=== PATIENT | male | born 1950 | race Caucasian/White ===

== ENCOUNTER 2020-11-24 16:39 | Inpatient (IN) | payer BC, MEDICARE ==
[~2020-11-24] VITALS: Ht 177.8 cm; Wt 96.0 kg
[2020-11-24] VITALS (19 sets, daily range): BP systolic 170–259; BP diastolic 100–154
[2020-11-24 17:17] LABS: BASO # 0.1 10^3/uL (0.0-0.2); BASO % 0.7 % (0.0-1.0); EOS # 0.3 10^3/uL (0.0-0.5); EOS % 3.2 % (0.0-3.0); HEMATOCRIT 43.6 % (42.0-52.0); HEMOGLOBIN 14.6 g/dl (13.5-17.5); LYMPH # 2.4 10^3/uL (1.5-5.0); LYMPH % 29.5 % (24.0-44.0); MEAN CORPUSCULAR HGB CONC 33.5 g/dl (32.0-36.5); MEAN CORPUSCULAR VOLUME 89.5 fl (80.0-96.0); MONO # 0.9 10^3/uL (0.0-0.8); MONO % 11.3 % (2.0-8.0); NEUTROPHILS # 4.4 10^3/uL (1.5-8.5); NEUTROPHILS % 55.2 % (36.0-66.0); PLATELET COUNT, AUTOMATED 258 10^3/uL (150-450); RED BLOOD COUNT 4.87 10^6/uL (4.30-6.10)
[2020-11-24 17:54] LABS: ALBUMIN 4.2 GM/DL (3.2-5.2); ALT/SGPT 26 U/L (12-78); BILIRUBIN,DIRECT < 0.1 MG/DL (0.0-0.2); BILIRUBIN,TOTAL 0.3 MG/DL (0.2-1.0); BLOOD UREA NITROGEN 22 MG/DL (7-18); CALCIUM LEVEL 9.2 MG/DL (8.8-10.2); CARBON DIOXIDE LEVEL 32 MEQ/L (21-32); CHLORIDE LEVEL 103 MEQ/L (98-107); CREATININE FOR GFR 1.04 MG/DL (0.70-1.30); GLOMERULAR FILTRATION RATE > 60.0 (>42); GLUCOSE, FASTING 100 MG/DL (70-100); POTASSIUM SERUM 3.6 MEQ/L (3.5-5.1); SODIUM LEVEL 140 MEQ/L (136-145); TOTAL PROTEIN 7.3 GM/DL (6.4-8.2)
[2020-11-24] MEDS ORDERED: LABETALOL 100MG/20ML VIAL IV STA ×2 (17:59→18:29)
[2020-11-24 18:48] LABS: APPEARANCE, URINE CLEAR (CLEAR); BACTERIA, URINE AUTO NEGATIVE (NEGATIVE); BILIRUBIN, URINE AUTO NEGATIVE (NEGATIVE); BLOOD, URINE BLOOD NEGATIVE (NEGATIVE); COLOR, URINE YELLOW (YELLOW); GLUCOSE, URINE (UA) AUTO NEGATIVE (NEGATIVE); KETONE, URINE AUTO NEGATIVE (NEGATIVE); LEUKOCYTE ESTERASE, URINE AUTO NEGATIVE (NEGATIVE); MUCUS, URINE SMALL (NEGATIVE); NITRITE, URINE AUTO NEGATIVE (NEGATIVE); PROTEIN, URINE AUTO 1+ mg/dL (NEGATIVE); RBC, URINE AUTO 0 /HPF (0-3); SPECIFIC GRAVITY URINE AUTO 1.013 (1.002-1.035); SQUAMOUS EPITHELIAL CELL UR AU 0 /HPF (0-6); UROBILINOGEN, URINE AUTO 0.2 mg/dL (0.0-2.0); WBC, URINE AUTO 1 /HPF (0-3)
--- NOTE | 2020-11-24 18:54 | REPVR ---
PROCEDURE INFORMATION: Exam: CT Head Without Contrast Exam date and time: 11/24/2020 6:08 PM Age: 70 years old Clinical indication: Visual disturbance; Additional info: Diplopia high BP TECHNIQUE: Imaging protocol: Computed tomography of the head without contrast. Radiation optimization: All CT scans at this facility use at least one of these dose optimization techniques: automated exposure control; mA and/or kV adjustment per patient size (includes targeted exams where dose is matched to clinical indication); or iterative reconstruction. COMPARISON: No relevant prior studies available. FINDINGS: Brain: Global cerebral atrophy is consistent with patient's age. Decreased attenuation within the white matter tracts of both cerebral hemispheres is nonspecific but typically seen with small vessel disease/chronic white matter ischemic changes of aging. No intracranial hemorrhage or mass effect. No abnormal intra-axial or extra-axial fluid collections. Cerebral ventricles: No ventriculomegaly. Bones/joints: Unremarkable. No acute fracture. Paranasal sinuses: Visualized sinuses are unremarkable. No fluid levels. Mastoid air cells: Visualized mastoid air cells are well aerated. Soft tissues: Unremarkable. IMPRESSION: No acute abnormality. Electronically signed by: Kahlil Garnica On 11/24/2020 18:53:41 PM
--- NOTE | 2020-11-24 19:54 | HPEPDOC ---
[facility] Medical History & Physical Date of Admission November 24, 2020 Date of Service: November 24, 2020 Attending Physician: WANDA DAWKINS DO History and Physical PCP The patient does not have a primary care physician at this time, he will need to establish one upon discharge CHIEF COMPLAINT: Hypertensive emergency, diplopia HISTORY OF PRESENT ILLNESS: Patient is 70-year-old male who presents emergency department with a four-day history of diplopia. At first it only occurred intermittently, but now it seems to be more constant. It only affects objects that are greater than approximately 4 feet away. Also, today he began to develop some pain/pressure behind his right eye. Upon presentation to the emergency department he had a blood pressure of 240/145. He was given 2 doses of labetalol 20 mg IV in the emergency department; it went down to 225/138 after the first dose, and then down to 188/119 after the second dose. CT of the head was unremarkable, MRA is still pending. He does not have any focal neural deficit other than diplopia. CODE STATUS: Full code PAST MEDICAL HISTORY: Hypertension Obstructive sleep apnea --- he has not seen a physician in many years, and has not taken any medication in many years, and it has also been many years since he has been reevaluated regarding his obstructive sleep apnea. PAST SURGICAL HISTORY: Throat surgery to remove his uvula and attempt to assist with obstructive sleep apnea Hydrocele repair decades ago Tonsils removed as a child SOCIAL HISTORY: Denies tobacco, alcohol, or illicit drug use. FAMILY HISTORY: Father had hypertension and suffered a myocardial infarction at age 53, his father at age 59 in a car accident. No other significant past medical history REVIEW OF SYSTEMS: Constitutional: Patient denies fevers, chills, night sweats, recent weight gain/ loss. HEENT: Patient admits to double vision, but denies any other type of transient visual disturbances. Denies postnasal drip, epistaxis, sore throat, difficulty chewing or swallowing food. Denies headache. He does wear glasses. Cardiovascular: Patient denies chest discomfort/pain, palpitations, exertional dyspnea, orthopnea, edema of the extremities, claudication. Respiratory: Patient denies dyspnea, wheezing, cough, hemoptysis, sputum production. Gastrointestinal: Patient denies nausea, vomiting, diarrhea, constipation, abdominal pain, melena, hematochezia, hematemesis, jaundice. PHYSICAL EXAMINATION: General: Awake, alert, oriented 3. He is in no acute distress at this time. HEENT: Head normocephalic atraumatic, conjunctiva are pink, sclera are nonicteric, buccal mucosa is pink and moist with no lesions in the oropharynx. Hearing is grossly intact to conversation. Extraocular movements are completely intact, visual roche by confrontation are also intact bilaterally. He does not report any scotomata or other visual disturbance such as rainbow, aura, or stretched images. Examination with the ophthalmoscope is a little challenging given that the light on the instrument I had was very dim, however from what I could tell, I couldn't see any flame hemorrhages, papilledema honestly could not be assessed. Respiratory: Clear to auscultation bilaterally with no wheezes, rales, or rhonchi. Cardiovascular: Regular rate and rhythm, with no rubs, gallops, or murmur. Abdomen: Soft, nontender, nondistended, no hepatosplenomegaly appreciated. Bowel sounds present. Extremities: 2+ pulses in the radial and dorsalis pedis bilaterally. No evidence of clubbing or cyanosis. ELECTROCARDIOGRAM: Sinus rhythm with changes suggestive of LVH IMAGING: CT of the head is unremarkable MRA still pending ASSESSMENT: Hypertensive emergency PLAN: Admit to PCU. The ED provider has successfully lowered his blood pressure by 25% in the first hour from 250 systolic down to 188 systolic. Goal would be to get him to approximately 160/100 over the next 2-6 hours, and then down to a normal blood pressure over 1-2 days. Will begin oral antihypertensive was labetalol 400 mg every 8 hours, and we'll continue to monitor blood pressure every 2 hours. We will adjust this dose as needed. Due to risk of hemorrhagic stroke, DVT prophylaxis will be achieved with TEDs Vital Signs Vital Signs Date Time Temp Pulse Resp B/P (MAP) Pulse Ox O2 Delivery O2 Flow Rate FiO2 11/24/20 18:57 188/119 (142) Room Air 11/24/20 18:54 69 16 96 11/24/20 16:45 97.4 Laboratory Data Labs 24H Laboratory Tests 2 11/24/20 17:05: Immature Granulocyte % (Auto) 0.1, Neutrophils (%) (Auto) 55.2, Lymphocytes (%) (Auto) 29.5, Monocytes (%) (Auto) 11.3H, Eosinophils (%) (Auto) 3.2H, Basophils (%) (Auto) 0.7, Neutrophils # (Auto) 4.4, Lymphocytes # (Auto) 2.4, Monocytes # (Auto) 0.9H, Eosinophils # (Auto) 0.3, Basophils # (Auto) 0.1, Nucleated Red Blood Cells % (auto) 0.0, Anion Gap 5L, Glomerular Filtration Rate > 60.0, Calcium Level 9.2, Total Bilirubin 0.3, Direct Bilirubin < 0.1, Aspartate Amino Transf (AST/SGOT) 15, Alanine Aminotransferase (ALT/SGPT) 26, Alkaline Phosphatase 51, Total Protein 7.3, Albumin 4.2, Albumin/Globulin Ratio 1.4 11/24/20 18:36: Urine Color YELLOW, Urine Appearance CLEAR, Urine pH 7.0, Urine Specific [place] 1.013, Urine Protein 1+H, Urine Glucose (Auto)(UA) NEGATIVE, Urine Ketones (Auto) NEGATIVE, Urine Blood NEGATIVE, Urine Nitrite NEGATIVE, Urine Bilirubin NEGATIVE, Urine Urobilinogen 0.2, Urine Leukocyte Esterase (Auto) NEGATIVE, Urine WBC (Auto) 1, Urine RBC (Auto) 0, Urine Hyaline Casts (Auto) 0, Urine Bacteria (Auto) NEGATIVE, Urine Squamous Epithelial Cells 0, Urine Mucus (Auto) SMALL, Urine Sperm (Auto) CBC/BMP Laboratory Tests 11/24/20 17:05 Microbiology Microbiology 11/24/20 Respiratory Virus Panel (PCR) ([facility]), Received Pending Home Medications No Active Prescriptions or Reported Meds Allergies Coded Allergies: No Known Drug Allergies (Verified Allergy, Unknown, 11/24/20) A-FIB/CHADSVASC A-FIB History Current/History of A-Fib/PAF?: No WANDA DAWKINS DO November 24, 2020 19:36
[2020-11-24] MEDS: LABETALOL 200 MG TAB PO SCH (22:44)
[2020-11-24] MEDS ORDERED: **hydrALAZINE** 50 MG TAB PO ONE (22:50)
[2020-11-25] VITALS (8 sets, daily range): BP systolic 108–159; BP diastolic 60–85
[2020-11-25] MEDS ORDERED: ENALAPRILAT INJ 2.5MG/2ML VIAL IV ONE (00:30)
[2020-11-25] MEDS ORDERED: NS 500 ML IV ONE ×2 (00:50→02:15)
[2020-11-25 01:10] LABS: NT-PRO BNP 113 PG/ML (<125)
[2020-11-25] MEDS: LABETALOL 200 MG TAB PO SCH (06:00)
[2020-11-25 06:09] LABS: HEMATOCRIT 38.6 % (42.0-52.0); HEMOGLOBIN 13.1 g/dl (13.5-17.5); MEAN CORPUSCULAR HEMOGLOBIN 30.4 pg (27.0-33.0); MEAN CORPUSCULAR HGB CONC 33.9 g/dl (32.0-36.5); MEAN CORPUSCULAR VOLUME 89.6 fl (80.0-96.0); PLATELET COUNT, AUTOMATED 213 10^3/uL (150-450); RED BLOOD COUNT 4.31 10^6/uL (4.30-6.10); WHITE BLOOD COUNT 9.3 10^3/uL (4.0-10.0)
[2020-11-25 06:38] LABS: BLOOD UREA NITROGEN 21 MG/DL (7-18); CALCIUM LEVEL 8.6 MG/DL (8.8-10.2); CARBON DIOXIDE LEVEL 28 MEQ/L (21-32); CHLORIDE LEVEL 106 MEQ/L (98-107); CREATININE FOR GFR 1.05 MG/DL (0.70-1.30); GLOMERULAR FILTRATION RATE > 60.0 (>42); GLUCOSE, FASTING 112 MG/DL (70-100); POTASSIUM SERUM 3.5 MEQ/L (3.5-5.1); SODIUM LEVEL 142 MEQ/L (136-145)
[2020-11-25] MEDS: lisinopriL 40 MG TAB PO SCH (08:26)
--- NOTE | 2020-11-25 13:23 | ECGEPIP ---
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
--- NOTE | 2020-11-25 16:29 | REP ---
INDICATION: Hypertensive emergency, diploplia. COMPARISON: Comparison CT study of the brain is from November 24, 2020.. TECHNIQUE: Axial and sagittal imaging planes are utilized for T1 and T2-weighted scans. Sequences include spin-echo, fast spin echo, FLAIR, and diffusion weighted sequences. FINDINGS: There are mild mucosal changes in the ethmoids sinuses. No intraorbital abnormality is appreciated. No bony calvarial lesion is seen. The lateral, third, and fourth ventricles are normal in size and position. Patton-white differentiation pattern is intact above and below the tentorium. There is no evidence of intracranial hemorrhage. No mass, infarction, extra-axial fluid collection or midline shift is seen. No abnormal white matter lesion is seen. Diffusion-weighted scans show no evidence of restricted diffusion to suggest acute ischemia. There are minimal small vessel changes in the periventricular and subcortical white matter. IMPRESSION: Mild small vessel changes. No acute intracranial abnormality.. <Electronically signed by Tomasz Eng > 11/25/20 [id number]
--- NOTE | 2020-11-25 16:33 | REP ---
INDICATION: hypertensive emergency. COMPARISON: None. TECHNIQUE: 3-D [id number] MR angiography of the brain is acquired in the usual fashion and maximal intensity projection images were generated in rotational format about the vertical and horizontal axes. In addition, source axial T1-weighted images are viewed in cine mode. FINDINGS: The distal vertebral arteries are patent and co-dominant. Basilar artery is a little tortuous but widely patent. The posterior cerebral and superior cerebellar vessels are normal and symmetric. The distal internal carotid arteries are unremarkable. Anterior and middle cerebral arteries appear intact. There is no visible fernandes aneurysm or arteriovenous malformation. IMPRESSION: Unremarkable MR angiography the brain. <Electronically signed by Tomasz Eng > 11/25/20 [id number]
--- NOTE | 2020-11-25 19:17 | IPNPDOC ---
Text Note Date of Service The patient was seen on 11/25/20. NOTE Hospitalist Progress Note Subjective: Overnight the patient did have persistently elevated blood pressures, therefore an additional dose of hydralazine and Vasotec were given overnight. His blood pressure subsequently went down, and has remained in an acceptable range since that time. Clinically he is still doing well, he does continue to have diplopia. Objective: General: Awake, alert, oriented 3. Not in any acute distress. HEENT: Head normocephalic, atraumatic, sclera are nonicteric. Hearing is grossly intact to conversation. Patient still is complaining of diplopia for objects that are approximately 6-7 feet away or farther. Respiratory: Clear to auscultation bilaterally with no wheezes, rales, or rhonchi. Cardiovascular: Regular rate and rhythm, with no rubs, gallops, or murmur. Abdomen: Soft, nontender, nondistended, no hepatosplenomegaly appreciated. Bowel sounds present. Extremities: 2+ pulses in the radial and dorsalis pedis bilaterally. No evidence of clubbing or cyanosis. Assessment: Hypertensive emergency Diplopia Plan: -MRA was ordered stat last night in the ER and still hasn't happened, apparently an MRI was not ordered, therefore I will add it at this time. -Since his blood pressure is now within acceptable limits, I will discontinue the labetalol and give him 40 mg of lisinopril. If his pressures are still within reasonable control throughout the day, then I would anticipate discharge tomorrow -He does not have a PCP, this will need to be set up for him upon discharge. -If diplopia persists, recommend very quick outpatient follow-up with ophthalmology as well, assuming that his MRA/MRI are negative. VS,Fishbone, I+O VS, Fishbone, I+O Laboratory Tests 11/25/20 05:35 Vital Signs Date Time Temp Pulse Resp B/P (MAP) Pulse Ox O2 Delivery O2 Flow Rate FiO2 11/25/20 16:45 97.4 58 18 150/70 (96) 97 Room Air I&O- Last 24 Hours up to 6 AM 11/25/20 06:00 Intake Total 1120 ml Output Total 340 ml Balance 780 ml WANDA DAWKINS DO November 25, 2020 19:17
[2020-11-26] VITALS: BP 174/91
[2020-11-26 01:15] VITALS: BP 162/88
[2020-11-26 04:00] VITALS: BP 178/86
[2020-11-26 05:47] VITALS: BP 166/91
[2020-11-26 05:48] LABS: HEMATOCRIT 39.1 % (42.0-52.0); HEMOGLOBIN 12.9 g/dl (13.5-17.5); MEAN CORPUSCULAR HEMOGLOBIN 30.1 pg (27.0-33.0); MEAN CORPUSCULAR VOLUME 91.1 fl (80.0-96.0); PLATELET COUNT, AUTOMATED 205 10^3/uL (150-450); RED BLOOD COUNT 4.29 10^6/uL (4.30-6.10); WHITE BLOOD COUNT 6.5 10^3/uL (4.0-10.0)
[2020-11-26 06:19] LABS: BLOOD UREA NITROGEN 23 MG/DL (7-18); CALCIUM LEVEL 8.2 MG/DL (8.8-10.2); CARBON DIOXIDE LEVEL 30 MEQ/L (21-32); CHLORIDE LEVEL 106 MEQ/L (98-107); CREATININE FOR GFR 1.06 MG/DL (0.70-1.30); GLOMERULAR FILTRATION RATE > 60.0 (>42); GLUCOSE, FASTING 94 MG/DL (70-100); MAGNESIUM LEVEL 2.3 MG/DL (1.8-2.4); POTASSIUM SERUM 3.5 MEQ/L (3.5-5.1); SODIUM LEVEL 142 MEQ/L (136-145)
[2020-11-26 07:31] VITALS: BP 158/94
[2020-11-26] MEDS: lisinopriL 40 MG TAB PO SCH (09:16)
[2020-11-26] MEDS ORDERED: LISI40TA4 PO (10:13)
[2020-11-26] MEDS ORDERED: ACETAMINOPHEN 500 MG TAB PO ONE (10:30)
--- NOTE | 2020-11-26 16:54 | DS.PDOC ---
Discharge Summary General Date of Admission November 24, 2020 at 19:06 Date of Discharge 11/26/20 Discharge Summary PROCEDURES PERFORMED DURING STAY: [None]. DISCHARGE DIAGNOSES: Hypertensive urgency Diplopia H/o LLOYD H/o Uvula surgery COMPLICATIONS/CHIEF COMPLAINT: Hypertensive Emergency. HOSPITAL COURSE: Patient is 70-year-old male who presents emergency department with a four-day history of diplopia. At first it only occurred intermittently, but now it seems to be more constant. It only affects objects that are greater than approximately 4 feet away. Also, on the day of admission he began to develop some pain/pressure behind his right eye. Upon presentation to the emergency department he had a blood pressure of 240/145. He was given 2 doses of labetalol 20 mg IV in the emergency department; it went down to 225/138 after the first dose, and then down to 188/119 after the second dose. CT of the head was unremarkable, MRA and MRI of brain did not show any abnormalities except for some chronic microvascular changes. He was managed for hypertensive urgency with labetalol and lisinopril. He had not been taking any medications for hypertension for several years. Last had a physicl about 3 years ago when he reports his Bp was OK. Has no PMDs. Will be set up with a new PMD. DISCHARGE MEDICATIONS: Please see below. ALLERGIES: Please see below. PHYSICAL EXAMINATION ON DISCHARGE: VITAL SIGNS: Please see below. General: Awake, alert, oriented 3. He is in no acute distress. HEENT: Head normocephalic atraumatic, conjunctiva are pink, sclera are non icteric, buccal mucosa is pink and moist with no lesions in the oropharynx. Hearing is grossly intact to conversation. Extraocular movements are completely intact, visual roche by confrontation are also intact bilaterally. Respiratory: Clear to auscultation bilaterally with no wheezes, rales, or r honchi. Cardiovascular: Regular rate and rhythm, with no rubs, gallops, or murmur. Abdomen: Soft, nontender, nondistended, no hepatosplenomegaly appreciated. Bowel sounds present. Extremities: 2+ pulses in the radial and dorsalis pedis bilaterally. No evidence of clubbing or cyanosis. LABORATORY DATA: Please see below. IMAGING: MRI brain: There are mild mucosal changes in the ethmoids sinuses. No intraorbital abnormality is appreciated. No bony calvarial lesion is seen. The lateral, third, and fourth ventricles are normal in size and position. Patton-white differentiation pattern is intact above and below the tentorium. There is no evidence of intracranial hemorrhage. No mass, infarction, extra-axial fluid collection or midline shift is seen. No abnormal white matter lesion is seen. Diffusion- weighted scans show no evidence of restricted diffusion to suggest acute ischemia. There are minimal small vessel changes in the periventricular and subcortical white matter. IMPRESSION: Mild small vessel changes. No acute intracranial abnormality. MRA Brain; FINDINGS: The distal vertebral arteries are patent and co-dominant. Basilar artery is a little tortuous but widely patent. The posterior cerebral and superior cerebellar vessels are normal and symmetric. The distal internal carotid arteries are unremarkable. Anterior and middle cerebral arteries appear intact. There is no visible fernandes aneurysm or arteriovenous malformation. IMPRESSION: Unremarkable MR angiography the brain. ACTIVITY: [As tolerated]. DIET: 2 gm sodium DISCHARGE PLAN: Home DISCHARGE INSTRUCTIONS: Ophthalmology LISA PMD in 1 week DISCHARGE CONDITION: [Stable]. TIME SPENT ON DISCHARGE: 35 minutes. Vital Signs/I&Os Vital Signs Date Time Temp Pulse Resp B/P (MAP) Pulse Ox O2 Delivery O2 Flow Rate FiO2 11/26/20 05:47 61 166/91 (116) 11/26/20 04:00 98.8 18 91 Room Air I&O- Last 24 Hours up to 6 AM 11/26/20 06:00 Intake Total 900 ml Output Total 0 ml Balance 900 ml Laboratory Data Labs 24H Laboratory Tests 2 11/26/20 05:24: Anion Gap 6L, Glomerular Filtration Rate > 60.0, Calcium Level 8.2L, Magnesium Level 2.3 11/26/20 05:25: Nucleated Red Blood Cells % (auto) 0.0 CBC/BMP Laboratory Tests 11/26/20 05:24 11/26/20 05:25 Microbiology Microbiology 11/24/20 Respiratory Virus Panel (PCR) ([facility]) - Final, Complete Discharge Medications Scheduled Lisinopril (Lisinopril) 40 Mg Tablet, 40 MG PO DAILY Allergies Coded Allergies: No Known Drug Allergies (Verified Allergy, Unknown, 11/24/20) ZAYNAB HOLDER MD November 26, 2020 07:24
== END 2020-11-26 10:59 | disposition home or self-care (01) | DRG 305 ==
LOC: M ED 16:39 → M ED INP 19:06 → ENRESERVDT 20:56 → ENRESERVTM 20:56 → M PCU 22:24
PROVIDERS: ADMIT Neuromusculoskeletal Medicine & OMM; ATTEND Internal Medicine Nephrology
DX: I16.0 Hypertensive urgency (principal); H53.2 Diplopia; G47.33 Obstructive sleep apnea (adult) (pediatric)

== ENCOUNTER → 2020-12-04 | Outpatient (REF) | payer MEDICARE ==
[~2020-12-04] MED LIST: LISI40TA4 PO
[2020-12-04 17:12] LABS: BLOOD UREA NITROGEN 22 MG/DL (7-18); CALCIUM LEVEL 9.3 MG/DL (8.8-10.2); CARBON DIOXIDE LEVEL 30 MEQ/L (21-32); CHLORIDE LEVEL 105 MEQ/L (98-107); CREATININE FOR GFR 1.06 MG/DL (0.70-1.30); GLOMERULAR FILTRATION RATE > 60.0 (>42); GLUCOSE, FASTING 115 MG/DL (70-100); POTASSIUM SERUM 3.7 MEQ/L (3.5-5.1); SODIUM LEVEL 139 MEQ/L (136-145)
== END ==
LOC: M SFHCPLAZ 10:15
PROVIDERS: ATTEND Family Medicine
DX: I10 Essential (primary) hypertension (principal)

== ENCOUNTER → 2021-03-24 | Outpatient (CLI) | payer MEDICARE ==
[2021-03-24 13:36] LABS: BASO # 0.1 10^3/uL (0.0-0.2); EOS # 0.4 10^3/uL (0.0-0.5); EOS % 5.2 % (0.0-3.0); HEMATOCRIT 42.5 % (42.0-52.0); HEMOGLOBIN 14.2 g/dl (13.5-17.5); LYMPH # 2.1 10^3/uL (1.5-5.0); LYMPH % 27.1 % (24.0-44.0); MEAN CORPUSCULAR HEMOGLOBIN 30.4 pg (27.0-33.0); MEAN CORPUSCULAR HGB CONC 33.4 g/dl (32.0-36.5); MONO # 0.8 10^3/uL (0.0-0.8); MONO % 10.9 % (2.0-8.0); NEUTROPHILS # 4.2 10^3/uL (1.5-8.5); NEUTROPHILS % 55.5 % (36.0-66.0); PLATELET COUNT, AUTOMATED 257 10^3/uL (150-450); RED BLOOD COUNT 4.67 10^6/uL (4.30-6.10); WHITE BLOOD COUNT 7.6 10^3/uL (4.0-10.0)
[2021-03-24 15:43] LABS: ALBUMIN 3.9 GM/DL (3.2-5.2); ALT/SGPT 28 U/L (12-78); BILIRUBIN,TOTAL 0.5 MG/DL (0.2-1.0); BLOOD UREA NITROGEN 19 MG/DL (7-18); CALCIUM LEVEL 9.2 MG/DL (8.8-10.2); CARBON DIOXIDE LEVEL 32 MEQ/L (21-32); CHLORIDE LEVEL 103 MEQ/L (98-107); CREATININE FOR GFR 1.04 MG/DL (0.70-1.30); GLOMERULAR FILTRATION RATE > 60.0 (>42); GLUCOSE, FASTING 96 MG/DL (70-100); MAGNESIUM LEVEL 2.6 MG/DL (1.8-2.4); NT-PRO BNP 42 PG/ML (<125); POTASSIUM SERUM 4.5 MEQ/L (3.5-5.1); SODIUM LEVEL 139 MEQ/L (136-145); TOTAL PROTEIN 7.2 GM/DL (6.4-8.2)
== END ==
LOC: M PLALAB 10:28
PROVIDERS: ATTEND Student in an Organized Health Care Education/Training Program
DX: I10 Essential (primary) hypertension (principal)

== ENCOUNTER 2021-05-06 09:14 | Inpatient (IN) | payer MEDICARE ==
[~2021-05-06] VITALS: Ht 177.8 cm; Wt 82.6 kg
[~2021-05-06 09:14] MED LIST changes: +dexameTHASONE 4 MG/ML 1ML VIAL (J1100 PER 1MG) IV SCH
[2021-05-06] MEDS ORDERED: NS 500 ML IV ONE (09:40)
--- NOTE | 2021-05-06 10:00 | REP ---
INDICATION: DYSPNEA/COUGH. COMPARISON: 07/22/2009. TECHNIQUE: Single portable AP view of the chest was performed. FINDINGS: There is no acute infiltrate or pulmonary edema. There is mild bibasilar fibro atelectatic change. The heart is not significantly enlarged. The mediastinal silhouette is unremarkable. The visualized osseous structures are intact. IMPRESSION: No acute pulmonary disease. <Electronically signed by Matti Patton > 05/06/21 0956
--- OUTSIDE RECORDS SUMMARY | 2021-05-06 10:17 | CCD ---
Author Author [facility] Organization [facility] Address Unknown Phone Unavailable Care Team Providers Care Prospecting Driller Name Role Phone Ana Tyler Unavailable PROBLEMS Type Condition ICD9-CM Code [id number] Code Onset Dates Condition S tatus W/U Status Risk SNOMED Code Notes Problem Hypertension, unspecified type I10 Active confir med 86301736 Problem Secondary hypertension I15.9 Active confirmed [id number] ALLERGIES No Known Allergies ENCOUNTERS from 1950 to 2021-05-01 Encounter Location Date Provider Diagnosis [facility] [place] [address] [phone] [place] [id number] Apr, Tyler Perez IMMUNIZATIONS No Information SOCIAL HISTORY Tobacco Use: Social History Observation Description Date Details (start date - stop date) Never Smoker Sex Assigned At : Social History Observation Description Sex Assigned At Unknown Education: Question Answer Notes Level of Education: Not Finished 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 Question Answer Notes Total Score: 3 Interpretation: Alcohol Education Language: Question Answer Notes Languages spoken: Mongolian Jewish: Question Answer Notes Jewish 08 Evangelical Drug and Alcohol Question Answer Notes Total Score: 0 Interpretation: No problems reported Alcohol Screening: Question Answer Notes Did you have a drink containing alcohol in the past year? Ye s Points 1 Interpretation Negative How often did you have six or more drinks on one occas ion in the past year? Never (0 points) How many drinks did you have on a typica l day when you were drinking in the past year? 1 or 2 (0 points) How often did you have a drink containing alcohol in t he past year? Monthly or less (1 point) Tobacco Use: Question Answer Notes Are you a: never smoker REASON FOR REFERRAL No Information VITAL SIGNS No information MEDICATIONS Medication SIG (Take, Route, Frequency, Duration) Notes Start Da te End Date Status Lisinopril 40 MG 1 tablet Orally Once a day for 90 days Active Fish Oil 1000 MG 1 capsule Orally Once a day for 30 day(s) Active Vitamin D-3 25 MCG (1000 UT) 1 capsule Orally Once a day for 30 day(s ) Active hydroCHLOROthiazide 12.5 MG 1 tablet in the MORNING Or ally Once a day for 30 day(s) Mar, Not-Taking Telmisartan 80 MG 1 tablet Orally Every night for 30 day(s) Apr, Active Aspirin 81 81 MG 1 tablet Orally Once a day for 30 day(s) Active Cetirizine HCl 10 MG 1 tablet Orally Once a day for 30 day(s) Apr, Active Cartia XT 240 MG 1 capsule Orally Once a day for 30 day(s) Apr, Active hydrOXYzine HCl 25 MG 1 tablet Orally at night/bedtime for 30 da y(s) Apr, Active Amlodipine Besylate 10 MG 1 tablet Orally Once a day for 30 Not-Taking PROCEDURES No Information RESULTS No Results REASON FOR VISIT No Information MEDICAL (GENERAL) HISTORY Type Description Date Medical History High blood pressure Surgical History Throat 1999 Surgical History Testical 1971 Hospitalization History Blood pressure 11/2020 Goals Section No Information Health Concerns No Information MEDICAL EQUIPMENT No Information MENTAL STATUS No Information FUNCTIONAL STATUS No Information ASSESSMENTS No Information PLAN OF TREATMENT Medication Medication Name Sig Start Date Stop Date Telmisartan 80 MG 1 tablet Orally Every night for 30 day(s) 2020 Lisinopril 40 MG 1 tablet Orally Once a day for 90 days Next Appt Details Provider Name:Tyler Perez, 2021-06-19 03: 00:00 PM, [address] , , [place], [address], Insurance Providers Payer Name Payer Address Payer Phone Insured Name Patient Relati onship to Insured Coverage Start Date Coverage End Date MEDICARE BLUE PPO [id number] [address] GALA DELCID self
--- OUTSIDE RECORDS SUMMARY | 2021-05-06 10:17 | CCD ---
Author Author [facility] Organization [facility] Address Unknown Phone Unavailable Care Team Providers Care Parking Meter Servicer Name Role Phone Ana Tyler Unavailable PROBLEMS Type Condition ICD9-CM Code [id number] Code Onset Dates Condition S tatus W/U Status Risk SNOMED Code Notes Problem Hypertension, unspecified type I10 Active confir med [id number] Problem Secondary hypertension I15.9 Active confirmed [id number] ALLERGIES No Known Allergies ENCOUNTERS from 1950 to 2021-04-30 Encounter Location Date Provider Diagnosis [facility] [place] [address] [facility] [address] [phone] [place] [id number] Apr, Tyler Perez IMMUNIZATIONS No Information SOCIAL HISTORY Tobacco Use: Social History Observation Description Date Details (start date - stop date) Never Smoker Sex Assigned At : Social History Observation Description Sex Assigned At Unknown Education: Question Answer Notes Level of Education: Not Finished 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 Question Answer Notes Total Score: 3 Interpretation: Alcohol Education Language: Question Answer Notes Languages spoken: Armenian Buddhist: Question Answer Notes Buddhist 08 Quaker Drug and Alcohol Question Answer Notes Total [...] Information RESULTS No Results REASON FOR VISIT Itching MEDICAL (GENERAL) HISTORY Type Description Date Medical [...] Name:Tyler Perez, 2021-06-19 03: 00:00 PM, [address] , , [place], [address], Insurance Providers Payer Name Payer Address Payer Phone Insured Name Patient Relati onship to Insured Coverage Start Date Coverage End Date MEDICARE BLUE PPO [id number] [address] GALA DELCID self
--- OUTSIDE RECORDS SUMMARY | 2021-05-06 10:17 | CCD ---
Author Author [facility] Organization [facility] Address Unknown Phone Unavailable Care Team Providers Care Ski Topper Name Role Phone Tyler Perez Unavailable PROBLEMS Type Condition ICD9-CM Code [id number] Code Onset Dates Condition S tatus W/U Status Risk SNOMED Code Notes Problem Hypertension, unspecified type I10 Active confir med 70302765 Problem Secondary hypertension I15.9 Active confirmed [id number] ALLERGIES No Known Allergies ENCOUNTERS from 1950 to 2021-04-07 Encounter Location Date Provider Diagnosis [address] [phone] [place] [address] Mar, Tyler Perez Hypertension, unspecified ty pe I10 IMMUNIZATIONS No Information SOCIAL HISTORY Tobacco Use: Social History Observation Description Date Details (start date - stop date) Never Smoker Sex Assigned At : Social History Observation Description Sex Assigned At Unknown Education: Question Answer Notes Level of Education: Not Finished 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 Question Answer Notes Total Score: 3 Interpretation: Alcohol Education Language: Question Answer Notes Languages spoken: Ukrainian Scientology: Question Answer Notes Scientology 08 Cheondoism Drug and Alcohol Question Answer Notes Total [...] Notes Start Da te End Date Status Fish Oil 1000 MG 1 capsule Orally Once a day for 30 day(s) Active hydroCHLOROthiazide 12.5 MG 1 tablet in the MORNING Or ally Once a day for 30 day(s) Mar, Active Vitamin D-3 25 MCG (1000 UT) 1 capsule Orally Once a day for 30 day(s ) Active Lisinopril 40 MG 1 tablet Orally Once a day Active Aspirin 81 81 MG 1 tablet Orally Once a day for 30 day(s) Active Chlorthalidone 25 MG 1 tablet in the morning with food Orally Once a day for 30 day(s) Mar, Active Amlodipine Besylate 10 MG 1 tablet Orally Once a day for 30 Active PROCEDURES No Information RESULTS No Results REASON FOR VISIT Chlorthalidone MEDICAL (GENERAL) HISTORY Type Description Date Medical History High blood pressure Surgical History Throat 1999 Surgical History Testical 1972 Hospitalization History Blood pressure 11/2020 Goals Section No Information Health Concerns No Information MEDICAL EQUIPMENT No Information MENTAL STATUS No Information FUNCTIONAL STATUS No Information ASSESSMENTS Encounter Date Diagnosis Assessment Notes Treatment Notes Treatm ent Clinical Notes Mar, Hypertension, unspecified type (ICD-10 - I10) PLAN OF TREATMENT Medication Medication Name Sig Start Date Stop Date Chlorthalidone 25 MG 1 tablet in the morning with food Orally Once a day for 30 day(s) Mar, Lisinopril 40 MG 1 tablet Orally Once a day Amlodipine Besylate 10 MG 1 tablet Orally Once a day for 30 hydroCHLOROthiazide 12.5 MG 1 tablet in the MORNING Or ally Once a day for 30 day(s) Mar, Next Appt Details Provider Name:Tyler Perez, 2021-04-15 03: 00:00 PM, [address] [facility] [address] , , [place], [address], Insurance Providers Payer Name Payer Address Payer Phone Insured Name Patient Relati onship to Insured Coverage Start Date Coverage End Date MEDICARE BLUE PPO [address] [address] GALA NDIAYE self
--- OUTSIDE RECORDS SUMMARY | 2021-05-06 10:17 | CCD ---
Author Author [facility] Organization [facility] Address Unknown Phone Unavailable Care Team Providers Care Hoister Name Role Phone Ana Tyler Unavailable PROBLEMS Type Condition ICD9-CM Code [id number] Code Onset Dates Condition S tatus W/U Status Risk SNOMED Code Notes Problem Hypertension, unspecified type I10 Active confir med 02993677 Problem Secondary hypertension I15.9 Active confirmed 79856960 ALLERGIES No Known Allergies ENCOUNTERS from 1950 to 2021-04-17 Encounter Location Date Provider Diagnosis [facility] [place] [address] [phone] [place] [id number] Apr, Tyler Perez IMMUNIZATIONS No Information SOCIAL HISTORY Tobacco Use: Social History Observation Description Date Details (start date - stop date) Never Smoker Sex Assigned At : Social History Observation Description Sex Assigned At Unknown Education: Question Answer Notes Level of Education: Not Finished 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 Question Answer Notes Total Score: 3 Interpretation: Alcohol Education Language: Question Answer Notes Languages spoken: Hungarian Orthodoxy: Question Answer Notes Orthodoxy 08 Episcopal Drug and Alcohol Question Answer Notes Total [...] Notes Start Da te End Date Status hydrOXYzine HCl 25 MG 1 tablet Orally at night/bedtime for 30 da y(s) Apr, Active Aspirin 81 81 MG 1 tablet Orally Once a day for 30 day(s) Active Vitamin D-3 25 MCG (1000 UT) 1 capsule Orally Once a day for 30 day(s ) Active Cartia XT 240 MG 1 capsule Orally Once a day for 30 day(s) Apr, Active hydroCHLOROthiazide 12.5 MG 1 tablet in the MORNING Or ally Once a day for 30 day(s) Mar, Not-Taking Cetirizine HCl 10 MG 1 tablet Orally Once a day for 30 day(s) Apr, Active Amlodipine Besylate 10 MG 1 tablet Orally Once a day for 30 Not-Taking Fish Oil 1000 MG 1 capsule Orally Once a day for 30 day(s) Active PROCEDURES No Information RESULTS No Results REASON FOR VISIT Follow-up MEDICAL (GENERAL) HISTORY Type Description Date Medical History High blood pressure Surgical History Throat 1999 Surgical History Testical 1972 Hospitalization History Blood pressure 11/2020 Goals Section No Information Health Concerns No Information MEDICAL EQUIPMENT No Information MENTAL STATUS No Information FUNCTIONAL STATUS No Information ASSESSMENTS No Information PLAN OF TREATMENT Medication Medication Name Sig Start Date Stop Date hydrOXYzine HCl 25 MG 1 tablet Orally at night/bedtime for 3 0 day(s) Apr, Cetirizine HCl 10 MG 1 tablet Orally Once a day for 30 day(s) Apr, Cartia XT 240 MG 1 capsule Orally Once a day for 30 day(s) 2020 Insurance Providers Payer Name Payer Address Payer Phone Insured Name Patient Relati onship to Insured Coverage Start Date Coverage End Date MEDICARE BLUE PPO [address] [facility] [place] [id number] GALA DELCID self
--- OUTSIDE RECORDS SUMMARY | 2021-05-06 10:17 | CCD ---
Author Author [facility] Organization [facility] Address Unknown Phone Unavailable Care Team Providers Care Tax Commissioner Name Role Phone Tyler Perez Unavailable PROBLEMS Type Condition ICD9-CM Code RPG73-AV Code Onset Dates Condition S tatus W/U Status Risk SNOMED Code Notes Problem Hypertension, unspecified type I10 Active confir med 61598750 Problem Secondary hypertension I15.9 Active confirmed 53368370 ALLERGIES No Known Allergies ENCOUNTERS from 1950 to 2021-03-24 Encounter Location Date Provider Diagnosis [facility] [place] [address] [facility] [address] [phone] [place] [address] Mar, Tyler Perez Hypertension, unspec ified type I10 and Side effect of medication T88.7XXA IMMUNIZATIONS No Information SOCIAL HISTORY Tobacco Use: Social History Observation Description Date Details (start date - stop date) Never Smoker Sex Assigned At : Social History Observation Description Sex Assigned At Unknown Education: Question Answer Notes Level of Education: Not Finished 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 Question Answer Notes Total Score: 3 Interpretation: Alcohol Education Language: Question Answer Notes Languages spoken: Maldivian Caodaism: Question Answer Notes Caodaism 08 [facility] Drug and Alcohol Question Answer Notes Total [...] for 30 day(s) Active Chlorthalidone 25 MG 1/2 tablet (12.5mg) in the M ORNING with food Orally Once a day for 30 day(s) Mar, Active Amlodipine Besylate 10 MG 1 tablet Orally Once a day for 30 Active PROCEDURES No Information RESULTS No Results REASON FOR VISIT itching due to meds MEDICAL (GENERAL) HISTORY Type Description Date Medical History High blood pressure Surgical History Throat 1999 Surgical History Testical 1971 Hospitalization History Blood pressure 11/2020 Goals Section No Information Health Concerns No Information MEDICAL EQUIPMENT No Information MENTAL STATUS No Information FUNCTIONAL STATUS No Information ASSESSMENTS Encounter Date Diagnosis Assessment Notes Treatment Notes Treatm ent Clinical Notes Mar, Hypertension, unspecified type (ICD-10 - I10) Due to side effect of itching patient has been instructed to discontinue amlodipine. Patient kept diary of his blood pressures for the and of this month. Patient has been instucted to take chlorthalidone 12.5 mg QD in mornings. Mistakenly sent HCTZ to patients pharmacy, which he picked up. I was able to call him and tell him about the mix up and sent the correct medication to the pharmacy and he will pick it up tomorrow after work. I told him to be mindful of symptoms such as dizziness, headache, fatigue, and confusion, while taking this medication and to call us and go to the ER if he ever experiences any of these symptoms for which he understood. Patient was also in agreement to come in for lab monitoring following starting his medication. Mar, Side effect of medication (ICD-10 - T88.7XXA) Patient has experienced itching since around the time he started amlodipine. On 03/18/2021 he was instructed to drop the medication dose down to 5 mg from 10 mg and keep a diary of his blood pressure (a.m. and p.m.). When checking with the patient on 03/21/2021 he stated that the itching was no better on this dose that was converted to [address] Anderson on this matter and he came to the decision of disc ontinuing his medication and the patient is in agreement with this plan. PLAN OF TREATMENT Medication Medication Name Sig Start Date Stop Date Chlorthalidone 25 MG 1/2 tablet (12.5mg) in the M ORNING with food Orally Once a day for 30 day(s) Mar, Lisinopril 40 MG 1 tablet Orally Once a day Amlodipine Besylate 10 MG 1 tablet Orally Once a day for 30 hydroCHLOROthiazide 12.5 MG 1 tablet in the MORNING Or ally Once a day for 30 day(s) Mar, Treatment Notes Assessment Notes Clinical Notes Hypertension, unspecified type Due to si de effect of itching patient has been instructed to discontinue amlodipine.Patient kept diary of his blood pressures for the and of this month.Patient has been instucted to take chlorthalidone 12.5 mg QD in mornings. Mistakenly sent HCTZ to patients pharmacy, which he picked up. I was able to call him and tell him about the mix up and sent the correct medication to the pharmacy and he will pick it up tomorrow after work.I told him to be mindful of symptoms such as dizziness, headache, fatigue, and confusion, while taking this medication and to call us and go to the ER if he ever experiences any of these symptoms for which he understood.Patient was also in agreement to come in for lab monitoring following starting his medication. Side effect of medication Patient has ex perienced itching since around the time he started amlodipine.On 03/18/2021 he was instructed to drop the medication dose down to 5 mg from 10 mg and keep a diary of his blood pressure (a.m. and p.m.).When checking with the patient on 03/21/2021 he stated that the itching was no better on this dose that was converted to [address] Anderson on this matter and he came to the decision of discontinuing his medication and the patient is in agreement with this plan. Treatment Notes Test Name Order Date CBC with Differential 2021-03-18 Comprehensive Metabolic Profile (CMP) 2021-03-18 MAGNESIUM LEVEL 2021-03-18 NT-PRO BNP 2021-03-18 Future Test Test Name Order Date CBC with Differential [id number] Comprehensive Metabolic Profile (CMP) [id number] NT-PRO BNP [id number] MAGNESIUM LEVEL [id number] Next Appt Details Provider Name:Tyler Perez, 2021-04-15 03: 00:00 PM, [address] [facility], , [place], [address], Insurance Providers Payer Name Payer Address Payer Phone Insured Name Patient Relati onship to Insured Coverage Start Date Coverage End Date [facility]IC[facility]UE [facility] [address] [facility] [id number] GALA NDIAYE self
--- OUTSIDE RECORDS SUMMARY | 2021-05-06 10:17 | CCD ---
Author Author [facility] Organization [facility] Address Unknown Phone Unavailable Care Team Providers Care Drum Puller Name Role Phone Ana Tyler Unavailable PROBLEMS Type Condition ICD9-CM Code [id number] Code Onset Dates Condition S tatus W/U Status Risk SNOMED Code Notes Problem Hypertension, unspecified type I10 Active confir med 62247965 Problem Secondary hypertension I15.9 Active confirmed 66500445 ALLERGIES No Known Allergies ENCOUNTERS from 1950 to 2021-04-19 Encounter Location Date Provider Diagnosis [facility] [place] [address] [facility] [address] [phone] [place] [id number] Apr, Tyler Perez IMMUNIZATIONS No Information SOCIAL HISTORY Tobacco Use: Social History Observation Description Date Details (start date - stop date) Never Smoker Sex Assigned At : Social History Observation Description Sex Assigned At Unknown Education: Question Answer Notes Level of Education: Not Finished 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 Question Answer Notes Total Score: 3 Interpretation: Alcohol Education Language: Question Answer Notes Languages spoken: Chinese Judaism: Question Answer Notes Judaism 08 Latter-Day Drug and Alcohol Question Answer Notes Total [...] Information RESULTS No Results REASON FOR VISIT BP MEDICAL (GENERAL) HISTORY Type Description Date Medical [...] Coverage End Date MEDICARE BLUE PPO [address] [facility] [place] [id number] GALA DELCID self
--- OUTSIDE RECORDS SUMMARY | 2021-05-06 10:17 | CCD ---
Author Author [facility] Organization [facility] Address Unknown Phone Unavailable Care Team Providers Care Tooling Specialist Name Role Phone Ana Tyler Unavailable PROBLEMS Type Condition ICD9-CM Code PEA79-JW Code Onset Dates Condition S tatus W/U Status Risk SNOMED Code Notes Problem Hypertension, unspecified type I10 Active confir med 00949196 Problem Secondary hypertension I15.9 Active confirmed 59443254 ALLERGIES No Known Allergies ENCOUNTERS from 1950 to 2021-05-01 Encounter Location Date Provider Diagnosis [facility] [place] [address] [facility] [address] [phone] [place] [id number] Apr, Tyler Perez IMMUNIZATIONS No Information SOCIAL HISTORY Tobacco Use: Social History Observation Description Date Details (start date - stop date) Never Smoker Sex Assigned At : Social History Observation Description Sex Assigned At Unknown Education: Question Answer Notes Level of Education: Not Finished 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 Question Answer Notes Total Score: 3 Interpretation: Alcohol Education Language: Question Answer Notes Languages spoken: Vietnamese Buddhist: Question Answer Notes Buddhist 08 Caodaism Drug and Alcohol Question Answer Notes Total [...] Name:Tyler Perez, 2021-06-19 03: 00:00 PM, [address] [facility] [address] , , [place], [address], Insurance Providers Payer Name Payer Address Payer Phone Insured Name Patient Relati onship to Insured Coverage Start Date Coverage End Date MEDICARE BLUE PPO [address] [address] GALA DELCID self
--- OUTSIDE RECORDS SUMMARY | 2021-05-06 10:17 | CCD ---
Author Author [facility] Organization [facility] Address Unknown Phone Unavailable Care Team Providers Care Mop Man Name Role Phone Ana Tyler Unavailable PROBLEMS Type Condition ICD9-CM Code LEV06-TS Code Onset Dates Condition S tatus W/U Status Risk SNOMED Code Notes Problem Hypertension, unspecified type I10 Active confir med 14305105 Problem Secondary hypertension I15.9 Active confirmed 43198686 ALLERGIES No Known Allergies ENCOUNTERS from 1950 to 2021-04-30 Encounter [facility] Date [facility] [address] [facility] [address] [phone] [place] [id number] Apr, Tyler Perez IMMUNIZATIONS No Information SOCIAL HISTORY Tobacco Use: Social History Observation Description Date Details (start date - stop date) Never Smoker Sex Assigned At : Social History Observation Description Sex Assigned At Unknown Education: Question Answer Notes Level of Education: Not Finished 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 Question Answer Notes Total Score: 3 Interpretation: Alcohol Education Language: Question Answer Notes Languages spoken: Maori Judaism: Question Answer Notes Judaism 08 Jainism Drug and Alcohol Question Answer Notes Total [...] RESULTS No Results REASON FOR VISIT BP meds and itching round 2 MEDICAL (GENERAL) HISTORY Type Description Date Medical [...] Name:Tyler Perez, 2021-06-19 03: 00:00 PM, [address] [facility] [address] , , [place], [address], Insurance Providers Payer Name Payer Address Payer Phone Insured Name Patient Relati onship to Insured Coverage Start Date Coverage End Date MEDICARE BLUE PPO [address] [address] GALA DELCID self
--- OUTSIDE RECORDS SUMMARY | 2021-05-06 10:17 | CCD ---
Author Author [facility] Organization [facility] Address Unknown Phone Unavailable Care Team Providers Care Rerolling Machine Operator Name Role Phone Ana Tyler Unavailable PROBLEMS Type Condition ICD9-CM Code IMJ95-AN Code Onset Dates Condition S tatus W/U Status Risk SNOMED Code Notes Problem Hypertension, unspecified type I10 Active confir med 19772225 Problem Secondary hypertension I15.9 Active confirmed 78108631 ALLERGIES No Known Allergies ENCOUNTERS from 1950 to 2021-05-03 Encounter Location Date Provider Diagnosis [facility] [place] Res[place] [address] [facility] [address] [phone] [place] [phone] Apr, Tyler Perez IMMUNIZATIONS No Information SOCIAL HISTORY Tobacco Use: Social History Observation Description Date Details (start date - stop date) Never Smoker Sex Assigned At : Social History Observation Description Sex Assigned At Unknown Education: Question Answer Notes Level of Education: Not Finished 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 Question Answer Notes Total Score: 3 Interpretation: Alcohol Education Language: Question Answer Notes Languages spoken: Czech Amish: Question Answer Notes Amish 08 Religious Drug and Alcohol Question Answer Notes Total [...] RESULTS No Results REASON FOR VISIT BP med addition MEDICAL (GENERAL) HISTORY Type Description Date Medical [...] Name:Tyler Perez, 2021-06-19 03: 00:00 PM, [address] [facility] [address] , , [place], [address], Insurance Providers Payer Name Payer Address Payer Phone Insured Name Patient Relati onship to Insured Coverage Start Date Coverage End Date MEDICARE BLUE PPO [address] [address] GALA DELCID self
--- OUTSIDE RECORDS SUMMARY | 2021-05-06 10:17 | CCD ---
Author Author [facility] Organization [facility] Address Unknown Phone Unavailable Care Team Providers Care Helicopter Utility Aircrewman Name Role Phone Tyler Perez Unavailable PROBLEMS Type Condition ICD9-CM Code YIK66-DY Code Onset Dates Condition S tatus W/U Status Risk SNOMED Code Notes Problem Hypertension, unspecified type I10 Active confir med 57359071 Problem Secondary hypertension I15.9 Active confirmed 62262150 ALLERGIES No Known Allergies ENCOUNTERS from 1950 to 2021-04-24 Encounter Location Date Provider Diagnosis [address] [phone] [place] [address] Apr, Tyler Perez Hypertension, unspecified ty pe I10 [...] Education Language: Question Answer Notes Languages spoken: Estonian Denominational: Question Answer Notes Denominational 08 Scientology Drug and Alcohol Question Answer Notes Total [...] Once a day for 90 days Active Vitamin D-3 25 MCG (1000 UT) 1 capsule Orally Once a day for 30 day(s ) Active Amlodipine Besylate 10 MG 1 tablet Orally Once a day for 30 Not-Taking hydroCHLOROthiazide 12.5 MG 1 tablet in the MORNING Or ally Once a day for 30 day(s) Mar, Not-Taking Fish Oil 1000 MG 1 capsule [...] Information RESULTS No Results REASON FOR VISIT refill MEDICAL (GENERAL) HISTORY Type Description Date Medical History High blood pressure Surgical History Throat 1999 Surgical History Testical 1971 Hospitalization History Blood pressure 11/2020 Goals Section No Information Health Concerns No Information MEDICAL EQUIPMENT No Information MENTAL STATUS No Information FUNCTIONAL STATUS No Information ASSESSMENTS Encounter Date Diagnosis Assessment Notes Treatment Notes Treatm ent Clinical Notes Apr, Hypertension, unspecified type (ICD-10 - I10) PLAN OF TREATMENT Medication Medication Name Sig Start Date Stop Date Lisinopril 40 MG 1 tablet Orally Once a day for 90 days Next Appt Details Provider Name:Tyler Perez, 2021-06-19 03: 00:00 PM, [address] [facility] [address] , , [place], [address], Insurance Providers Payer Name Payer Address Payer Phone Insured Name Patient Relati onship to Insured Coverage Start Date Coverage End Date MEDICARE BLUE PPO [address] [facility] [address] [address] GALA NDIAYE self
--- OUTSIDE RECORDS SUMMARY | 2021-05-06 10:17 | CCD ---
Author Author [facility] Organization [facility] Address Unknown Phone Unavailable Care Team Providers Care Manager Fund Name Role Phone Ana Tyler Unavailable PROBLEMS Type Condition ICD9-CM Code ZEF68-JL Code Onset Dates Condition S tatus W/U Status Risk SNOMED Code Notes Problem Hypertension, unspecified type I10 Active confir med 31869342 Problem Secondary hypertension I15.9 Active confirmed 14812762 ALLERGIES No Known Allergies ENCOUNTERS from 1950 to 2021-05-01 Encounter Location Date Provider Diagnosis [facility] [place] [address] [facility] [address] [phone] [place] [phone] Apr, Tyler Perez IMMUNIZATIONS No Information SOCIAL HISTORY Tobacco Use: Social History Observation Description Date Details (start date - stop date) Never Smoker Sex Assigned At : Social History Observation Description Sex Assigned At Unknown Education: Question Answer Notes Level of Education: Not Finished 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 Question Answer Notes Total Score: 3 Interpretation: Alcohol Education Language: Question Answer Notes Languages spoken: Sinhala Scientologist: Question Answer Notes Scientologist 08 Islam Drug and Alcohol Question Answer Notes Total [...] Information RESULTS No Results REASON FOR VISIT Itch MEDICAL (GENERAL) HISTORY Type Description Date Medical [...] 90 days Next Appt Details Provider Name:Tyler Perez 2021-06-19 03: 00:00 PM, [address] [facility] [address] , , [place], [address], Insurance Providers Payer Name Payer Address Payer Phone Insured Name Patient Relati onship to Insured Coverage Start Date Coverage End Date MEDICARE BLUE PPO [address] [address] GALA DELCID self
--- OUTSIDE RECORDS SUMMARY | 2021-05-06 10:17 | CCD ---
Author Author [facility] Organization [facility] Address Unknown Phone Unavailable Care Team Providers Care Geomagnetician Name Role Phone Ana Tyler Unavailable PROBLEMS Type Condition ICD9-CM Code [id number] Code Onset Dates Condition S tatus W/U Status Risk SNOMED Code Notes Problem Hypertension, unspecified type I10 Active confir med 29164655 Problem Secondary hypertension I15.9 Active confirmed [id number] ALLERGIES No Known Allergies ENCOUNTERS from 1950 to 2021-04-04 Encounter Location Date Provider Diagnosis [facility] Resident [address] [phone] [place] [id number] Mar, Tyler Perez IMMUNIZATIONS No Information SOCIAL HISTORY Tobacco Use: Social History Observation Description Date Details (start date - stop date) Never Smoker Sex Assigned At : Social History Observation Description Sex Assigned At Unknown Education: Question Answer Notes Level of Education: Not Finished 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 Question Answer Notes Total Score: 3 Interpretation: Alcohol Education Language: Question Answer Notes Languages spoken: Occitan Spiritism: Question Answer Notes Spiritism 08 Caodaism Drug and Alcohol Question Answer [...] Information RESULTS No Results REASON FOR VISIT Labs following BP med addition MEDICAL (GENERAL) HISTORY Type [...] day(s) Mar, Next Appt Details Provider Name:Tyler Ana, 2021-04-15 03: 00:00 PM, [address] , , [place], [address], Insurance Providers Payer Name Payer Address Payer Phone Insured Name Patient Relati onship to Insured Coverage Start Date Coverage End Date MEDICARE BLUE PPO [id number] [facility] BLUE [id number] [address] [place] self
--- OUTSIDE RECORDS SUMMARY | 2021-05-06 10:17 | CCD ---
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 confirmed [id number] ALLERGIES No Known Allergies ENCOUNTERS from 1950 to 2021-03-07 Encounter Location Date Provider Diagnosis [facility] [place] Resident [address] [facility] [address] [phone] [place] [id number] Feb, Tyler Perez IMMUNIZATIONS No Information SOCIAL HISTORY Tobacco Use: Social History Observation Description Date Details (start date - stop date) Never Smoker Sex Assigned At : Social History Observation Description Sex Assigned At Unknown Education: Question Answer Notes Level of Education: Not Finished 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 Question Answer Notes Total Score: 3 Interpretation: Alcohol Education Language: Question Answer Notes Languages spoken: Divehi Voodoo: Question Answer Notes Voodoo 08 [employer] Drug and Alcohol Question Answer Notes Total [...] Once a day for 30 day(s) Active Amlodipine Besylate 10 MG 1 tablet Orally Once a day for 30 Active Lisinopril 40 MG 1 tablet Orally Once a day Active Aspirin 81 81 MG 1 tablet Orally Once a day for 30 day(s) Active Vitamin D-3 25 MCG (1000 UT) 1 capsule Orally Once a day for 30 day(s ) Active PROCEDURES No Information RESULTS No Results REASON FOR VISIT New Refill Request MEDICAL (GENERAL) HISTORY Type Description Date Medical History High blood pressure Surgical History Throat 1999 Surgical History Testical 1972 Hospitalization History Blood pressure 11/2020 Goals Section No Information Health Concerns No Information MEDICAL EQUIPMENT No Information MENTAL STATUS No Information FUNCTIONAL STATUS No Information ASSESSMENTS No Information PLAN OF TREATMENT Medication Medication Name Sig Start Date Stop Date Amlodipine Besylate 10 MG 1 tablet Orally Once a day for 30 Lisinopril 40 MG 1 tablet Orally Once a day Next Appt Details Provider Name:Tyler Perez, 2021-04-15 03: 00:00 PM, [address] [facility], , [place], [address], Insurance Providers Payer Name Payer Address Payer Phone Insured Name Patient Relati onship to Insured Coverage Start Date Coverage End Date MEDICARE BLUE O [id number] [address] [place] self
[2021-05-06 10:18] LABS: BASO % 0.4 % (0.0-1.0); HEMATOCRIT 42.3 % (42.0-52.0); HEMOGLOBIN 13.9 g/dl (13.5-17.5); LYMPH # 0.9 10^3/uL (1.5-5.0); LYMPH % 16.8 % (24.0-44.0); MEAN CORPUSCULAR HGB CONC 32.9 g/dl (32.0-36.5); MEAN CORPUSCULAR VOLUME 91.4 fl (80.0-96.0); MONO # 0.4 10^3/uL (0.0-0.8); MONO % 8.1 % (2.0-8.0); NEUTROPHILS # 3.9 10^3/uL (1.5-8.5); NEUTROPHILS % 74.3 % (36.0-66.0); PLATELET COUNT, AUTOMATED 162 10^3/uL (150-450); RED BLOOD COUNT 4.63 10^6/uL (4.30-6.10); WHITE BLOOD COUNT 5.2 10^3/uL (4.0-10.0)
--- OUTSIDE RECORDS SUMMARY | 2021-05-06 10:18 | CCD ---
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/2021 - 12: 00AM Garret Garcia MD, FACS Active Dermatochalasis 11/27/2020 - 12:00AM Garret barker MD, FACS Active Essential Hypertension 11/27/2020 - 12:00AM Garret Freeman MD, FACS Active Retinopathy Hypertensive Both Eyes 11/27/2020 - 12:00AM Garret Garcia MD, FACS Active Dry Eye Syndrome Both Eyes 11/27/2020 - 12:00AM Garret Garcia MD, FACS Active Plan of Treatment Future Appointments Date Time Location Provider REFRACTION 04/02/2021 7:30AM Garret Garcia MD [facility] 8 Month Follow-Up 10/22/2021 7:30AM [facility] Garret Garcia MD, FACS Assessments Includes: Assessments for all patient encounters Findings Encounter Date Esophoria 8 Week Follow-Up with Garret hui MD, FACS 02/19/2021 Essential hypertension 8 Week Follow-Up with Garret Sutton MD, FACS 02/19/2021 Dermatochalasis of right upper eyelid , right lower eyelid, left upper eyelid, left lower eyelid TRIAGE URGENT NEW PATIENT with Garret Garcia MD, FACS 11/27/2020 Dry eye syndrome of both eyes TRIAGE URGENT NEW PATIEN T with Garret Garcia MD, FACS 11/27/2020 Essential hypertension TRIAGE URGENT NEW PATIENT wi th Garret Garcia MD, FACS 11/27/2020 Hypertensive retinopathy of both eyes TRIAGE URGENT NE W PATIENT with Garret Garcia MD, [facility] 11/27/2020 Instructions Instructions not supported for this document typeNo Instructions Recorded Medical Equipment - Implanted Devices Includes: Current and historical DevicesNo Medical Equipment Recorded Medications Includes: Current and historical Medications Current Medications (continue as prescribed) Lisinopril 40 MG Oral Tablet 11/27/2020 Provider: Diagnosis: Medications Administered Includes: Administered Medications in patient's chartNo Administered Medications Recorded Vital Signs Includes: Vital Signs from 02/20/2020 through 02/19/2021No Vital Signs Recorded For Specified Dates Results Includes: Results from 02/20/2020 through 02/19/2021No Results Recorded For Specified Dates History of Present Illness History of Present Illness not supported for this document typeNo History of Present Illness Recorded Social History Description Last Updated Tobacco non-user 02/19/2021 Not a current smoker 02/19/2021 No tobacco use 02/19/2021 Not using drugs 02/19/2021 Smoking status : Never smoker 02/19/2021 A social drinker 11/27/2020 Procedures and Surgical History Includes: Procedures from 02/20/2020 through 02/19/2021 Procedures Code Diagnosis Performing Provider Service Location Service Date Medical Eye Exam [id number] Hypertensive retinop athy, bilateral, Essential (primary) hypertension, Dry eye syndrome of bilateral lacrimal glands Garret Garcia MD, FACS Garret Garcia MD [facility] 11/27/2020 Surgical History Last Updated Surgical / procedural history Tonsillec trae 1954, Vasectomy 1973, Hydrocelectomy 1974, Throat surgery 1985 11/27/2020 Medical History Includes: Medical History in patient's chart Description Last Updated No recent change in medical history 02/19/2021 History of hypertension 233/150 11/27/2020 Currently wearing eyeglasses 11/27/2020 Family History Includes: Family History in patient's chart Description Last Updated Fraternal history of family history of cancer 02/20/20 21 Maternal history of heart disease 02/19/2021 Maternal history of hypertension 02/19/2021 Paternal history of heart disease 02/19/2021 Paternal history of hypertension 02/19/2021 Review of Systems Review of Systems not supported for this document typeNo Review of Systems Recorded Mental Status Mental Status not supported for this document type Description Oriented to time, place, and person Functional Status Functional Status not supported for this document typeNo Functional Status Recorded Physical Exam Physical Exam not supported for this document typeNo Physical Exam Recorded Immunizations Includes: Immunizations in patient's chartNo Immunizations Recorded Allergies Includes: Active, inactive, and resolved AllergiesNo Known Allergies Encounters Includes: Encounters from 02/20/2020 through 02/19/2021 Encounter Provider Location Date Check-In Time Check-Out Time D iagnosis 8 Week Follow-Up Garret Garcia MD, FACS Garret Gomez [facility] 02/19/2021 12:48PM 1:31PM Essential Hypertensi on, Strabismus Non-paralytic Heterophoria Esophoria TRIAGE URGENT NEW PATIENT Garret Garcia MD, FACS Garret Sevilla MD [facility] 11/27/2020 1:42PM 2:54PM Essential Hypertensi on, Dry Eye Syndrome Both Eyes, Retinopathy Hypertensive Both Eyes, Dermatochalasis Insurance Includes: Active Insurance Policies Plan Name Member ID Group # Subscriber Relationship Effective Da lexy 1 - MEDICARE BLUE [id number] Timothy Ages [place] [facility] Advance Directives Includes: Current Advance DirectivesNo Advance Directives Recorded Health Concerns Includes: Active Health ConcernsNo Active Health Concerns Recorded Goals Includes: Active GoalsNo Active Goals Recorded Interventions Includes: Interventions for active GoalsNo Interventions Recorded Evaluations & Outcomes Includes: Evaluations & Outcomes for active GoalsNo Outcomes Recorded
--- OUTSIDE RECORDS SUMMARY | 2021-05-06 10:18 | CCD ---
Author Author [facility] Organization [facility] Address Unknown Phone Unavailable Care Team Providers Care Environmental Science Instructor Name Role Phone Katharina Sutton, Arpita Combs MD, FACS Unavailable Unavailable Posadas Sutton, Arpita Combs MD, FACS Unavailable Unavailable Posadas Sutton, Arpita Combs MD, FACS Unavailable Unavailable Posadas Sutton, Arpita Combs MD, FACS Unavailable Unavailable Posadas Sutton, Arpita Combs MD, FACS Unavailable Unavailable Posadas Sutton, Arpita Combs MD, FACS Unavailable Unavailable Posadas Sutton, Arpita Combs MD, FACS Unavailable Unavailable Posadas Sutton, Arpita Combs MD, FACS Unavailable Unavailable Posadas Sutton, Arpita Combs MD, FACS Unavailable Unavailable Posadas Sutton, Arpita Combs MD, FACS Unavailable Unavailable Posadas Sutton, Arpita Combs MD, FACS Unavailable Unavailable Posadas Sutton, Arpita Combs MD, FACS Unavailable Unavailable Posadas Sutton, Arpita Combs MD, FACS Unavailable Unavailable Posadas Sutton, Arpita Combs MD, FACS Unavailable Unavailable Posadas Sutton, Arpita Combs MD, FACS Unavailable Unavailable Posadas Sutton, Arpita Combs MD, FACS Unavailable Unavailable Posadas Sutton, Arpita Combs MD, FACS Unavailable Unavailable Posadas Sutton, Arpita Combs MD, FACS Unavailable Unavailable Posadas Sutton, Arpita Combs MD, FACS Unavailable Unavailable Posadas Sutton, Arpita Combs MD, FACS Unavailable Unavailable Posadas Sutton, Arpita Combs MD, FACS Unavailable Unavailable Posadas Sutton, Arpita Combs MD, FACS Unavailable Unavailable Posadas Sutton, Arpita Combs MD, FACS Unavailable Unavailable Posadas Sutton, Arpita Combs MD, FACS Unavailable Unavailable Posadas Sutton, Arpita Combs MD, FACS Unavailable Unavailable Posadas Sutton, Arpita Combs MD, FACS Unavailable Unavailable Posadas Sutton, Arpita Combs MD, FACS Unavailable Unavailable Posadas Sutton, Arpita Combs MD, FACS Unavailable Unavailable Posadas Sutton, Arpita Combs MD, FACS Unavailable Unavailable Posadas Sutton, Arpita Combs MD, FACS Unavailable Unavailable Posadas Sutton, Arpita Combs MD, FACS Unavailable Unavailable Posadas Sutton, Arpita Combs MD, FACS Unavailable Unavailable Posadas Sutton, Arpita Combs MD, FACS Unavailable Unavailable Posadas Sutton, Arpita Combs MD, FACS Unavailable Unavailable Posadas Sutton, Arpita Combs MD, FACS Unavailable Unavailable Posadas Sutton, Arpita Combs MD, FACS Unavailable Unavailable Posadas Sutton, Arpita Combs MD, FACS Unavailable Unavailable Posadas Sutton, Arpita Combs MD, FACS Unavailable Unavailable Posadas Sutton, Arpita Combs MD, FACS Unavailable Unavailable Re-disclosure Warning The records that you are about to access may contain information from federally-assisted alcohol or drug abuse programs. If such information is present, then the following federally mandated warning applies: This information has been disclosed to you from records protected by federal confidentiality rules (42 CFR part 2). The federal rules prohibit you from making any further disclosure of this information unless further disclosure is expressly permitted by the written consent of the person to whom it pertains or as otherwise permitted by 42 CFR part 2. A general authorization for the release of medical or other information is NOT sufficient for this purpose. The Federal rules restrict any use of the information to criminally investigate or prosecute any alcohol or drug abuse patient.The records that you are about to access may contain highly sensitive health information, the redisclosure of which is protected by Article 27-F of the [facility] Public Health law. If you continue you may have access to information: Regarding HIV / AIDS; Provided by facilities licensed or operated by the [facility] Office of Mental Health; or Provided by the [facility] Office for People With Developmental Disabilities. If such information is present, then the following [facility] mandated warning applies: This information has been disclosed to you from confidential records which are protected by state law. State law prohibits you from making any further disclosure of this information without the specific written consent of the person to whom it pertains, or as otherwise permitted by law. Any unauthorized further disclosure in violation of state law may result in a fine or skilled nursing sentence or both. A general authorization for the release of medical or other information is NOT sufficient authorization for further disc losure. Allergies and Adverse Reactions Type Description Substance Reaction Status Data Source(s ) Allergy to substance No Known Allergies No known allergies (situation ) HETAL (Garret Sutton MD [facility]) Allergy to substance No Known Allergies No known allergies (situation ) HETAL (Garret Sutton MD [facility]) Encounters Encounter Providers Location Date Indications Data Source(s ) Unknown [address] [facility] [address] 04/30/2021 12:00:00 AM EDT eCW1 ([facility]) Unknown [address] [facility] [address] 04/29/2021 12:00:00 AM EDT eCW1 ([facility]) Unknown [address] [facility] [address] 04/29/2021 12:00:00 AM EDT eCW1 ([facility]) Unknown [address] [facility] [address] 04/29/2021 12:00:00 AM EDT eCW1 ([facility]) Unknown [address] [facility] [address] 04/29/2021 12:00:00 AM EDT eCW1 ([facility]) Unknown [address] [facility] [address] 04/29/2021 12:00:00 AM EDT eCW1 ([facility]) Unknown [address] [facility] [address] 04/23/2021 12:00:00 AM EDT eCW1 ([facility]) Unknown [address] [facility] [address] 04/15/2021 12:00:00 AM EDT eCW1 ([facility]) Unknown [address] [facility] [address] 04/15/2021 12:00:00 AM EDT eCW1 ([facility]) [place] [address] [facility] [place] [address] 04/07/2021 12:00:00 AM EDT eCW1 ([facility]) Unknown [address] [facility] [address] 03/21/2021 12:00:00 AM EDT eCW1 ([facility]) Unknown [address] [facility] [address] 03/18/2021 12:00:00 AM EDT eCW1 ([facility]) Unknown [address] [facility] [address] 03/05/2021 12:00:00 AM EDT eCW1 ([facility]) <td ID="encounterTypeDescriptionID0">[address] [facility]</td><td>Garret Sutton MD, FACS</td><td>Garret Garcia MD [facility]</td><td>02/19/2021</td><td>12:48PM</td><td>1:31PM</td><td><content ID="encounterDiagnosisID0-0">Essential Hypertension</content>, <content ID="encounterDiagnosisID0-1">Strabismus Non-paralytic Heterophoria Esophoria</content></td>Outpatient Attender: Garret Sutton MD, FACS [facility] 02/19/2021 12:48:00 PM EDT - 02/19/2021 01:31:00 PM ED T Strabismus Non-paralytic Heterophoria EsophoriaEssential Hypertension [place] (Garret Sutton MD [facility]) Strabismus Non-paralytic Heterophoria Es ophoria Essential Hypertension Unknown [address] [facility] [address] 02/06/2021 12:00:00 AM EDT eCW1 ([facility]) Outpatient [address] [facility] [address] 01/01/2021 12:00:00 AM EDT eCW1 ([facility]) Unknown [address] [facility] [address] 12/24/2020 12:00:00 AM EDT eCW1 ([facility]) Unknown [address] [facility] [address] 12/24/2020 12:00:00 AM EDT eCW1 ([facility]) Outpatient [address] [facility] [address] 12/12/2020 12:00:00 AM EDT eCW1 ([facility]) Outpatient [address] [facility] [address] 12/04/2020 12:00:00 AM EDT eCW1 ([facility]) Outpatient<td ID="encounterTypeDescripti onID1">[facility] NEW PATIENT</td><td>Garret Garcia MD, FACS</td><td>Garret Garcia MD [facility]</td><td>11/27/2020</td><td>1:42PM</td><td>2:54PM</td><td><content ID="encounterDiagnosisID1-0">Essential Hypertension</content>, <content ID="encounterDiagnosisID1-1">Dry Eye Syndrome Both Eyes</content>, <content ID="encounterDiagnosisID1-2">Retinopathy Hypertensive Both Eyes</content>, <content ID="encounterDiagnosisID1-3">Dermatochalasis</content></td> Attender: Garret Sutton MD, FACS Garret Garcia MD [facility] 11/27/2020 01:42:00 PM EDT - 11/27/2020 02:54:00 PM EDT DermatochalasisRetinopathy Hypertensive Both EyesDry Eye Syndrome Both EyesEssential HypertensionDermatochalasisRetinopathy Hypertensive Both EyesDry Eye Syndrome Both EyesEssential Hypertension [place] (Garret Sutton MD [facility]) Dermatochalasis Retinopathy Hypertensive Both Eyes Dry Eye Syndrome Both Eyes Essential Hypertension Dermatochalasis Retinopathy Hypertensive Both Eyes Dry Eye Syndrome Both Eyes Essential Hypertension Medications Medication Brand Name Start Date Product Form Dose Route Admi nistrative Instructions Pharmacy Instructions Status Indications Reaction Description Data Source(s) telmisartan 80 MG Oral Tablet Telmisartan 80 MG Telmisartan 80 MG 04/29/2021 12:00:00 AM EDT 1.0 {tablet} active Te lmisartan 80 MG eCW1 ([facility]) telmisartan 80 MG Oral Tablet Telmisartan 80 MG Telmisartan 80 MG 04/29/2021 12:00:00 AM EDT 1.0 {tablet} active Te lmisartan 80 MG eCW1 ([facility]) telmisartan 80 MG Oral Tablet Telmisartan 80 MG Telmisartan 80 MG 04/29/2021 12:00:00 AM EDT 1.0 {tablet} active Te lmisartan 80 MG eCW1 ([facility]) telmisartan 80 MG Oral Tablet Telmisartan 80 MG Telmisartan 80 MG 04/29/2021 12:00:00 AM EDT 1.0 {tablet} active Te lmisartan 80 MG eCW1 ([facility]) telmisartan 80 MG Oral Tablet Telmisartan 80 MG Telmisartan 80 MG 04/29/2021 12:00:00 AM EDT 1.0 {tablet} active Te lmisartan 80 MG eCW1 ([facility]) telmisartan 80 MG Oral Tablet Telmisartan 80 MG Telmisartan 80 MG 04/29/2021 12:00:00 AM EDT 1.0 {tablet} active Te lmisartan 80 MG eCW1 ([facility]) cetirizine hydrochloride 10 MG Oral Tablet Cetirizine HCl 10 MG Cetirizine HCl 10 MG 04/15/2021 12:00:00 AM EDT 1.0 {tablet} activ e Cetirizine HCl 10 MG eCW1 ([facility]) 24 HR Diltiazem Hydrochloride 240 MG Ext ended Release Oral Capsule [Cartia] Cartia XT 240 MG Cartia XT 240 MG 04/15/2021 12:00:00 AM EDT 1.0 {cap hiwot} active Cartia XT 240 MG eCW1 ([facility]) 24 HR Diltiazem Hydrochloride 240 MG Ext ended Release Oral Capsule [Cartia] Cartia XT 240 MG Cartia XT 240 MG 04/15/2021 12:00:00 AM EDT 1.0 {cap hiwot} active Cartia XT 240 MG eCW1 ([facility]) cetirizine hydrochloride 10 MG Oral Tablet Cetirizine HCl 10 MG Cetirizine HCl 10 MG 04/15/2021 12:00:00 AM EDT 1.0 {tablet} activ e Cetirizine HCl 10 MG eCW1 ([facility]) 24 HR Diltiazem Hydrochloride 240 MG Ext ended Release Oral Capsule [Cartia] Cartia XT 240 MG Cartia XT 240 MG 04/15/2021 12:00:00 AM EDT 1.0 {cap hiwot} active Cartia XT 240 MG eCW1 ([facility]) Hydroxyzine Hydrochloride 25 MG Oral Tablet hydrOXYzin e HCl 25 MG hydrOXYzine HCl 25 MG 04/15/2021 12:00:00 AM EDT 1.0 {tablet} ac tive hydrOXYzine HCl 25 MG eCW1 ([facility]) cetirizine hydrochloride 10 MG Oral Tablet Cetirizine HCl 10 MG Cetirizine HCl 10 MG 04/15/2021 12:00:00 AM EDT 1.0 {tablet} activ e Cetirizine HCl 10 MG eCW1 ([facility]) 24 HR Diltiazem Hydrochloride 240 MG Ext ended Release Oral Capsule [Cartia] Cartia XT 240 MG Cartia XT 240 MG 04/15/2021 12:00:00 AM EDT 1.0 {cap hiwot} active Cartia XT 240 MG eCW1 ([facility]) Hydroxyzine Hydrochloride 25 MG Oral Tablet hydrOXYzin e HCl 25 MG hydrOXYzine HCl 25 MG 04/15/2021 12:00:00 AM EDT 1.0 {tablet} ac tive hydrOXYzine HCl 25 MG eCW1 ([facility]) 24 HR Diltiazem Hydrochloride 240 MG Ext ended Release Oral Capsule [Cartia] Cartia XT 240 MG Cartia XT 240 MG 04/15/2021 12:00:00 AM EDT 1.0 {cap hiwot} active Cartia XT 240 MG eCW1 ([facility]) cetirizine hydrochloride 10 MG Oral Tablet Cetirizine HCl 10 MG Cetirizine HCl 10 MG 04/15/2021 12:00:00 AM EDT 1.0 {tablet} activ e Cetirizine HCl 10 MG eCW1 ([facility]) cetirizine hydrochloride 10 MG Oral Tablet Cetirizine HCl 10 MG Cetirizine HCl 10 MG 04/15/2021 12:00:00 AM EDT 1.0 {tablet} activ e Cetirizine HCl 10 MG eCW1 ([facility]) cetirizine hydrochloride 10 MG Oral Tablet Cetirizine HCl 10 MG Cetirizine HCl 10 MG 04/15/2021 12:00:00 AM EDT 1.0 {tablet} activ e Cetirizine HCl 10 MG eCW1 ([facility]) 24 HR Diltiazem Hydrochloride 240 MG Ext ended Release Oral Capsule [Cartia] Cartia XT 240 MG Cartia XT 240 MG 04/15/2021 12:00:00 AM EDT 1.0 {cap hiwot} active Cartia XT 240 MG eCW1 ([facility]) cetirizine hydrochloride 10 MG Oral Tablet Cetirizine HCl 10 MG Cetirizine HCl 10 MG 04/15/2021 12:00:00 AM EDT 1.0 {tablet} activ e Cetirizine HCl 10 MG eCW1 ([facility]) Hydroxyzine Hydrochloride 25 MG Oral Tablet hydrOXYzin e HCl 25 MG hydrOXYzine HCl 25 MG 04/15/2021 12:00:00 AM EDT 1.0 {tablet} ac tive hydrOXYzine HCl 25 MG eCW1 ([facility]) 24 HR Diltiazem Hydrochloride 240 MG Ext ended Release Oral Capsule [Cartia] Cartia XT 240 MG Cartia XT 240 MG 04/15/2021 12:00:00 AM EDT 1.0 {cap hiwot} active Cartia XT 240 MG eCW1 ([facility]) Hydroxyzine Hydrochloride 25 MG Oral Tablet hydrOXYzin e HCl 25 MG hydrOXYzine HCl 25 MG 04/15/2021 12:00:00 AM EDT 1.0 {tablet} ac tive hydrOXYzine HCl 25 MG eCW1 ([facility]) Hydroxyzine Hydrochloride 25 MG Oral Tablet hydrOXYzin e HCl 25 MG hydrOXYzine HCl 25 MG 04/15/2021 12:00:00 AM EDT 1.0 {tablet} ac tive hydrOXYzine HCl 25 MG eCW1 ([facility]) 24 HR Diltiazem Hydrochloride 240 MG Ext ended Release Oral Capsule [Cartia] Cartia XT 240 MG Cartia XT 240 MG 04/15/2021 12:00:00 AM EDT 1.0 {cap hiwot} active Cartia XT 240 MG eCW1 ([facility]) Hydroxyzine Hydrochloride 25 MG Oral Tablet hydrOXYzin e HCl 25 MG hydrOXYzine HCl 25 MG 04/15/2021 12:00:00 AM EDT 1.0 {tablet} ac tive hydrOXYzine HCl 25 MG eCW1 ([facility]) cetirizine hydrochloride 10 MG Oral Tablet Cetirizine HCl 10 MG Cetirizine HCl 10 MG 04/15/2021 12:00:00 AM EDT 1.0 {tablet} activ e Cetirizine HCl 10 MG eCW1 ([facility]) Hydroxyzine Hydrochloride 25 MG Oral Tablet hydrOXYzin e HCl 25 MG hydrOXYzine HCl 25 MG 04/15/2021 12:00:00 AM EDT 1.0 {tablet} ac tive hydrOXYzine HCl 25 MG eCW1 ([facility]) cetirizine hydrochloride 10 MG Oral Tablet Cetirizine HCl 10 MG Cetirizine HCl 10 MG 04/15/2021 12:00:00 AM EDT 1.0 {tablet} activ e Cetirizine HCl 10 MG eCW1 ([facility]) 24 HR Diltiazem Hydrochloride 240 MG Ext ended Release Oral Capsule [Cartia] Cartia XT 240 MG Cartia XT 240 MG 04/15/2021 12:00:00 AM EDT 1.0 {cap hiwot} active Cartia XT 240 MG eCW1 ([facility]) Hydroxyzine Hydrochloride 25 MG Oral Tablet hydrOXYzin e HCl 25 MG hydrOXYzine HCl 25 MG 04/15/2021 12:00:00 AM EDT 1.0 {tablet} ac tive hydrOXYzine HCl 25 MG eCW1 ([facility]) Hydroxyzine Hydrochloride 25 MG Oral Tablet hydrOXYzin e HCl 25 MG hydrOXYzine HCl 25 MG 04/15/2021 12:00:00 AM EDT 1.0 {tablet} ac tive hydrOXYzine HCl 25 MG eCW1 ([facility]) Chlorthalidone 25 MG Oral Tablet Chlorthalidone 25 MG 2020 12:00:00 AM EDT active Chlorthalidone 25 MG eCW1 ([facility]) Chlorthalidone 25 MG Oral Tablet Chlorthalidone 25 MG 2020 12:00:00 AM EDT active Chlorthalidone 25 MG eCW1 ([facility]) Hydrochlorothiazide 12.5 MG Oral Tablet hydroCHLOROthi azide 12.5 MG hydroCHLOROthiazide 12.5 MG 03/21/2021 12:00:00 AM EDT 1.0 {tablet_in_the_morning} suspended hydroC HLOROthiazide 12.5 MG eCW1 ([facility]) Hydrochlorothiazide 12.5 MG Oral Tablet hydroCHLOROthi azide 12.5 MG hydroCHLOROthiazide 12.5 MG 03/21/2021 12:00:00 AM EDT 1.0 {tablet_in_the_morning} suspended hydroC HLOROthiazide 12.5 MG eCW1 ([facility]) Hydrochlorothiazide 12.5 MG Oral Tablet hydroCHLOROthi azide 12.5 MG hydroCHLOROthiazide 12.5 MG 03/21/2021 12:00:00 AM EDT 1.0 {tablet_in_the_morning} active hydroCHL OROthiazide 12.5 MG eCW1 ([facility]) Hydrochlorothiazide 12.5 MG Oral Tablet hydroCHLOROthi azide 12.5 MG hydroCHLOROthiazide 12.5 MG 03/21/2021 12:00:00 AM EDT 1.0 {tablet_in_the_morning} active hydroCHL OROthiazide 12.5 MG eCW1 ([facility]) Hydrochlorothiazide 12.5 MG Oral Tablet hydroCHLOROthi azide 12.5 MG hydroCHLOROthiazide 12.5 MG 03/21/2021 12:00:00 AM EDT 1.0 {tablet_in_the_morning} suspended hydroC HLOROthiazide 12.5 MG eCW1 ([facility]) Chlorthalidone 25 MG Oral Tablet Chlorthalidone 25 MG 2020 12:00:00 AM EDT 1.0 {tablet_in_the_morning_with_food} active Chlorthalidone 25 MG eCW1 ([facility]) Hydrochlorothiazide 12.5 MG Oral Tablet hydroCHLOROthi azide 12.5 MG hydroCHLOROthiazide 12.5 MG 03/21/2021 12:00:00 AM EDT 1.0 {tablet_in_the_morning} suspended hydroC HLOROthiazide 12.5 MG eCW1 ([facility]) Hydrochlorothiazide 12.5 MG Oral Tablet hydroCHLOROthi azide 12.5 MG hydroCHLOROthiazide 12.5 MG 03/21/2021 12:00:00 AM EDT 1.0 {tablet_in_the_morning} suspended hydroC HLOROthiazide 12.5 MG eCW1 ([facility]) Hydrochlorothiazide 12.5 MG Oral Tablet hydroCHLOROthi azide 12.5 MG hydroCHLOROthiazide 12.5 MG 03/21/2021 12:00:00 AM EDT 1.0 {tablet_in_the_morning} active hydroCHL OROthiazide 12.5 MG eCW1 ([facility]) Hydrochlorothiazide 12.5 MG Oral Tablet hydroCHLOROthi azide 12.5 MG hydroCHLOROthiazide 12.5 MG 03/21/2021 12:00:00 AM EDT 1.0 {tablet_in_the_morning} suspended hydroC HLOROthiazide 12.5 MG eCW1 ([facility]) Hydrochlorothiazide 12.5 MG Oral Tablet hydroCHLOROthi azide 12.5 MG hydroCHLOROthiazide 12.5 MG 03/21/2021 12:00:00 AM EDT 1.0 {tablet_in_the_morning} suspended hydroC HLOROthiazide 12.5 MG eCW1 ([facility]) Hydrochlorothiazide 12.5 MG Oral Tablet hydroCHLOROthi azide 12.5 MG hydroCHLOROthiazide 12.5 MG 03/21/2021 12:00:00 AM EDT 1.0 {tablet_in_the_morning} suspended hydroC HLOROthiazide 12.5 MG eCW1 ([facility]) Hydrochlorothiazide 12.5 MG Oral Tablet hydroCHLOROthi azide 12.5 MG hydroCHLOROthiazide 12.5 MG 03/21/2021 12:00:00 AM EDT 1.0 {tablet_in_the_morning} suspended hydroC HLOROthiazide 12.5 MG eCW1 ([facility]) Lisinopril 40 MG Oral Tablet Lisinopril 40 MG Oral Tablet 12:00:00 AM EDT 1 active lisinopril 40 MG Oral Tablet HETAL (Garret Sutton MD [facility]) Insurance Providers Payer name Policy type / Coverage type Policy ID Covered republican ID Covered republican's relationship to davidson Policy [place] Plan Information MEDICARE BLUE PPO 306 [id number] SP [id number] MEDICARE BLUE PPO 306 [id number] SP [id number] BCBS of [facility] Other 0 [id number] Se lf 0 MEDICARE BLUE PPO 306 [id number] MEDICARE [id number] SP [id number] BCBS of [facility] Other 0 [id number] Se lf 0 [id number] SP [id number] BCBS OF [facility] [id number] SP [id number] Problems, Conditions, and Diagnoses Code Display Name Description Problem Type Effective Dates Data Source(s) 378.41 Strabismus Non-paralytic Heterophoria Es ophoria Strabismus Non-paralytic Heterophoria Esophoria Problem 02/19/2021 12:00:00 AM EDT HETAL ( Garret Sutton MD [facility]) I15.9 56054208 Secondary hypertension Problem 12/04/2020 12 :00:00 AM EDT eCW1 ([facility]) I10 [id number] Hypertension, unspecified type Problem 12/04 12:00:00 AM EDT eCW1 ([facility]) 37917624 Dry 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 Problem 11/27/2020 12:00:00 AM EDT HETAL (Garret Sutton MD [facility]) [id number] Retinopathy Hypertensive Both Eyes Retinopathy H ypertensive Both Eyes Problem 11/27/2020 12:00:00 AM EDT HETAL (Garret hui MD [facility]) 401.9 Essential Hypertension Essential Hypertension Problem 11/27/2020 12:00:00 AM EDT HETAL (Garret Sutton MD [facility]) 374.87 Dermatochalasis Dermatochalasis Problem 11/27/2020 12:0 0:00 AM EDT HETAL (Garret Sutton MD [facility]) 40602139 Dry 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 Problem 11/27/2020 12:00:00 AM EDT HETAL (Garret Sutton MD [facility]) 77748585 Retinopathy Hypertensive Both Eyes Retinopathy H ypertensive Both Eyes Problem 11/27/2020 12:00:00 AM EDT HETAL (Garret hui MD [facility]) 401.9 Essential Hypertension Essential Hypertension Problem 11/27/2020 12:00:00 AM EDT HETAL (Garret Sutton MD [facility]) 374.87 Dermatochalasis Dermatochalasis Problem 11/27/2020 12:0 0:00 AM EDT HETAL (Garret Sutton MD [facility]) Surgeries/Procedures Procedure Description Date Indications Data Source(s) ECG ROUTINE ECG W/LEAST 12 LDS W/I&R 12/04/2020 12:00: 00 AM EDT eCW1 ([facility]) Surgical / procedural history Tonsillec trae 1954, Vasectomy 1973, Hydrocelectomy 1974, Throat surgery 1984 Surgical / procedural history Tonsillectomy 1955, Vasectomy 1974, Hydrocelectomy 1975, Throat surgery 1985 11/27/2020 12:00:00 AM EDT HETAL (Garret hui MD [facility]) Medical Eye Exam Medical Eye Exam 11/27/2020 12:00:00 AM EDT HETAL (Garret Sutton MD [facility]) Medical Eye Exam Medical Eye Exam 11/27/2020 12:00:00 AM EDT HETAL (Garret Sutton MD [facility]) Results ID Date Data Source Basic Metabolic Profile (BMP) 12/04/2020 12:00:00 AM EDT eCW 1 ([facility]) Name Value Range Interpretation Code Description Data Ryanne rce(s) Supporting Document(s) 115 70-100 GLUCOSE, FASTING eCW1 ([facility]) > 60.0 >42 GLOMERULAR FILTRATION RATE eCW 1 ([facility]) 1.06 0.70-1.30 CREATININE FOR GFR eCW1 ([facility]) 22 7-18 BLOOD UREA NITROGEN eCW1 ([facility]) 30 21-32 CARBON DIOXIDE LEVEL eCW1 ([facility]) 105 98-107 CHLORIDE LEVEL eCW1 ([facility]) 3.7 3.5-5.1 POTASSIUM SERUM eCW1 ([facility]) 139 136-145 SODIUM LEVEL eCW1 ([facility]) 9.3 8.8-10.2 CALCIUM LEVEL eCW1 ([facility]) ID Date Data Source [id number] 11/24/2020 07:08:00 PM EDT [facility] Name Value Range Interpretation Code Description Data Ryanne rce(s) Supporting Document(s) SARS-CoV-2 (COVID 19) NEGATIVE - SARS-CoV-2 (COVID19) [facility] This lab was ordered by [facility] a nd reported by [facility]. Procedure Social History Code Duration Value Status Description Data Source(s ) Smoking 04/15/2021 12:00:00 AM EDT Never Smoker completed Never S moker eCW1 ([facility]) Smoking 04/15/2021 12:00:00 AM EDT Never Smoker completed Never S moker eCW1 ([facility]) Smoking 04/15/2021 12:00:00 AM EDT Never Smoker completed Never S moker eCW1 ([facility]) Smoking 04/15/2021 12:00:00 AM EDT Never Smoker completed Never S moker eCW1 ([facility]) Smoking 04/15/2021 12:00:00 AM EDT Never Smoker completed Never S moker eCW1 ([facility]) Smoking 04/15/2021 12:00:00 AM EDT Never Smoker completed Never S moker eCW1 ([facility]) Smoking 04/15/2021 12:00:00 AM EDT Never Smoker completed Never S moker eCW1 ([facility]) Smoking 04/15/2021 12:00:00 AM EDT Never Smoker completed Never S moker eCW1 ([facility]) Smoking 04/15/2021 12:00:00 AM EDT Never Smoker completed Never S moker eCW1 ([facility]) Smoking 03/21/2021 12:00:00 AM EDT Never Smoker completed Never S moker eCW1 ([facility]) Smoking 03/21/2021 12:00:00 AM EDT Never Smoker completed Never S moker eCW1 ([facility]) Smoking 03/21/2021 12:00:00 AM EDT Never Smoker completed Never S moker eCW1 ([facility]) Smoking 02/19/2021 01:39:55 PM EDT Never smoked tobacco (findi ng) completed Never smoked tobacco (finding) HETAL ([facility]ret Sutton [facility]) Smoking 12/31/2020 12:00:00 AM EDT Never Smoker completed Never S moker eCW1 ([facility]) Smoking 12/31/2020 12:00:00 AM EDT Never Smoker completed Never S moker eCW1 ([facility]) Smoking 12/31/2020 12:00:00 AM EDT Never Smoker completed Never S moker eCW1 ([facility]) Smoking 12/31/2020 12:00:00 AM EDT Never Smoker completed Never S moker eCW1 ([facility]) Smoking 12/12/2020 12:00:00 AM EDT Never Smoker completed Never S moker eCW1 ([facility]) Smoking 12/12/2020 12:00:00 AM EDT Never Smoker completed Never S moker eCW1 ([facility]) Smoking 12/12/2020 12:00:00 AM EDT Never Smoker completed Never S moker eCW1 ([facility]) Smoking 11/27/2020 02:53:42 PM EDT Never smoked tobacco (findi ng) completed Never smoked tobacco (finding) HETAL (Garret Sutton MD [facility]) Vital Signs ID Date Data Source UNK Name Value Range Interpretation Code Description Data Source(s) Body weight 189.2 [lb_av] 189.2 [lb_av] eCW1 ([facility]) Body height 70 [in_i] 70 [in_i] eCW1 ([facility]) Body mass index (BMI) [Ratio] 27.14 kg/m2 27.14 kg/m2 eCW1 ([facility]) Heart rate 71 /min 71 /min eCW1 ([facility]) Respiratory rate 18 /min 18 /min eCW1 ([facility]) Body temperature 97.4 [degF] 97.4 [degF] eCW1 ( [facility]) Systolic blood pressure 128 mm[Hg] 128 mm[Hg] e CW1 ([facility]) Diastolic blood pressure 80 mm[Hg] 80 mm[Hg] eCW1 ([facility]) Body weight 190.0 [lb_av] 190.0 [lb_av] eCW1 ([facility]) Body height 70 [in_i] 70 [in_i] eCW1 ([facility]) Body mass index (BMI) [Ratio] 27.26 kg/m2 27.26 kg/m2 eCW1 ([facility]) Heart rate 72 /min 72 /min eCW1 ([facility]) Respiratory rate 18 /min 18 /min eCW1 ([facility]) Body temperature 96.9 [degF] 96.9 [degF] eCW1 ( [facility]) Systolic blood pressure 160 mm[Hg] 160 mm[Hg] e CW1 ([facility]) Diastolic blood pressure 98 mm[Hg] 98 mm[Hg] eCW1 ([facility]) Body weight 191 [lb_av] 191 [lb_av] eCW1 ([facility]) Body height 70 [in_i] 70 [in_i] eCW1 ([facility]) Body mass index (BMI) [Ratio] 27.40 kg/m2 27.40 kg/m2 eCW1 ([facility]) Heart rate 81 /min 81 /min eCW1 ([facility]) Respiratory rate 18 /min 18 /min eCW1 ([facility]) Body temperature 98.9 [degF] 98.9 [degF] eCW1 ( [facility]) Systolic blood pressure 190 mm[Hg] 190 mm[Hg] e CW1 ([facility]) Diastolic blood pressure 118 mm[Hg] 118 mm[Hg] eCW1 ([facility]) Patient Treatment Plan of Care Planned Activity Planned Date Details Description Data Source (s) telmisartan 80 MG Oral Tablet 04/29/2021 12:00:00 AM EDT eCW1 ([facility]) telmisartan 80 MG Oral Tablet 04/29/2021 12:00:00 AM EDT eCW1 ([facility]) telmisartan 80 MG Oral Tablet 04/29/2021 12:00:00 AM EDT eCW1 ([facility]) telmisartan 80 MG Oral Tablet 04/29/2021 12:00:00 AM EDT eCW1 ([facility]) telmisartan 80 MG Oral Tablet 04/29/2021 12:00:00 AM EDT eCW1 ([facility]) telmisartan 80 MG Oral Tablet 04/29/2021 12:00:00 AM EDT eCW1 ([facility]) cetirizine hydrochloride 10 MG Oral Tablet 04/15/2021 12:00:00 AM E DT eCW1 ([facility]) 24 HR Diltiazem Hydrochloride 240 MG Extended Release Oral Capsule [Cartia] 04/15/2021 12:00:00 AM EDT eCW1 ([facility]) Hydroxyzine Hydrochloride 25 MG Oral Tablet 04/15/2021 12:00:00 AM EDT eCW1 ([facility]) cetirizine hydrochloride 10 MG Oral Tablet 04/15/2021 12:00:00 AM E DT eCW1 ([facility]) 24 HR Diltiazem Hydrochloride 240 MG Extended Release Oral Capsule [Cartia] 04/15/2021 12:00:00 AM EDT eCW1 ([facility]) Hydroxyzine Hydrochloride 25 MG Oral Tablet 04/15/2021 12:00:00 AM EDT eCW1 ([facility]) Chlorthalidone 25 MG Oral Tablet 03/21/2021 12:00:00 AM EDT eCW1 ([facility]) Hydrochlorothiazide 12.5 MG Oral Tablet 03/21/2021 12:00:00 AM EDT eCW1 ([facility]) Chlorthalidone 25 MG Oral Tablet 03/21/2021 12:00:00 AM EDT eCW1 ([facility]) Hydrochlorothiazide 12.5 MG Oral Tablet 03/21/2021 12:00:00 AM EDT eCW1 ([facility]) Chlorthalidone 25 MG Oral Tablet 03/21/2021 12:00:00 AM EDT eCW1 ([facility]) Hydrochlorothiazide 12.5 MG Oral Tablet 03/21/2021 12:00:00 AM EDT eCW1 ([facility])
--- OUTSIDE RECORDS SUMMARY | 2021-05-06 10:18 | CCD ---
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 confirmed [id number] ALLERGIES No Known Allergies ENCOUNTERS from 1950 to 2021-02-08 Encounter Location Date Provider Diagnosis [address] [phone] [place] [address] Jan, Kaylie Lerma IMMUNIZATIONS No Information SOCIAL HISTORY Tobacco Use: Social History Observation Description Date Details (start date - stop date) Never Smoker Sex Assigned At : Social History Observation Description Sex Assigned At Unknown Education: Question Answer Notes Level of Education: Not Finished 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 Question Answer Notes Total Score: 3 Interpretation: Alcohol Education Language: Question Answer Notes Languages spoken: Kyrgyz Oriental Orthodox: Question Answer Notes Oriental Orthodox 08 [employer] Drug and Alcohol Question Answer Notes Total [...] Orally Once a day for 30 Active Aspirin 81 81 MG 1 tablet Orally Once a day for 30 day(s) Active Lisinopril 40 MG 1 tablet Orally Once a day Active PROCEDURES No Information RESULTS No Results REASON FOR VISIT Second prescription refill request MEDICAL (GENERAL) HISTORY Type Description Date Medical [...] tablet Orally Once a day for 30 Insurance Providers Payer Name Payer Address Payer Phone Insured Name Patient Relati onship to Insured Coverage Start Date Coverage End Date MEDICARE BLUE P[id number] [address] [place] self
[2021-05-06 10:52] LABS: ALBUMIN 3.3 GM/DL (3.2-5.2); ALT/SGPT 27 U/L (12-78); BILIRUBIN,DIRECT 0.1 MG/DL (0.0-0.2); BILIRUBIN,TOTAL 0.4 MG/DL (0.2-1.0); CK-MB VALUE MASS < 1.0 NG/ML (<3.6); CPK CREATINE PHOSPHOKINASE 230 U/L (39-308); MB/CK RELATIVE INDEX 0.43 (< OR =4); NT-PRO BNP 106 PG/ML (<125); THYROXINE (T4) 8.6 UG/DL (4.5-12.0); TOTAL PROTEIN 6.4 GM/DL (6.4-8.2); TROPONIN I 0.04 NG/ML (< 0.10)
[2021-05-06] MEDS ORDERED: ISOVUE-370 76% 100ML VIAL As Ordered ONE (11:23)
[2021-05-06] MEDS ORDERED: DILT240C83 PO (11:41)
[2021-05-06] MEDS ORDERED: C 50TAB PO (11:41)
[2021-05-06] MEDS ORDERED: HYDR-3363 PO (11:41)
[2021-05-06] MEDS ORDERED: ASPI81TA26 PO (11:41)
[2021-05-06] MEDS ORDERED: D31000TA2 PO (11:41)
[2021-05-06] MEDS ORDERED: TELM1TAB37 PO (11:41)
[2021-05-06] MEDS ORDERED: FISH1000 PO (11:41)
[2021-05-06] MEDS ORDERED: HOME MED LIST COMPLETE! XX SCH (11:45)
--- NOTE | 2021-05-06 12:51 | REP ---
INDICATION: sob. COMPARISON: None. TECHNIQUE: Standard helical technique after the intravenous administration of 75 cc Isovue 370 FINDINGS: There are numerous nonenhancing low-density hepatic lesions all likely cysts. No enhancing hepatic masses are evident. The gallbladder, spleen, pancreas, and adrenal glands are within normal limits. Respiratory motion artifact obscures the renal detail. There is evidence of a cystic lesion arising from the inferior pole of the right kidney having higher than water density Hounsfield unit readings and a possible 2 mm sized left renal cortical cyst. The abdominal aorta and para-aortic regions are within normal limits. There is no evidence of free fluid or free air. The bowel loops and the mesenteries are unremarkable. Bone window technique throughout the examination shows a grade 2 L5 upon S1 spondylolisthesis secondary to bilateral L5 spondylolysis. There is disc space narrowing and endplate sclerosis at that level. There is a T11 compression deformity. See the CT of the chest report for further information. IMPRESSION: 1. Multiple hepatic cysts are suspected. Three-month follow-up is suggested. 2. Likely slightly hyperdense right renal cyst as described above. Three-month follow-up is recommended. 3. Other findings as described above. <Electronically signed by Alvarado Boo > 05/06/21 [id number]
--- NOTE | 2021-05-06 13:00 | REP ---
INDICATION: sob, syncope COMPARISON: None. TECHNIQUE: CT angiography of the chest after the intravenous administration of 75 cc Isovue 370 attention pulmonary arteries FINDINGS: There is excellent visualization of the pulmonary arterial vasculature. No focal filling defects are present that would be considered consistent with acute pulmonary emboli. The thoracic aorta is within normal limits. There are no pleural or pericardial effusions. There is hilar and borderline mediastinal adenopathy. Bone window technique throughout the exam shows a grade 3 T11 compression fracture with inferior endplate irregularity and discogenic change Evaluation of the lung roche shows scattered bilateral ground-glass opacities consistent with interstitial and airspace opacities. IMPRESSION: 1. There is no evidence of a pulmonary embolus. 2. Opacities and adenopathy as described above likely secondary to infectious etiology. 3. Other findings as described above. <Electronically signed by Alvarado Boo > 05/06/21 [id number]
[2021-05-06] MEDS ORDERED: MAALOX 30 ML SUSP *UDC PO PRN (14:40)
[2021-05-06] MEDS ORDERED: MOM 30ML SUSPENSION UDC PO PRN (14:40)
--- NOTE | 2021-05-06 14:52 | HPEPDOC ---
[facility] Medical History & Physical Date of Admission May 06, 2021 Date of Service: May 06, 2021 History and Physical CHIEF COMPLAINT: fever, cough HISTORY OF PRESENT ILLNESS: 71 yo M with a PMHx of HTN and LLOYD, was brought to ER with a 2 day history of intermittent fever, reactive to tylenol as well as dry cough. He also suffered a near syncopal episode this morning, after he took a shower, got dressed and felt lightheaded. He measured his BP at home, and saw 75/60 mmHg. EMT gave patient 1L NS bolus, and his BP normalized. He was found to have COVID-19 infection in the ER. Patient further endorses a pruritic rash af fecting his upper chest groin area as well as lower extremities for the past 3 to 4 months which his also shares. Upon ambulating, he desaturated to 84%. He currently requires 4L/min via NC. BP 156/84. HR 83. T 98.2. Patient denies any chest pain, palpitations, nausea, vomiting or diarrhea. Patient be admitted to hospitalist service for management of COVID-19 infection PAST MEDICAL HISTORY: HTN LLOYD PAST SURGICAL HISTORY: Throat surgery to remove his uvula and attempt to assist with obstructive sleep apnea Hydrocele repair (remote hx) Tonsillectomy in childhood SOCIAL HISTORY: Patient denies smoking Patient denies etoh use Patient denies illicit drug use FAMILY HISTORY: Father history of hypertension, [place] ALLERGIES: Please see below. REVIEW OF SYSTEMS: 10 point ROS conducted, relevant findings are noted in the HPI. HOME MEDICATIONS: Please see below. PHYSICAL EXAMINATION: VITAL SIGNS: please see below General: NAD, comfortable HEENT: PERRLA, EOMI, sclerae clear Neck: supple, normal ROM, no JVD Respiratory: lungs CTAB, no wheeze, no rales, no crackles CVS: RRR, normal S1, S2, no murmurs Abdo: soft, no masses, no hepatosplenomegaly, BS+, no rebound tenderness Extremities: no edema, pulses 2+ MSK: no joint deformities, normal ROM Neuro: no focal neuro deficits, moving all 4 extremities, CN2-12 intact. Strength 5/5 in all 4 extremities. No nystagmus. Psych: calm, cooperative, AAO x 3 LABORATORY DATA: See below. IMAGING: CXR (05/06/21): IMPRESSION: No acute pulmonary disease. CT abdomen pelvis w contrast (05/06/21): 1. Multiple hepatic cysts are suspected. Three-month follow-up is suggested. 2. Likely slightly hyperdense right renal cyst as described above. Three-month follow-up is recommended. 3. Other findings as described above. CTA chest (05/06/21): 1. There is no evidence of a pulmonary embolus. 2. Opacities and adenopathy as described above likely secondary to infectious etiology. 3. Other findings as described above. MICROBIOLOGY: Please see below. ASSESSMENT: 71 yo M with a PMHx of HTN and LLOYD, was brought to ER with a 2 day history of intermittent fever and cough, as well as a pre-syncopal episode with hypotension which responded to IV bolus by EMS, possibly 2/2 vasovagal episode. . PLAN: Covid-19 infection: onset symptoms 2-3 days. Hypoxic 84% on RA. Dexamethasone 6 mg IV BID. Remdisivir. Lovenox 0.5mg/kg q12h. Trend inflammatory panel. Tylenol prn for fever. Combivent prn. Pre-syncope: possibly vasovagal. Check orthostats. Check 2D echo. Compression stockings. PT/OT. HTN: resume home regimen. Cardizem 240 mg ER daily. Telmisartan 80 mg QHS. LLOYD: on O2 supplementation. Renal cyst (R): hyperdense. Repeat imaging 3 months. Multiple hepatic cysts: Repeat imaging 3 months. Rash: patient has been c/o rash 3-4 months. also has rash. Scabies possible, given distribution in groin area. Will treat with one time application of permethrin. Monitor for improvement. Repeat treatment after 7 days as needed. Contact precautions. DVT ppx: lovenox 0.5 mg/kg q12h. Vital Signs Vital Signs Date Time Temp Pulse Resp B/P (MAP) Pulse Ox O2 Delivery O2 Flow Rate FiO2 05/06/21 13:30 73 156/84 (108) 94 Nasal Cannula 3.5 05/06/21 11:52 21 05/06/21 09:29 98.2 Laboratory Data Labs 24H Laboratory Tests 2 05/06/21 09:36: Immature Granulocyte % (Auto) 0.4, Neutrophils (%) (Auto) 74.3H, Lymphocytes (%) (Auto) 16.8L, Monocytes (%) (Auto) 8.1H, Eosinophils (%) (Auto) 0.0, Basophils (%) (Auto) 0.4, Neutrophils # (Auto) 3.9, Lymphocytes # (Auto) 0.9L, Monocytes # (Auto) 0.4, Eosinophils # (Auto) 0.0, Basophils # (Auto) 0.0, Nucleated Red Blood Cells % (auto) 0.0, Lactic Acid Level 1.6, Total Bilirubin 0.4, Direct Bi lirubin 0.1, Aspartate Amino Transf (AST/SGOT) 23, Alanine Aminotransferase (ALT/SGPT) 27, Alkaline Phosphatase 37L, Total Creatine Kinase 230, Creatine Kinase MB < 1.0, Creatine Kinase MB Relative Index 0.43, Troponin I 0.04, NW-Olu-G-Type Natriuretic Peptide 106, Total Protein 6.4, Albumin 3.3, Al bumin/Globulin Ratio 1.1, Thyroid Stimulating Hormone (TSH) 1.420, Thyroxine (T4) 8.6 05/06/21 10:03: POC Glucose (Misc Panel) 122H, POC Sodium (Misc Panel) 139, POC Potassium (Misc Panel) 3.2L, POC Chloride (Misc Panel) 100, POC Total CO2 (Misc Panel) 26.0, POC Blood Urea Nitrogen (Misc Panel 24, POC Ionized Calcium (Misc Panel) 4.4L, POC Creatinine (Misc Panel) 1.6H, POC Hematocrit (Misc Panel) 41.0 CBC/BMP Laboratory Tests 05/06/21 09:36 Microbiology Microbiology 05/06/21 Respiratory Virus Panel (PCR) ([facility]) - Final, Complete SARS-CoV-2 (COVID 19) 05/06/21 Blood Culture, Received Pending 05/06/21 Blood Culture, Received Pending Home Medications Scheduled Amlodipine Besylate (Amlodipine Besylate) 5 Mg Tablet, 5 MG PO DAILY Ascorbic Acid (Vitamin C) 500 Mg Tablet, 500 MG PO DAILY Aspirin (Aspirin EC) 81 Mg Tablet.dr, 81 MG PO DAILY Cholecalciferol (Vitamin D3) (Vitamin D3) 1,000 Unit Tablet, 1,000 UNITS PO DAILY Ipratropium/Albuterol Sulfate (Combivent Respimat 20-100 Mcg) 4 Gm Mist.inhal, 1 PUFF INH QID [place]-3 Fatty Acids/Fish Oil (Fish Oil 1,000 mg Capsule) 1 Each Capsule, 1,000 MG PO DAILY Prednisone (Prednisone) 10 Mg Tablet, 10 MG PO TID Telmisartan (Telmisartan) 80 Mg Tablet, 80 MG PO QHS dilTIAZem HCl (Diltiazem 24Hr Cd) 240 Mg Cap.er.24h, 240 MG PO DAILY Scheduled PRN Acetaminophen (Acetaminophen) 325 Mg Tablet, 650 MG PO Q4H PRN for PAIN LEVEL 1- 4 Hydroxyzine HCl (Hydroxyzine HCl) 25 Mg Tablet, 25 MG PO QHS PRN for ITCHING Allergies Coded Allergies: No Known Drug Allergies (Verified Allergy, Unknown, 11/24/20) A-FIB/CHADSVASC A-FIB History Current/History of A-Fib/PAF?: No STANISLAV PALOMO MD May 06, 2021 14:52
--- OUTSIDE RECORDS SUMMARY | 2021-05-06 15:00 | CCD ---
Author Author [facility] Organization [facility] Address Unknown Phone Unavailable Care Team Providers Care Communication Analyst Name Role Phone Katharina Sutton, Arpita Combs [...] Arpita Combs MD, FACS Unavailable Unavailable Posadas Stuton, Arpita Combs MD, FACS Unavailable Unavailable Posadas [...] Combs MD, FACS Unavailable Unavailable Posadas Sutton, rApita Combs MD, FACS Unavailable Unavailable Posadas Sutton, [...] is protected by Article 27-F of the [facility] Public Health law. If you continue you may have access to information: Regarding HIV / AIDS; Provided by facilities licensed or operated by the [facility] Office of Mental Health; or Provided by the [facility] Office for People With Developmental Disabilities. If such information is present, then the following [facility] mandated warning applies: This information has [...] law may result in a fine or mcfp sentence or both. A general authorization for the release of medical or other information is NOT sufficient authorization for further disc losure. Allergies and Adverse Reactions Type Description Substance Reaction Status Data Source(s ) Allergy to substance No Known Allergies No known allergies (situation ) [facility]AL (Garret Sutton MD [facility]) Allergy to substance No Known Allergies No known allergies (situation ) [facility] (Garret Sutton MD [facility]) Encounters Encounter Providers Location Date Indications Data Source(s ) [place] [address] [facility] [address] 04/30/2021 12:00:00 AM EDT eCW1 ([facility]) [place] [address] [facility] [address] 04/29/2021 12:00:00 AM EDT eCW1 ([facility]) [place] [address] [facility] [address] 04/29/2021 12:00:00 AM EDT eCW1 ([facility]) [place] [address] [facility] [address] 04/29/2021 12:00:00 AM EDT eCW1 ([facility]) [place] [address] [facility] [address] 04/29/2021 12:00:00 AM EDT eCW1 ([facility]) [place] [address] [facility] [address] 04/29/2021 12:00:00 AM EDT eCW1 ([facility]) [place] [address] [facility] [address] 04/23/2021 12:00:00 AM EDT eCW1 ([facility]) [place] [address] [facility] [address] 04/15/2021 12:00:00 AM EDT eCW1 ([facility]) [place] [address] [facility] [address] 04/15/2021 12:00:00 AM EDT eCW1 ([facility]) [place] [address] [facility] [place] [address] 04/07/2021 12:00:00 AM EDT eCW1 ([facility]) Unknown [address] [facility] [address] 03/21/2021 12:00:00 AM EDT eCW1 ([facility]) [place] [address] [facility] [address] 03/18/2021 12:00:00 AM EDT eCW1 ([facility]) Unknown [address] [facility] [address] 03/05/2021 12:00:00 AM EDT eCW1 ([facility]) Outpatient<td ID="encounterTypeDescripti onID0">8 Week Follow-Up</td><td>Garret Garcia MD, FACS</td><td>[facility]</td><td>02/19/2021</td><td>12:48PM</td><td>1:31PM</td><td><content ID="encounterDiagnosisID0-0">Essential Hypertension</content>, <content ID="encounterDiagnosisID0-1">Strabismus Non-paralytic Heterophoria Esophoria</content></td> Attender: Garret Sutton MD, FACS [facility] 02/19/2021 12:48:00 PM EDT - 02/19/2021 01:31:00 PM ED T Strabismus Non- paralytic Heterophoria EsophoriaEssential Hypertension [place] ([facility]) Strabismus Non-paralytic Heterophoria Es ophoria Essential Hypertension Unknown [address] [facility] [address] 02/06/2021 12:00:00 AM EDT eCW1 ([facility]) Outpatient [address] [facility] [address] 01/01/2021 12:00:00 AM EDT eCW1 ([facility]) Unknown [address] [facility] [address] 12/24/2020 12:00:00 AM EDT eCW1 ([facility]) Unknown [address] [facility] [address] 12/24/2020 12:00:00 AM EDT eCW1 ([facility]) Outpatient [address] [facility] [address] 12/12/2020 12:00:00 AM EDT eCW1 ([facility]) Outpatient [address] [facility] [address] 12/04/2020 12:00:00 AM EDT eCW1 ([facility]) <td ID="encounterTypeDescriptionID1">TRI AGE URGENT NEW PATIENT</td><td>Garret Garcia MD, FACS</td><td>[facility]</td><td>11/27/2020</td><td>1:42PM</td><td>2:54PM</td><td><content ID="encounterDiagnosisID1-0">Essential Hypertension</content>, <content ID="encounterDiagnosisID1-1">Dry Eye Syndrome Both Eyes</content>, <content ID="encounterDiagnosisID1-2">Retinopathy Hypertensive Both Eyes</content>, <content ID="encounterDiagnosisID1-3">Dermatochalasis</content></td>Outpatient Attender: Garret Sutton MD, FACS [facility] 11/27/2020 01:42:0 0 PM EDT - 11/27/2020 02:54:00 PM EDT DermatochalasisRetinopathy Hypertensive Both EyesDry Eye Syndrome Both EyesEssential HypertensionDermatochalasisRetinopathy Hypertensive Both EyesDry Eye Syndrome Both EyesEssential Hypertension [place] (Garret Sutton MD [facility]) Dermatochalasis Retinopathy Hypertensive Both Eyes Dry Eye [...] {tablet} active Te lmisartan 80 MG eCW1 ([facility]) telmisartan 80 MG Oral Tablet Telmisartan 80 MG Telmisartan 80 MG 04/29/2021 12:00:00 AM EDT 1.0 {tablet} active Te lmisartan 80 MG eCW1 ([facility]) telmisartan 80 MG Oral Tablet Telmisartan 80 MG Telmisartan 80 MG 04/29/2021 12:00:00 AM EDT 1.0 {tablet} active Te lmisartan 80 MG eCW1 ([facility]) telmisartan 80 MG Oral Tablet Telmisartan 80 MG Telmisartan 80 MG 04/29/2021 12:00:00 AM EDT 1.0 {tablet} active Te lmisartan 80 MG eCW1 ([facility]) telmisartan 80 MG Oral Tablet Telmisartan 80 MG Telmisartan 80 MG 04/29/2021 12:00:00 AM EDT 1.0 {tablet} active Te lmisartan 80 MG eCW1 ([facility]) telmisartan 80 MG Oral Tablet Telmisartan 80 MG Telmisartan 80 MG 04/29/2021 12:00:00 AM EDT 1.0 {tablet} active Te lmisartan 80 MG eCW1 ([facility]) cetirizine hydrochloride 10 MG Oral Tablet Cetirizine HCl 10 MG Cetirizine HCl 10 MG 04/15/2021 12:00:00 AM EDT 1.0 {tablet} activ e Cetirizine HCl 10 MG eCW1 ([facility]) 24 HR Diltiazem Hydrochloride 240 MG Ext ended Release Oral Capsule [Cartia] Cartia XT 240 MG Cartia XT 240 MG 04/15/2021 12:00:00 AM EDT 1.0 {cap hiwot} active Cartia XT 240 MG eCW1 ([facility]) 24 HR Diltiazem Hydrochloride 240 MG Ext ended Release Oral Capsule [Cartia] Cartia XT 240 MG Cartia XT 240 MG 04/15/2021 12:00:00 AM EDT 1.0 {cap hiwot} active Cartia XT 240 MG eCW1 ([facility]) cetirizine hydrochloride 10 MG Oral Tablet Cetirizine HCl 10 MG Cetirizine HCl 10 MG 04/15/2021 12:00:00 AM EDT 1.0 {tablet} activ e Cetirizine HCl 10 MG eCW1 ([facility]) 24 HR Diltiazem Hydrochloride 240 MG Ext ended Release Oral Capsule [Cartia] Cartia XT 240 MG Cartia XT 240 MG 04/15/2021 12:00:00 AM EDT 1.0 {cap hiwot} active Cartia XT 240 MG eCW1 ([facility]) Hydroxyzine Hydrochloride 25 MG Oral Tablet hydrOXYzin e HCl 25 MG hydrOXYzine HCl 25 MG 04/15/2021 12:00:00 AM EDT 1.0 {tablet} ac tive hydrOXYzine HCl 25 MG eCW1 ([facility]) cetirizine hydrochloride 10 MG Oral Tablet Cetirizine HCl 10 MG Cetirizine HCl 10 MG 04/15/2021 12:00:00 AM EDT 1.0 {tablet} activ e Cetirizine HCl 10 MG eCW1 ([facility]) 24 HR Diltiazem Hydrochloride 240 MG Ext ended Release Oral Capsule [Cartia] Cartia XT 240 MG Cartia XT 240 MG 04/15/2021 12:00:00 AM EDT 1.0 {cap hiwot} active Cartia XT 240 MG eCW1 ([facility]) Hydroxyzine Hydrochloride 25 MG Oral Tablet hydrOXYzin e HCl 25 MG hydrOXYzine HCl 25 MG 04/15/2021 12:00:00 AM EDT 1.0 {tablet} ac tive hydrOXYzine HCl 25 MG eCW1 ([facility]) 24 HR Diltiazem Hydrochloride 240 MG Ext ended Release Oral Capsule [Cartia] Cartia XT 240 MG Cartia XT 240 MG 04/15/2021 12:00:00 AM EDT 1.0 {cap hiwot} active Cartia XT 240 MG eCW1 ([facility]) cetirizine hydrochloride 10 MG Oral Tablet Cetirizine HCl 10 MG Cetirizine HCl 10 MG 04/15/2021 12:00:00 AM EDT 1.0 {tablet} activ e Cetirizine HCl 10 MG eCW1 ([facility]) cetirizine hydrochloride 10 MG Oral Tablet Cetirizine HCl 10 MG Cetirizine HCl 10 MG 04/15/2021 12:00:00 AM EDT 1.0 {tablet} activ e Cetirizine HCl 10 MG eCW1 ([facility]) cetirizine hydrochloride 10 MG Oral Tablet Cetirizine HCl 10 MG Cetirizine HCl 10 MG 04/15/2021 12:00:00 AM EDT 1.0 {tablet} activ e Cetirizine HCl 10 MG eCW1 ([facility]) 24 HR Diltiazem Hydrochloride 240 MG Ext ended Release Oral Capsule [Cartia] Cartia XT 240 MG Cartia XT 240 MG 04/15/2021 12:00:00 AM EDT 1.0 {cap hiwot} active Cartia XT 240 MG eCW1 ([facility]) cetirizine hydrochloride 10 MG Oral Tablet Cetirizine HCl 10 MG Cetirizine HCl 10 MG 04/15/2021 12:00:00 AM EDT 1.0 {tablet} activ e Cetirizine HCl 10 MG eCW1 ([facility]) Hydroxyzine Hydrochloride 25 MG Oral Tablet hydrOXYzin e HCl 25 MG hydrOXYzine HCl 25 MG 04/15/2021 12:00:00 AM EDT 1.0 {tablet} ac tive hydrOXYzine HCl 25 MG eCW1 ([facility]) 24 HR Diltiazem Hydrochloride 240 MG Ext ended Release Oral Capsule [Cartia] Cartia XT 240 MG Cartia XT 240 MG 04/15/2021 12:00:00 AM EDT 1.0 {cap hiwot} active Cartia XT 240 MG eCW1 ([facility]) Hydroxyzine Hydrochloride 25 MG Oral Tablet hydrOXYzin e HCl 25 MG hydrOXYzine HCl 25 MG 04/15/2021 12:00:00 AM EDT 1.0 {tablet} ac tive hydrOXYzine HCl 25 MG eCW1 ([facility]) Hydroxyzine Hydrochloride 25 MG Oral Tablet hydrOXYzin e HCl 25 MG hydrOXYzine HCl 25 MG 04/15/2021 12:00:00 AM EDT 1.0 {tablet} ac tive hydrOXYzine HCl 25 MG eCW1 ([facility]) 24 HR Diltiazem Hydrochloride 240 MG Ext ended Release Oral Capsule [Cartia] Cartia XT 240 MG Cartia XT 240 MG 04/15/2021 12:00:00 AM EDT 1.0 {cap hiwot} active Cartia XT 240 MG eCW1 ([facility]) Hydroxyzine Hydrochloride 25 MG Oral Tablet hydrOXYzin e HCl 25 MG hydrOXYzine HCl 25 MG 04/15/2021 12:00:00 AM EDT 1.0 {tablet} ac tive hydrOXYzine HCl 25 MG eCW1 ([facility]) cetirizine hydrochloride 10 MG Oral Tablet Cetirizine HCl 10 MG Cetirizine HCl 10 MG 04/15/2021 12:00:00 AM EDT 1.0 {tablet} activ e Cetirizine HCl 10 MG eCW1 ([facility]) Hydroxyzine Hydrochloride 25 MG Oral Tablet hydrOXYzin e HCl 25 MG hydrOXYzine HCl 25 MG 04/15/2021 12:00:00 AM EDT 1.0 {tablet} ac tive hydrOXYzine HCl 25 MG eCW1 ([facility]) cetirizine hydrochloride 10 MG Oral Tablet Cetirizine HCl 10 MG Cetirizine HCl 10 MG 04/15/2021 12:00:00 AM EDT 1.0 {tablet} activ e Cetirizine HCl 10 MG eCW1 ([facility]) 24 HR Diltiazem Hydrochloride 240 MG Ext ended Release Oral Capsule [Cartia] Cartia XT 240 MG Cartia XT 240 MG 04/15/2021 12:00:00 AM EDT 1.0 {cap hiwot} active Cartia XT 240 MG eCW1 ([facility]) Hydroxyzine Hydrochloride 25 MG Oral Tablet hydrOXYzin e HCl 25 MG hydrOXYzine HCl 25 MG 04/15/2021 12:00:00 AM EDT 1.0 {tablet} ac tive hydrOXYzine HCl 25 MG eCW1 ([facility]) Hydroxyzine Hydrochloride 25 MG Oral Tablet hydrOXYzin e HCl 25 MG hydrOXYzine HCl 25 MG 04/15/2021 12:00:00 AM EDT 1.0 {tablet} ac tive hydrOXYzine HCl 25 MG eCW1 ([facility]) Chlorthalidone 25 MG Oral Tablet Chlorthalidone 25 MG 2020 12:00:00 AM EDT active Chlorthalidone 25 MG eCW1 ([facility]) Chlorthalidone 25 MG Oral Tablet Chlorthalidone 25 MG 2020 12:00:00 AM EDT active Chlorthalidone 25 MG eCW1 ([facility]) Hydrochlorothiazide 12.5 MG Oral Tablet hydroCHLOROthi azide 12.5 MG hydroCHLOROthiazide 12.5 MG 03/21/2021 12:00:00 AM EDT 1.0 {tablet_in_the_morning} suspended hydroC HLOROthiazide 12.5 MG eCW1 ([facility]) Hydrochlorothiazide 12.5 MG Oral Tablet hydroCHLOROthi azide 12.5 MG hydroCHLOROthiazide 12.5 MG 03/21/2021 12:00:00 AM EDT 1.0 {tablet_in_the_morning} suspended hydroC HLOROthiazide 12.5 MG eCW1 ([facility]) Hydrochlorothiazide 12.5 MG Oral Tablet hydroCHLOROthi azide 12.5 MG hydroCHLOROthiazide 12.5 MG 03/21/2021 12:00:00 AM EDT 1.0 {tablet_in_the_morning} active hydroCHL OROthiazide 12.5 MG eCW1 ([facility]) Hydrochlorothiazide 12.5 MG Oral Tablet hydroCHLOROthi azide 12.5 MG hydroCHLOROthiazide 12.5 MG 03/21/2021 12:00:00 AM EDT 1.0 {tablet_in_the_morning} active hydroCHL OROthiazide 12.5 MG eCW1 ([facility]) Hydrochlorothiazide 12.5 MG Oral Tablet hydroCHLOROthi azide 12.5 MG hydroCHLOROthiazide 12.5 MG 03/21/2021 12:00:00 AM EDT 1.0 {tablet_in_the_morning} suspended hydroC HLOROthiazide 12.5 MG eCW1 ([facility]) Chlorthalidone 25 MG Oral Tablet Chlorthalidone 25 MG 2020 12:00:00 AM EDT 1.0 {tablet_in_the_morning_with_food} active Chlorthalidone 25 MG eCW1 ([facility]) Hydrochlorothiazide 12.5 MG Oral Tablet hydroCHLOROthi azide 12.5 MG hydroCHLOROthiazide 12.5 MG 03/21/2021 12:00:00 AM EDT 1.0 {tablet_in_the_morning} suspended hydroC HLOROthiazide 12.5 MG eCW1 ([facility]) Hydrochlorothiazide 12.5 MG Oral Tablet hydroCHLOROthi azide 12.5 MG hydroCHLOROthiazide 12.5 MG 03/21/2021 12:00:00 AM EDT 1.0 {tablet_in_the_morning} suspended hydroC HLOROthiazide 12.5 MG eCW1 ([facility]) Hydrochlorothiazide 12.5 MG Oral Tablet hydroCHLOROthi azide 12.5 MG hydroCHLOROthiazide 12.5 MG 03/21/2021 12:00:00 AM EDT 1.0 {tablet_in_the_morning} active hydroCHL OROthiazide 12.5 MG eCW1 ([facility]) Hydrochlorothiazide 12.5 MG Oral Tablet hydroCHLOROthi azide 12.5 MG hydroCHLOROthiazide 12.5 MG 03/21/2021 12:00:00 AM EDT 1.0 {tablet_in_the_morning} suspended hydroC HLOROthiazide 12.5 MG eCW1 ([facility]) Hydrochlorothiazide 12.5 MG Oral Tablet hydroCHLOROthi azide 12.5 MG hydroCHLOROthiazide 12.5 MG 03/21/2021 12:00:00 AM EDT 1.0 {tablet_in_the_morning} suspended hydroC HLOROthiazide 12.5 MG eCW1 ([facility]) Hydrochlorothiazide 12.5 MG Oral Tablet hydroCHLOROthi azide 12.5 MG hydroCHLOROthiazide 12.5 MG 03/21/2021 12:00:00 AM EDT 1.0 {tablet_in_the_morning} suspended hydroC HLOROthiazide 12.5 MG eCW1 ([facility]) Hydrochlorothiazide 12.5 MG Oral Tablet hydroCHLOROthi azide 12.5 MG hydroCHLOROthiazide 12.5 MG 03/21/2021 12:00:00 AM EDT 1.0 {tablet_in_the_morning} suspended hydroC HLOROthiazide 12.5 MG eCW1 ([facility]) Lisinopril 40 MG Oral Tablet Lisinopril 40 MG Oral Tablet 12:00:00 AM EDT 1 active lisinopril 40 MG Oral Tablet [facility] (Garret Sutton MD [facility]) Insurance Providers Payer name Policy type / Coverage type Policy ID Covered alliance party ID Covered alliance party's relationship to davidson Policy [employer] Plan Information MEDICARE BLUE PPO 306 [id number] SP [id number] MEDICARE BLUE PPO 306 [id number] SP [id number] BCBS of [facility] Other 0 [id number] Se lf 0 MEDICARE BLUE PPO 306 [id number] MEDICARE [id number] SP [id number] BCBS of [facility] Other 0 [id number] Se lf 0 [facility]/307 [id number] SP [id number] BCBS OF [facility] 320/820 [id number] SP [id number] Problems, Conditions, and Diagnoses Code Display Name Description Problem Type Effective Dates Data Source(s) 378.41 Strabismus Non-paralytic Heterophoria Es ophoria Strabismus Non-paralytic Heterophoria Esophoria Problem 02/19/2021 12:00:00 AM EDT [facility] ( Garret Sutton MD [facility]) I15.9 [id number] Secondary hypertension Problem 12/04/2020 12 :00:00 AM EDT eCW1 ([facility]) I10 [id number] Hypertension, unspecified type Problem 12/04 12:00:00 AM EDT eCW1 ([facility]) 56050507 Dry 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 Problem 11/27/2020 12:00:00 AM EDT [facility] (Garret Sutton MD [facility]) 26897897 Retinopathy Hypertensive Both Eyes Retinopathy H ypertensive Both Eyes Problem 11/27/2020 12:00:00 AM EDT [facility] (Garret hui MD [facility]) 401.9 Essential Hypertension Essential Hypertension Problem 11/27/2020 12:00:00 AM EDT [facility] (Garret Sutton MD [facility]) 374.87 Dermatochalasis Dermatochalasis Problem 11/27/2020 12:0 0:00 AM EDT [facility] (Garret Sutton MD [facility]) 46969339 Dry 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 Problem 11/27/2020 12:00:00 AM EDT [facility] (Garret Sutton MD [facility]) [id number] Retinopathy Hypertensive Both Eyes Retinopathy H ypertensive Both Eyes Problem 11/27/2020 12:00:00 AM EDT [facility] (Garret hui MD [facility]) 401.9 Essential Hypertension Essential Hypertension Problem 11/27/2020 12:00:00 AM EDT [facility] (Garret Sutton MD [facility]) 374.87 Dermatochalasis Dermatochalasis Problem 11/27/2020 12:0 0:00 AM EDT [facility] (Garret Sutton MD [facility]) Surgeries/Procedures Procedure Description Date Indications Data Source(s) ECG ROUTINE ECG W/LEAST 12 LDS W/I&R 12/04/2020 12:00: 00 AM EDT eCW1 ([facility]) Surgical / procedural history Tonsillec trae 1954, Vasectomy 1973, Hydrocelectomy 1974, Throat surgery 1984 Surgical / procedural history Tonsillectomy 1955, Vasectomy 1974, Hydrocelectomy 1975, Throat surgery 1985 11/27/2020 12:00:00 AM EDT [facility] (Garret hui MD [facility]) Medical Eye Exam Medical Eye Exam 11/27/2020 12:00:00 AM EDT [facility] (Garret Sutton MD [facility]) Medical Eye Exam Medical Eye Exam 11/27/2020 12:00:00 AM EDT [facility] (Garret Sutton MD [facility]) Results ID Date Data Source Basic Metabolic Profile (BMP) 12/04/2020 12:00:00 AM EDT eCW 1 ([facility]) Name Value Range Interpretation Code Description Data Ryanne rce(s) Supporting Document(s) 115 70-100 GLUCOSE, FASTING eCW1 ([facility]) > 60.0 >42 GLOMERULAR FILTRATION RATE eCW 1 ([facility]) 1.06 0.70-1.30 CREATININE FOR GFR eCW1 ([facility]) 22 7-18 BLOOD UREA NITROGEN eCW1 ([facility]) 30 21-32 CARBON DIOXIDE LEVEL eCW1 ([facility]) 105 98-107 CHLORIDE LEVEL eCW1 ([facility]) 3.7 3.5-5.1 POTASSIUM SERUM eCW1 ([facility]) 139 136-145 SODIUM LEVEL eCW1 ([facility]) 9.3 8.8-10.2 CALCIUM LEVEL eCW1 ([facility]) ID Date Data Source [id number] 11/24/2020 07:08:00 PM EDT [facility] Name Value Range Interpretation Code Description Data Ryanne rce(s) Supporting Document(s) SARS-CoV-2 (COVID 19) NEGATIVE - SARS-CoV-2 (COVID19) [facility] This lab was ordered by [facility] a nd reported by [facility]. Procedure Social History Code Duration Value Status Description Data Source(s ) Smoking 04/15/2021 12:00:00 AM EDT Never Smoker completed Never S moker eCW1 ([facility]) Smoking 04/15/2021 12:00:00 AM EDT Never Smoker completed Never S moker eCW1 ([facility]) Smoking 04/15/2021 12:00:00 AM EDT Never Smoker completed Never S moker eCW1 ([facility]) Smoking 04/15/2021 12:00:00 AM EDT Never Smoker completed Never S moker eCW1 ([facility]) Smoking 04/15/2021 12:00:00 AM EDT Never Smoker completed Never S moker eCW1 ([facility]) Smoking 04/15/2021 12:00:00 AM EDT Never Smoker completed Never S moker eCW1 ([facility]) Smoking 04/15/2021 12:00:00 AM EDT Never Smoker completed Never S moker eCW1 ([facility]) Smoking 04/15/2021 12:00:00 AM EDT Never Smoker completed Never S moker eCW1 ([facility]) Smoking 04/15/2021 12:00:00 AM EDT Never Smoker completed Never S moker eCW1 ([facility]) Smoking 03/21/2021 12:00:00 AM EDT Never Smoker completed Never S moker eCW1 ([facility]) Smoking 03/21/2021 12:00:00 AM EDT Never Smoker completed Never S moker eCW1 ([facility]) Smoking 03/21/2021 12:00:00 AM EDT Never Smoker completed Never S moker eCW1 ([facility]) Smoking 02/19/2021 01:39:55 PM EDT Never smoked tobacco (findi ng) completed Never smoked tobacco (finding) [facility] (Garret Sutton MD [facility]) Smoking 12/31/2020 12:00:00 AM EDT Never Smoker completed Never S moker eCW1 ([facility]) Smoking 12/31/2020 12:00:00 AM EDT Never Smoker completed Never S moker eCW1 ([facility]) Smoking 12/31/2020 12:00:00 AM EDT Never Smoker completed Never S moker eCW1 ([facility]) Smoking 12/31/2020 12:00:00 AM EDT Never Smoker completed Never S moker eCW1 ([facility]) Smoking 12/12/2020 12:00:00 AM EDT Never Smoker completed Never S moker eCW1 ([facility]) Smoking 12/12/2020 12:00:00 AM EDT Never Smoker completed Never S moker eCW1 ([facility]) Smoking 12/12/2020 12:00:00 AM EDT Never Smoker completed Never S moker eCW1 ([facility]) Smoking 11/27/2020 02:53:42 PM EDT Never smoked tobacco (findi ng) completed Never smoked tobacco (finding) [facility] (Garret Sutton MD [facility]) Vital Signs ID Date Data Source UNK Name Value Range Interpretation Code Description Data Source(s) Body weight 189.2 [lb_av] 189.2 [lb_av] eCW1 ([facility]) Body height 70 [in_i] 70 [in_i] eCW1 ([facility]) Body mass index (BMI) [Ratio] 27.14 kg/m2 27.14 kg/m2 eCW1 ([facility]) Heart rate 71 /min 71 /min eCW1 ([facility]) Respiratory rate 18 /min 18 /min eCW1 ([facility]) Body temperature 97.4 [degF] 97.4 [degF] eCW1 ( [facility]) Systolic blood pressure 128 mm[Hg] 128 mm[Hg] e CW1 ([facility]) Diastolic blood pressure 80 mm[Hg] 80 mm[Hg] eCW1 ([facility]) Body weight 190.0 [lb_av] 190.0 [lb_av] eCW1 ([facility]) Body height 70 [in_i] 70 [in_i] eCW1 ([facility]) Body mass index (BMI) [Ratio] 27.26 kg/m2 27.26 kg/m2 eCW1 ([facility]) Heart rate 72 /min 72 /min eCW1 ([facility]) Respiratory rate 18 /min 18 /min eCW1 ([facility]) Body temperature 96.9 [degF] 96.9 [degF] eCW1 ( [facility]) Systolic blood pressure 160 mm[Hg] 160 mm[Hg] e CW1 ([facility]) Diastolic blood pressure 98 mm[Hg] 98 mm[Hg] eCW1 ([facility]) Respiratory rate 18 /min 18 /min eCW1 ([facility]) Body temperature 98.9 [degF] 98.9 [degF] eCW1 ( [facility]) Systolic blood pressure 190 mm[Hg] 190 mm[Hg] e CW1 ([facility]) Diastolic blood pressure 118 mm[Hg] 118 mm[Hg] eCW1 ([facility]) Body weight 191 [lb_av] 191 [lb_av] eCW1 ([facility]) Body height 70 [in_i] 70 [in_i] eCW1 ([facility]) Body mass index (BMI) [Ratio] 27.40 kg/m2 27.40 kg/m2 eCW1 ([facility]) Heart rate 81 /min 81 /min eCW1 ([facility]) Patient Treatment Plan of Care Planned Activity Planned Date Details Description Data Source (s) telmisartan 80 MG Oral Tablet 04/29/2021 12:00:00 AM EDT eCW1 ([facility]) telmisartan 80 MG Oral Tablet 04/29/2021 12:00:00 AM EDT eCW1 ([facility]) telmisartan 80 MG Oral Tablet 04/29/2021 12:00:00 AM EDT eCW1 ([facility]) telmisartan 80 MG Oral Tablet 04/29/2021 12:00:00 AM EDT eCW1 ([facility]) telmisartan 80 MG Oral Tablet 04/29/2021 12:00:00 AM EDT eCW1 ([facility]) telmisartan 80 MG Oral Tablet 04/29/2021 12:00:00 AM EDT eCW1 ([facility]) cetirizine hydrochloride 10 MG Oral Tablet 04/15/2021 12:00:00 AM E DT eCW1 ([facility]) 24 HR Diltiazem Hydrochloride 240 MG Extended Release Oral Capsule [Cartia] 04/15/2021 12:00:00 AM EDT eCW1 ([facility]) Hydroxyzine Hydrochloride 25 MG Oral Tablet 04/15/2021 12:00:00 AM EDT eCW1 ([facility]) cetirizine hydrochloride 10 MG Oral Tablet 04/15/2021 12:00:00 AM E DT eCW1 ([facility]) 24 HR Diltiazem Hydrochloride 240 MG Extended Release Oral Capsule [Cartia] 04/15/2021 12:00:00 AM EDT eCW1 ([facility]) Hydroxyzine Hydrochloride 25 MG Oral Tablet 04/15/2021 12:00:00 AM EDT eCW1 ([facility]) Chlorthalidone 25 MG Oral Tablet 03/21/2021 12:00:00 AM EDT eCW1 ([facility]) Hydrochlorothiazide 12.5 MG Oral Tablet 03/21/2021 12:00:00 AM EDT eCW1 ([facility]) Chlorthalidone 25 MG Oral Tablet 03/21/2021 12:00:00 AM EDT eCW1 ([facility]) Hydrochlorothiazide 12.5 MG Oral Tablet 03/21/2021 12:00:00 AM EDT eCW1 ([facility]) Chlorthalidone 25 MG Oral Tablet 03/21/2021 12:00:00 AM EDT eCW1 ([facility]) Hydrochlorothiazide 12.5 MG Oral Tablet 03/21/2021 12:00:00 AM EDT eCW1 ([facility])
[2021-05-06] MEDS: ACETAMINOPHEN TAB 650MG DOSE (2X325MG) PO PRN (15:33)
--- NOTE | 2021-05-06 16:00 | ECGEPIP ---
[facility] - ED Test Date: 2021-05-06 Pat Name: GALA NDIAYE Department: Room: - Gender: Male [place] Head: LITZY : 1950 Requested By: Delaney Grimes Order Number: [id number] Reading MD: Delaney Grimes Measurements Intervals [place] Rate: 69 P: 47 WA: 156 QRS: 1 QRSD: 102 T: 68 QT: 368 QTc: 394 Interpretive Statements Normal sinus rhythm Nonspecific ST abnormality Delayed R wave progression 11/24/[address] T wave changes Electronically Signed on 05-06-2021 16:00:01 EDT by Delaney Grimes
[2021-05-06] MEDS ORDERED: IBUPROFEN 400MG TAB PO ONE (17:40)
[2021-05-06] MEDS ORDERED: dexameTHASONE 4 MG/ML 1ML VIAL (J1100 PER 1MG) IV SCH (18:00)
[2021-05-06] MEDS ORDERED: PERMETHRIN 5% CREAM 60 GM TOP ONE (20:00)
[2021-05-06 20:11] VITALS: BP 162/95
[2021-05-06] MEDS ORDERED: REMDESIVIR 200 MG in NS 250 ML IV ONE (21:00)
[2021-05-06] MEDS: TELMISARTAN 20 MG TAB PO SCH (21:19)
[2021-05-06] MEDS ORDERED: SODIUM CHLORIDE 0.9% INJ 10 ML SYR IV ONE (22:00)
[2021-05-06 22:13] VITALS: BP_SYST 131; BP_SYST 138; BP_SYST 143; BP_DIAS 79; BP_DIAS 83; BP_DIAS 88
[2021-05-07] VITALS (7 sets, daily range): BP systolic 142–190; BP diastolic 79–110
[2021-05-07 06:31] LABS: HEMATOCRIT 45.8 % (42.0-52.0); HEMOGLOBIN 15.1 g/dl (13.5-17.5); LYMPH # 0.8 10^3/uL (1.5-5.0); LYMPH % 18.5 % (24.0-44.0); MEAN CORPUSCULAR HEMOGLOBIN 29.8 pg (27.0-33.0); MEAN CORPUSCULAR VOLUME 90.5 fl (80.0-96.0); MONO # 0.4 10^3/uL (0.0-0.8); NEUTROPHILS # 3.1 10^3/uL (1.5-8.5); NEUTROPHILS % 72.3 % (36.0-66.0); PLATELET COUNT, AUTOMATED 178 10^3/uL (150-450); RED BLOOD COUNT 5.06 10^6/uL (4.30-6.10); WHITE BLOOD COUNT 4.3 10^3/uL (4.0-10.0)
[2021-05-07 06:42] LABS: INR 0.93; PROTHROMBIN TIME 12.8 SECONDS (12.7-14.5)
[2021-05-07 06:43] LABS: PARTIAL THROMBOPLASTIN TIME 32.2 SECONDS (25.9-37.0)
[2021-05-07 06:46] LABS: D-DIMER QUANT 584.54 ng/ml (<500)
[2021-05-07 07:13] LABS: ALBUMIN 3.3 GM/DL (3.2-5.2); ALT/SGPT 30 U/L (12-78); BILIRUBIN,TOTAL 0.3 MG/DL (0.2-1.0); BLOOD UREA NITROGEN 25 MG/DL (7-18); C REACTIVE PROTEIN QUANTITATIV 3.38 MG/DL (0.00-0.30); CALCIUM LEVEL 8.6 MG/DL (8.8-10.2); CARBON DIOXIDE LEVEL 23 MEQ/L (21-32); CHLORIDE LEVEL 109 MEQ/L (98-107); CPK CREATINE PHOSPHOKINASE 286 U/L (39-308); CREATININE FOR GFR 1.15 MG/DL (0.70-1.30); FERRITIN 568 NG/ML (26-388); GLOMERULAR FILTRATION RATE > 60.0 (>42); GLUCOSE, FASTING 141 MG/DL (70-100); LDH LACTATE DEHYDROGENASE 323 U/L (87-241); MAGNESIUM LEVEL 2.3 MG/DL (1.8-2.4); POTASSIUM SERUM 3.8 MEQ/L (3.5-5.1); SODIUM LEVEL 140 MEQ/L (136-145); TOTAL PROTEIN 7.5 GM/DL (6.4-8.2); TROPONIN I < 0.02 NG/ML (< 0.10)
[2021-05-07] MEDS: ASCORBIC ACID 500 MG TAB PO SCH (09:26)
[2021-05-07] MEDS: ASPIRIN 81MG ENTERIC TABLET PO SCH (09:26)
[2021-05-07] MEDS: ACETAMINOPHEN TAB 650MG DOSE (2X325MG) PO PRN (15:36)
[2021-05-07] MEDS ORDERED: dexameTHASONE 4 MG/ML 1ML VIAL (J1100 PER 1MG) IV SCH (16:00)
[2021-05-07] MEDS ORDERED: **hydrALAZINE** 50 MG TAB PO ONE (16:55)
--- NOTE | 2021-05-07 18:16 | IPNPDOC ---
Date Seen The patient was seen on 05/07/21. Progress Note SUBJECTIVE: seen and examined at bedside. Doing well. No acute events. OBJECTIVE PHYSICAL EXAMINATION: VITAL SIGNS: please see below General: NAD, comfortable HEENT: PERRLA, EOMI, sclerae clear Neck: supple, normal ROM, no JVD Respiratory: lungs CTAB, no wheeze, no rales, no crackles CVS: RRR, normal S1, S2, no murmurs Abdo: soft, no masses, no hepatosplenomegaly, BS+, no rebound tenderness Extremities: no edema, pulses 2+ MSK: no joint deformities, normal ROM Neuro: no focal neuro deficits, moving all 4 extremities, CN2-12 intact. Strength 5/5 in all 4 extremities. No nystagmus. Psych: calm, cooperative, AAO x 3 LABORATORY DATA: See below. LABORATORY DATA, IMAGING STUDIES, MICROBIOLOGY: Please see below. CXR (05/06/21): IMPRESSION: No acute pulmonary disease. CT abdomen pelvis w contrast (05/06/21): 1. Multiple hepatic cysts are suspected. Three-month follow-up is suggested. 2. Likely slightly hyperdense right renal cyst as described above. Three-month follow-up is recommended. 3. Other findings as described above. CTA chest (05/06/21): 1. There is no evidence of a pulmonary embolus. 2. Opacities and adenopathy as described above likely secondary to infectious etiology. 3. Other findings as described above. MICROBIOLOGY: Please see below. ASSESSMENT: 71 yo M with a PMHx of HTN and LLOYD, was brought to ER with a 2 day history of intermittent fever and cough, as well as a pre-syncopal episode with hypotension which responded to IV bolus by EMS, possibly 2/2 vasovagal episode. . PLAN: Covid-19 infection: onset symptoms 2-3 days. Hypoxic 84% on RA. Dexamethasone 6 mg IV BID. Remdisivir. Lovenox 0.5mg/kg q12h. Trend inflammatory panel. Tylenol prn for fever. Combivent prn. Pre-syncope: possibly vasovagal. Check orthostats. Check 2D echo. Compression stockings. PT/OT. HTN: resume home regimen. Cardizem 240 mg ER daily. Telmisartan 80 mg QHS. BP elevated to 190 systolic. Unsafe for DC. Give 50 mg hydralazine once, repeat BP. LLOYD: on O2 supplementation. Renal cyst (R): hyperdense. Repeat imaging 3 months. Multiple hepatic cysts: Repeat imaging 3 months. Rash: patient has been c/o rash 3-4 months. also has rash. Scabies possible, given distribution in groin area. Will treat with one time application of permethrin. Monitor for improvement. Repeat treatment after 7 days as needed. Contact precautions. DVT ppx: lovenox 0.5 mg/kg q12h. VS, I&O, 24H, Fishbone Vital Signs/I&O Vital Signs Date Time Temp Pulse Resp B/P (MAP) Pulse Ox O2 Delivery O2 Flow Rate FiO2 05/07/21 17:07 99.9 05/07/21 17:06 149/87 05/07/21 14:00 102 22 90 Nasal Cannula 2.0 I&O- Last 24 Hours up to 6 AM 05/07/21 06:00 Intake Total 500 ml Output Total 850 ml Balance -350 ml Laboratory Data 24H LABS Laboratory Tests 2 05/07/21 06:10: Immature Granulocyte % (Auto) 0.2, Neutrophils (%) (Auto) 72.3H, Lymphocytes (%) (Auto) 18.5L, Monocytes (%) (Auto) 9.0H, Eosinophils (%) (Auto) 0.0, Basophils (%) (Auto) 0.0, Neutrophils # (Auto) 3.1, Lymphocytes # (Auto) 0.8L, Monocytes # (Auto) 0.4, Eosinophils # (Auto) 0.0, Basophils # (Auto) 0.0, Nucleated Red Blood Cells % (auto) 0.0, Prothrombin Time 12.8, Prothromb Time International Ratio 0.93, Activated Partial Thromboplast Time 32.2, Fibrinogen 492H, D-Dimer, Quantitative 584.54H, Anion Gap 8, Glomerular Filtration Rate > 60.0, Calcium Level 8.6L, Magnesium Level 2.3, Ferritin 568H, Total Bilirubin 0.3, Aspartate Amino Transf (AST/SGOT) 27, Alanine Aminotransferase (ALT/SGPT) 30, Alkaline Phosphatase 38L, Lactate Dehydrogenase 323H, Total Creatine Kinase 286, Troponin I < 0.02#, C-Reactive Protein, Quantitative 3.38H, Total Protein 7.5, Albumin 3. 3, Albumin/Globulin Ratio 0.8 CBC/BMP Laboratory Tests 05/07/21 06:10 Microbiology Microbiology 05/06/21 Respiratory Virus Panel (PCR) ([facility]) - Final, Complete SARS-CoV-2 (COVID 19) 05/06/21 Blood Culture - Preliminary, Resulted No growth after 24 hours . All specim... 05/06/21 Blood Culture - Preliminary, Resulted No growth after 24 hours . All specim... STANISLAV PALOMO MD May 07, 2021 18:16
[2021-05-07] MEDS: TELMISARTAN 20 MG TAB PO SCH (20:25)
[2021-05-07] MEDS ORDERED: REMDESIVIR 100 MG in NS 250 ML IV SCH (21:00)
[2021-05-07] MEDS ORDERED: diphenhydrAMINE 50MG/ML VIAL (J1200) IV ONE (21:10)
[2021-05-07] MEDS ORDERED: SODIUM CHLORIDE 0.9% INJ 10 ML SYR IV SCH (22:00)
[2021-05-08 04:00] VITALS: BP 132/87
[2021-05-08 05:47] VITALS: BP_SYST 147; BP_SYST 166; BP_SYST 168; BP_DIAS 103; BP_DIAS 92; BP_DIAS 99
[2021-05-08] MEDS: ASPIRIN 81MG ENTERIC TABLET PO SCH (08:37)
[2021-05-08] MEDS: ASCORBIC ACID 500 MG TAB PO SCH (08:37)
[2021-05-08 08:38] VITALS: BP 164/87
[2021-05-08] MEDS ORDERED: amLODIPine 5 MG TAB PO SCH (09:00)
--- NOTE | 2021-05-08 11:35 | ECHO ---
ECHOCARDIOGRAM DATE OF PROCEDURE: 05/07/2021 Age: 71 Gender: Male Height: 70 inches Weight: 183 pounds Body Surface Area: 2.0 sq m Inpatient: [address] [place] [address], room 4108 REFERRING PHYSICIAN: Della Cosby MD INDICATION: Syncope/Covid-19 MEASUREMENTS: 2D Measurements: RV - 3.0 cm LV - 4.5 cm Septum 1.1 cm Posterior wall 1.0 cm Aortic Root 3.7 cm LA - 3.6 cm LVEF 65% Doppler Measurements: AV - 1.51 m/s LVOT - 0.8 m/s LVOT diameter 2.2 cm MV-E 54, A 68, E/A ratio 0.8 Early mitral deceleration time 134 msec PV 0.76 m/s Pulmonary artery acceleration time 109 msec PASP 34 mmHg IVC - 1.8 cm COMMENTS: Normal sinus rhythm without intraventricular conduction disturbance. 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 M-mode and 2-dimensional echocardiography was performed with pulse, continuous wave, color flow Dopplers. A tissue Doppler was not performed for technical difficulties. Normal left ventricular size, wall thickness and wall motion. Normal left atrial size with grade left ventricular diastolic dysfunction. We could not further estimate his mean left atrial pressure. Normal right heart chamber sizes and motion with single Doppler sign of mild pulmonary hypertension. Normal inferior vena cava (IVC) size and collapse against an elevated central venous pressure. Normal aortic dimensions. Mild aortic valvular sclerosis without stenosis or apparent insufficiency. Mild degenerative changes of his mitral valvular apparatus with adequate leaflet excursion and no posterior systolic buckling. No obvious mitral insufficiency. Normal-appearing tricuspid valve with only trace insufficiency. Unable to detect any intracardiac mass or pericardial effusion.
[2021-05-08] MEDS ORDERED: PRED10TA2 PO (11:53)
[2021-05-08] MEDS ORDERED: COMBAER6 INH (11:53)
[2021-05-08] MEDS ORDERED: AMLO1TAB24 PO (11:53)
[2021-05-08] MEDS ORDERED: ACET1TAB55 PO (11:53)
[2021-05-08 12:00] VITALS: BP 152/90
[2021-05-08 12:04] LABS: HEMATOCRIT 43.7 % (42.0-52.0); HEMOGLOBIN 14.5 g/dl (13.5-17.5); LYMPH # 0.8 10^3/uL (1.5-5.0); LYMPH % 7.7 % (24.0-44.0); MEAN CORPUSCULAR HEMOGLOBIN 30.1 pg (27.0-33.0); MEAN CORPUSCULAR HGB CONC 33.2 g/dl (32.0-36.5); MEAN CORPUSCULAR VOLUME 90.9 fl (80.0-96.0); MONO # 0.9 10^3/uL (0.0-0.8); MONO % 8.8 % (2.0-8.0); NEUTROPHILS # 8.7 10^3/uL (1.5-8.5); PLATELET COUNT, AUTOMATED 214 10^3/uL (150-450); RED BLOOD COUNT 4.81 10^6/uL (4.30-6.10); WHITE BLOOD COUNT 10.5 10^3/uL (4.0-10.0)
[2021-05-08 12:37] LABS: ALBUMIN 3.6 GM/DL (3.2-5.2); ALT/SGPT 31 U/L (12-78); BILIRUBIN,TOTAL 0.4 MG/DL (0.2-1.0); BLOOD UREA NITROGEN 37 MG/DL (7-18); CALCIUM LEVEL 9.2 MG/DL (8.8-10.2); CARBON DIOXIDE LEVEL 29 MEQ/L (21-32); CHLORIDE LEVEL 104 MEQ/L (98-107); CREATININE FOR GFR 1.13 MG/DL (0.70-1.30); GLOMERULAR FILTRATION RATE > 60.0 (>42); GLUCOSE, FASTING 129 MG/DL (70-100); MAGNESIUM LEVEL 2.5 MG/DL (1.8-2.4); POTASSIUM SERUM 3.6 MEQ/L (3.5-5.1); SODIUM LEVEL 140 MEQ/L (136-145)
[2021-05-08 15:10] VITALS: BP 160/82
[2021-05-09] MEDS ORDERED: home oxygen (16:52)
--- NOTE | 2021-05-27 06:48 | DS.PDOC ---
Discharge Summary General Date of Admission May 06, 2021 at 14:40 Date of Discharge 05/08/21 Discharge Summary PROCEDURES PERFORMED DURING STAY: [None]. ADMITTING DIAGNOSES: Covid-19 pneumonia Pre-syncope HTN LLOYD Renal cyst Multiple hepatic cysts Diffuse pruritic rash, suspected scabies DISCHARGE DIAGNOSES: Covid-19 pneumonia Pre-syncope HTN LLOYD Renal cyst Multiple hepatic cysts Diffuse pruritic rash, suspected scabies COMPLICATIONS/CHIEF COMPLAINT: Covid; Pre-Syncope. HISTORY OF PRESENT ILLNESS: 71 yo M with a PMHx of HTN and LLOYD, was brought to ER with a 2 day history of intermittent fever, reactive to tylenol as well as dry cough. He also suffered a near syncopal episode this morning, after he took a shower, got dressed and felt lightheaded. He measured his BP at home, and saw 75/60 mmHg. EMT gave patient 1L NS bolus, and his BP normalized. He was found to have COVID-19 infection in the ER. Patient further endorses a pruritic rash affecting his upper chest groin area as well as lower extremities for the past 3 to 4 months which his also shares. Upon ambulating, he desaturated to 84%. He currently requires 4L/min via NC. BP 156/84. HR 83. T 98.2. Patient denies any chest pain, palpitations, nausea, vomiting or diarrhea. Patient be admitted to hospitalist service for management of COVID-19 infection HOSPITAL COURSE: Covid-19 infection: onset symptoms 2-3 days. Completed 2 days of IV dexamethasone and remdesivir. Saturating well on 2L. Patient wishes to go home. will DC with o2 supplementation and prednisone taper. Pre-syncope: possibly vasovagal. Orthostatic BP negative. Obtained 2D echo - to follow up result as outpatient. Compression stockings. PT/OT. HTN: resume home regimen. Cardizem 240 mg ER daily. Telmisartan 80 mg QHS. On anticipated date of DC on 05/07/21 BP elevated to 190 systolic. Unsafe for DC. BP normalized. Close PCP follow up. LLOYD: on O2 supplementation. Renal cyst (R): hyperdense. Repeat imaging 3 months. Multiple hepatic cysts: Repeat imaging 3 months. Rash: patient has been c/o rash 3-4 months. also has rash. Scabies possible, given distribution in groin area. Will treat with one time application of permethrin. Monitor for improvement as outpatient. Repeat treatment after 7 days as needed. Contact precautions. DISCHARGE MEDICATIONS: Please see below. ALLERGIES: Please see below. PHYSICAL EXAMINATION ON DISCHARGE: VITAL SIGNS: please see below General: NAD, comfortable HEENT: PERRLA, EOMI, sclerae clear Neck: supple, normal ROM, no JVD Respiratory: lungs CTAB, no wheeze, no rales, no crackles CVS: RRR, normal S1, S2, no murmurs Abdo: soft, no masses, no hepatosplenomegaly, BS+, no rebound tenderness Extremities: no edema, pulses 2+ MSK: no joint deformities, normal ROM Neuro: no focal neuro deficits, moving all 4 extremities, CN2-12 intact. Strength 5/5 in all 4 extremities. No nystagmus. Psych: calm, cooperative, AAO x 3 LABORATORY DATA: Please see below. IMAGING: CXR (05/06/21): IMPRESSION: No acute pulmonary disease. CT abdomen pelvis w contrast (05/06/21): 1. Multiple hepatic cysts are suspected. Three-month follow-up is suggested. 2. Likely slightly hyperdense right renal cyst as described above. Three-month follow-up is recommended. 3. Other findings as described above. CTA chest (05/06/21): 1. There is no evidence of a pulmonary embolus. 2. Opacities and adenopathy as described above likely secondary to infectious etiology. 3. Other findings as described above. PROGNOSIS: good ACTIVITY: [As tolerated]. DIET: as tolerated DISCHARGE PLAN: DC home with O2. Home health services. Complete prednisone taper. Close PCP follow up for BP control. DISPOSITION: 06 Home Health Service. ITEMS TO FOLLOWUP ON ON OUTPATIENT: Echocardiogram repot DISCHARGE CONDITION: [Stable]. TIME SPENT ON DISCHARGE: 35 minutes Discharge Medications Scheduled Amlodipine Besylate (Amlodipine Besylate) 10 Mg Tablet, 10 MG PO DAILY Ascorbic Acid (Vitamin C) 500 Mg Tablet, 500 MG PO DAILY, (Reported) Aspirin (Aspirin EC) 81 Mg Tablet.dr, 81 MG PO DAILY, (Reported) Cholecalciferol (Vitamin D3) (Vitamin D3) 1,000 Unit Tablet, 1,000 UNITS PO DAILY, (Reported) Guaifenesin (Mucinex) 600 Mg Tab.er.12h, 600 MG PO BID Ipratropium/Albuterol Sulfate (Combivent Respimat 20-100 Mcg) 4 Gm Mist.inhal, 1 PUFF INH QID, (Reported) [place]-3 Fatty Acids/Fish Oil (Fish Oil 1,000 mg Capsule) 1 Each Capsule, 1,000 MG PO DAILY, (Reported) Prednisone (Prednisone) 10 Mg Tablet, 10 MG PO TAPER Take 4 tabs daily x 3 days, then 3 tabs daily x 3 days, then 2 tabs daily x 3 days, then 1 tab daily x 3 days and stop Telmisartan (Telmisartan) 80 Mg Tablet, 80 MG PO QHS, (Reported) dilTIAZem HCl (Diltiazem 24Hr Cd) 240 Mg Cap.er.24h, 240 MG PO DAILY, (Reported) Scheduled PRN Acetaminophen (Acetaminophen) 325 Mg Tablet, 650 MG PO Q4H PRN for PAIN LEVEL 1- 4, (Reported) Hydroxyzine HCl (Hydroxyzine HCl) 25 Mg Tablet, 25 MG PO QHS PRN for ITCHING, (Reported) Allergies Coded Allergies: No Known Drug Allergies (Verified Allergy, Unknown, 11/24/20) STANISLAV PALOMO MD May 27, 2021 06:48
== END 2021-05-08 15:33 | disposition home health service (06) | DRG 177 ==
LOC: M ED 09:14 → EDBD 09:14 → M ED INP 14:40 → ENRESERV 15:55 → M 4MAIN 20:11
PROVIDERS: ADMIT Family Medicine; ATTEND Family Medicine
PROC: XW033E5 Introduction of Remdesivir Anti-infective into Peripheral Vein, Percutaneous Approach, New Technology Group 5 (ICD-10-PCS; principal; 2021-05-06)
PROC: 3E0333Z Introduction of Anti-inflammatory into Peripheral Vein, Percutaneous Approach (ICD-10-PCS; 2021-05-06)
DX: U07.1 COVID-19 (principal); J12.82 Pneumonia due to coronavirus disease 2019; B86 Scabies; I10 Essential (primary) hypertension; G47.33 Obstructive sleep apnea (adult) (pediatric); N28.1 Cyst of kidney, acquired; Z90.49 Acquired absence of other specified parts of digestive tract; Z79.82 Long term (current) use of aspirin; Z79.899 Other long term (current) drug therapy; K76.89 Other specified diseases of liver; R55 Syncope and collapse

== ENCOUNTER 2021-05-09 13:39 | Emergency (ER) | payer MEDICARE ==
[~2021-05-09] VITALS: Ht 177.8 cm; Wt 85.8 kg
[~2021-05-09 13:39] MED LIST changes: +ACET1TAB55 PO; +AMLO1TAB24 PO; +ASPI81TA26 PO; +C 50TAB PO; +COMBAER6 INH; +D31000TA2 PO; +DILT240C83 PO; +FISH1000 PO; +HYDR-3363 PO; +PRED10TA2 PO; +TELM1TAB37 PO; -dexameTHASONE 4 MG/ML 1ML VIAL (J1100 PER 1MG) IV SCH
--- OUTSIDE RECORDS SUMMARY | 2021-05-09 13:49 | CCD ---
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 Active confirmed [id number] ALLERGIES No Known Allergies ENCOUNTERS from 1950 to 2021-05-06 Encounter Location Date Provider Diagnosis [facility] Resident [address] [phone] [place] [address] Apr, Tyler Perez IMMUNIZATIONS No Information SOCIAL HISTORY Tobacco Use: Social History Observation Description Date Details (start date - stop date) Never Smoker Sex Assigned At : Social History Observation Description Sex Assigned At Unknown Education: Question Answer Notes Level of Education: Not Finished 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 Question Answer Notes Total Score: 3 Interpretation: Alcohol Education Language: Question Answer Notes Languages spoken: Georgian Alevism: Question Answer Notes Alevism [facility] Question Answer Notes Total [...] Information RESULTS No Results REASON FOR VISIT Itching/fever/cough MEDICAL (GENERAL) HISTORY Type Description Date Medical [...] Name:Tyler Perez, 2021-06-19 03: 00:00 PM, [address] , , [place], [address], Insurance Providers Payer Name Payer Address Payer Phone Insured Name Patient Relati onship to Insured Coverage Start Date Coverage End Date MEDICARE BLUE PPO [id number] [employer] [id number] [address] GALA DELCID self
--- OUTSIDE RECORDS SUMMARY | 2021-05-09 13:49 | CCD ---
Author Author [facility] Organization [facility] Address Unknown Phone Unavailable Care Team Providers Care Scrap Separator Name Role Phone Katharina Sutton, Arpita Combs [...] Sutton, Arpita Combs MD, FACS Unavailable Unavailable Poasdas Sutton, Arpita Combs MD, FACS Unavailable Unavailable [...] is protected by Article 27-F of the [facility] Public Health law. If you continue you may have access to information: Regarding HIV / AIDS; Provided by facilities licensed or operated by the [facility] Office of Mental Health; or Provided by the [facility] Office for People With Developmental Disabilities. If such information is present, then the following [facility] mandated warning applies: This information has [...] law may result in a fine or long term sentence or both. A general authorization for the release of medical or other information is NOT sufficient authorization for further disc losure. Allergies and Adverse Reactions Type Description Substance Reaction Status Data Source(s ) Allergy to substance No Known Allergies No known allergies (situation ) HETAL (Garret Sutton MD [facility]) Allergy to substance No Known Allergies No known allergies (situation ) HETAL (Garret Sutton MD [facility]) Encounters Encounter Providers Location Date Indications Data Source(s ) [place] [address] [address] 05/02/2021 12:00:00 AM EDT eCW1 ([facility]) [place] [address] [facility] [address] 04/30/2021 12:00:00 AM EDT eCW1 ([facility]) [place] [address] [facility] [facility] [address] 04/29/2021 12:00:00 AM EDT eCW1 ([facility]) [place] [address] [facility] [address] 04/29/2021 12:00:00 AM EDT eCW1 ([facility]) [place] [address] [address] [address] 04/29/2021 12:00:00 AM EDT eCW1 ([facility]) [place] [address] [address] 04/29/2021 12:00:00 AM EDT eCW1 ([facility]) [place] [address] [facility] [address] 04/29/2021 12:00:00 AM EDT eCW1 ([facility]) [place] [address] [address] [address] 04/23/2021 12:00:00 AM EDT eCW1 ([facility]) [place] [address] [address] [address] 04/15/2021 12:00:00 AM EDT eCW1 ([facility]) [place] [address] [address] [address] 04/15/2021 12:00:00 AM EDT eCW1 ([facility]) [place] [address] [address] 04/07/2021 12:00:00 AM EDT eCW1 ([facility]) [place] [address] [address] 03/21/2021 12:00:00 AM EDT eCW1 ([facility], [facility]) [place] [address] [address] 03/18/2021 12:00:00 AM EDT eCW1 ([facility]ly [facility], [facility]) [place] [address] [facility] [address] 03/05/2021 12:00:00 AM EDT eCW1 (Formerly [facility], [facility]–1983) <td ID="encounterTypeDescriptionID0">[address] Follow-Up</td><td>Garret Sutton MD, FACS</td><td>Garret Garcia MD [facility]</td><td>02/19/2021</td><td>12:48PM</td><td>1:31PM</td><td><content ID="encounterDiagnosisID0-0">Essential Hypertension</content>, <content ID="encounterDiagnosisID0-1">Strabismus Non-paralytic Heterophoria Esophoria</content></td>Outpatient Attender: Garret Sutton MD, FACS Garret Garcia MD [facility] 02/19/2021 12:48:00 PM EDT - 02/19/2021 01:31:00 PM ED T Strabismus Non-paralytic Heterophoria EsophoriaEssential Hypertension MONTEBELLO (Garret Sutton MD [facility]) Strabismus Non-paralytic Heterophoria Es ophoria Essential Hypertension [place] [address] [address] 02/06/2021 12:00:00 AM EDT eCW1 (Formerly [facility], [facility]) [place] [address] [address] 01/01/2021 12:00:00 AM EDT eCW1 ([facility]ly [facility], [facility]) [place] [address] [address] [address] 12/24/2020 12:00:00 AM EDT eCW1 ([facility]ly [facility], [facility]) [place] [address] [address] [address] 12/24/2020 12:00:00 AM EDT eCW1 ([facility]ly [facility], [facility]) [place] [address] [address] 12/12/2020 12:00:00 AM EDT eCW1 ([facility]ly [facility], [facility]) [place] [address] [address] [address] 12/04/2020 12:00:00 AM EDT eCW1 (Formerly [facility], [facility]) <td ID="encounterTypeDescriptionID1">TRI AGE URGENT NEW PATIENT</td><td>Garret Garcia MD, FACS</td><td>Garret Garcia MD [facility]</td><td>11/27/2020</td><td>1:42PM</td><td>2:54PM</td><td><content ID="encounterDiagnosisID1-0">Essential Hypertension</content>, <content ID="encounterDiagnosisID1-1">Dry Eye Syndrome Both Eyes</content>, <content ID="encounterDiagnosisID1-2">Retinopathy Hypertensive Both Eyes</content>, <content ID="encounterDiagnosisID1-3">Dermatochalasis</content></td>Outpatient Attender: Garret Sutton MD, FACS Garret Garcia MD [facility] 11/27/2020 01:42:0 0 PM EDT - 11/27/2020 02:54:00 PM EDT DermatochalasisRetinopathy Hypertensive Both EyesDry Eye Syndrome Both EyesEssential HypertensionDermatochalasisRetinopathy Hypertensive Both EyesDry Eye Syndrome Both EyesEssential Hypertension HETAL (Garret Sutton MD [facility]) Dermatochalasis Retinopathy Hypertensive Both Eyes Dry Eye [...] {tablet} active Te lmisartan 80 MG eCW1 ([facility]) telmisartan 80 MG Oral Tablet Telmisartan 80 MG Telmisartan 80 MG 04/29/2021 12:00:00 AM EDT 1.0 {tablet} active Te lmisartan 80 MG eCW1 ([facility]cludes [facility]) telmisartan 80 MG Oral Tablet Telmisartan 80 MG Telmisartan 80 MG 04/29/2021 12:00:00 AM EDT 1.0 {tablet} active Te lmisartan 80 MG eCW1 ([facility]cludes [facility]) telmisartan 80 MG Oral Tablet Telmisartan 80 MG Telmisartan 80 MG 04/29/2021 12:00:00 AM EDT 1.0 {tablet} active Te lmisartan 80 MG eCW1 ([facility]cludes [facility]) telmisartan 80 MG Oral Tablet Telmisartan 80 MG Telmisartan 80 MG 04/29/2021 12:00:00 AM EDT 1.0 {tablet} active Te lmisartan 80 MG eCW1 ([facility]cludes [facility]) telmisartan 80 MG Oral Tablet Telmisartan 80 MG Telmisartan 80 MG 04/29/2021 12:00:00 AM EDT 1.0 {tablet} active Te lmisartan 80 MG eCW1 ([facility]cludes [facility]) telmisartan 80 MG Oral Tablet Telmisartan 80 MG Telmisartan 80 MG 04/29/2021 12:00:00 AM EDT 1.0 {tablet} active Te lmisartan 80 MG eCW1 ([facility]cludes [facility]) cetirizine hydrochloride 10 MG Oral Tablet Cetirizine HCl 10 MG Cetirizine HCl 10 MG 04/15/2021 12:00:00 AM EDT 1.0 {tablet} activ e Cetirizine HCl 10 MG eCW1 ([facility]) 24 HR Diltiazem Hydrochloride 240 MG Ext ended Release Oral Capsule [Cartia] Cartia XT 240 MG Cartia XT 240 MG 04/15/2021 12:00:00 AM EDT 1.0 {cap hiwot} active Cartia XT 240 MG eCW1 ([facility]) 24 HR Diltiazem Hydrochloride 240 MG Ext ended Release Oral Capsule [Cartia] Cartia XT 240 MG Cartia XT 240 MG 04/15/2021 12:00:00 AM EDT 1.0 {cap hiwot} active Cartia XT 240 MG eCW1 ([facility]) cetirizine hydrochloride 10 MG Oral Tablet Cetirizine HCl 10 MG Cetirizine HCl 10 MG 04/15/2021 12:00:00 AM EDT 1.0 {tablet} activ e Cetirizine HCl 10 MG eCW1 ([facility]) 24 HR Diltiazem Hydrochloride 240 MG Ext ended Release Oral Capsule [Cartia] Cartia XT 240 MG Cartia XT 240 MG 04/15/2021 12:00:00 AM EDT 1.0 {cap hiwot} active Cartia XT 240 MG eCW1 ([facility]) Hydroxyzine Hydrochloride 25 MG Oral Tablet hydrOXYzin e HCl 25 MG hydrOXYzine HCl 25 MG 04/15/2021 12:00:00 AM EDT 1.0 {tablet} ac tive hydrOXYzine HCl 25 MG eCW1 ([facility]) cetirizine hydrochloride 10 MG Oral Tablet Cetirizine HCl 10 MG Cetirizine HCl 10 MG 04/15/2021 12:00:00 AM EDT 1.0 {tablet} activ e Cetirizine HCl 10 MG eCW1 ([facility]cludes [facility]) 24 HR Diltiazem Hydrochloride 240 MG Ext ended Release Oral Capsule [Cartia] Cartia XT 240 MG Cartia XT 240 MG 04/15/2021 12:00:00 AM EDT 1.0 {cap hiwot} active Cartia XT 240 MG eCW1 ([facility]) Hydroxyzine Hydrochloride 25 MG Oral Tablet hydrOXYzin e HCl 25 MG hydrOXYzine HCl 25 MG 04/15/2021 12:00:00 AM EDT 1.0 {tablet} ac tive hydrOXYzine HCl 25 MG eCW1 ([facility]) 24 HR Diltiazem Hydrochloride 240 MG Ext ended Release Oral Capsule [Cartia] Cartia XT 240 MG Cartia XT 240 MG 04/15/2021 12:00:00 AM EDT 1.0 {cap hiwot} active Cartia XT 240 MG eCW1 ([facility]) cetirizine hydrochloride 10 MG Oral Tablet Cetirizine HCl 10 MG Cetirizine HCl 10 MG 04/15/2021 12:00:00 AM EDT 1.0 {tablet} activ e Cetirizine HCl 10 MG eCW1 ([facility]) cetirizine hydrochloride 10 MG Oral Tablet Cetirizine HCl 10 MG Cetirizine HCl 10 MG 04/15/2021 12:00:00 AM EDT 1.0 {tablet} activ e Cetirizine HCl 10 MG eCW1 ([facility]) cetirizine hydrochloride 10 MG Oral Tablet Cetirizine HCl 10 MG Cetirizine HCl 10 MG 04/15/2021 12:00:00 AM EDT 1.0 {tablet} activ e Cetirizine HCl 10 MG eCW1 ([facility]) 24 HR Diltiazem Hydrochloride 240 MG Ext ended Release Oral Capsule [Cartia] Cartia XT 240 MG Cartia XT 240 MG 04/15/2021 12:00:00 AM EDT 1.0 {cap hiwot} active Cartia XT 240 MG eCW1 ([facility]) cetirizine hydrochloride 10 MG Oral Tablet Cetirizine HCl 10 MG Cetirizine HCl 10 MG 04/15/2021 12:00:00 AM EDT 1.0 {tablet} activ e Cetirizine HCl 10 MG eCW1 ([facility]) Hydroxyzine Hydrochloride 25 MG Oral Tablet hydrOXYzin e HCl 25 MG hydrOXYzine HCl 25 MG 04/15/2021 12:00:00 AM EDT 1.0 {tablet} ac tive hydrOXYzine HCl 25 MG eCW1 ([facility]) Hydroxyzine Hydrochloride 25 MG Oral Tablet hydrOXYzin e HCl 25 MG hydrOXYzine HCl 25 MG 04/15/2021 12:00:00 AM EDT 1.0 {tablet} ac tive hydrOXYzine HCl 25 MG eCW1 ([facility]) 24 HR Diltiazem Hydrochloride 240 MG Ext ended Release Oral Capsule [Cartia] Cartia XT 240 MG Cartia XT 240 MG 04/15/2021 12:00:00 AM EDT 1.0 {cap hiwot} active Cartia XT 240 MG eCW1 ([facility]) Hydroxyzine Hydrochloride 25 MG Oral Tablet hydrOXYzin e HCl 25 MG hydrOXYzine HCl 25 MG 04/15/2021 12:00:00 AM EDT 1.0 {tablet} ac tive hydrOXYzine HCl 25 MG eCW1 ([facility]) Hydroxyzine Hydrochloride 25 MG Oral Tablet hydrOXYzin e HCl 25 MG hydrOXYzine HCl 25 MG 04/15/2021 12:00:00 AM EDT 1.0 {tablet} ac tive hydrOXYzine HCl 25 MG eCW1 ([facility]) 24 HR Diltiazem Hydrochloride 240 MG Ext ended Release Oral Capsule [Cartia] Cartia XT 240 MG Cartia XT 240 MG 04/15/2021 12:00:00 AM EDT 1.0 {cap hiwot} active Cartia XT 240 MG eCW1 ([facility]) Hydroxyzine Hydrochloride 25 MG Oral Tablet hydrOXYzin e HCl 25 MG hydrOXYzine HCl 25 MG 04/15/2021 12:00:00 AM EDT 1.0 {tablet} ac tive hydrOXYzine HCl 25 MG eCW1 ([facility]) cetirizine hydrochloride 10 MG Oral Tablet Cetirizine HCl 10 MG Cetirizine HCl 10 MG 04/15/2021 12:00:00 AM EDT 1.0 {tablet} activ e Cetirizine HCl 10 MG eCW1 ([facility]) Hydroxyzine Hydrochloride 25 MG Oral Tablet hydrOXYzin e HCl 25 MG hydrOXYzine HCl 25 MG 04/15/2021 12:00:00 AM EDT 1.0 {tablet} ac tive hydrOXYzine HCl 25 MG eCW1 ([facility]) cetirizine hydrochloride 10 MG Oral Tablet Cetirizine HCl 10 MG Cetirizine HCl 10 MG 04/15/2021 12:00:00 AM EDT 1.0 {tablet} activ e Cetirizine HCl 10 MG eCW1 ([facility]) 24 HR Diltiazem Hydrochloride 240 MG Ext ended Release Oral Capsule [Cartia] Cartia XT 240 MG Cartia XT 240 MG 04/15/2021 12:00:00 AM EDT 1.0 {cap hiwot} active Cartia XT 240 MG eCW1 ([facility]) Hydroxyzine Hydrochloride 25 MG Oral Tablet hydrOXYzin e HCl 25 MG hydrOXYzine HCl 25 MG 04/15/2021 12:00:00 AM EDT 1.0 {tablet} ac tive hydrOXYzine HCl 25 MG eCW1 ([facility]) 24 HR Diltiazem Hydrochloride 240 MG Ext ended Release Oral Capsule [Cartia] Cartia XT 240 MG Cartia XT 240 MG 04/15/2021 12:00:00 AM EDT 1.0 {cap hiwot} active Cartia XT 240 MG eCW1 ([facility]) cetirizine hydrochloride 10 MG Oral Tablet Cetirizine HCl 10 MG Cetirizine HCl 10 MG 04/15/2021 12:00:00 AM EDT 1.0 {tablet} activ e Cetirizine HCl 10 MG eCW1 ([facility]) Hydroxyzine Hydrochloride 25 MG Oral Tablet hydrOXYzin e HCl 25 MG hydrOXYzine HCl 25 MG 04/15/2021 12:00:00 AM EDT 1.0 {tablet} ac tive hydrOXYzine HCl 25 MG eCW1 ([facility]) Chlorthalidone 25 MG Oral Tablet Chlorthalidone 25 MG 2020 12:00:00 AM EDT active Chlorthalidone 25 MG eCW1 ([facility]) Chlorthalidone 25 MG Oral Tablet Chlorthalidone 25 MG 2020 12:00:00 AM EDT active Chlorthalidone 25 MG eCW1 ([facility]cludes [facility]) Hydrochlorothiazide 12.5 MG Oral Tablet hydroCHLOROthi azide 12.5 MG hydroCHLOROthiazide 12.5 MG 03/21/2021 12:00:00 AM EDT 1.0 {tablet_in_the_morning} suspended hydroC HLOROthiazide 12.5 MG eCW1 ([facility]) Hydrochlorothiazide 12.5 MG Oral Tablet hydroCHLOROthi azide 12.5 MG hydroCHLOROthiazide 12.5 MG 03/21/2021 12:00:00 AM EDT 1.0 {tablet_in_the_morning} suspended hydroC HLOROthiazide 12.5 MG eCW1 ([facility]cludes [facility]) Hydrochlorothiazide 12.5 MG Oral Tablet hydroCHLOROthi azide 12.5 MG hydroCHLOROthiazide 12.5 MG 03/21/2021 12:00:00 AM EDT 1.0 {tablet_in_the_morning} suspended hydroC HLOROthiazide 12.5 MG eCW1 ([facility]cludes [facility]) Hydrochlorothiazide 12.5 MG Oral Tablet hydroCHLOROthi azide 12.5 MG hydroCHLOROthiazide 12.5 MG 03/21/2021 12:00:00 AM EDT 1.0 {tablet_in_the_morning} active hydroCHL OROthiazide 12.5 MG eCW1 ([facility]cludes [facility]) Hydrochlorothiazide 12.5 MG Oral Tablet hydroCHLOROthi azide 12.5 MG hydroCHLOROthiazide 12.5 MG 03/21/2021 12:00:00 AM EDT 1.0 {tablet_in_the_morning} active hydroCHL OROthiazide 12.5 MG eCW1 ([facility]cludes [facility]) Hydrochlorothiazide 12.5 MG Oral Tablet hydroCHLOROthi azide 12.5 MG hydroCHLOROthiazide 12.5 MG 03/21/2021 12:00:00 AM EDT 1.0 {tablet_in_the_morning} suspended hydroC HLOROthiazide 12.5 MG eCW1 ([facility]cludes [facility]) Chlorthalidone 25 MG Oral Tablet Chlorthalidone 25 MG 2020 12:00:00 AM EDT 1.0 {tablet_in_the_morning_with_food} active Chlorthalidone 25 MG eCW1 ([facility]cludes [facility]) Hydrochlorothiazide 12.5 MG Oral Tablet hydroCHLOROthi azide 12.5 MG hydroCHLOROthiazide 12.5 MG 03/21/2021 12:00:00 AM EDT 1.0 {tablet_in_the_morning} suspended hydroC HLOROthiazide 12.5 MG eCW1 ([facility]cludes [facility]) Hydrochlorothiazide 12.5 MG Oral Tablet hydroCHLOROthi azide 12.5 MG hydroCHLOROthiazide 12.5 MG 03/21/2021 12:00:00 AM EDT 1.0 {tablet_in_the_morning} suspended hydroC HLOROthiazide 12.5 MG eCW1 ([facility]cludes [facility]) Hydrochlorothiazide 12.5 MG Oral Tablet hydroCHLOROthi azide 12.5 MG hydroCHLOROthiazide 12.5 MG 03/21/2021 12:00:00 AM EDT 1.0 {tablet_in_the_morning} active hydroCHL OROthiazide 12.5 MG eCW1 ([facility]cludes [facility]) Hydrochlorothiazide 12.5 MG Oral Tablet hydroCHLOROthi azide 12.5 MG hydroCHLOROthiazide 12.5 MG 03/21/2021 12:00:00 AM EDT 1.0 {tablet_in_the_morning} suspended hydroC HLOROthiazide 12.5 MG eCW1 ([facility] Includes [facility]) Hydrochlorothiazide 12.5 MG Oral Tablet hydroCHLOROthi azide 12.5 MG hydroCHLOROthiazide 12.5 MG 03/21/2021 12:00:00 AM EDT 1.0 {tablet_in_the_morning} suspended hydroC HLOROthiazide 12.5 MG eCW1 ([facility]cludes [facility]) Hydrochlorothiazide 12.5 MG Oral Tablet hydroCHLOROthi azide 12.5 MG hydroCHLOROthiazide 12.5 MG 03/21/2021 12:00:00 AM EDT 1.0 {tablet_in_the_morning} suspended hydroC HLOROthiazide 12.5 MG eCW1 ([facility] Includes [facility]) Hydrochlorothiazide 12.5 MG Oral Tablet hydroCHLOROthi azide 12.5 MG hydroCHLOROthiazide 12.5 MG 03/21/2021 12:00:00 AM EDT 1.0 {tablet_in_the_morning} suspended hydroC HLOROthiazide 12.5 MG eCW1 ([facility]cludes [facility]) Lisinopril 40 MG Oral Tablet Lisinopril 40 MG Oral Tablet 12:00:00 AM EDT 1 active lisinopril 40 MG Oral Tablet HETAL (Garret Sutton MD [facility]) Insurance Providers Payer name Policy type / Coverage type Policy ID Covered democrat ID Covered democrat's relationship to davidson Policy [place] Plan Information MEDICARE BLUE PPO [id number] SP [id number] MEDICARE BLUE PPO 306 [id number] SP [id number] [place] [address] [id number] Se lf 0 MEDICARE BLUE PPO 306 [id number] MEDICARE [id number] SP [id number] BCBS of [facility] Other 0 [id number] Se lf 0 BCBS [place] PPO 302/307 [id number] SP [id number] BCBS OF [facility] 320/820 [id number] SP [id number] Problems, Conditions, and Diagnoses Code Display Name Description Problem Type Effective Dates Data Source(s) 378.41 Strabismus Non-paralytic Heterophoria Es ophoria Strabismus Non-paralytic Heterophoria Esophoria Problem 02/19/2021 12:00:00 AM EDT HETAL ( Garret Sutton MD [facility]) I15.9 28477310 Secondary hypertension Problem 12/04/2020 12 :00:00 AM EDT eCW1 ([facility]) I10 [id number] Hypertension, unspecified type Problem 12/04 12:00:00 AM EDT eCW1 ([facility]cludes [facility]) 27206282 Dry 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 Problem 11/27/2020 12:00:00 AM EDT HETAL (Garret Sutton MD [facility]) 32299794 Retinopathy Hypertensive Both Eyes Retinopathy H ypertensive Both Eyes Problem 11/27/2020 12:00:00 AM EDT HETAL (Garret hui MD [facility]) 401.9 Essential Hypertension Essential Hypertension Problem 11/27/2020 12:00:00 AM EDT HETAL (Garret Sutton MD [facility]) 374.87 Dermatochalasis Dermatochalasis Problem 11/27/2020 12:0 0:00 AM EDT HETAL (Garret Sutton MD [facility]) [id number] Dry 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 Problem 11/27/2020 12:00:00 AM EDT HETAL (Garret Sutton MD [facility]) 54312995 Retinopathy Hypertensive Both Eyes Retinopathy H ypertensive Both Eyes Problem 11/27/2020 12:00:00 AM EDT HETAL (Garret hui MD [facility]) 401.9 Essential Hypertension Essential Hypertension Problem 11/27/2020 12:00:00 AM EDT HETAL (Garret Sutton MD [facility]) 374.87 Dermatochalasis Dermatochalasis Problem 11/27/2020 12:0 0:00 AM EDT HETAL (Garret Sutton MD [facility]) Surgeries/Procedures Procedure Description Date Indications Data Source(s) ECG ROUTINE ECG W/LEAST 12 LDS W/I&R 12/04/2020 12:00: 00 AM EDT eCW1 ([facility]) Surgical / procedural history Tonsillec trae 1954, Vasectomy 1973, Hydrocelectomy 1974, Throat surgery 1984 Surgical / procedural history Tonsillectomy 1954, Vasectomy 1973, Hydrocelectomy 1974, Throat surgery 198411/27/2020 12:00:00 AM EDT HETAL (Garret hui MD [facility]) Medical Eye Exam Medical Eye Exam 11/27/2020 12:00:00 AM EDT HETAL (Garret Sutton MD [facility]) Medical Eye Exam Medical Eye Exam 11/27/2020 12:00:00 AM EDT HETAL (Garret Sutton MD [facility]) Results ID Date Data Source [id number] 05/06/2021 09:42:00 AM EDT [facility] Name Value Range Interpretation Code Description Data Ryanne rce(s) Supporting Document(s) Respiratory pathogens identified [Type] in Nasopharynx by Probe and target amplification method SARS-CoV-2 (COVID 19) [facility] [place] This lab was ordered by [facility] a nd reported by [facility]. ID Date Data Source Basic Metabolic Profile (BMP) 12/04/2020 12:00:00 AM EDT eCW 1 ([facility] Includes [facility]) Name Value Range Interpretation Code Description Data Ryanne rce(s) Supporting Document(s) 115 70-100 GLUCOSE, FASTING eCW1 ([facility]) > 60.0 >42 GLOMERULAR FILTRATION RATE eCW 1 (Count Includes [facility]) 1.06 0.70-1.30 CREATININE FOR GFR eCW1 ([facility]) 22 7-18 BLOOD UREA NITROGEN eCW1 ([facility]) 30 21-32 CARBON DIOXIDE LEVEL eCW1 ([facility]) 105 98-107 CHLORIDE LEVEL eCW1 ([facility] Includes [facility]) 3.7 3.5-5.1 POTASSIUM SERUM eCW1 (Critical access hospital) 139 136-145 SODIUM LEVEL eCW1 ([facility]) 9.3 8.8-10.2 CALCIUM LEVEL eCW1 ([facility] Includes [facility]) ID Date Data Source [id number] 11/24/2020 07:08:00 PM EDT [facility] Name Value Range Interpretation Code Description Data Ryanne rce(s) Supporting Document(s) SARS-CoV-2 (COVID 19) NEGATIVE - SARS-CoV-2 (COVID19) [facility] This lab was ordered by [facility] a nd reported by [facility]. Procedure Social History Code Duration Value Status Description Data Source(s ) Smoking 04/15/2021 12:00:00 AM EDT Never Smoker completed Never S moker eCW1 ([facility]cludes [facility]) Smoking 04/15/2021 12:00:00 AM EDT Never Smoker completed Never S moker eCW1 (Count Includes [facility]) Smoking 04/15/2021 12:00:00 AM EDT Never Smoker completed Never S moker eCW1 ([facility] Includes [facility]) Smoking 04/15/2021 12:00:00 AM EDT Never Smoker completed Never S moker eCW1 ([facility] Includes [facility]) Smoking 04/15/2021 12:00:00 AM EDT Never Smoker completed Never S moker eCW1 ([facility] Includes [facility]) Smoking 04/15/2021 12:00:00 AM EDT Never Smoker completed Never S moker eCW1 (Count Includes [facility]) Smoking 04/15/2021 12:00:00 AM EDT Never Smoker completed Never S moker eCW1 (Count Includes [facility]) Smoking 04/15/2021 12:00:00 AM EDT Never Smoker completed Never S moker eCW1 ([facility] Includes [facility]) Smoking 04/15/2021 12:00:00 AM EDT Never Smoker completed Never S moker eCW1 ([facility] Includes [facility]) Smoking 04/15/2021 12:00:00 AM EDT Never Smoker completed Never S moker eCW1 ([facility] Includes [facility]) Smoking 03/21/2021 12:00:00 AM EDT Never Smoker completed Never S moker eCW1 ([facility] Includes [facility]) Smoking 03/21/2021 12:00:00 AM EDT Never Smoker completed Never S moker eCW1 (Count Includes [facility]) Smoking 03/21/2021 12:00:00 AM EDT Never Smoker completed Never S moker eCW1 (Count Includes [facility]) Smoking 02/19/2021 01:39:55 PM EDT Never smoked tobacco (findi ng) completed Never smoked tobacco (finding) HETAL (Garret Sutton MD [facility]) Smoking 12/31/2020 12:00:00 AM EDT Never Smoker completed Never S moker eCW1 (Count Includes [facility]) Smoking 12/31/2020 12:00:00 AM EDT Never Smoker completed Never S moker eCW1 (Count Includes [facility]) Smoking 12/31/2020 12:00:00 AM EDT Never Smoker completed Never S moker eCW1 (Count Includes [facility]) Smoking 12/31/2020 12:00:00 AM EDT Never Smoker completed Never S moker eCW1 (Count Includes [facility]) Smoking 12/12/2020 12:00:00 AM EDT Never Smoker completed Never S moker eCW1 (Count Includes [facility]) Smoking 12/12/2020 12:00:00 AM EDT Never Smoker completed Never S moker eCW1 (Count Includes [facility]) Smoking 12/12/2020 12:00:00 AM EDT Never Smoker completed Never S moker eCW1 (Count Includes [facility]) Smoking 11/27/2020 02:53:42 PM EDT Never smoked tobacco (findi ng) completed Never smoked tobacco (finding) HETAL (Garret Sutton MD [facility]) Vital Signs ID Date Data Source UNK Name Value Range Interpretation Code Description Data Source(s) Body weight 189.2 [lb_av] 189.2 [lb_av] eCW1 ([facility]) Body height 70 [in_i] 70 [in_i] eCW1 ([facility]) Body mass index (BMI) [Ratio] 27.14 kg/m2 27.14 kg/m2 eCW1 (Count Includes [facility]) Heart rate 71 /min 71 /min eCW1 ([facility]) Respiratory rate 18 /min 18 /min eCW1 ([facility]) Body temperature 97.4 [degF] 97.4 [degF] eCW1 ( Count Includes [facility]) Systolic blood pressure 128 mm[Hg] 128 mm[Hg] e CW1 (Count Includes [facility]) Diastolic blood pressure 80 mm[Hg] 80 mm[Hg] eCW1 (Count Includes [facility]) Body weight 190.0 [lb_av] 190.0 [lb_av] eCW1 ([facility]) Body height 70 [in_i] 70 [in_i] eCW1 ([facility]) Body mass index (BMI) [Ratio] 27.26 kg/m2 27.26 kg/m2 eCW1 (Count Includes [facility]) Heart rate 72 /min 72 /min eCW1 ([facility] hospital) Respiratory rate 18 /min 18 /min eCW1 ([facility]) Body temperature 96.9 [degF] 96.9 [degF] eCW1 ( Count Includes [facility]) Systolic blood pressure 160 mm[Hg] 160 mm[Hg] e CW1 (Count Includes [facility]) Diastolic blood pressure 98 mm[Hg] 98 mm[Hg] eCW1 (Count Includes [facility]) Body weight 191 [lb_av] 191 [lb_av] eCW1 ([facility]) Body height 70 [in_i] 70 [in_i] eCW1 ([facility]) Body mass index (BMI) [Ratio] 27.40 kg/m2 27.40 kg/m2 eCW1 (Count Includes [facility]) Heart rate 81 /min 81 /min eCW1 (Critical access hospital) Respiratory rate 18 /min 18 /min eCW1 ([facility]) Body temperature 98.9 [degF] 98.9 [degF] eCW1 ( Count Includes [facility]) Systolic blood pressure 190 mm[Hg] 190 mm[Hg] e CW1 (Count Includes [facility]) Diastolic blood pressure 118 mm[Hg] 118 mm[Hg] eCW1 (Count Includes [facility]) Patient Treatment Plan of Care Planned Activity Planned Date Details Description Data Source (s) telmisartan 80 MG Oral Tablet 04/29/2021 12:00:00 AM EDT eCW1 (Count Includes [facility]) telmisartan 80 MG Oral Tablet 04/29/2021 12:00:00 AM EDT eCW1 (Count Includes [facility]) telmisartan 80 MG Oral Tablet 04/29/2021 12:00:00 AM EDT eCW1 (Count Includes [facility]) telmisartan 80 MG Oral Tablet 04/29/2021 12:00:00 AM EDT eCW1 (Count Includes [facility]) telmisartan 80 MG Oral Tablet 04/29/2021 12:00:00 AM EDT eCW1 (Count Includes [facility]) telmisartan 80 MG Oral Tablet 04/29/2021 12:00:00 AM EDT eCW1 (Count Includes [facility]) telmisartan 80 MG Oral Tablet 04/29/2021 12:00:00 AM EDT eCW1 (Count Includes [facility]) cetirizine hydrochloride 10 MG Oral Tablet 04/15/2021 12:00:00 AM E DT eCW1 (Count Includes [facility]) 24 HR Diltiazem Hydrochloride 240 MG Extended Release Oral Capsule [Cartia] 04/15/2021 12:00:00 AM EDT eCW1 ([facility]) Hydroxyzine Hydrochloride 25 MG Oral Tablet 04/15/2021 12:00:00 AM EDT eCW1 (Count Includes [facility]) cetirizine hydrochloride 10 MG Oral Tablet 04/15/2021 12:00:00 AM E DT eCW1 (Count Includes [facility]) 24 HR Diltiazem Hydrochloride 240 MG Extended Release Oral Capsule [Cartia] 04/15/2021 12:00:00 AM EDT eCW1 ([facility]) Hydroxyzine Hydrochloride 25 MG Oral Tablet 04/15/2021 12:00:00 AM EDT eCW1 (Count Includes [facility]) Chlorthalidone 25 MG Oral Tablet 03/21/2021 12:00:00 AM EDT eCW1 (Count Includes [facility]) Hydrochlorothiazide 12.5 MG Oral Tablet 03/21/2021 12:00:00 AM EDT eCW1 (Count Includes [facility]) Chlorthalidone 25 MG Oral Tablet 03/21/2021 12:00:00 AM EDT eCW1 (Count Includes [facility]) Hydrochlorothiazide 12.5 MG Oral Tablet 03/21/2021 12:00:00 AM EDT eCW1 (Count Includes [facility]) Chlorthalidone 25 MG Oral Tablet 03/21/2021 12:00:00 AM EDT eCW1 (Count Includes [facility]) Hydrochlorothiazide 12.5 MG Oral Tablet 03/21/2021 12:00:00 AM EDT eCW1 (Count Includes [facility])
[2021-05-09 14:00] VITALS: BP 143/84
--- OUTSIDE RECORDS SUMMARY | 2021-05-09 15:29 | CCD ---
Author Author [facility] Organization [facility] Address Unknown Phone Unavailable Care Team Providers Care Powder Nipper Name Role Phone Katharina Sutton, Arpita Combs [...] Sutton, Arpita Combs MD, FACS Unavailable Unavailable Posdaas Sutton, Arpita Combs MD, FACS Unavailable Unavailable [...] is protected by Article 27-F of the [facility] Public Health law. If you continue you may have access to information: Regarding HIV / AIDS; Provided by facilities licensed or operated by the [facility] Office of Mental Health; or Provided by the [facility] Office for People With Developmental Disabilities. If such information is present, then the following [facility] mandated warning applies: This information has been [...] law may result in a fine or fdc sentence or both. A general authorization for the release of medical or other information is NOT sufficient authorization for further disc losure. Allergies and Adverse Reactions Type Description Substance Reaction Status Data Source(s ) Allergy to substance No Known Allergies No known allergies (situation ) H[facility]AL (Garret Sutton MD [facility]) Allergy to substance No Known Allergies No known allergies (situation ) HETAL (Garret Sutton MD [facility]) Encounters Encounter Providers Location Date Indications Data Source(s ) Unknown [address] [facility] [address] 05/02/2021 12:00:00 AM EDT eCW1 ([facility]) Unknown [address] [facility] [address] 04/30/2021 12:00:00 AM EDT eCW1 ([facility]) Unknown [address] [facility] [address] 04/29/2021 12:00:00 AM EDT eCW1 ([facility]) Unknown [address] [facility] [address] 04/29/2021 12:00:00 AM EDT eCW1 ([facility]) Unknown [address] [facility] [address] 04/29/2021 12:00:00 AM EDT eCW1 ([facility]) Unknown [address] [facility] [address] 04/29/2021 12:00:00 AM EDT eCW1 ([facility]) Unknown [address] [facility] [address] 04/29/2021 12:00:00 AM EDT eCW1 ([facility]) Unknown [address] [facility] [address] 04/23/2021 12:00:00 AM EDT eCW1 ([facility]) Unknown [address] [facility] [address] 04/15/2021 12:00:00 AM EDT eCW1 ([facility]) Unknown [address] [facility] [address] 04/15/2021 12:00:00 AM EDT eCW1 ([facility]) Unknown [address] [facility] [address] 04/07/2021 12:00:00 AM EDT eCW1 ([facility]) Unknown [address] [facility] [address] 03/21/2021 12:00:00 AM EDT eCW1 ([facility]) Unknown [address] [facility] [address] 03/18/2021 12:00:00 AM EDT eCW1 ([facility]) Unknown [address] [facility] [address] 03/05/2021 12:00:00 AM EDT eCW1 ([facility]) Outpatient<td ID="encounterTypeDescripti onID0">8 Week Follow-Up</td><td>Garret Garcia MD, FACS</td><td>Garret Garcia MD [facility]</td><td>02/19/2021</td><td>12:48PM</td><td>1:31PM</td><td><content ID="encounterDiagnosisID0-0">Essential Hypertension</content>, <content ID="encounterDiagnosisID0-1">Strabismus Non-paralytic Heterophoria Esophoria</content></td> Attender: Garret Sutton MD, FACS Garret Gomez [facility] 02/19/2021 12:48:00 PM EDT - 02/19/2021 01:31:00 PM ED T Strabismus Non- paralytic Heterophoria EsophoriaEssential Hypertension [place] (Garret Sutton MD [facility]) Strabismus Non-paralytic Heterophoria Es ophoria Essential Hypertension Unknown [address] [facility] [address] 02/06/2021 12:00:00 AM EDT eCW1 ([facility]) Outpatient [address] [facility] [address] 01/01/2021 12:00:00 AM EDT eCW1 ([facility]) Unknown [address] [facility] [address] 12/24/2020 12:00:00 AM EDT eCW1 ([facility]) Unknown [address] [facility] [address] 12/24/2020 12:00:00 AM EDT eCW1 ([facility]) Outpatient [address] [facility] [address] 12/12/2020 12:00:00 AM EDT eCW1 ([facility]) Outpatient [address] [facility] [address] 12/04/2020 12:00:00 AM EDT eCW1 ([facility]) Outpatient<td ID="encounterTypeDescripti onID1">[facility]IAGE [facility]RGENT NEW PATIENT</td><td>Garret Garcia MD, FACS</td><td>Garret Garcia MD [facility]</td><td>11/27/2020</td><td>1:42PM</td><td>2:54PM</td><td><content ID="encounterDiagnosisID1-0">Essential Hypertension</content>, <content ID="encounterDiagnosisID1-1">Dry Eye Syndrome Both Eyes</content>, <content ID="encounterDiagnosisID1-2">Retinopathy Hypertensive Both Eyes</content>, <content ID="encounterDiagnosisID1-3">Dermatochalasis</content></td> Attender: Garret Sutton MD, FACS Garret Garcia MD [facility] 11/27/2020 01:42:00 PM EDT - 11/27/2020 02:54:00 PM EDT DermatochalasisRetinopathy Hypertensive Both EyesDry Eye Syndrome Both EyesEssential HypertensionDermatochalasisRetinopathy Hypertensive Both EyesDry Eye Syndrome Both EyesEssential Hypertension H[facility]AL (Garret Sutton MD [facility]) Dermatochalasis Retinopathy Hypertensive Both Eyes Dry Eye [...] {tablet} active Te lmisartan 80 MG eCW1 ([facility]) telmisartan 80 MG Oral Tablet Telmisartan 80 MG Telmisartan 80 MG 04/29/2021 12:00:00 AM EDT 1.0 {tablet} active Te lmisartan 80 MG eCW1 ([facility]) telmisartan 80 MG Oral Tablet Telmisartan 80 MG Telmisartan 80 MG 04/29/2021 12:00:00 AM EDT 1.0 {tablet} active Te lmisartan 80 MG eCW1 ([facility]) telmisartan 80 MG Oral Tablet Telmisartan 80 MG Telmisartan 80 MG 04/29/2021 12:00:00 AM EDT 1.0 {tablet} active Te lmisartan 80 MG eCW1 ([facility]) telmisartan 80 MG Oral Tablet Telmisartan 80 MG Telmisartan 80 MG 04/29/2021 12:00:00 AM EDT 1.0 {tablet} active Te lmisartan 80 MG eCW1 ([facility]) telmisartan 80 MG Oral Tablet Telmisartan 80 MG Telmisartan 80 MG 04/29/2021 12:00:00 AM EDT 1.0 {tablet} active Te lmisartan 80 MG eCW1 ([facility]) telmisartan 80 MG Oral Tablet Telmisartan 80 MG Telmisartan 80 MG 04/29/2021 12:00:00 AM EDT 1.0 {tablet} active Te lmisartan 80 MG eCW1 ([facility]) cetirizine hydrochloride 10 MG Oral Tablet Cetirizine HCl 10 MG Cetirizine HCl 10 MG 04/15/2021 12:00:00 AM EDT 1.0 {tablet} activ e Cetirizine HCl 10 MG eCW1 ([facility]) 24 HR Diltiazem Hydrochloride 240 MG Ext ended Release Oral Capsule [Cartia] Cartia XT 240 MG Cartia XT 240 MG 04/15/2021 12:00:00 AM EDT 1.0 {cap hiwot} active Cartia XT 240 MG eCW1 ([facility]) 24 HR Diltiazem Hydrochloride 240 MG Ext ended Release Oral Capsule [Cartia] Cartia XT 240 MG Cartia XT 240 MG 04/15/2021 12:00:00 AM EDT 1.0 {cap hiwot} active Cartia XT 240 MG eCW1 ([facility]) cetirizine hydrochloride 10 MG Oral Tablet Cetirizine HCl 10 MG Cetirizine HCl 10 MG 04/15/2021 12:00:00 AM EDT 1.0 {tablet} activ e Cetirizine HCl 10 MG eCW1 ([facility]) 24 HR Diltiazem Hydrochloride 240 MG Ext ended Release Oral Capsule [Cartia] Cartia XT 240 MG Cartia XT 240 MG 04/15/2021 12:00:00 AM EDT 1.0 {cap hiwot} active Cartia XT 240 MG eCW1 ([facility]) Hydroxyzine Hydrochloride 25 MG Oral Tablet hydrOXYzin e HCl 25 MG hydrOXYzine HCl 25 MG 04/15/2021 12:00:00 AM EDT 1.0 {tablet} ac tive hydrOXYzine HCl 25 MG eCW1 ([facility]) cetirizine hydrochloride 10 MG Oral Tablet Cetirizine HCl 10 MG Cetirizine HCl 10 MG 04/15/2021 12:00:00 AM EDT 1.0 {tablet} activ e Cetirizine HCl 10 MG eCW1 ([facility]) 24 HR Diltiazem Hydrochloride 240 MG Ext ended Release Oral Capsule [Cartia] Cartia XT 240 MG Cartia XT 240 MG 04/15/2021 12:00:00 AM EDT 1.0 {cap hiwot} active Cartia XT 240 MG eCW1 ([facility]) Hydroxyzine Hydrochloride 25 MG Oral Tablet hydrOXYzin e HCl 25 MG hydrOXYzine HCl 25 MG 04/15/2021 12:00:00 AM EDT 1.0 {tablet} ac tive hydrOXYzine HCl 25 MG eCW1 ([facility]) 24 HR Diltiazem Hydrochloride 240 MG Ext ended Release Oral Capsule [Cartia] Cartia XT 240 MG Cartia XT 240 MG 04/15/2021 12:00:00 AM EDT 1.0 {cap hiwot} active Cartia XT 240 MG eCW1 ([facility]) cetirizine hydrochloride 10 MG Oral Tablet Cetirizine HCl 10 MG Cetirizine HCl 10 MG 04/15/2021 12:00:00 AM EDT 1.0 {tablet} activ e Cetirizine HCl 10 MG eCW1 ([facility]) cetirizine hydrochloride 10 MG Oral Tablet Cetirizine HCl 10 MG Cetirizine HCl 10 MG 04/15/2021 12:00:00 AM EDT 1.0 {tablet} activ e Cetirizine HCl 10 MG eCW1 ([facility]) cetirizine hydrochloride 10 MG Oral Tablet Cetirizine HCl 10 MG Cetirizine HCl 10 MG 04/15/2021 12:00:00 AM EDT 1.0 {tablet} activ e Cetirizine HCl 10 MG eCW1 ([facility]) 24 HR Diltiazem Hydrochloride 240 MG Ext ended Release Oral Capsule [Cartia] Cartia XT 240 MG Cartia XT 240 MG 04/15/2021 12:00:00 AM EDT 1.0 {cap hiwot} active Cartia XT 240 MG eCW1 ([facility]) cetirizine hydrochloride 10 MG Oral Tablet Cetirizine HCl 10 MG Cetirizine HCl 10 MG 04/15/2021 12:00:00 AM EDT 1.0 {tablet} activ e Cetirizine HCl 10 MG eCW1 ([facility]) Hydroxyzine Hydrochloride 25 MG Oral Tablet hydrOXYzin e HCl 25 MG hydrOXYzine HCl 25 MG 04/15/2021 12:00:00 AM EDT 1.0 {tablet} ac tive hydrOXYzine HCl 25 MG eCW1 ([facility]) Hydroxyzine Hydrochloride 25 MG Oral Tablet hydrOXYzin e HCl 25 MG hydrOXYzine HCl 25 MG 04/15/2021 12:00:00 AM EDT 1.0 {tablet} ac tive hydrOXYzine HCl 25 MG eCW1 ([facility]) 24 HR Diltiazem Hydrochloride 240 MG Ext ended Release Oral Capsule [Cartia] Cartia XT 240 MG Cartia XT 240 MG 04/15/2021 12:00:00 AM EDT 1.0 {cap hiwot} active Cartia XT 240 MG eCW1 ([facility]) Hydroxyzine Hydrochloride 25 MG Oral Tablet hydrOXYzin e HCl 25 MG hydrOXYzine HCl 25 MG 04/15/2021 12:00:00 AM EDT 1.0 {tablet} ac tive hydrOXYzine HCl 25 MG eCW1 ([facility]) Hydroxyzine Hydrochloride 25 MG Oral Tablet hydrOXYzin e HCl 25 MG hydrOXYzine HCl 25 MG 04/15/2021 12:00:00 AM EDT 1.0 {tablet} ac tive hydrOXYzine HCl 25 MG eCW1 ([facility]) 24 HR Diltiazem Hydrochloride 240 MG Ext ended Release Oral Capsule [Cartia] Cartia XT 240 MG Cartia XT 240 MG 04/15/2021 12:00:00 AM EDT 1.0 {cap hiwot} active Cartia XT 240 MG eCW1 ([facility]) Hydroxyzine Hydrochloride 25 MG Oral Tablet hydrOXYzin e HCl 25 MG hydrOXYzine HCl 25 MG 04/15/2021 12:00:00 AM EDT 1.0 {tablet} ac tive hydrOXYzine HCl 25 MG eCW1 ([facility]) cetirizine hydrochloride 10 MG Oral Tablet Cetirizine HCl 10 MG Cetirizine HCl 10 MG 04/15/2021 12:00:00 AM EDT 1.0 {tablet} activ e Cetirizine HCl 10 MG eCW1 ([facility]) Hydroxyzine Hydrochloride 25 MG Oral Tablet hydrOXYzin e HCl 25 MG hydrOXYzine HCl 25 MG 04/15/2021 12:00:00 AM EDT 1.0 {tablet} ac tive hydrOXYzine HCl 25 MG eCW1 ([facility]) cetirizine hydrochloride 10 MG Oral Tablet Cetirizine HCl 10 MG Cetirizine HCl 10 MG 04/15/2021 12:00:00 AM EDT 1.0 {tablet} activ e Cetirizine HCl 10 MG eCW1 ([facility]) 24 HR Diltiazem Hydrochloride 240 MG Ext ended Release Oral Capsule [Cartia] Cartia XT 240 MG Cartia XT 240 MG 04/15/2021 12:00:00 AM EDT 1.0 {cap hiwot} active Cartia XT 240 MG eCW1 ([facility]) Hydroxyzine Hydrochloride 25 MG Oral Tablet hydrOXYzin e HCl 25 MG hydrOXYzine HCl 25 MG 04/15/2021 12:00:00 AM EDT 1.0 {tablet} ac tive hydrOXYzine HCl 25 MG eCW1 ([facility]) 24 HR Diltiazem Hydrochloride 240 MG Ext ended Release Oral Capsule [Cartia] Cartia XT 240 MG Cartia XT 240 MG 04/15/2021 12:00:00 AM EDT 1.0 {cap hiwot} active Cartia XT 240 MG eCW1 ([facility]) cetirizine hydrochloride 10 MG Oral Tablet Cetirizine HCl 10 MG Cetirizine HCl 10 MG 04/15/2021 12:00:00 AM EDT 1.0 {tablet} activ e Cetirizine HCl 10 MG eCW1 ([facility]) Hydroxyzine Hydrochloride 25 MG Oral Tablet hydrOXYzin e HCl 25 MG hydrOXYzine HCl 25 MG 04/15/2021 12:00:00 AM EDT 1.0 {tablet} ac tive hydrOXYzine HCl 25 MG eCW1 ([facility]) Chlorthalidone 25 MG Oral Tablet Chlorthalidone 25 MG 2020 12:00:00 AM EDT active Chlorthalidone 25 MG eCW1 ([facility]) Chlorthalidone 25 MG Oral Tablet Chlorthalidone 25 MG 2020 12:00:00 AM EDT active Chlorthalidone 25 MG eCW1 ([facility]) Hydrochlorothiazide 12.5 MG Oral Tablet hydroCHLOROthi azide 12.5 MG hydroCHLOROthiazide 12.5 MG 03/21/2021 12:00:00 AM EDT 1.0 {tablet_in_the_morning} suspended hydroC HLOROthiazide 12.5 MG eCW1 ([facility]) Hydrochlorothiazide 12.5 MG Oral Tablet hydroCHLOROthi azide 12.5 MG hydroCHLOROthiazide 12.5 MG 03/21/2021 12:00:00 AM EDT 1.0 {tablet_in_the_morning} suspended hydroC HLOROthiazide 12.5 MG eCW1 ([facility]) Hydrochlorothiazide 12.5 MG Oral Tablet hydroCHLOROthi azide 12.5 MG hydroCHLOROthiazide 12.5 MG 03/21/2021 12:00:00 AM EDT 1.0 {tablet_in_the_morning} suspended hydroC HLOROthiazide 12.5 MG eCW1 ([facility]) Hydrochlorothiazide 12.5 MG Oral Tablet hydroCHLOROthi azide 12.5 MG hydroCHLOROthiazide 12.5 MG 03/21/2021 12:00:00 AM EDT 1.0 {tablet_in_the_morning} active hydroCHL OROthiazide 12.5 MG eCW1 ([facility]) Hydrochlorothiazide 12.5 MG Oral Tablet hydroCHLOROthi azide 12.5 MG hydroCHLOROthiazide 12.5 MG 03/21/2021 12:00:00 AM EDT 1.0 {tablet_in_the_morning} active hydroCHL OROthiazide 12.5 MG eCW1 ([facility]) Hydrochlorothiazide 12.5 MG Oral Tablet hydroCHLOROthi azide 12.5 MG hydroCHLOROthiazide 12.5 MG 03/21/2021 12:00:00 AM EDT 1.0 {tablet_in_the_morning} suspended hydroC HLOROthiazide 12.5 MG eCW1 ([facility]) Chlorthalidone 25 MG Oral Tablet Chlorthalidone 25 MG 2020 12:00:00 AM EDT 1.0 {tablet_in_the_morning_with_food} active Chlorthalidone 25 MG eCW1 ([facility]) Hydrochlorothiazide 12.5 MG Oral Tablet hydroCHLOROthi azide 12.5 MG hydroCHLOROthiazide 12.5 MG 03/21/2021 12:00:00 AM EDT 1.0 {tablet_in_the_morning} suspended hydroC HLOROthiazide 12.5 MG eCW1 ([facility]) Hydrochlorothiazide 12.5 MG Oral Tablet hydroCHLOROthi azide 12.5 MG hydroCHLOROthiazide 12.5 MG 03/21/2021 12:00:00 AM EDT 1.0 {tablet_in_the_morning} suspended hydroC HLOROthiazide 12.5 MG eCW1 ([facility]) Hydrochlorothiazide 12.5 MG Oral Tablet hydroCHLOROthi azide 12.5 MG hydroCHLOROthiazide 12.5 MG 03/21/2021 12:00:00 AM EDT 1.0 {tablet_in_the_morning} active hydroCHL OROthiazide 12.5 MG eCW1 ([facility]) Hydrochlorothiazide 12.5 MG Oral Tablet hydroCHLOROthi azide 12.5 MG hydroCHLOROthiazide 12.5 MG 03/21/2021 12:00:00 AM EDT 1.0 {tablet_in_the_morning} suspended hydroC HLOROthiazide 12.5 MG eCW1 ([facility]) Hydrochlorothiazide 12.5 MG Oral Tablet hydroCHLOROthi azide 12.5 MG hydroCHLOROthiazide 12.5 MG 03/21/2021 12:00:00 AM EDT 1.0 {tablet_in_the_morning} suspended hydroC HLOROthiazide 12.5 MG eCW1 ([facility]) Hydrochlorothiazide 12.5 MG Oral Tablet hydroCHLOROthi azide 12.5 MG hydroCHLOROthiazide 12.5 MG 03/21/2021 12:00:00 AM EDT 1.0 {tablet_in_the_morning} suspended hydroC HLOROthiazide 12.5 MG eCW1 ([facility]) Hydrochlorothiazide 12.5 MG Oral Tablet hydroCHLOROthi azide 12.5 MG hydroCHLOROthiazide 12.5 MG 03/21/2021 12:00:00 AM EDT 1.0 {tablet_in_the_morning} suspended hydroC HLOROthiazide 12.5 MG eCW1 ([facility]) Lisinopril 40 MG Oral Tablet Lisinopril 40 MG Oral Tablet 12:00:00 AM EDT 1 active lisinopril 40 MG Oral Tablet [facility] (Garret Sutton MD [facility]) Insurance Providers Payer name Policy type / Coverage type Policy ID Covered alliance party ID Covered alliance party's relationship to davidson Policy [employer] Plan Information MEDICARE BLUE PPO 306 [id number] SP [id number] MEDICARE BLUE PPO 306 [id number] SP [id number] BS [facility] 0 [id number] Se lf 0 MEDICARE BLUE PPO 306 [id number] MEDICARE [id number] SP [id number] [place] Other 0 [id number] Se lf 0 BCBS [place] PPO [id number] SP [id number] BCBS OF [facility] 320/[id number] SP [id number] Problems, Conditions, and Diagnoses Code Display Name Description Problem Type Effective Dates Data Source(s) 378.41 Strabismus Non-paralytic Heterophoria Es ophoria Strabismus Non-paralytic Heterophoria Esophoria Problem 02/19/2021 12:00:00 AM EDT [facility]AL ( Garret Sutton MD [facility]) I15.9 [id number] Secondary hypertension Problem 12/04/2020 12 :00:00 AM EDT eCW1 ([facility]) I10 [id number] Hypertension, unspecified type Problem 12/04 12:00:00 AM EDT eCW1 ([facility]) 06522690 Dry 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 Problem 11/27/2020 12:00:00 AM EDT [facility]AL (Garret Sutton MD [facility]) 77227474 Retinopathy Hypertensive Both Eyes Retinopathy H ypertensive Both Eyes Problem 11/27/2020 12:00:00 AM EDT H[facility]AL (Garret hui MD [facility]) 401.9 Essential Hypertension Essential Hypertension Problem 11/27/2020 12:00:00 AM EDT [facility]AL (Garret Sutton MD [facility]) 374.87 Dermatochalasis Dermatochalasis Problem 11/27/2020 12:0 0:00 AM EDT [facility]AL (Garret Sutton MD [facility]) 06520442 Dry 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 Problem 11/27/2020 12:00:00 AM EDT [facility] (Garret Sutton MD [facility]) 90231799 Retinopathy Hypertensive Both Eyes Retinopathy H ypertensive Both Eyes Problem 11/27/2020 12:00:00 AM EDT HETAL (Garret hui MD [facility]) 401.9 Essential Hypertension Essential Hypertension Problem 11/27/2020 12:00:00 AM EDT H[facility]AL (Garret Sutton MD [facility]) 374.87 Dermatochalasis Dermatochalasis Problem 11/27/2020 12:0 0:00 AM EDT [facility] (Garret Sutton MD [facility]) Surgeries/Procedures Procedure Description Date Indications Data Source(s) ECG ROUTINE ECG W/LEAST 12 LDS W/I&R 12/04/2020 12:00: 00 AM EDT eCW1 ([facility]) Surgical / procedural history Tonsillec trae 1954, Vasectomy 1973, Hydrocelectomy 1974, Throat surgery 1984 Surgical / procedural history Tonsillectomy 1954, Vasectomy 1973, Hydrocelectomy 1974, Throat surgery 198411/27/2020 12:00:00 AM EDT HETAL (Garret hui MD [facility]) Medical Eye Exam Medical Eye Exam 11/27/2020 12:00:00 AM EDT HETAL (Garret Sutton MD [facility]) Medical Eye Exam Medical Eye Exam 11/27/2020 12:00:00 AM EDT HETAL (Garret Sutton MD [facility]) Results ID Date Data Source [id number] 05/06/2021 09:42:00 AM EDT [facility] Name Value Range Interpretation Code Description Data Ryanne rce(s) Supporting Document(s) Respiratory pathogens identified [Type] in Nasopharynx by Probe and target amplification method SARS-CoV-2 (COVID 19) [facility] [place] This lab was ordered by [facility] a nd reported by [facility]. ID Date Data Source Basic Metabolic Profile (BMP) 12/04/2020 12:00:00 AM EDT eCW 1 ([facility]) Name Value Range Interpretation Code Description Data Ryanne rce(s) Supporting Document(s) 115 70-100 GLUCOSE, FASTING eCW1 ([facility]) > 60.0 >42 GLOMERULAR FILTRATION RATE eCW 1 ([facility]) 1.06 0.70-1.30 CREATININE FOR GFR eCW1 ([facility]) 22 7-18 BLOOD UREA NITROGEN eCW1 ([facility]) 30 21-32 CARBON DIOXIDE LEVEL eCW1 ([facility]) 105 98-107 CHLORIDE LEVEL eCW1 ([facility]) 3.7 3.5-5.1 POTASSIUM SERUM eCW1 ([facility]) 139 136-145 SODIUM LEVEL eCW1 ([facility]) 9.3 8.8-10.2 CALCIUM LEVEL eCW1 ([facility]) ID Date Data Source [id number] 11/24/2020 07:08:00 PM EDT [facility] Name Value Range Interpretation Code Description Data Ryanne rce(s) Supporting Document(s) SARS-CoV-2 (COVID 19) NEGATIVE - SARS-CoV-2 (COVID19) [facility] This lab was ordered by [facility] a nd reported by [facility]. Procedure Social History Code Duration Value Status Description Data Source(s ) Smoking 04/15/2021 12:00:00 AM EDT Never Smoker completed Never S moker eCW1 ([facility]) Smoking 04/15/2021 12:00:00 AM EDT Never Smoker completed Never S moker eCW1 ([facility]) Smoking 04/15/2021 12:00:00 AM EDT Never Smoker completed Never S moker eCW1 ([facility]) Smoking 04/15/2021 12:00:00 AM EDT Never Smoker completed Never S moker eCW1 ([facility]) Smoking 04/15/2021 12:00:00 AM EDT Never Smoker completed Never S moker eCW1 ([facility]) Smoking 04/15/2021 12:00:00 AM EDT Never Smoker completed Never S moker eCW1 ([facility]) Smoking 04/15/2021 12:00:00 AM EDT Never Smoker completed Never S moker eCW1 ([facility]) Smoking 04/15/2021 12:00:00 AM EDT Never Smoker completed Never S moker eCW1 ([facility]) Smoking 04/15/2021 12:00:00 AM EDT Never Smoker completed Never S moker eCW1 ([facility]) Smoking 04/15/2021 12:00:00 AM EDT Never Smoker completed Never S moker eCW1 ([facility]) Smoking 03/21/2021 12:00:00 AM EDT Never Smoker completed Never S moker eCW1 ([facility]) Smoking 03/21/2021 12:00:00 AM EDT Never Smoker completed Never S moker eCW1 ([facility]) Smoking 03/21/2021 12:00:00 AM EDT Never Smoker completed Never S moker eCW1 ([facility]) Smoking 02/19/2021 01:39:55 PM EDT Never smoked tobacco (findi ng) completed Never smoked tobacco (finding) [facility]ETAL (Garret Sutton MD [facility]) Smoking 12/31/2020 12:00:00 AM EDT Never Smoker completed Never S moker eCW1 ([facility]) Smoking 12/31/2020 12:00:00 AM EDT Never Smoker completed Never S moker eCW1 ([facility]) Smoking 12/31/2020 12:00:00 AM EDT Never Smoker completed Never S moker eCW1 ([facility]) Smoking 12/31/2020 12:00:00 AM EDT Never Smoker completed Never S moker eCW1 (Formerly [facility]) Smoking 12/12/2020 12:00:00 AM EDT Never Smoker completed Never S moker eCW1 ([facility]) Smoking 12/12/2020 12:00:00 AM EDT Never Smoker completed Never S moker eCW1 ([facility]ly [facility]) Smoking 12/12/2020 12:00:00 AM EDT Never Smoker completed Never S moker eCW1 ([facility]ly [facility]) Smoking 11/27/2020 02:53:42 PM EDT Never smoked tobacco (findi ng) completed Never smoked tobacco (finding) HETAL (Garret Sutton MD [facility]) Vital Signs ID Date Data Source UNK Name Value Range Interpretation Code Description Data Source(s) Body weight 189.2 [lb_av] 189.2 [lb_av] eCW1 ([facility] Body height 70 [in_i] 70 [in_i] eCW1 ([facility]) Body mass index (BMI) [Ratio] 27.14 kg/m2 27.14 kg/m2 eCW1 ([facility]ly [facility]) Heart rate 71 /min 71 /min eCW1 (Formerly [facility], [facility]) Respiratory rate 18 /min 18 /min eCW1 ([facility]) Body temperature 97.4 [degF] 97.4 [degF] eCW1 ( [facility]) Systolic blood pressure 128 mm[Hg] 128 mm[Hg] e CW1 ([facility]) Diastolic blood pressure 80 mm[Hg] 80 mm[Hg] eCW1 ([facility]) Body weight 190.0 [lb_av] 190.0 [lb_av] eCW1 ([facility]) Body height 70 [in_i] 70 [in_i] eCW1 ([facility]) Body mass index (BMI) [Ratio] 27.26 kg/m2 27.26 kg/m2 eCW1 ([facility]) Heart rate 72 /min 72 /min eCW1 (Formerly [facility], [facility]) Respiratory rate 18 /min 18 /min eCW1 ([facility]) Body temperature 96.9 [degF] 96.9 [degF] eCW1 ( [facility]) Systolic blood pressure 160 mm[Hg] 160 mm[Hg] e CW1 ([facility]) Diastolic blood pressure 98 mm[Hg] 98 mm[Hg] eCW1 ([facility]) Body weight 191 [lb_av] 191 [lb_av] eCW1 (Formerly [facility]) Body height 70 [in_i] 70 [in_i] eCW1 ([facility]) Body mass index (BMI) [Ratio] 27.40 kg/m2 27.40 kg/m2 eCW1 ([facility]) Heart rate 81 /min 81 /min eCW1 (Formerly [facility], [facility]) Respiratory rate 18 /min 18 /min eCW1 ([facility]) Body temperature 98.9 [degF] 98.9 [degF] eCW1 ( [facility]) Systolic blood pressure 190 mm[Hg] 190 mm[Hg] e CW1 ([facility]) Diastolic blood pressure 118 mm[Hg] 118 mm[Hg] eCW1 ([facility]) Patient Treatment Plan of Care Planned Activity Planned Date Details Description Data Source (s) telmisartan 80 MG Oral Tablet 04/29/2021 12:00:00 AM EDT eCW1 ([facility]) telmisartan 80 MG Oral Tablet 04/29/2021 12:00:00 AM EDT eCW1 ([facility]) telmisartan 80 MG Oral Tablet 04/29/2021 12:00:00 AM EDT eCW1 ([facility]) telmisartan 80 MG Oral Tablet 04/29/2021 12:00:00 AM EDT eCW1 ([facility]) telmisartan 80 MG Oral Tablet 04/29/2021 12:00:00 AM EDT eCW1 ([facility]) telmisartan 80 MG Oral Tablet 04/29/2021 12:00:00 AM EDT eCW1 ([facility]) telmisartan 80 MG Oral Tablet 04/29/2021 12:00:00 AM EDT eCW1 ([facility]) cetirizine hydrochloride 10 MG Oral Tablet 04/15/2021 12:00:00 AM E DT eCW1 ([facility]) 24 HR Diltiazem Hydrochloride 240 MG Extended Release Oral Capsule [Cartia] 04/15/2021 12:00:00 AM EDT eCW1 ([facility]) Hydroxyzine Hydrochloride 25 MG Oral Tablet 04/15/2021 12:00:00 AM EDT eCW1 ([facility]) cetirizine hydrochloride 10 MG Oral Tablet 04/15/2021 12:00:00 AM E DT eCW1 ([facility]) 24 HR Diltiazem Hydrochloride 240 MG Extended Release Oral Capsule [Cartia] 04/15/2021 12:00:00 AM EDT eCW1 ([facility]) Hydroxyzine Hydrochloride 25 MG Oral Tablet 04/15/2021 12:00:00 AM EDT eCW1 ([facility]) Chlorthalidone 25 MG Oral Tablet 03/21/2021 12:00:00 AM EDT eCW1 ([facility]) Hydrochlorothiazide 12.5 MG Oral Tablet 03/21/2021 12:00:00 AM EDT eCW1 ([facility]) Chlorthalidone 25 MG Oral Tablet 03/21/2021 12:00:00 AM EDT eCW1 ([facility]) Hydrochlorothiazide 12.5 MG Oral Tablet 03/21/2021 12:00:00 AM EDT eCW1 ([facility]) Chlorthalidone 25 MG Oral Tablet 03/21/2021 12:00:00 AM EDT eCW1 ([facility]) Hydrochlorothiazide 12.5 MG Oral Tablet 03/21/2021 12:00:00 AM EDT eCW1 ([facility])
--- NOTE | 2021-05-09 15:30 | REP ---
INDICATION: Coronavirus workup. COMPARISON: 05/06/2021. TECHNIQUE: Single portable AP view of the chest was performed. FINDINGS: There are subtle peripheral ground-glass infiltrates bilaterally. The heart is not significantly enlarged. There is tortuosity of the thoracic aorta. The mediastinal silhouette is unchanged. IMPRESSION: Mild subtle peripheral bilateral infiltrates. <Electronically signed by Matti Patton > 05/09/21 1525
[2021-05-09] MEDS: COMBIVENT RESPIMAT 100-20MCG INHALER 4GM INH SCH (15:34)
[2021-05-09] MEDS ORDERED: home oxygen (16:52)
--- NOTE | 2021-05-09 19:08 | ECGEPIP ---
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
== END 2021-05-09 18:07 | disposition home or self-care (01) ==
LOC: M ED 13:39
DX: U07.1 COVID-19 (principal); I10 Essential (primary) hypertension; Z79.82 Long term (current) use of aspirin; Z79.899 Other long term (current) drug therapy; Z98.890 Other specified postprocedural states; Z85.47 Personal history of malignant neoplasm of testis

== ENCOUNTER 2021-05-12 14:11 | Inpatient (IN) | payer MEDICARE ==
[~2021-05-12] VITALS: Ht 177.8 cm; Wt 76.5 kg
[~2021-05-12 14:11] MED LIST changes: +home oxygen
--- OUTSIDE RECORDS SUMMARY | 2021-05-12 14:19 | CCD ---
Author Author [facility] Organization [facility] Address Unknown Phone Unavailable Care Team Providers Care Unionmelt Operator Name Role Phone Katharina Sutton, Arpita Combs MD, FACS Unavailable Unavailable Posadas Sutton, Arpita Combs MD, FACS Unavailable Unavailable Posadas Sutotn, Arpita Combs MD, FACS Unavailable Unavailable Posadas [...] is protected by Article 27-F of the [facility] Public Health law. If you continue you may have access to information: Regarding HIV / AIDS; Provided by facilities licensed or operated by the [facility] Office of Mental Health; or Provided by the [facility] Office for People With Developmental Disabilities. If such information is present, then the following [facility] mandated warning applies: This information has [...] law may result in a fine or prison sentence or both. A general authorization for the release of medical or other information is NOT sufficient authorization for further disc losure. Allergies and Adverse Reactions Type Description Substance Reaction Status Data Source(s ) Allergy to substance No Known Allergies No known allergies (situation ) [facility] (Garret Sutton MD [facility]) Allergy to substance No Known Allergies No known allergies (situation ) [facility] (Garret Sutton MD [facility]) Encounters Encounter Providers Location Date Indications Data Source(s ) [place] [address] [facility] [address] 05/09/2021 12:00:00 AM EDT eCW1 ([facility]) [place] [address] [facility] [address] 05/02/2021 12:00:00 AM EDT eCW1 ([facility]) [place] [address] [facility] [address] 04/30/2021 12:00:00 AM EDT eCW1 ([facility]) [place] [address] [facility] [address] 04/29/2021 12:00:00 AM EDT eCW1 ([facility]) [place] [address] [facility] [address] 04/29/2021 12:00:00 AM EDT eCW1 ([facility]) [place] [address] [facility] [address] 04/29/2021 12:00:00 AM EDT eCW1 ([facility]) [place] [address] [facility] [address] 04/29/2021 12:00:00 AM EDT eCW1 ([facility]) [place] [address] [facility] [address] 04/29/2021 12:00:00 AM EDT eCW1 ([facility]) [place] [address] [facility] [address] 04/23/2021 12:00:00 AM EDT eCW1 ([facility]) [place] [address] [facility] [address] 04/15/2021 12:00:00 AM EDT eCW1 ([facility]) [place] [address] [facility] [address] 04/15/2021 12:00:00 AM EDT eCW1 ([facility]) [place] [address] [facility] [address] 04/07/2021 12:00:00 AM EDT eCW1 ([facility]) [place] [address] [facility] [address] 03/21/2021 12:00:00 AM EDT eCW1 ([facility]) [place] [address] [facility] [address] 03/18/2021 12:00:00 AM EDT eCW1 ([facility]) [place] [address] [facility] [address] 03/05/2021 12:00:00 AM EDT eCW1 ([facility]) Outpatient<td ID="encounterTypeDescripti onID0">8 Week Follow-Up</td><td>Garret Garcia MD, FACS</td><td>Garret Garcia MD [facility]</td><td>02/19/2021</td><td>12:48PM</td><td>1:31PM</td><td><content ID="encounterDiagnosisID0-0">Essential Hypertension</content>, <content ID="encounterDiagnosisID0-1">Strabismus Non-paralytic Heterophoria Esophoria</content></td> Attender: Garret Sutton MD, FACS [facility] 02/19/2021 12:48:00 PM EDT - 02/19/2021 01:31:00 PM ED T Strabismus Non- paralytic Heterophoria EsophoriaEssential Hypertension [place] (Garret Sutton MD [facility]) Strabismus Non-paralytic Heterophoria Es ophoria Essential Hypertension [place] [address] [facility] [address] 02/06/2021 12:00:00 AM EDT eCW1 ([facility]) [place]patient [address] [facility] [address] 01/01/2021 12:00:00 AM EDT eCW1 ([facility]) Unknown [address] [facility] [address] 12/24/2020 12:00:00 AM EDT eCW1 ([facility]) Unknown [address] [facility] [address] 12/24/2020 12:00:00 AM EDT eCW1 ([facility]) [place]patient [address] [facility] [address] 12/12/2020 12:00:00 AM EDT eCW1 ([facility]) [place]patient [address] [facility] [address] 12/04/2020 12:00:00 AM EDT eCW1 ([facility]) Outpatient<td ID="encounterTypeDescripti onID1">[facility] NEW PATIENT</td><td>Garret Garcia MD, FACS</td><td>Garret Garcia MD [facility]</td><td>11/27/2020</td><td>1:42PM</td><td>2:54PM</td><td><content ID="encounterDiagnosisID1-0">Essential Hypertension</content>, <content ID="encounterDiagnosisID1-1">Dry Eye Syndrome Both Eyes</content>, <content ID="encounterDiagnosisID1-2">Retinopathy Hypertensive Both Eyes</content>, <content ID="encounterDiagnosisID1-3">Dermatochalasis</content></td> Attender: Garret Sutton MD, FACS Garret Garcia MD [facility] 11/27/2020 01:42:00 PM EDT - 11/27/2020 02:54:00 PM EDT DermatochalasisRetinopathy Hypertensive Both EyesDry Eye Syndrome Both EyesEssential HypertensionDermatochalasisRetinopathy Hypertensive Both EyesDry Eye Syndrome Both EyesEssential Hypertension H[facility]AL (Garret Sutton MD [facility]) Dermatochalasis Retinopathy Hypertensive Both Eyes [...] {tablet} active Te lmisartan 80 MG eCW1 ([facility]) telmisartan 80 MG Oral Tablet Telmisartan 80 MG Telmisartan 80 MG 04/29/2021 12:00:00 AM EDT 1.0 {tablet} active Te lmisartan 80 MG eCW1 ([facility]) telmisartan 80 MG Oral Tablet Telmisartan 80 MG Telmisartan 80 MG 04/29/2021 12:00:00 AM EDT 1.0 {tablet} active Te lmisartan 80 MG eCW1 ([facility]) telmisartan 80 MG Oral Tablet Telmisartan 80 MG Telmisartan 80 MG 04/29/2021 12:00:00 AM EDT 1.0 {tablet} active Te lmisartan 80 MG eCW1 ([facility]) telmisartan 80 MG Oral Tablet Telmisartan 80 MG Telmisartan 80 MG 04/29/2021 12:00:00 AM EDT 1.0 {tablet} active Te lmisartan 80 MG eCW1 ([facility]) telmisartan 80 MG Oral Tablet Telmisartan 80 MG Telmisartan 80 MG 04/29/2021 12:00:00 AM EDT 1.0 {tablet} active Te lmisartan 80 MG eCW1 ([facility]) telmisartan 80 MG Oral Tablet Telmisartan 80 MG Telmisartan 80 MG 04/29/2021 12:00:00 AM EDT 1.0 {tablet} active Te lmisartan 80 MG eCW1 ([facility]) telmisartan 80 MG Oral Tablet Telmisartan 80 MG Telmisartan 80 MG 04/29/2021 12:00:00 AM EDT 1.0 {tablet} active Te lmisartan 80 MG eCW1 ([facility]) cetirizine hydrochloride 10 MG Oral Tablet Cetirizine HCl 10 MG Cetirizine HCl 10 MG 04/15/2021 12:00:00 AM EDT 1.0 {tablet} activ e Cetirizine HCl 10 MG eCW1 ([facility]) 24 HR Diltiazem Hydrochloride 240 MG Ext ended Release Oral Capsule [Cartia] Cartia XT 240 MG Cartia XT 240 MG 04/15/2021 12:00:00 AM EDT 1.0 {cap hiwot} active Cartia XT 240 MG eCW1 ([facility]) 24 HR Diltiazem Hydrochloride 240 MG Ext ended Release Oral Capsule [Cartia] Cartia XT 240 MG Cartia XT 240 MG 04/15/2021 12:00:00 AM EDT 1.0 {cap hiwot} active Cartia XT 240 MG eCW1 ([facility]) cetirizine hydrochloride 10 MG Oral Tablet Cetirizine HCl 10 MG Cetirizine HCl 10 MG 04/15/2021 12:00:00 AM EDT 1.0 {tablet} activ e Cetirizine HCl 10 MG eCW1 ([facility]) 24 HR Diltiazem Hydrochloride 240 MG Ext ended Release Oral Capsule [Cartia] Cartia XT 240 MG Cartia XT 240 MG 04/15/2021 12:00:00 AM EDT 1.0 {cap hiwot} active Cartia XT 240 MG eCW1 ([facility]) Hydroxyzine Hydrochloride 25 MG Oral Tablet hydrOXYzin e HCl 25 MG hydrOXYzine HCl 25 MG 04/15/2021 12:00:00 AM EDT 1.0 {tablet} ac tive hydrOXYzine HCl 25 MG eCW1 ([facility]) cetirizine hydrochloride 10 MG Oral Tablet Cetirizine HCl 10 MG Cetirizine HCl 10 MG 04/15/2021 12:00:00 AM EDT 1.0 {tablet} activ e Cetirizine HCl 10 MG eCW1 ([facility]) cetirizine hydrochloride 10 MG Oral Tablet Cetirizine HCl 10 MG Cetirizine HCl 10 MG 04/15/2021 12:00:00 AM EDT 1.0 {tablet} activ e Cetirizine HCl 10 MG eCW1 ([facility]) 24 HR Diltiazem Hydrochloride 240 MG Ext ended Release Oral Capsule [Cartia] Cartia XT 240 MG Cartia XT 240 MG 04/15/2021 12:00:00 AM EDT 1.0 {cap hiwot} active Cartia XT 240 MG eCW1 ([facility]) Hydroxyzine Hydrochloride 25 MG Oral Tablet hydrOXYzin e HCl 25 MG hydrOXYzine HCl 25 MG 04/15/2021 12:00:00 AM EDT 1.0 {tablet} ac tive hydrOXYzine HCl 25 MG eCW1 ([facility]) 24 HR Diltiazem Hydrochloride 240 MG Ext ended Release Oral Capsule [Cartia] Cartia XT 240 MG Cartia XT 240 MG 04/15/2021 12:00:00 AM EDT 1.0 {cap hiwot} active Cartia XT 240 MG eCW1 ([facility]) cetirizine hydrochloride 10 MG Oral Tablet Cetirizine HCl 10 MG Cetirizine HCl 10 MG 04/15/2021 12:00:00 AM EDT 1.0 {tablet} activ e Cetirizine HCl 10 MG eCW1 ([facility]) cetirizine hydrochloride 10 MG Oral Tablet Cetirizine HCl 10 MG Cetirizine HCl 10 MG 04/15/2021 12:00:00 AM EDT 1.0 {tablet} activ e Cetirizine HCl 10 MG eCW1 ([facility]) 24 HR Diltiazem Hydrochloride 240 MG Ext ended Release Oral Capsule [Cartia] Cartia XT 240 MG Cartia XT 240 MG 04/15/2021 12:00:00 AM EDT 1.0 {cap hiwot} active Cartia XT 240 MG eCW1 ([facility]) cetirizine hydrochloride 10 MG Oral Tablet Cetirizine HCl 10 MG Cetirizine HCl 10 MG 04/15/2021 12:00:00 AM EDT 1.0 {tablet} activ e Cetirizine HCl 10 MG eCW1 ([facility]) 24 HR Diltiazem Hydrochloride 240 MG Ext ended Release Oral Capsule [Cartia] Cartia XT 240 MG Cartia XT 240 MG 04/15/2021 12:00:00 AM EDT 1.0 {cap hiwot} active Cartia XT 240 MG eCW1 ([facility]) cetirizine hydrochloride 10 MG Oral Tablet Cetirizine HCl 10 MG Cetirizine HCl 10 MG 04/15/2021 12:00:00 AM EDT 1.0 {tablet} activ e Cetirizine HCl 10 MG eCW1 ([facility]) Hydroxyzine Hydrochloride 25 MG Oral Tablet hydrOXYzin e HCl 25 MG hydrOXYzine HCl 25 MG 04/15/2021 12:00:00 AM EDT 1.0 {tablet} ac tive hydrOXYzine HCl 25 MG eCW1 ([facility]) Hydroxyzine Hydrochloride 25 MG Oral Tablet hydrOXYzin e HCl 25 MG hydrOXYzine HCl 25 MG 04/15/2021 12:00:00 AM EDT 1.0 {tablet} ac tive hydrOXYzine HCl 25 MG eCW1 ([facility]) 24 HR Diltiazem Hydrochloride 240 MG Ext ended Release Oral Capsule [Cartia] Cartia XT 240 MG Cartia XT 240 MG 04/15/2021 12:00:00 AM EDT 1.0 {cap hiwot} active Cartia XT 240 MG eCW1 ([facility]) Hydroxyzine Hydrochloride 25 MG Oral Tablet hydrOXYzin e HCl 25 MG hydrOXYzine HCl 25 MG 04/15/2021 12:00:00 AM EDT 1.0 {tablet} ac tive hydrOXYzine HCl 25 MG eCW1 ([facility]) Hydroxyzine Hydrochloride 25 MG Oral Tablet hydrOXYzin e HCl 25 MG hydrOXYzine HCl 25 MG 04/15/2021 12:00:00 AM EDT 1.0 {tablet} ac tive hydrOXYzine HCl 25 MG eCW1 ([facility]) 24 HR Diltiazem Hydrochloride 240 MG Ext ended Release Oral Capsule [Cartia] Cartia XT 240 MG Cartia XT 240 MG 04/15/2021 12:00:00 AM EDT 1.0 {cap hiwot} active Cartia XT 240 MG eCW1 ([facility]) Hydroxyzine Hydrochloride 25 MG Oral Tablet hydrOXYzin e HCl 25 MG hydrOXYzine HCl 25 MG 04/15/2021 12:00:00 AM EDT 1.0 {tablet} ac tive hydrOXYzine HCl 25 MG eCW1 ([facility]) cetirizine hydrochloride 10 MG Oral Tablet Cetirizine HCl 10 MG Cetirizine HCl 10 MG 04/15/2021 12:00:00 AM EDT 1.0 {tablet} activ e Cetirizine HCl 10 MG eCW1 ([facility]) Hydroxyzine Hydrochloride 25 MG Oral Tablet hydrOXYzin e HCl 25 MG hydrOXYzine HCl 25 MG 04/15/2021 12:00:00 AM EDT 1.0 {tablet} ac tive hydrOXYzine HCl 25 MG eCW1 ([facility]) cetirizine hydrochloride 10 MG Oral Tablet Cetirizine HCl 10 MG Cetirizine HCl 10 MG 04/15/2021 12:00:00 AM EDT 1.0 {tablet} activ e Cetirizine HCl 10 MG eCW1 ([facility]) 24 HR Diltiazem Hydrochloride 240 MG Ext ended Release Oral Capsule [Cartia] Cartia XT 240 MG Cartia XT 240 MG 04/15/2021 12:00:00 AM EDT 1.0 {cap hiwot} active Cartia XT 240 MG eCW1 ([facility]) Hydroxyzine Hydrochloride 25 MG Oral Tablet hydrOXYzin e HCl 25 MG hydrOXYzine HCl 25 MG 04/15/2021 12:00:00 AM EDT 1.0 {tablet} ac tive hydrOXYzine HCl 25 MG eCW1 ([facility]) Hydroxyzine Hydrochloride 25 MG Oral Tablet hydrOXYzin e HCl 25 MG hydrOXYzine HCl 25 MG 04/15/2021 12:00:00 AM EDT 1.0 {tablet} ac tive hydrOXYzine HCl 25 MG eCW1 ([facility]) 24 HR Diltiazem Hydrochloride 240 MG Ext ended Release Oral Capsule [Cartia] Cartia XT 240 MG Cartia XT 240 MG 04/15/2021 12:00:00 AM EDT 1.0 {cap hiwot} active Cartia XT 240 MG eCW1 ([facility]) cetirizine hydrochloride 10 MG Oral Tablet Cetirizine HCl 10 MG Cetirizine HCl 10 MG 04/15/2021 12:00:00 AM EDT 1.0 {tablet} activ e Cetirizine HCl 10 MG eCW1 ([facility]) Hydroxyzine Hydrochloride 25 MG Oral Tablet hydrOXYzin e HCl 25 MG hydrOXYzine HCl 25 MG 04/15/2021 12:00:00 AM EDT 1.0 {tablet} ac tive hydrOXYzine HCl 25 MG eCW1 ([facility]) Chlorthalidone 25 MG Oral Tablet Chlorthalidone 25 MG 2020 12:00:00 AM EDT active Chlorthalidone 25 MG eCW1 ([facility]) Chlorthalidone 25 MG Oral Tablet Chlorthalidone 25 MG 2020 12:00:00 AM EDT active Chlorthalidone 25 MG eCW1 ([facility]) Hydrochlorothiazide 12.5 MG Oral Tablet hydroCHLOROthi azide 12.5 MG hydroCHLOROthiazide 12.5 MG 03/21/2021 12:00:00 AM EDT 1.0 {tablet_in_the_morning} suspended hydroC HLOROthiazide 12.5 MG eCW1 ([facility]) Hydrochlorothiazide 12.5 MG Oral Tablet hydroCHLOROthi azide 12.5 MG hydroCHLOROthiazide 12.5 MG 03/21/2021 12:00:00 AM EDT 1.0 {tablet_in_the_morning} suspended hydroC HLOROthiazide 12.5 MG eCW1 ([facility]) Hydrochlorothiazide 12.5 MG Oral Tablet hydroCHLOROthi azide 12.5 MG hydroCHLOROthiazide 12.5 MG 03/21/2021 12:00:00 AM EDT 1.0 {tablet_in_the_morning} suspended hydroC HLOROthiazide 12.5 MG eCW1 ([facility]) Hydrochlorothiazide 12.5 MG Oral Tablet hydroCHLOROthi azide 12.5 MG hydroCHLOROthiazide 12.5 MG 03/21/2021 12:00:00 AM EDT 1.0 {tablet_in_the_morning} suspended hydroC HLOROthiazide 12.5 MG eCW1 ([facility]) Hydrochlorothiazide 12.5 MG Oral Tablet hydroCHLOROthi azide 12.5 MG hydroCHLOROthiazide 12.5 MG 03/21/2021 12:00:00 AM EDT 1.0 {tablet_in_the_morning} active hydroCHL OROthiazide 12.5 MG eCW1 ([facility]) Hydrochlorothiazide 12.5 MG Oral Tablet hydroCHLOROthi azide 12.5 MG hydroCHLOROthiazide 12.5 MG 03/21/2021 12:00:00 AM EDT 1.0 {tablet_in_the_morning} active hydroCHL OROthiazide 12.5 MG eCW1 ([facility]) Hydrochlorothiazide 12.5 MG Oral Tablet hydroCHLOROthi azide 12.5 MG hydroCHLOROthiazide 12.5 MG 03/21/2021 12:00:00 AM EDT 1.0 {tablet_in_the_morning} suspended hydroC HLOROthiazide 12.5 MG eCW1 ([facility]) Chlorthalidone 25 MG Oral Tablet Chlorthalidone 25 MG 2020 12:00:00 AM EDT 1.0 {tablet_in_the_morning_with_food} active Chlorthalidone 25 MG eCW1 ([facility]) Hydrochlorothiazide 12.5 MG Oral Tablet hydroCHLOROthi azide 12.5 MG hydroCHLOROthiazide 12.5 MG 03/21/2021 12:00:00 AM EDT 1.0 {tablet_in_the_morning} suspended hydroC HLOROthiazide 12.5 MG eCW1 ([facility]) Hydrochlorothiazide 12.5 MG Oral Tablet hydroCHLOROthi azide 12.5 MG hydroCHLOROthiazide 12.5 MG 03/21/2021 12:00:00 AM EDT 1.0 {tablet_in_the_morning} suspended hydroC HLOROthiazide 12.5 MG eCW1 ([facility]) Hydrochlorothiazide 12.5 MG Oral Tablet hydroCHLOROthi azide 12.5 MG hydroCHLOROthiazide 12.5 MG 03/21/2021 12:00:00 AM EDT 1.0 {tablet_in_the_morning} active hydroCHL OROthiazide 12.5 MG eCW1 ([facility]) Hydrochlorothiazide 12.5 MG Oral Tablet hydroCHLOROthi azide 12.5 MG hydroCHLOROthiazide 12.5 MG 03/21/2021 12:00:00 AM EDT 1.0 {tablet_in_the_morning} suspended hydroC HLOROthiazide 12.5 MG eCW1 ([facility]) Hydrochlorothiazide 12.5 MG Oral Tablet hydroCHLOROthi azide 12.5 MG hydroCHLOROthiazide 12.5 MG 03/21/2021 12:00:00 AM EDT 1.0 {tablet_in_the_morning} suspended hydroC HLOROthiazide 12.5 MG eCW1 ([facility]) Hydrochlorothiazide 12.5 MG Oral Tablet hydroCHLOROthi azide 12.5 MG hydroCHLOROthiazide 12.5 MG 03/21/2021 12:00:00 AM EDT 1.0 {tablet_in_the_morning} suspended hydroC HLOROthiazide 12.5 MG eCW1 ([facility]) Hydrochlorothiazide 12.5 MG Oral Tablet hydroCHLOROthi azide 12.5 MG hydroCHLOROthiazide 12.5 MG 03/21/2021 12:00:00 AM EDT 1.0 {tablet_in_the_morning} suspended hydroC HLOROthiazide 12.5 MG eCW1 ([facility]) Lisinopril 40 MG Oral Tablet Lisinopril 40 MG Oral Tablet 12:00:00 AM EDT 1 active lisinopril 40 MG Oral Tablet [place] (Garret Sutton MD [facility]) Insurance Providers Payer name Policy type / Coverage type Policy ID Covered democrat ID Covered democrat's relationship to davidson Policy [employer] Plan Information MEDICARE BLUE PPO [id number] SP [id number] MEDICARE BLUE PPO 306 [id number] SP [id number] [facility] Other 0 [id number] Se lf 0 MEDICARE BLUE PPO 306 [id number] MEDICARE [id number] SP [id number] [facility] Other 0 [id number] Se lf 0 BCBS [facility] PPO 302/307 [id number] SP [id number] BCBS OF [facility] 320/820 [id number] SP [id number] Problems, Conditions, and Diagnoses Code Display Name Description Problem Type Effective Dates Data Source(s) 378.41 Strabismus Non-paralytic Heterophoria Es ophoria Strabismus Non-paralytic Heterophoria Esophoria Problem 02/19/2021 12:00:00 AM EDT [facility] ( Garret Sutton MD [facility]) I15.9 29100508 Secondary hypertension Problem 12/04/2020 12 :00:00 AM EDT eCW1 ([facility]) I10 [id number] Hypertension, unspecified type Problem 12/04 12:00:00 AM EDT eCW1 ([facility]) 01539432 Dry 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 Problem 11/27/2020 12:00:00 AM EDT [facility] (Garret Sutton MD [facility]) 47893021 Retinopathy Hypertensive Both Eyes Retinopathy H ypertensive Both Eyes Problem 11/27/2020 12:00:00 AM EDT [facility] (Garret hui MD [facility]) 401.9 Essential Hypertension Essential Hypertension Problem 11/27/2020 12:00:00 AM EDT [facility] (Garret Sutton MD [facility]) 374.87 Dermatochalasis Dermatochalasis Problem 11/27/2020 12:0 0:00 AM EDT [facility] (Garret Sutton MD [facility]) 82489307 Dry 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 Problem 11/27/2020 12:00:00 AM EDT [facility] (Garret Sutton MD [facility]) 34076120 Retinopathy Hypertensive Both Eyes Retinopathy H ypertensive Both Eyes Problem 11/27/2020 12:00:00 AM EDT [facility] (Garret hui MD [facility]) 401.9 Essential Hypertension Essential Hypertension Problem 11/27/2020 12:00:00 AM EDT [facility] (Garret Sutton MD [facility]) 374.87 Dermatochalasis Dermatochalasis Problem 11/27/2020 12:0 0:00 AM EDT [facility] (Garret Sutton MD [facility]) Surgeries/Procedures Procedure Description Date Indications Data Source(s) ECG ROUTINE ECG W/LEAST 12 LDS W/I&R 12/04/2020 12:00: 00 AM EDT eCW1 ([facility]) Surgical / procedural history Tonsillec trea 1954, Vasectomy 1973, Hydrocelectomy 1974, Throat surgery 1984 Surgical / procedural history Tonsillectomy 195, Vasectomy 1973, Hydrocelectomy 1974, Throat surgery 198411/27/2020 12:00:00 AM EDT [facility] (Garret hui MD [facility]) Medical Eye Exam Medical Eye Exam 11/27/2020 12:00:00 AM EDT [facility] (Garret Sutton MD [facility]) Medical Eye Exam Medical Eye Exam 11/27/2020 12:00:00 AM EDT [facility] (Garret Sutton MD [facility]) Results ID Date Data Source [id number] 05/06/2021 09:42:00 AM EDT [facility] Name Value Range Interpretation Code Description Data Ryanne rce(s) Supporting Document(s) Respiratory pathogens identified [Type] in Nasopharynx by Probe and target amplification method SARS-CoV-2 (COVID 19) [facility] This lab was ordered by [facility] a nd reported by [facility]. ID Date Data Source Basic Metabolic Profile (BMP) 12/04/2020 12:00:00 AM EDT eCW 1 ([facility]) Name Value Range Interpretation Code Description Data Ryanne rce(s) Supporting Document(s) 115 70-100 GLUCOSE, FASTING eCW1 ([facility]) > 60.0 >42 GLOMERULAR FILTRATION RATE eCW 1 ([facility]) 1.06 0.70-1.30 CREATININE FOR GFR eCW1 ([facility]) 22 7-18 BLOOD UREA NITROGEN eCW1 ([facility]) 30 21-32 CARBON DIOXIDE LEVEL eCW1 ([facility]) 105 98-107 CHLORIDE LEVEL eCW1 ([facility]) 3.7 3.5-5.1 POTASSIUM SERUM eCW1 ([facility]) 139 136-145 SODIUM LEVEL eCW1 ([facility]) 9.3 8.8-10.2 CALCIUM LEVEL eCW1 ([facility]) ID Date Data Source [id number] 11/24/2020 07:08:00 PM EDT [facility] Name Value Range Interpretation Code Description Data Ryanne rce(s) Supporting Document(s) SARS-CoV-2 (COVID 19) NEGATIVE - SARS-CoV-2 (COVID19) [facility] This lab was ordered by [facility] a nd reported by [facility]. Procedure Social History Code Duration Value Status Description Data Source(s ) Smoking 04/15/2021 12:00:00 AM EDT Never Smoker completed Never S moker eCW1 ([facility]) Smoking 04/15/2021 12:00:00 AM EDT Never Smoker completed Never S moker eCW1 ([facility]) Smoking 04/15/2021 12:00:00 AM EDT Never Smoker completed Never S moker eCW1 ([facility]) Smoking 04/15/2021 12:00:00 AM EDT Never Smoker completed Never S moker eCW1 ([facility]) Smoking 04/15/2021 12:00:00 AM EDT Never Smoker completed Never S moker eCW1 ([facility]) Smoking 04/15/2021 12:00:00 AM EDT Never Smoker completed Never S moker eCW1 ([facility]) Smoking 04/15/2021 12:00:00 AM EDT Never Smoker completed Never S moker eCW1 ([facility]) Smoking 04/15/2021 12:00:00 AM EDT Never Smoker completed Never S moker eCW1 ([facility]) Smoking 04/15/2021 12:00:00 AM EDT Never Smoker completed Never S moker eCW1 ([facility]) Smoking 04/15/2021 12:00:00 AM EDT Never Smoker completed Never S moker eCW1 ([facility]) Smoking 04/15/2021 12:00:00 AM EDT Never Smoker completed Never S moker eCW1 ([facility]) Smoking 03/21/2021 12:00:00 AM EDT Never Smoker completed Never S moker eCW1 ([facility]) Smoking 03/21/2021 12:00:00 AM EDT Never Smoker completed Never S moker eCW1 ([facility]) Smoking 03/21/2021 12:00:00 AM EDT Never Smoker completed Never S moker eCW1 ([facility]) Smoking 02/19/2021 01:39:55 PM EDT Never smoked tobacco (findi ng) completed Never smoked tobacco (finding) [facility] (Garret Sutton MD [facility]) Smoking 12/31/2020 12:00:00 AM EDT Never Smoker completed Never S moker eCW1 ([facility]) Smoking 12/31/2020 12:00:00 AM EDT Never Smoker completed Never S moker eCW1 ([facility]) Smoking 12/31/2020 12:00:00 AM EDT Never Smoker completed Never S moker eCW1 ([facility]) Smoking 12/31/2020 12:00:00 AM EDT Never Smoker completed Never S moker eCW1 ([facility]) Smoking 12/12/2020 12:00:00 AM EDT Never Smoker completed Never S moker eCW1 ([facility]) Smoking 12/12/2020 12:00:00 AM EDT Never Smoker completed Never S moker eCW1 ([facility]) Smoking 12/12/2020 12:00:00 AM EDT Never Smoker completed Never S moker eCW1 ([facility]) Smoking 11/27/2020 02:53:42 PM EDT Never smoked tobacco (findi ng) completed Never smoked tobacco (finding) HETAL (Garret Sutton MD [facility]) Vital Signs ID Date Data Source UNK Name Value Range Interpretation Code Description Data Source(s) Body weight 189.2 [lb_av] 189.2 [lb_av] eCW1 ([facility]) Body height 70 [in_i] 70 [in_i] eCW1 ([facility]) Body mass index (BMI) [Ratio] 27.14 kg/m2 27.14 kg/m2 eCW1 ([facility]) Heart rate 71 /min 71 /min eCW1 ([facility]) Respiratory rate 18 /min 18 /min eCW1 ([facility]) Body temperature 97.4 [degF] 97.4 [degF] eCW1 ( [facility]) Systolic blood pressure 128 mm[Hg] 128 mm[Hg] e CW1 ([facility]) Diastolic blood pressure 80 mm[Hg] 80 mm[Hg] eCW1 ([facility]) Body weight 190.0 [lb_av] 190.0 [lb_av] eCW1 ([facility]) Body height 70 [in_i] 70 [in_i] eCW1 ([facility]) Body mass index (BMI) [Ratio] 27.26 kg/m2 27.26 kg/m2 eCW1 ([facility]) Heart rate 72 /min 72 /min eCW1 ([facility]) Respiratory rate 18 /min 18 /min eCW1 ([facility]) Body temperature 96.9 [degF] 96.9 [degF] eCW1 ( [facility]) Systolic blood pressure 160 mm[Hg] 160 mm[Hg] e CW1 ([facility]) Diastolic blood pressure 98 mm[Hg] 98 mm[Hg] eCW1 ([facility]) Body weight 191 [lb_av] 191 [lb_av] eCW1 ([facility]) Body height 70 [in_i] 70 [in_i] eCW1 ([facility]) Body mass index (BMI) [Ratio] 27.40 kg/m2 27.40 kg/m2 eCW1 ([facility]) Heart rate 81 /min 81 /min eCW1 ([facility]) Respiratory rate 18 /min 18 /min eCW1 ([facility]) Body temperature 98.9 [degF] 98.9 [degF] eCW1 ( [facility]) Systolic blood pressure 190 mm[Hg] 190 mm[Hg] e CW1 ([facility]) Diastolic blood pressure 118 mm[Hg] 118 mm[Hg] eCW1 ([facility]) Patient Treatment Plan of Care Planned Activity Planned Date Details Description Data Source (s) telmisartan 80 MG Oral Tablet 04/29/2021 12:00:00 AM EDT eCW1 ([facility]) telmisartan 80 MG Oral Tablet 04/29/2021 12:00:00 AM EDT eCW1 ([facility]) telmisartan 80 MG Oral Tablet 04/29/2021 12:00:00 AM EDT eCW1 ([facility]) telmisartan 80 MG Oral Tablet 04/29/2021 12:00:00 AM EDT eCW1 ([facility]) telmisartan 80 MG Oral Tablet 04/29/2021 12:00:00 AM EDT eCW1 ([facility]) telmisartan 80 MG Oral Tablet 04/29/2021 12:00:00 AM EDT eCW1 ([facility]) telmisartan 80 MG Oral Tablet 04/29/2021 12:00:00 AM EDT eCW1 ([facility]) telmisartan 80 MG Oral Tablet 04/29/2021 12:00:00 AM EDT eCW1 ([facility]) cetirizine hydrochloride 10 MG Oral Tablet 04/15/2021 12:00:00 AM E DT eCW1 ([facility]) 24 HR Diltiazem Hydrochloride 240 MG Extended Release Oral Capsule [Cartia] 04/15/2021 12:00:00 AM EDT eCW1 ([facility]) Hydroxyzine Hydrochloride 25 MG Oral Tablet 04/15/2021 12:00:00 AM EDT eCW1 ([facility]) cetirizine hydrochloride 10 MG Oral Tablet 04/15/2021 12:00:00 AM E DT eCW1 ([facility]) 24 HR Diltiazem Hydrochloride 240 MG Extended Release Oral Capsule [Cartia] 04/15/2021 12:00:00 AM EDT eCW1 ([facility]) Hydroxyzine Hydrochloride 25 MG Oral Tablet 04/15/2021 12:00:00 AM EDT eCW1 ([facility]) Chlorthalidone 25 MG Oral Tablet 03/21/2021 12:00:00 AM EDT eCW1 ([facility]) Hydrochlorothiazide 12.5 MG Oral Tablet 03/21/2021 12:00:00 AM EDT eCW1 ([facility]) Chlorthalidone 25 MG Oral Tablet 03/21/2021 12:00:00 AM EDT eCW1 ([facility]) Hydrochlorothiazide 12.5 MG Oral Tablet 03/21/2021 12:00:00 AM EDT eCW1 ([facility]) Chlorthalidone 25 MG Oral Tablet 03/21/2021 12:00:00 AM EDT eCW1 ([facility]) Hydrochlorothiazide 12.5 MG Oral Tablet 03/21/2021 12:00:00 AM EDT eCW1 ([facility])
--- OUTSIDE RECORDS SUMMARY | 2021-05-12 14:53 | CCD ---
Author Author [facility] Organization [facility] Address Unknown Phone Unavailable Care Team Providers Care Wiring Technician Name Role Phone Katharina Sutton, Arpita Combs [...] is protected by Article 27-F of the [facility] Public Health law. If you continue you may have access to information: Regarding HIV / AIDS; Provided by facilities licensed or operated by the [facility] Office of Mental Health; or Provided by the [facility] Office for People With Developmental Disabilities. If such information is present, then the following [facility] mandated warning applies: This information has [...] law may result in a fine or residential sentence or both. A general authorization for the release of medical or other information is NOT sufficient authorization for further disc losure. Allergies and Adverse Reactions Type Description Substance Reaction Status Data Source(s ) Allergy to substance No Known Allergies No known allergies (situation ) HETAL (Garret Sutton MD [facility]) Allergy to substance No Known Allergies No known allergies (situation ) HETAL (Garret Sutton MD [facility]) Encounters Encounter Providers Location Date Indications Data Source(s ) [place] [address] [address] 05/09/2021 12:00:00 AM EDT eCW1 ([facility]) [place] [address] [address] 05/02/2021 12:00:00 AM EDT eCW1 ([facility]) [place] [address] [address] 04/30/2021 12:00:00 AM EDT eCW1 ([facility]) [place] [address] [address] 04/29/2021 12:00:00 AM EDT eCW1 ([facility]) [place] [address] [facility] [address] 04/29/2021 12:00:00 AM EDT eCW1 ([facility]) [place] [address] [address] 04/29/2021 12:00:00 AM EDT eCW1 ([facility]) [place] [address] [address] 04/29/2021 12:00:00 AM EDT eCW1 ([facility]) [place] [address] [address] 04/29/2021 12:00:00 AM EDT eCW1 ([facility]) [place] [address] [address] 04/23/2021 12:00:00 AM EDT eCW1 ([facility]) [place] [address] [facility] [address] 04/15/2021 12:00:00 AM EDT eCW1 ([facility]) [place] [address] [facility] [address] 04/15/2021 12:00:00 AM EDT eCW1 ([facility]) [place] [address] [facility] [address] 04/07/2021 12:00:00 AM EDT eCW1 ([facility]) [place] [address] [address] 03/21/2021 12:00:00 AM EDT eCW1 ([facility]) [place] [address] [address] 03/18/2021 12:00:00 AM EDT eCW1 ([facility]) [place] [address] [address] 03/05/2021 12:00:00 AM EDT eCW1 ([facility]) <td ID="encounterTypeDescriptionID0">[address] [place] Follow-Up</td><td>Garret Sutton MD, FACS</td><td>Garret Garcia MD [facility]</td><td>02/19/2021</td><td>12:48PM</td><td>1:31PM</td><td><content ID="encounterDiagnosisID0-0">Essential Hypertension</content>, <content ID="encounterDiagnosisID0-1">Strabismus Non-paralytic Heterophoria Esophoria</content></td>Outpatient Attender: Garret Sutton MD, FACS Garret Garcia MD [facility] 02/19/2021 12:48:00 PM EDT - 02/19/2021 01:31:00 PM ED T Strabismus Non-paralytic Heterophoria EsophoriaEssential Hypertension [facility] (Garret Sutton MD [facility]) Strabismus Non-paralytic Heterophoria Es ophoria Essential Hypertension [place] [address] [facility] [address] 02/06/2021 12:00:00 AM EDT eCW1 ([facility]) [place] [address] [address] 01/01/2021 12:00:00 AM EDT eCW1 ([facility]) [place] [address] [address] 12/24/2020 12:00:00 AM EDT eCW1 ([facility]) [place] [address] [address] 12/24/2020 12:00:00 AM EDT eCW1 ([facility]) [place] [address] [address] 12/12/2020 12:00:00 AM EDT eCW1 ([facility]) [place] [address] [address] 12/04/2020 12:00:00 AM EDT eCW1 ([facility]) Outpatient<td ID="encounterTypeDescripti onID1">[facility] PAT[facility]</td><td>Garret Garcia MD, FACS</td><td>Garret Garcia MD [facility]</td><td>11/27/2020</td><td>1:42PM</td><td>2:54PM</td><td><content ID="encounterDiagnosisID1-0">Essential Hypertension</content>, <content ID="encounterDiagnosisID1-1">Dry Eye Syndrome Both Eyes</content>, <content ID="encounterDiagnosisID1-2">Retinopathy Hypertensive Both Eyes</content>, <content ID="encounterDiagnosisID1-3">Dermatochalasis</content></td> Attender: Garret Sutton MD, FACS Garret Garcia MD [facility] 11/27/2020 01:42:00 PM EDT - 11/27/2020 02:54:00 PM EDT DermatochalasisRetinopathy Hypertensive Both EyesDry Eye Syndrome Both EyesEssential HypertensionDermatochalasisRetinopathy Hypertensive Both EyesDry Eye Syndrome Both EyesEssential Hypertension HETAL (Garret Sutton MD [facility]) Dermatochalasis Retinopathy Hypertensive Both Eyes Dry [...] active Te lmisartan 80 MG eCW1 ([facility]) telmisartan 80 MG Oral Tablet Telmisartan 80 MG Telmisartan 80 MG 04/29/2021 12:00:00 AM EDT 1.0 {tablet} active Te lmisartan 80 MG eCW1 ([facility]) telmisartan 80 MG Oral Tablet Telmisartan 80 MG Telmisartan 80 MG 04/29/2021 12:00:00 AM EDT 1.0 {tablet} active Te lmisartan 80 MG eCW1 ([facility]) telmisartan 80 MG Oral Tablet Telmisartan 80 MG Telmisartan 80 MG 04/29/2021 12:00:00 AM EDT 1.0 {tablet} active Te lmisartan 80 MG eCW1 ([facility]) telmisartan 80 MG Oral Tablet Telmisartan 80 MG Telmisartan 80 MG 04/29/2021 12:00:00 AM EDT 1.0 {tablet} active Te lmisartan 80 MG eCW1 ([facility]) telmisartan 80 MG Oral Tablet Telmisartan 80 MG Telmisartan 80 MG 04/29/2021 12:00:00 AM EDT 1.0 {tablet} active Te lmisartan 80 MG eCW1 ([facility]) telmisartan 80 MG Oral Tablet Telmisartan 80 MG Telmisartan 80 MG 04/29/2021 12:00:00 AM EDT 1.0 {tablet} active Te lmisartan 80 MG eCW1 ([facility]) telmisartan 80 MG Oral Tablet Telmisartan 80 MG Telmisartan 80 MG 04/29/2021 12:00:00 AM EDT 1.0 {tablet} active Te lmisartan 80 MG eCW1 ([facility]) cetirizine hydrochloride 10 MG Oral Tablet Cetirizine HCl 10 MG Cetirizine HCl 10 MG 04/15/2021 12:00:00 AM EDT 1.0 {tablet} activ e Cetirizine HCl 10 MG eCW1 ([facility]) 24 HR Diltiazem Hydrochloride 240 MG Ext ended Release Oral Capsule [Cartia] Cartia XT 240 MG Cartia XT 240 MG 04/15/2021 12:00:00 AM EDT 1.0 {cap hiwot} active Cartia XT 240 MG eCW1 ([facility]) 24 HR Diltiazem Hydrochloride 240 MG Ext ended Release Oral Capsule [Cartia] Cartia XT 240 MG Cartia XT 240 MG 04/15/2021 12:00:00 AM EDT 1.0 {cap hiwot} active Cartia XT 240 MG eCW1 ([facility]) cetirizine hydrochloride 10 MG Oral Tablet Cetirizine HCl 10 MG Cetirizine HCl 10 MG 04/15/2021 12:00:00 AM EDT 1.0 {tablet} activ e Cetirizine HCl 10 MG eCW1 ([facility]) 24 HR Diltiazem Hydrochloride 240 MG Ext ended Release Oral Capsule [Cartia] Cartia XT 240 MG Cartia XT 240 MG 04/15/2021 12:00:00 AM EDT 1.0 {cap hiwot} active Cartia XT 240 MG eCW1 ([facility]) Hydroxyzine Hydrochloride 25 MG Oral Tablet hydrOXYzin e HCl 25 MG hydrOXYzine HCl 25 MG 04/15/2021 12:00:00 AM EDT 1.0 {tablet} ac tive hydrOXYzine HCl 25 MG eCW1 ([facility]) cetirizine hydrochloride 10 MG Oral Tablet Cetirizine HCl 10 MG Cetirizine HCl 10 MG 04/15/2021 12:00:00 AM EDT 1.0 {tablet} activ e Cetirizine HCl 10 MG eCW1 ([facility]) cetirizine hydrochloride 10 MG Oral Tablet Cetirizine HCl 10 MG Cetirizine HCl 10 MG 04/15/2021 12:00:00 AM EDT 1.0 {tablet} activ e Cetirizine HCl 10 MG eCW1 ([facility]) 24 HR Diltiazem Hydrochloride 240 MG Ext ended Release Oral Capsule [Cartia] Cartia XT 240 MG Cartia XT 240 MG 04/15/2021 12:00:00 AM EDT 1.0 {cap hiwot} active Cartia XT 240 MG eCW1 ([facility]) Hydroxyzine Hydrochloride 25 MG Oral Tablet hydrOXYzin e HCl 25 MG hydrOXYzine HCl 25 MG 04/15/2021 12:00:00 AM EDT 1.0 {tablet} ac tive hydrOXYzine HCl 25 MG eCW1 ([facility]) 24 HR Diltiazem Hydrochloride 240 MG Ext ended Release Oral Capsule [Cartia] Cartia XT 240 MG Cartia XT 240 MG 04/15/2021 12:00:00 AM EDT 1.0 {cap hiwot} active Cartia XT 240 MG eCW1 ([facility]) cetirizine hydrochloride 10 MG Oral Tablet Cetirizine HCl 10 MG Cetirizine HCl 10 MG 04/15/2021 12:00:00 AM EDT 1.0 {tablet} activ e Cetirizine HCl 10 MG eCW1 ([facility]) cetirizine hydrochloride 10 MG Oral Tablet Cetirizine HCl 10 MG Cetirizine HCl 10 MG 04/15/2021 12:00:00 AM EDT 1.0 {tablet} activ e Cetirizine HCl 10 MG eCW1 ([facility]) 24 HR Diltiazem Hydrochloride 240 MG Ext ended Release Oral Capsule [Cartia] Cartia XT 240 MG Cartia XT 240 MG 04/15/2021 12:00:00 AM EDT 1.0 {cap hiwot} active Cartia XT 240 MG eCW1 ([facility]) cetirizine hydrochloride 10 MG Oral Tablet Cetirizine HCl 10 MG Cetirizine HCl 10 MG 04/15/2021 12:00:00 AM EDT 1.0 {tablet} activ e Cetirizine HCl 10 MG eCW1 ([facility]) 24 HR Diltiazem Hydrochloride 240 MG Ext ended Release Oral Capsule [Cartia] Cartia XT 240 MG Cartia XT 240 MG 04/15/2021 12:00:00 AM EDT 1.0 {cap hiwot} active Cartia XT 240 MG eCW1 ([facility]) cetirizine hydrochloride 10 MG Oral Tablet Cetirizine HCl 10 MG Cetirizine HCl 10 MG 04/15/2021 12:00:00 AM EDT 1.0 {tablet} activ e Cetirizine HCl 10 MG eCW1 ([facility]) Hydroxyzine Hydrochloride 25 MG Oral Tablet hydrOXYzin e HCl 25 MG hydrOXYzine HCl 25 MG 04/15/2021 12:00:00 AM EDT 1.0 {tablet} ac tive hydrOXYzine HCl 25 MG eCW1 ([facility]) Hydroxyzine Hydrochloride 25 MG Oral Tablet hydrOXYzin e HCl 25 MG hydrOXYzine HCl 25 MG 04/15/2021 12:00:00 AM EDT 1.0 {tablet} ac tive hydrOXYzine HCl 25 MG eCW1 ([facility]) 24 HR Diltiazem Hydrochloride 240 MG Ext ended Release Oral Capsule [Cartia] Cartia XT 240 MG Cartia XT 240 MG 04/15/2021 12:00:00 AM EDT 1.0 {cap hiwot} active Cartia XT 240 MG eCW1 ([facility]) Hydroxyzine Hydrochloride 25 MG Oral Tablet hydrOXYzin e HCl 25 MG hydrOXYzine HCl 25 MG 04/15/2021 12:00:00 AM EDT 1.0 {tablet} ac tive hydrOXYzine HCl 25 MG eCW1 ([facility]) Hydroxyzine Hydrochloride 25 MG Oral Tablet hydrOXYzin e HCl 25 MG hydrOXYzine HCl 25 MG 04/15/2021 12:00:00 AM EDT 1.0 {tablet} ac tive hydrOXYzine HCl 25 MG eCW1 ([facility]) 24 HR Diltiazem Hydrochloride 240 MG Ext ended Release Oral Capsule [Cartia] Cartia XT 240 MG Cartia XT 240 MG 04/15/2021 12:00:00 AM EDT 1.0 {cap hiwot} active Cartia XT 240 MG eCW1 ([facility]) Hydroxyzine Hydrochloride 25 MG Oral Tablet hydrOXYzin e HCl 25 MG hydrOXYzine HCl 25 MG 04/15/2021 12:00:00 AM EDT 1.0 {tablet} ac tive hydrOXYzine HCl 25 MG eCW1 ([facility]) cetirizine hydrochloride 10 MG Oral Tablet Cetirizine HCl 10 MG Cetirizine HCl 10 MG 04/15/2021 12:00:00 AM EDT 1.0 {tablet} activ e Cetirizine HCl 10 MG eCW1 ([facility]) Hydroxyzine Hydrochloride 25 MG Oral Tablet hydrOXYzin e HCl 25 MG hydrOXYzine HCl 25 MG 04/15/2021 12:00:00 AM EDT 1.0 {tablet} ac tive hydrOXYzine HCl 25 MG eCW1 ([facility]) cetirizine hydrochloride 10 MG Oral Tablet Cetirizine HCl 10 MG Cetirizine HCl 10 MG 04/15/2021 12:00:00 AM EDT 1.0 {tablet} activ e Cetirizine HCl 10 MG eCW1 ([facility]) 24 HR Diltiazem Hydrochloride 240 MG Ext ended Release Oral Capsule [Cartia] Cartia XT 240 MG Cartia XT 240 MG 04/15/2021 12:00:00 AM EDT 1.0 {cap hiwot} active Cartia XT 240 MG eCW1 ([facility]) Hydroxyzine Hydrochloride 25 MG Oral Tablet hydrOXYzin e HCl 25 MG hydrOXYzine HCl 25 MG 04/15/2021 12:00:00 AM EDT 1.0 {tablet} ac tive hydrOXYzine HCl 25 MG eCW1 ([facility]) Hydroxyzine Hydrochloride 25 MG Oral Tablet hydrOXYzin e HCl 25 MG hydrOXYzine HCl 25 MG 04/15/2021 12:00:00 AM EDT 1.0 {tablet} ac tive hydrOXYzine HCl 25 MG eCW1 ([facility]) 24 HR Diltiazem Hydrochloride 240 MG Ext ended Release Oral Capsule [Cartia] Cartia XT 240 MG Cartia XT 240 MG 04/15/2021 12:00:00 AM EDT 1.0 {cap hiwot} active Cartia XT 240 MG eCW1 ([facility]) cetirizine hydrochloride 10 MG Oral Tablet Cetirizine HCl 10 MG Cetirizine HCl 10 MG 04/15/2021 12:00:00 AM EDT 1.0 {tablet} activ e Cetirizine HCl 10 MG eCW1 ([facility]) Hydroxyzine Hydrochloride 25 MG Oral Tablet hydrOXYzin e HCl 25 MG hydrOXYzine HCl 25 MG 04/15/2021 12:00:00 AM EDT 1.0 {tablet} ac tive hydrOXYzine HCl 25 MG eCW1 ([facility]) Chlorthalidone 25 MG Oral Tablet Chlorthalidone 25 MG 2020 12:00:00 AM EDT active Chlorthalidone 25 MG eCW1 ([facility]) Chlorthalidone 25 MG Oral Tablet Chlorthalidone 25 MG 2020 12:00:00 AM EDT active Chlorthalidone 25 MG eCW1 ([facility]) Hydrochlorothiazide 12.5 MG Oral Tablet hydroCHLOROthi azide 12.5 MG hydroCHLOROthiazide 12.5 MG 03/21/2021 12:00:00 AM EDT 1.0 {tablet_in_the_morning} suspended hydroC HLOROthiazide 12.5 MG eCW1 ([facility]) Hydrochlorothiazide 12.5 MG Oral Tablet hydroCHLOROthi azide 12.5 MG hydroCHLOROthiazide 12.5 MG 03/21/2021 12:00:00 AM EDT 1.0 {tablet_in_the_morning} suspended hydroC HLOROthiazide 12.5 MG eCW1 ([facility]) Hydrochlorothiazide 12.5 MG Oral Tablet hydroCHLOROthi azide 12.5 MG hydroCHLOROthiazide 12.5 MG 03/21/2021 12:00:00 AM EDT 1.0 {tablet_in_the_morning} suspended hydroC HLOROthiazide 12.5 MG eCW1 ([facility]) Hydrochlorothiazide 12.5 MG Oral Tablet hydroCHLOROthi azide 12.5 MG hydroCHLOROthiazide 12.5 MG 03/21/2021 12:00:00 AM EDT 1.0 {tablet_in_the_morning} suspended hydroC HLOROthiazide 12.5 MG eCW1 ([facility]) Hydrochlorothiazide 12.5 MG Oral Tablet hydroCHLOROthi azide 12.5 MG hydroCHLOROthiazide 12.5 MG 03/21/2021 12:00:00 AM EDT 1.0 {tablet_in_the_morning} active hydroCHL OROthiazide 12.5 MG eCW1 ([facility]) Hydrochlorothiazide 12.5 MG Oral Tablet hydroCHLOROthi azide 12.5 MG hydroCHLOROthiazide 12.5 MG 03/21/2021 12:00:00 AM EDT 1.0 {tablet_in_the_morning} active hydroCHL OROthiazide 12.5 MG eCW1 ([facility]) Hydrochlorothiazide 12.5 MG Oral Tablet hydroCHLOROthi azide 12.5 MG hydroCHLOROthiazide 12.5 MG 03/21/2021 12:00:00 AM EDT 1.0 {tablet_in_the_morning} suspended hydroC HLOROthiazide 12.5 MG eCW1 ([facility]) Chlorthalidone 25 MG Oral Tablet Chlorthalidone 25 MG 2020 12:00:00 AM EDT 1.0 {tablet_in_the_morning_with_food} active Chlorthalidone 25 MG eCW1 ([facility]) Hydrochlorothiazide 12.5 MG Oral Tablet hydroCHLOROthi azide 12.5 MG hydroCHLOROthiazide 12.5 MG 03/21/2021 12:00:00 AM EDT 1.0 {tablet_in_the_morning} suspended hydroC HLOROthiazide 12.5 MG eCW1 ([facility]) Hydrochlorothiazide 12.5 MG Oral Tablet hydroCHLOROthi azide 12.5 MG hydroCHLOROthiazide 12.5 MG 03/21/2021 12:00:00 AM EDT 1.0 {tablet_in_the_morning} suspended hydroC HLOROthiazide 12.5 MG eCW1 ([facility]) Hydrochlorothiazide 12.5 MG Oral Tablet hydroCHLOROthi azide 12.5 MG hydroCHLOROthiazide 12.5 MG 03/21/2021 12:00:00 AM EDT 1.0 {tablet_in_the_morning} active hydroCHL OROthiazide 12.5 MG eCW1 ([facility]) Hydrochlorothiazide 12.5 MG Oral Tablet hydroCHLOROthi azide 12.5 MG hydroCHLOROthiazide 12.5 MG 03/21/2021 12:00:00 AM EDT 1.0 {tablet_in_the_morning} suspended hydroC HLOROthiazide 12.5 MG eCW1 ([facility]) Hydrochlorothiazide 12.5 MG Oral Tablet hydroCHLOROthi azide 12.5 MG hydroCHLOROthiazide 12.5 MG 03/21/2021 12:00:00 AM EDT 1.0 {tablet_in_the_morning} suspended hydroC HLOROthiazide 12.5 MG eCW1 ([facility]) Hydrochlorothiazide 12.5 MG Oral Tablet hydroCHLOROthi azide 12.5 MG hydroCHLOROthiazide 12.5 MG 03/21/2021 12:00:00 AM EDT 1.0 {tablet_in_the_morning} suspended hydroC HLOROthiazide 12.5 MG eCW1 ([facility]) Hydrochlorothiazide 12.5 MG Oral Tablet hydroCHLOROthi azide 12.5 MG hydroCHLOROthiazide 12.5 MG 03/21/2021 12:00:00 AM EDT 1.0 {tablet_in_the_morning} suspended hydroC HLOROthiazide 12.5 MG eCW1 ([facility]) Lisinopril 40 MG Oral Tablet Lisinopril 40 MG Oral Tablet 12:00:00 AM EDT 1 active lisinopril 40 MG Oral Tablet [place] (Garret Sutton MD [facility]) Insurance Providers Payer name Policy type / Coverage type Policy ID Covered libertarian ID Covered libertarian's relationship to davidson Policy [employer] Plan Information MEDICARE BLUE PPO 306 [id number] SP [id number] MEDICARE BLUE PPO 306 [id number] SP [id number] BCBS of [facility] Other 0 [id number] Se lf 0 MEDICARE BLUE PPO 306 [id number] MEDICARE [id number] SP [id number] BCBS of [facility] Other 0 [id number] Se lf 0 BCBS [facility] P[facility] 302/307 [id number] SP [id number] BCBS OF [facility] 320/[id number] SP [id number] Problems, Conditions, and Diagnoses Code Display Name Description Problem Type Effective Dates Data Source(s) 378.41 Strabismus Non-paralytic Heterophoria Es ophoria Strabismus Non-paralytic Heterophoria Esophoria Problem 02/19/2021 12:00:00 AM EDT HETAL ( Garret Sutton MD [facility]) I15.9 92679416 Secondary hypertension Problem 12/04/2020 12 :00:00 AM EDT eCW1 ([facility]) I10 [id number] Hypertension, unspecified type Problem 12/04 12:00:00 AM EDT eCW1 ([facility]) 75207815 Dry 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 Problem 11/27/2020 12:00:00 AM EDT HETAL (Garret Sutton MD [facility]) 65375401 Retinopathy Hypertensive Both Eyes Retinopathy H ypertensive Both Eyes Problem 11/27/2020 12:00:00 AM EDT HETAL (Garret hui MD [facility]) 401.9 Essential Hypertension Essential Hypertension Problem 11/27/2020 12:00:00 AM EDT HETAL (Garret Sutton MD [facility]) 374.87 Dermatochalasis Dermatochalasis Problem 11/27/2020 12:0 0:00 AM EDT HETAL (Garret Sutton MD [facility]) 44673888 Dry 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 Problem 11/27/2020 12:00:00 AM EDT HETAL (Garret Sutton MD [facility]) 96391674 Retinopathy Hypertensive Both Eyes Retinopathy H ypertensive Both Eyes Problem 11/27/2020 12:00:00 AM EDT HETAL (Garret hui MD [facility]) 401.9 Essential Hypertension Essential Hypertension Problem 11/27/2020 12:00:00 AM EDT HETAL (Garret Sutton MD [facility]) 374.87 Dermatochalasis Dermatochalasis Problem 11/27/2020 12:0 0:00 AM EDT HETAL (Garret Sutton MD [facility]) Surgeries/Procedures Procedure Description Date Indications Data Source(s) ECG ROUTINE ECG W/LEAST 12 LDS W/I&R 12/04/2020 12:00: 00 AM EDT eCW1 ([facility]) Surgical / procedural history Tonsillec trae 1954, Vasectomy 1973, Hydrocelectomy 1974, Throat surgery 1984 Surgical / procedural history Tonsillectomy 195, Vasectomy 1973, Hydrocelectomy 1974, Throat surgery 198411/27/2020 12:00:00 AM EDT HETAL (Garret hui MD [facility]) Medical Eye Exam Medical Eye Exam 11/27/2020 12:00:00 AM EDT HETAL (Garret Sutton MD [facility]) Medical Eye Exam Medical Eye Exam 11/27/2020 12:00:00 AM EDT HETAL (Garret Sutton MD [facility]) Results ID Date Data Source [id number] 05/06/2021 09:42:00 AM EDT [facility] Name Value Range Interpretation Code Description Data Ryanne rce(s) Supporting Document(s) Respiratory pathogens identified [Type] in Nasopharynx by Probe and target amplification method SARS-CoV-2 (COVID 19) [facility] This lab was ordered by [facility] a nd reported by [facility] [place]. ID Date Data Source Basic Metabolic Profile (BMP) 12/04/2020 12:00:00 AM EDT eCW 1 ([facility]) Name Value Range Interpretation Code Description Data Ryanne rce(s) Supporting Document(s) 115 70-100 GLUCOSE, FASTING eCW1 ([facility]) > 60.0 >42 GLOMERULAR FILTRATION RATE eCW 1 ([facility]) 1.06 0.70-1.30 CREATININE FOR GFR eCW1 ([facility]) 22 7-18 BLOOD UREA NITROGEN eCW1 ([facility]) 30 21-32 CARBON DIOXIDE LEVEL eCW1 ([facility]) 105 98-107 CHLORIDE LEVEL eCW1 ([facility]) 3.7 3.5-5.1 POTASSIUM SERUM eCW1 ([facility]) 139 136-145 SODIUM LEVEL eCW1 ([facility]) 9.3 8.8-10.2 CALCIUM LEVEL eCW1 ([facility]) ID Date Data Source [id number] 11/24/2020 07:08:00 PM EDT [facility] Name Value Range Interpretation Code Description Data Ryanne rce(s) Supporting Document(s) SARS-CoV-2 (COVID 19) NEGATIVE - SARS-CoV-2 (COVID19) [facility] This lab was ordered by [facility] a nd reported by [facility] [place]. Procedure Social History Code Duration Value Status Description Data Source(s ) Smoking 04/15/2021 12:00:00 AM EDT Never Smoker completed Never S moker eCW1 ([facility]) Smoking 04/15/2021 12:00:00 AM EDT Never Smoker completed Never S moker eCW1 ([facility]) Smoking 04/15/2021 12:00:00 AM EDT Never Smoker completed Never S moker eCW1 ([facility]) Smoking 04/15/2021 12:00:00 AM EDT Never Smoker completed Never S moker eCW1 ([facility]) Smoking 04/15/2021 12:00:00 AM EDT Never Smoker completed Never S moker eCW1 ([facility]) Smoking 04/15/2021 12:00:00 AM EDT Never Smoker completed Never S moker eCW1 ([facility]) Smoking 04/15/2021 12:00:00 AM EDT Never Smoker completed Never S moker eCW1 ([facility]) Smoking 04/15/2021 12:00:00 AM EDT Never Smoker completed Never S moker eCW1 ([facility]) Smoking 04/15/2021 12:00:00 AM EDT Never Smoker completed Never S moker eCW1 ([facility]) Smoking 04/15/2021 12:00:00 AM EDT Never Smoker completed Never S moker eCW1 ([facility]) Smoking 04/15/2021 12:00:00 AM EDT Never Smoker completed Never S moker eCW1 ([facility]) Smoking 03/21/2021 12:00:00 AM EDT Never Smoker completed Never S moker eCW1 ([facility]) Smoking 03/21/2021 12:00:00 AM EDT Never Smoker completed Never S moker [email or web address] (Formerly [facility]) Smoking 03/21/2021 12:00:00 AM EDT Never Smoker completed Never S moker [email or web address] (Formerly [facility]) Smoking 02/19/2021 01:39:55 PM EDT Never smoked tobacco (findi ng) completed Never smoked tobacco (finding) HETAL (Garret Sutton MD [facility]) Smoking 12/31/2020 12:00:00 AM EDT Never Smoker completed Never S moker eCW1 (Formerly [facility]) Smoking 12/31/2020 12:00:00 AM EDT Never Smoker completed Never S moker eCW1 (Formerly [facility]) Smoking 12/31/2020 12:00:00 AM EDT Never Smoker completed Never S moker [email or web address] (Formerly [facility]) Smoking 12/31/2020 12:00:00 AM EDT Never Smoker completed Never S moker eCW1 (Formerly [facility]) Smoking 12/12/2020 12:00:00 AM EDT Never Smoker completed Never S moker eCW1 (Formerly [facility]) Smoking 12/12/2020 12:00:00 AM EDT Never Smoker completed Never S moker eCW1 (Formerly [facility]) Smoking 12/12/2020 12:00:00 AM EDT Never Smoker completed Never S moker eCW1 (Formerly [facility]) Smoking 11/27/2020 02:53:42 PM EDT Never smoked tobacco (findi ng) completed Never smoked tobacco (finding) HETAL (Garret Sutton MD [facility]) Vital Signs ID Date Data Source UNK Name Value Range Interpretation Code Description Data Source(s) Body weight 189.2 [lb_av] 189.2 [lb_av] eCW1 ([facility]) Body height 70 [in_i] 70 [in_i] eCW1 ([facility]) Body mass index (BMI) [Ratio] 27.14 kg/m2 27.14 kg/m2 eCW1 (Formerly [facility]) Heart rate 71 /min 71 /min eCW1 ([facility]) Respiratory rate 18 /min 18 /min eCW1 ([facility]) Body temperature 97.4 [degF] 97.4 [degF] eCW1 ( Formerly [facility]) Systolic blood pressure 128 mm[Hg] 128 mm[Hg] e CW1 (Formerly [facility]) Diastolic blood pressure 80 mm[Hg] 80 mm[Hg] eCW1 (Formerly [facility]) Body weight 190.0 [lb_av] 190.0 [lb_av] eCW1 ([facility]) Body height 70 [in_i] 70 [in_i] eCW1 ([facility]) Body mass index (BMI) [Ratio] 27.26 kg/m2 27.26 kg/m2 eCW1 (Formerly [facility]) Heart rate 72 /min 72 /min eCW1 ([facility]) Respiratory rate 18 /min 18 /min eCW1 ([facility]) Body temperature 96.9 [degF] 96.9 [degF] eCW1 ( [facility]) Systolic blood pressure 160 mm[Hg] 160 mm[Hg] e CW1 (Formerly [facility]) Diastolic blood pressure 98 mm[Hg] 98 mm[Hg] eCW1 (Formerly [facility]) Body weight 191 [lb_av] 191 [lb_av] eCW1 ([facility]) Body height 70 [in_i] 70 [in_i] eCW1 ([facility]) Body mass index (BMI) [Ratio] 27.40 kg/m2 27.40 kg/m2 eCW1 (Formerly [facility]) Heart rate 81 /min 81 /min eCW1 ([facility]) Respiratory rate 18 /min 18 /min eCW1 ([facility]) Body temperature 98.9 [degF] 98.9 [degF] eCW1 ( [facility]) Systolic blood pressure 190 mm[Hg] 190 mm[Hg] e CW1 (Formerly [facility]) Diastolic blood pressure 118 mm[Hg] 118 mm[Hg] eCW1 (Formerly [facility]) Patient Treatment Plan of Care Planned Activity Planned Date Details Description Data Source (s) telmisartan 80 MG Oral Tablet 04/29/2021 12:00:00 AM EDT eCW1 (Formerly [facility]) telmisartan 80 MG Oral Tablet 04/29/2021 12:00:00 AM EDT eCW1 (Formerly [facility]) telmisartan 80 MG Oral Tablet 04/29/2021 12:00:00 AM EDT eCW1 (Formerly [facility]) telmisartan 80 MG Oral Tablet 04/29/2021 12:00:00 AM EDT eCW1 (Formerly [facility]) telmisartan 80 MG Oral Tablet 04/29/2021 12:00:00 AM EDT eCW1 (Formerly [facility]) telmisartan 80 MG Oral Tablet 04/29/2021 12:00:00 AM EDT eCW1 (Formerly [facility]) telmisartan 80 MG Oral Tablet 04/29/2021 12:00:00 AM EDT eCW1 (Formerly [facility]) telmisartan 80 MG Oral Tablet 04/29/2021 12:00:00 AM EDT eCW1 (Formerly [facility]) cetirizine hydrochloride 10 MG Oral Tablet 04/15/2021 12:00:00 AM E DT eCW1 (Formerly [facility]) 24 HR Diltiazem Hydrochloride 240 MG Extended Release Oral Capsule [Cartia] 04/15/2021 12:00:00 AM EDT eCW1 ([facility]) Hydroxyzine Hydrochloride 25 MG Oral Tablet 04/15/2021 12:00:00 AM EDT eCW1 (Formerly [facility]) cetirizine hydrochloride 10 MG Oral Tablet 04/15/2021 12:00:00 AM E DT eCW1 (Formerly [facility]) 24 HR Diltiazem Hydrochloride 240 MG Extended Release Oral Capsule [Cartia] 04/15/2021 12:00:00 AM EDT eCW1 ([facility]) Hydroxyzine Hydrochloride 25 MG Oral Tablet 04/15/2021 12:00:00 AM EDT eCW1 (Formerly [facility]) Chlorthalidone 25 MG Oral Tablet 03/21/2021 12:00:00 AM EDT eCW1 (Formerly [facility]) Hydrochlorothiazide 12.5 MG Oral Tablet 03/21/2021 12:00:00 AM EDT eCW1 (Formerly [facility]) Chlorthalidone 25 MG Oral Tablet 03/21/2021 12:00:00 AM EDT eCW1 (Formerly [facility]) Hydrochlorothiazide 12.5 MG Oral Tablet 03/21/2021 12:00:00 AM EDT eCW1 (Formerly [facility]) Chlorthalidone 25 MG Oral Tablet 03/21/2021 12:00:00 AM EDT eCW1 (Formerly [facility]) Hydrochlorothiazide 12.5 MG Oral Tablet 03/21/2021 12:00:00 AM EDT eCW1 (Formerly [facility])
--- NOTE | 2021-05-12 15:09 | REP ---
INDICATION: DYSPNEA/COUGH. COMPARISON: 05/09/2021. TECHNIQUE: Single portable AP view of the chest was performed. FINDINGS: There are mild bilateral peripheral infiltrates. These are slightly increased bilaterally. The heart and mediastinum are unchanged. IMPRESSION: Minimal increase in bilateral peripheral infiltrates. <Electronically signed by Matti Patton > 05/12/21 [id number]
[2021-05-12 15:19] LABS: HEMATOCRIT 42.3 % (42.0-52.0); HEMOGLOBIN 14.4 g/dl (13.5-17.5); MEAN CORPUSCULAR HEMOGLOBIN 30.1 pg (27.0-33.0); MEAN CORPUSCULAR VOLUME 88.5 fl (80.0-96.0); PLATELET COUNT, AUTOMATED 362 10^3/uL (150-450); RED BLOOD COUNT 4.78 10^6/uL (4.30-6.10); WHITE BLOOD COUNT 14.3 10^3/uL (4.0-10.0)
[2021-05-12 15:36] LABS: ALBUMIN 3.4 GM/DL (3.2-5.2); ALT/SGPT 38 U/L (12-78); BILIRUBIN,DIRECT 0.2 MG/DL (0.0-0.2); BILIRUBIN,TOTAL 0.6 MG/DL (0.2-1.0); BLOOD UREA NITROGEN 30 MG/DL (7-18); CALCIUM LEVEL 9.6 MG/DL (8.8-10.2); CARBON DIOXIDE LEVEL 29 MEQ/L (21-32); CHLORIDE LEVEL 103 MEQ/L (98-107); CREATININE FOR GFR 0.93 MG/DL (0.70-1.30); GLOMERULAR FILTRATION RATE > 60.0 (>42); GLUCOSE, FASTING 114 MG/DL (70-100); POTASSIUM SERUM 4.3 MEQ/L (3.5-5.1); SODIUM LEVEL 136 MEQ/L (136-145); TOTAL PROTEIN 7.2 GM/DL (6.4-8.2)
[2021-05-12 15:48] LABS: ABG BASE EXCESS 0.4 (-2.0-2.0); ABG HCO3 22.8 MEQ/L (22.0-26.0); ABG O2 SATURATION 97.3 % (95.0-99.0); ABG PARTIAL PRESSURE O2 94.8 mmHg (75.0-100.0); ABG STANDARD HCO3 24.8 MEQ/L (22.0-26.0); ABG TOTAL CO2 23.8 MEQ/L (23.0-31.0); ABG pH (ARTERIAL) 7.485 UNITS (7.350-7.450)
--- NOTE | 2021-05-12 16:23 | HPEPDOC ---
[facility] Medical History & Physical Date of Admission May 12, 2021 Date of Service: May 12, 2021 History and Physical CHIEF COMPLAINT: sob HISTORY OF PRESENT ILLNESS: 71 year old male diagnosed with PMHx HTN, LLOYD, recently diagnosed with COVID-19 on 05/06, with a 3-day hospital stay for hypoxia, returns to ED for worsening S OB. He returned to the ED 2 days ago for worsening hypoxia, but left AMA. He was seen by health care providers as an outpatient, for continued hypoxia. Previous hospital stay was notable for a rash, which he states has significantly improved. Today he denies chest pain, abdominal pain, N/V/D, headaches, changes in vision or depressed mood. PAST MEDICAL HISTORY: HTN LLOYD PAST SURGICAL HISTORY: #Throat surgery/uvula and attempt to assist with LLOYD #Hydrocele repair (remote hx) #Tonsillectomy in childhood SOCIAL HISTORY: Patient denies smoking Patient denies etoh use Patient denies illicit drug use FAMILY HISTORY: Father history of hypertension, [place] ALLERGIES: Please see below. REVIEW OF SYSTEMS: Negative except as per HPI. HOME MEDICATIONS: Please see below. PHYSICAL EXAMINATION: VITAL SIGNS: please see below General: NAD, lying comfortably in stretcher HEENT: PERRLA, EOMI, sclerae clear Neck: supple, normal ROM, no JVD Respiratory: diminished breath sound, lungs CTAB, no wheeze, no rales, no crackles CVS: RRR, normal S1, S2, no murmurs Abdo: soft, no masses, no hepatosplenomegaly, BS+, no rebound tenderness Extremities: no edema, pulses 2+ MSK: no joint deformities, normal ROM Neuro: no focal neuro deficits, moving all 4 extremities, CN2-12 intact. Strength 5/5 in all 4 extremities. No nystagmus. Psych: calm, cooperative, AAO x 3 LABORATORY DATA: See below. A/P: 71 yo M with a PMHx of HTN and LLOYD, recently admitted for SOB secondary to COVID-19, returns for worsening SOB. #acute hypoxic respiratory failure - secondary to Covid-19 infection - diagnosed 05/06 - supplemental O2 to maintain O2 sats>90% - dexxamethasone 6 mg IV BID. Remdisivir. Lovenox 0.5mg/kg q12h - Trend inflammatory panel. Tylenol prn for fever. Combivent prn. #HTN - resume home regimen - Cardizem 240 mg ER daily. Telmisartan 80 mg QHS #LLOYD - on O2 supplementation - outpatient sleep study or f/u with pulm #Renal cyst (R) - repeat imaging 3 months - f/u as outpatient #Multiple hepatic cysts - f/u as outpatient, repeat imaging 3 months. #Rash - patient has been c/o rash 3-4 months. also has rash - recieved one time permethrin on previous admission -He states his rash has significantly improved #DVT prophylaxis - intermediate dosing lovenox as above for COVID-19 Addendum: Notified by ED that patient in hypertensive urgency. Hydralazine IV x 1 ordered, upgraded to PCU/telemetry. Patient with no chest pain, headache, changes in vision. Trops negative. Vital Signs Vital Signs Date Time Temp Pulse Resp B/P (MAP) Pulse Ox O2 Delivery O2 Flow Rate FiO2 05/12/21 14:12 97.2 90 22 189/104 (132) 88 Nasal Cannula 4.0 Laboratory Data Labs 24H Laboratory Tests 2 05/12/21 14:53: Neutrophils (%) (Auto) , Nucleated Red Blood Cells % (auto) 0.0, Anion Gap 4L, Glomerular Filtration Rate > 60.0, Calcium Level 9.6, Total Bilirubin 0.6, Direct Bilirubin 0.2, Aspartate Amino Transf (AST/SGOT) 21, Alanine Aminotransferase (ALT/SGPT) 38, Alkaline Phosphatase 47, Total Protein 7.2, Albumin 3.4, Albumin/Globulin Ratio 0.9 05/12/21 15:35: Blood Gas Bicarbonate Standard 24.8, Arterial Blood pH 7.485H, Arterial Blood Partial Pressure CO2 31.0L, Arterial Blood Partial Pressure O2 94.8, Arterial Blood Total CO2 23.8, Arterial Blood HCO3 22.8, Arterial Blood Base Excess 0.4, Arterial Blood Oxygen Saturation 97.3 CBC/BMP Laboratory Tests 05/12/21 14:53 Microbiology Microbiology 05/12/21 Blood Culture, Received Pending 05/12/21 Blood Culture, Received Pending Home Medications Scheduled Amlodipine Besylate (Amlodipine Besylate) 5 Mg Tablet, 5 MG PO DAILY Ascorbic Acid (Vitamin C) 500 Mg Tablet, 500 MG PO DAILY Aspirin (Aspirin EC) 81 Mg Tablet.dr, 81 MG PO DAILY Cholecalciferol (Vitamin D3) (Vitamin D3) 1,000 Unit Tablet, 1,000 UNITS PO DAILY Ipratropium/Albuterol Sulfate (Combivent Respimat 20-100 Mcg) 4 Gm Mist.inhal, 1 PUFF INH QID [place]-3 Fatty Acids/Fish Oil (Fish Oil 1,000 mg Capsule) 1 Each Capsule, 1,000 MG PO DAILY Prednisone (Prednisone) 10 Mg Tablet, 10 MG PO TID dilTIAZem HCl (Diltiazem 24Hr Cd) 240 Mg Cap.er.24h, 240 MG PO DAILY Scheduled PRN Acetaminophen (Acetaminophen) 325 Mg Tablet, 650 MG PO Q4H PRN for PAIN LEVEL 1- 4 Hydroxyzine HCl (Hydroxyzine HCl) 25 Mg Tablet, 25 MG PO QHS PRN for ITCHING Allergies Coded Allergies: No Known Drug Allergies (Verified Allergy, Unknown, 11/24/20) A-FIB/CHADSVASC A-FIB History Current/History of A-Fib/PAF?: No CAROLANN WEBER MD May 12, 2021 16:14
[2021-05-12 16:49] LABS: MONOCYTES 7 % (0-5); NEUTROPHILS 86 % (28-66)
[2021-05-12 16:50] LABS: ATYPICAL LYMPH 3 % (0-5); LYMPHOCYTES 3 % (16-44); PLATELET ESTIMATE NORMAL (NORMAL)
[2021-05-12] MEDS ORDERED: APAP325T4 PO (17:15)
[2021-05-12] MEDS ORDERED: COMBAER6 INH (17:15)
[2021-05-12] MEDS ORDERED: AMLO1TAB24 PO (17:15)
[2021-05-12] MEDS ORDERED: PRED10TA2 PO (17:15)
[2021-05-12] MEDS ORDERED: HOME MED LIST COMPLETE! XX SCH (17:15)
[2021-05-12] MEDS: dexameTHASONE 4 MG/ML 1ML VIAL (J1100 PER 1MG) IV SCH (17:52)
[2021-05-12] MEDS ORDERED: hydrOXYzine 25 MG TAB PO PRN (18:00)
[2021-05-12 18:06] LABS: CPK CREATINE PHOSPHOKINASE 108 U/L (39-308); FERRITIN 595 NG/ML (26-388); LDH LACTATE DEHYDROGENASE 485 U/L (87-241); NT-PRO BNP 148 PG/ML (<125); TROPONIN I < 0.02 NG/ML (< 0.10)
--- OUTSIDE RECORDS SUMMARY | 2021-05-12 18:25 | CCD ---
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 If you continue you may have access to information: Regarding HIV / AIDS; Provided by facilities licensed or operated by the [facility] Office of Mental Health; or Provided by the [facility] Office for People With Developmental Disabilities. If such information is present, then the following [facility] mandated warning applies: This information [...] allergies (situation ) HETAL (Garret Sutton MD [facility]) Allergy to substance No Known Allergies No known allergies (situation ) HETAL (Garret Stuton MD [facility]) Encounters Encounter Providers Location Date Indications Data Source(s ) [place] [address] [facility] [address] 05/09/2021 12:00:00 AM EDT eCW1 ([facility]) [place] [address] [facility] [address] 05/02/2021 12:00:00 AM EDT eCW1 ([facility]) [place] [address] [facility] [address] 04/30/2021 12:00:00 AM EDT eCW1 ([facility]) [place] [address] [facility] [address] 04/29/2021 12:00:00 AM EDT eCW1 ([facility]) [place] [address] [facility] [address] 04/29/2021 12:00:00 AM EDT eCW1 ([facility]) [place] [address] [facility] [address] 04/29/2021 12:00:00 AM EDT eCW1 ([facility]) [place] [address] [facility] [address] 04/29/2021 12:00:00 AM EDT eCW1 ([facility]) [place] [address] [facility] [address] 04/29/2021 12:00:00 AM EDT eCW1 ([facility]) [place] [address] [facility] [address] 04/23/2021 12:00:00 AM EDT eCW1 ([facility]) [place] [address] [facility] [address] 04/15/2021 12:00:00 AM EDT eCW1 ([facility]) [place] [address] [facility] [address] 04/15/2021 12:00:00 AM EDT eCW1 ([facility]) [place] [address] [facility] [address] 04/07/2021 12:00:00 AM EDT eCW1 ([facility]) [place] [address] [facility] [address] 03/21/2021 12:00:00 AM EDT eCW1 ([facility]) [place] [address] [facility] [address] 03/18/2021 12:00:00 AM EDT eCW1 ([facility]) [place] [address] [facility] [address] 03/05/2021 12:00:00 AM EDT eCW1 ([facility]) Outpatient<td ID="encounterTypeDescripti onID0">8 Week Follow-Up</td><td>Garret Garcia MD, FACS</td><td>Garret Garcia MD [facility]</td><td>02/19/2021</td><td>12:48PM</td><td>1:31PM</td><td><content ID="encounterDiagnosisID0-0">Essential Hypertension</content>, <content ID="encounterDiagnosisID0-1">Strabismus Non-paralytic Heterophoria Esophoria</content></td> Attender: Garret Sutton MD, FACS Garret Gomez [facility] 02/19/2021 12:48:00 PM EDT - 02/19/2021 01:31:00 PM ED T Strabismus Non- paralytic Heterophoria EsophoriaEssential Hypertension [facility] (Garret Sutton MD [facility]) Strabismus Non-paralytic Heterophoria Es ophoria Essential Hypertension Unknown [address] [facility] [address] 02/06/2021 12:00:00 AM EDT eCW1 ([facility]) Outpatient [address] [facility] [address] 01/01/2021 12:00:00 AM EDT eCW1 ([facility]) Unknown [address] [facility] [address] 12/24/2020 12:00:00 AM EDT eCW1 ([facility]) Unknown [address] [facility] [address] 12/24/2020 12:00:00 AM EDT eCW1 ([facility]) Outpatient [address] [facility] [address] 12/12/2020 12:00:00 AM EDT eCW1 ([facility]) Outpatient [address] [facility] [address] 12/04/2020 12:00:00 AM EDT eCW1 ([facility]) <td ID="encounterTypeDescriptionID1">TRI AGE URGENT NEW PATIENT</td><td>Garret Garcia MD, FACS</td><td>Garret Garcia MD [facility]</td><td>11/27/2020</td><td>1:42PM</td><td>2:54PM</td><td><content ID="encounterDiagnosisID1-0">Essential Hypertension</content>, <content ID="encounterDiagnosisID1-1">Dry Eye Syndrome Both Eyes</content>, <content ID="encounterDiagnosisID1-2">Retinopathy Hypertensive Both Eyes</content>, <content ID="encounterDiagnosisID1-3">Dermatochalasis</content></td>Outpatient Attender: Garret Sutton MD, FACS Garret Garcia MD [facility] 11/27/2020 01:42:0 0 PM EDT - 11/27/2020 02:54:00 PM EDT DermatochalasisRetinopathy Hypertensive Both EyesDry Eye Syndrome Both EyesEssential HypertensionDermatochalasisRetinopathy Hypertensive Both EyesDry Eye Syndrome Both EyesEssential Hypertension HETAL (Garret Sutton MD [facility]) Dermatochalasis Retinopathy Hypertensive Both Eyes Dry [...] active Te lmisartan 80 MG eCW1 ([facility]) telmisartan 80 MG Oral Tablet Telmisartan 80 MG Telmisartan 80 MG 04/29/2021 12:00:00 AM EDT 1.0 {tablet} active Te lmisartan 80 MG eCW1 ([facility]) telmisartan 80 MG Oral Tablet Telmisartan 80 MG Telmisartan 80 MG 04/29/2021 12:00:00 AM EDT 1.0 {tablet} active Te lmisartan 80 MG eCW1 ([facility]) telmisartan 80 MG Oral Tablet Telmisartan 80 MG Telmisartan 80 MG 04/29/2021 12:00:00 AM EDT 1.0 {tablet} active Te lmisartan 80 MG eCW1 ([facility]) telmisartan 80 MG Oral Tablet Telmisartan 80 MG Telmisartan 80 MG 04/29/2021 12:00:00 AM EDT 1.0 {tablet} active Te lmisartan 80 MG eCW1 ([facility]) telmisartan 80 MG Oral Tablet Telmisartan 80 MG Telmisartan 80 MG 04/29/2021 12:00:00 AM EDT 1.0 {tablet} active Te lmisartan 80 MG eCW1 ([facility]) telmisartan 80 MG Oral Tablet Telmisartan 80 MG Telmisartan 80 MG 04/29/2021 12:00:00 AM EDT 1.0 {tablet} active Te lmisartan 80 MG eCW1 ([facility]) telmisartan 80 MG Oral Tablet Telmisartan 80 MG Telmisartan 80 MG 04/29/2021 12:00:00 AM EDT 1.0 {tablet} active Te lmisartan 80 MG eCW1 ([facility]) cetirizine hydrochloride 10 MG Oral Tablet Cetirizine HCl 10 MG Cetirizine HCl 10 MG 04/15/2021 12:00:00 AM EDT 1.0 {tablet} activ e Cetirizine HCl 10 MG eCW1 ([facility]) 24 HR Diltiazem Hydrochloride 240 MG Ext ended Release Oral Capsule [Cartia] Cartia XT 240 MG Cartia XT 240 MG 04/15/2021 12:00:00 AM EDT 1.0 {cap hiwot} active Cartia XT 240 MG eCW1 ([facility]) 24 HR Diltiazem Hydrochloride 240 MG Ext ended Release Oral Capsule [Cartia] Cartia XT 240 MG Cartia XT 240 MG 04/15/2021 12:00:00 AM EDT 1.0 {cap hiwot} active Cartia XT 240 MG eCW1 ([facility]) cetirizine hydrochloride 10 MG Oral Tablet Cetirizine HCl 10 MG Cetirizine HCl 10 MG 04/15/2021 12:00:00 AM EDT 1.0 {tablet} activ e Cetirizine HCl 10 MG eCW1 ([facility]) 24 HR Diltiazem Hydrochloride 240 MG Ext ended Release Oral Capsule [Cartia] Cartia XT 240 MG Cartia XT 240 MG 04/15/2021 12:00:00 AM EDT 1.0 {cap hiwot} active Cartia XT 240 MG eCW1 ([facility]) Hydroxyzine Hydrochloride 25 MG Oral Tablet hydrOXYzin e HCl 25 MG hydrOXYzine HCl 25 MG 04/15/2021 12:00:00 AM EDT 1.0 {tablet} ac tive hydrOXYzine HCl 25 MG eCW1 ([facility]) cetirizine hydrochloride 10 MG Oral Tablet Cetirizine HCl 10 MG Cetirizine HCl 10 MG 04/15/2021 12:00:00 AM EDT 1.0 {tablet} activ e Cetirizine HCl 10 MG eCW1 ([facility]) cetirizine hydrochloride 10 MG Oral Tablet Cetirizine HCl 10 MG Cetirizine HCl 10 MG 04/15/2021 12:00:00 AM EDT 1.0 {tablet} activ e Cetirizine HCl 10 MG eCW1 ([facility]) 24 HR Diltiazem Hydrochloride 240 MG Ext ended Release Oral Capsule [Cartia] Cartia XT 240 MG Cartia XT 240 MG 04/15/2021 12:00:00 AM EDT 1.0 {cap hiwot} active Cartia XT 240 MG eCW1 ([facility]) Hydroxyzine Hydrochloride 25 MG Oral Tablet hydrOXYzin e HCl 25 MG hydrOXYzine HCl 25 MG 04/15/2021 12:00:00 AM EDT 1.0 {tablet} ac tive hydrOXYzine HCl 25 MG eCW1 ([facility]) 24 HR Diltiazem Hydrochloride 240 MG Ext ended Release Oral Capsule [Cartia] Cartia XT 240 MG Cartia XT 240 MG 04/15/2021 12:00:00 AM EDT 1.0 {cap hiwot} active Cartia XT 240 MG eCW1 ([facility]) cetirizine hydrochloride 10 MG Oral Tablet Cetirizine HCl 10 MG Cetirizine HCl 10 MG 04/15/2021 12:00:00 AM EDT 1.0 {tablet} activ e Cetirizine HCl 10 MG eCW1 ([facility]) cetirizine hydrochloride 10 MG Oral Tablet Cetirizine HCl 10 MG Cetirizine HCl 10 MG 04/15/2021 12:00:00 AM EDT 1.0 {tablet} activ e Cetirizine HCl 10 MG eCW1 ([facility]) 24 HR Diltiazem Hydrochloride 240 MG Ext ended Release Oral Capsule [Cartia] Cartia XT 240 MG Cartia XT 240 MG 04/15/2021 12:00:00 AM EDT 1.0 {cap hiwot} active Cartia XT 240 MG eCW1 ([facility]) cetirizine hydrochloride 10 MG Oral Tablet Cetirizine HCl 10 MG Cetirizine HCl 10 MG 04/15/2021 12:00:00 AM EDT 1.0 {tablet} activ e Cetirizine HCl 10 MG eCW1 ([facility]) 24 HR Diltiazem Hydrochloride 240 MG Ext ended Release Oral Capsule [Cartia] Cartia XT 240 MG Cartia XT 240 MG 04/15/2021 12:00:00 AM EDT 1.0 {cap hiwot} active Cartia XT 240 MG eCW1 ([facility]) cetirizine hydrochloride 10 MG Oral Tablet Cetirizine HCl 10 MG Cetirizine HCl 10 MG 04/15/2021 12:00:00 AM EDT 1.0 {tablet} activ e Cetirizine HCl 10 MG eCW1 ([facility]) Hydroxyzine Hydrochloride 25 MG Oral Tablet hydrOXYzin e HCl 25 MG hydrOXYzine HCl 25 MG 04/15/2021 12:00:00 AM EDT 1.0 {tablet} ac tive hydrOXYzine HCl 25 MG eCW1 ([facility]) Hydroxyzine Hydrochloride 25 MG Oral Tablet hydrOXYzin e HCl 25 MG hydrOXYzine HCl 25 MG 04/15/2021 12:00:00 AM EDT 1.0 {tablet} ac tive hydrOXYzine HCl 25 MG eCW1 ([facility]) 24 HR Diltiazem Hydrochloride 240 MG Ext ended Release Oral Capsule [Cartia] Cartia XT 240 MG Cartia XT 240 MG 04/15/2021 12:00:00 AM EDT 1.0 {cap hiwot} active Cartia XT 240 MG eCW1 ([facility]) Hydroxyzine Hydrochloride 25 MG Oral Tablet hydrOXYzin e HCl 25 MG hydrOXYzine HCl 25 MG 04/15/2021 12:00:00 AM EDT 1.0 {tablet} ac tive hydrOXYzine HCl 25 MG eCW1 ([facility]) Hydroxyzine Hydrochloride 25 MG Oral Tablet hydrOXYzin e HCl 25 MG hydrOXYzine HCl 25 MG 04/15/2021 12:00:00 AM EDT 1.0 {tablet} ac tive hydrOXYzine HCl 25 MG eCW1 ([facility]) 24 HR Diltiazem Hydrochloride 240 MG Ext ended Release Oral Capsule [Cartia] Cartia XT 240 MG Cartia XT 240 MG 04/15/2021 12:00:00 AM EDT 1.0 {cap hiwot} active Cartia XT 240 MG eCW1 ([facility]) Hydroxyzine Hydrochloride 25 MG Oral Tablet hydrOXYzin e HCl 25 MG hydrOXYzine HCl 25 MG 04/15/2021 12:00:00 AM EDT 1.0 {tablet} ac tive hydrOXYzine HCl 25 MG eCW1 ([facility]) cetirizine hydrochloride 10 MG Oral Tablet Cetirizine HCl 10 MG Cetirizine HCl 10 MG 04/15/2021 12:00:00 AM EDT 1.0 {tablet} activ e Cetirizine HCl 10 MG eCW1 ([facility]) Hydroxyzine Hydrochloride 25 MG Oral Tablet hydrOXYzin e HCl 25 MG hydrOXYzine HCl 25 MG 04/15/2021 12:00:00 AM EDT 1.0 {tablet} ac tive hydrOXYzine HCl 25 MG eCW1 ([facility]) cetirizine hydrochloride 10 MG Oral Tablet Cetirizine HCl 10 MG Cetirizine HCl 10 MG 04/15/2021 12:00:00 AM EDT 1.0 {tablet} activ e Cetirizine HCl 10 MG eCW1 ([facility]) 24 HR Diltiazem Hydrochloride 240 MG Ext ended Release Oral Capsule [Cartia] Cartia XT 240 MG Cartia XT 240 MG 04/15/2021 12:00:00 AM EDT 1.0 {cap hiwot} active Cartia XT 240 MG eCW1 ([facility]) Hydroxyzine Hydrochloride 25 MG Oral Tablet hydrOXYzin e HCl 25 MG hydrOXYzine HCl 25 MG 04/15/2021 12:00:00 AM EDT 1.0 {tablet} ac tive hydrOXYzine HCl 25 MG eCW1 ([facility]) Hydroxyzine Hydrochloride 25 MG Oral Tablet hydrOXYzin e HCl 25 MG hydrOXYzine HCl 25 MG 04/15/2021 12:00:00 AM EDT 1.0 {tablet} ac tive hydrOXYzine HCl 25 MG eCW1 ([facility]) 24 HR Diltiazem Hydrochloride 240 MG Ext ended Release Oral Capsule [Cartia] Cartia XT 240 MG Cartia XT 240 MG 04/15/2021 12:00:00 AM EDT 1.0 {cap hiwot} active Cartia XT 240 MG eCW1 ([facility]) cetirizine hydrochloride 10 MG Oral Tablet Cetirizine HCl 10 MG Cetirizine HCl 10 MG 04/15/2021 12:00:00 AM EDT 1.0 {tablet} activ e Cetirizine HCl 10 MG eCW1 ([facility]) Hydroxyzine Hydrochloride 25 MG Oral Tablet hydrOXYzin e HCl 25 MG hydrOXYzine HCl 25 MG 04/15/2021 12:00:00 AM EDT 1.0 {tablet} ac tive hydrOXYzine HCl 25 MG eCW1 ([facility]) Chlorthalidone 25 MG Oral Tablet Chlorthalidone 25 MG 2020 12:00:00 AM EDT active Chlorthalidone 25 MG eCW1 ([facility]) Chlorthalidone 25 MG Oral Tablet Chlorthalidone 25 MG 2020 12:00:00 AM EDT active Chlorthalidone 25 MG eCW1 ([facility]) Hydrochlorothiazide 12.5 MG Oral Tablet hydroCHLOROthi azide 12.5 MG hydroCHLOROthiazide 12.5 MG 03/21/2021 12:00:00 AM EDT 1.0 {tablet_in_the_morning} suspended hydroC HLOROthiazide 12.5 MG eCW1 ([facility]) Hydrochlorothiazide 12.5 MG Oral Tablet hydroCHLOROthi azide 12.5 MG hydroCHLOROthiazide 12.5 MG 03/21/2021 12:00:00 AM EDT 1.0 {tablet_in_the_morning} suspended hydroC HLOROthiazide 12.5 MG eCW1 ([facility]) Hydrochlorothiazide 12.5 MG Oral Tablet hydroCHLOROthi azide 12.5 MG hydroCHLOROthiazide 12.5 MG 03/21/2021 12:00:00 AM EDT 1.0 {tablet_in_the_morning} suspended hydroC HLOROthiazide 12.5 MG eCW1 ([facility]) Hydrochlorothiazide 12.5 MG Oral Tablet hydroCHLOROthi azide 12.5 MG hydroCHLOROthiazide 12.5 MG 03/21/2021 12:00:00 AM EDT 1.0 {tablet_in_the_morning} suspended hydroC HLOROthiazide 12.5 MG eCW1 ([facility]) Hydrochlorothiazide 12.5 MG Oral Tablet hydroCHLOROthi azide 12.5 MG hydroCHLOROthiazide 12.5 MG 03/21/2021 12:00:00 AM EDT 1.0 {tablet_in_the_morning} active hydroCHL OROthiazide 12.5 MG eCW1 ([facility]) Hydrochlorothiazide 12.5 MG Oral Tablet hydroCHLOROthi azide 12.5 MG hydroCHLOROthiazide 12.5 MG 03/21/2021 12:00:00 AM EDT 1.0 {tablet_in_the_morning} active hydroCHL OROthiazide 12.5 MG eCW1 ([facility]) Hydrochlorothiazide 12.5 MG Oral Tablet hydroCHLOROthi azide 12.5 MG hydroCHLOROthiazide 12.5 MG 03/21/2021 12:00:00 AM EDT 1.0 {tablet_in_the_morning} suspended hydroC HLOROthiazide 12.5 MG eCW1 ([facility]) Chlorthalidone 25 MG Oral Tablet Chlorthalidone 25 MG 2020 12:00:00 AM EDT 1.0 {tablet_in_the_morning_with_food} active Chlorthalidone 25 MG eCW1 ([facility]) Hydrochlorothiazide 12.5 MG Oral Tablet hydroCHLOROthi azide 12.5 MG hydroCHLOROthiazide 12.5 MG 03/21/2021 12:00:00 AM EDT 1.0 {tablet_in_the_morning} suspended hydroC HLOROthiazide 12.5 MG eCW1 ([facility]) Hydrochlorothiazide 12.5 MG Oral Tablet hydroCHLOROthi azide 12.5 MG hydroCHLOROthiazide 12.5 MG 03/21/2021 12:00:00 AM EDT 1.0 {tablet_in_the_morning} suspended hydroC HLOROthiazide 12.5 MG eCW1 ([facility]) Hydrochlorothiazide 12.5 MG Oral Tablet hydroCHLOROthi azide 12.5 MG hydroCHLOROthiazide 12.5 MG 03/21/2021 12:00:00 AM EDT 1.0 {tablet_in_the_morning} active hydroCHL OROthiazide 12.5 MG eCW1 ([facility]) Hydrochlorothiazide 12.5 MG Oral Tablet hydroCHLOROthi azide 12.5 MG hydroCHLOROthiazide 12.5 MG 03/21/2021 12:00:00 AM EDT 1.0 {tablet_in_the_morning} suspended hydroC HLOROthiazide 12.5 MG eCW1 ([facility]) Hydrochlorothiazide 12.5 MG Oral Tablet hydroCHLOROthi azide 12.5 MG hydroCHLOROthiazide 12.5 MG 03/21/2021 12:00:00 AM EDT 1.0 {tablet_in_the_morning} suspended hydroC HLOROthiazide 12.5 MG eCW1 ([facility]) Hydrochlorothiazide 12.5 MG Oral Tablet hydroCHLOROthi azide 12.5 MG hydroCHLOROthiazide 12.5 MG 03/21/2021 12:00:00 AM EDT 1.0 {tablet_in_the_morning} suspended hydroC HLOROthiazide 12.5 MG eCW1 ([facility]) Hydrochlorothiazide 12.5 MG Oral Tablet hydroCHLOROthi azide 12.5 MG hydroCHLOROthiazide 12.5 MG 03/21/2021 12:00:00 AM EDT 1.0 {tablet_in_the_morning} suspended hydroC HLOROthiazide 12.5 MG eCW1 ([facility]) Lisinopril 40 MG Oral Tablet Lisinopril 40 MG Oral Tablet 12:00:00 AM EDT 1 active lisinopril 40 MG Oral Tablet [facility] (Garrte Sutton MD [facility]) Insurance Providers Payer name Policy type / Coverage type Policy ID Covered republican ID Covered republican's relationship to davidson Policy [place] Plan Information MEDICARE BLUE PPO 306 [id number] SP [id number] MEDICARE BLUE PPO 306 [id number] SP [id number] BCBS of [facility] Other 0 [id number] Se lf 0 MEDICARE BLUE PPO 306 [id number] MEDICARE [id number] SP [id number] BCBS of [facility] Other 0 [id number] Se lf 0 [id number]/307 [id number] SP [id number] BCBS OF [facility] 320/[id number] SP [id number] Problems, Conditions, and Diagnoses Code Display Name Description Problem Type Effective Dates Data Source(s) 378.41 Strabismus Non-paralytic Heterophoria Es ophoria Strabismus Non-paralytic Heterophoria Esophoria Problem 02/19/2021 12:00:00 AM EDT HETAL ( Garret Sutton MD [facility]) I15.9 [id number] Secondary hypertension Problem 12/04/2020 12 :00:00 AM EDT eCW1 ([facility]) I10 [id number] Hypertension, unspecified type Problem 12/04 12:00:00 AM EDT eCW1 ([facility]) 52600193 Dry 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 Problem 11/27/2020 12:00:00 AM EDT [facility] (Garret Sutton MD [facility]) 20695440 Retinopathy Hypertensive Both Eyes Retinopathy H ypertensive Both Eyes Problem 11/27/2020 12:00:00 AM EDT [facility] (Garret hui MD [facility]) 401.9 Essential Hypertension Essential Hypertension Problem 11/27/2020 12:00:00 AM EDT HETAL (Garret Sutton MD [facility]) 374.87 Dermatochalasis Dermatochalasis Problem 11/27/2020 12:0 0:00 AM EDT [facility] (Garret Sutton MD [facility]) 23879739 Dry 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 Problem 11/27/2020 12:00:00 AM EDT [facility] (Garret Sutton MD [facility]) 45515668 Retinopathy Hypertensive Both Eyes Retinopathy H ypertensive Both Eyes Problem 11/27/2020 12:00:00 AM EDT HETAL (Garret hui MD [facility]) 401.9 Essential Hypertension Essential Hypertension Problem 11/27/2020 12:00:00 AM EDT [facility] (Garret Sutton MD [facility]) 374.87 Dermatochalasis Dermatochalasis Problem 11/27/2020 12:0 0:00 AM EDT [facility] (Garret Sutton MD [facility]) Surgeries/Procedures Procedure Description Date Indications Data Source(s) ECG ROUTINE ECG W/LEAST 12 LDS W/I&R 12/04/2020 12:00: 00 AM EDT eCW1 ([facility]) Surgical / procedural history Tonsillec trae 1954, Vasectomy 1973, Hydrocelectomy 1974, Throat surgery 1984 Surgical / procedural history Tonsillectomy 1955, Vasectomy 1973, Hydrocelectomy 1974, Throat surgery 198411/27/2020 12:00:00 AM EDT [facility]AL (Garret hui MD [facility]) Medical Eye Exam Medical Eye Exam 11/27/2020 12:00:00 AM EDT [facility] (Garret Sutton MD [facility]) Medical Eye Exam Medical Eye Exam 11/27/2020 12:00:00 AM EDT H[facility]AL (Garret Sutton MD [facility]) Results ID Date Data Source [id number] 05/06/2021 09:42:00 AM EDT [facility] Name Value Range Interpretation Code Description Data Ryanne rce(s) Supporting Document(s) Respiratory pathogens identified [Type] in Nasopharynx by Probe and target amplification method SARS-CoV-2 (COVID 19) [facility] This lab was ordered by [facility] a nd reported by [facility]. ID Date Data Source Basic Metabolic Profile (BMP) 12/04/2020 12:00:00 AM EDT eCW 1 ([facility]) Name Value Range Interpretation Code Description Data Ryanne rce(s) Supporting Document(s) 115 70-100 GLUCOSE, FASTING eCW1 ([facility]) > 60.0 >42 GLOMERULAR FILTRATION RATE eCW 1 ([facility]) 1.06 0.70-1.30 CREATININE FOR GFR eCW1 ([facility]) 22 7-18 BLOOD UREA NITROGEN eCW1 ([facility]) 30 21-32 CARBON DIOXIDE LEVEL eCW1 ([facility]) 105 98-107 CHLORIDE LEVEL eCW1 ([facility]) 3.7 3.5-5.1 POTASSIUM SERUM eCW1 ([facility]) 139 136-145 SODIUM LEVEL eCW1 ([facility]) 9.3 8.8-10.2 CALCIUM LEVEL eCW1 ([facility]) ID Date Data Source [id number] 11/24/2020 07:08:00 PM EDT [facility] Name Value Range Interpretation Code Description Data Ryanne rce(s) Supporting Document(s) SARS-CoV-2 (COVID 19) NEGATIVE - SARS-CoV-2 (COVID19) [facility] This lab was ordered by [facility] a nd reported by [facility]. Procedure Social History Code Duration Value Status Description Data Source(s ) Smoking 04/15/2021 12:00:00 AM EDT Never Smoker completed Never S moker eCW1 ([facility]) Smoking 04/15/2021 12:00:00 AM EDT Never Smoker completed Never S moker eCW1 ([facility]) Smoking 04/15/2021 12:00:00 AM EDT Never Smoker completed Never S moker eCW1 ([facility]) Smoking 04/15/2021 12:00:00 AM EDT Never Smoker completed Never S moker eCW1 ([facility]) Smoking 04/15/2021 12:00:00 AM EDT Never Smoker completed Never S moker eCW1 ([facility]) Smoking 04/15/2021 12:00:00 AM EDT Never Smoker completed Never S moker eCW1 ([facility]) Smoking 04/15/2021 12:00:00 AM EDT Never Smoker completed Never S moker eCW1 ([facility]) Smoking 04/15/2021 12:00:00 AM EDT Never Smoker completed Never S moker eCW1 ([facility]) Smoking 04/15/2021 12:00:00 AM EDT Never Smoker completed Never S moker eCW1 ([facility]) Smoking 04/15/2021 12:00:00 AM EDT Never Smoker completed Never S moker eCW1 ([facility]) Smoking 04/15/2021 12:00:00 AM EDT Never Smoker completed Never S moker eCW1 ([facility]) Smoking 03/21/2021 12:00:00 AM EDT Never Smoker completed Never S moker eCW1 ([facility]) Smoking 03/21/2021 12:00:00 AM EDT Never Smoker completed Never S moker eCW1 ([facility]) Smoking 03/21/2021 12:00:00 AM EDT Never Smoker completed Never S moker eCW1 ([facility]) Smoking 02/19/2021 01:39:55 PM EDT Never smoked tobacco (findi ng) completed Never smoked tobacco (finding) [facility] (Garret Sutton MD [facility]) Smoking 12/31/2020 12:00:00 AM EDT Never Smoker completed Never S moker eCW1 ([facility]) Smoking 12/31/2020 12:00:00 AM EDT Never Smoker completed Never S moker eCW1 ([facility]) Smoking 12/31/2020 12:00:00 AM EDT Never Smoker completed Never S moker eCW1 ([facility]) Smoking 12/31/2020 12:00:00 AM EDT Never Smoker completed Never S moker eCW1 ([facility]) Smoking 12/12/2020 12:00:00 AM EDT Never Smoker completed Never S moker eCW1 ([facility]) Smoking 12/12/2020 12:00:00 AM EDT Never Smoker completed Never S moker eCW1 ([facility]) Smoking 12/12/2020 12:00:00 AM EDT Never Smoker completed Never S moker eCW1 ([facility]) Smoking 11/27/2020 02:53:42 PM EDT Never smoked tobacco (findi ng) completed Never smoked tobacco (finding) HETAL (Garret Sutton MD [facility]) Vital Signs ID Date Data Source UNK Name Value Range Interpretation Code Description Data Source(s) Body weight 189.2 [lb_av] 189.2 [lb_av] eCW1 ([facility]) Body height 70 [in_i] 70 [in_i] eCW1 ([facility]) Body mass index (BMI) [Ratio] 27.14 kg/m2 27.14 kg/m2 eCW1 ([facility]) Heart rate 71 /min 71 /min eCW1 ([facility]) Respiratory rate 18 /min 18 /min eCW1 ([facility]) Body temperature 97.4 [degF] 97.4 [degF] eCW1 ( [facility]) Systolic blood pressure 128 mm[Hg] 128 mm[Hg] e CW1 ([facility]) Diastolic blood pressure 80 mm[Hg] 80 mm[Hg] eCW1 ([facility]) Body weight 190.0 [lb_av] 190.0 [lb_av] eCW1 ([facility]) Body height 70 [in_i] 70 [in_i] eCW1 ([facility]) Body mass index (BMI) [Ratio] 27.26 kg/m2 27.26 kg/m2 eCW1 ([facility]) Heart rate 72 /min 72 /min eCW1 ([facility]) Respiratory rate 18 /min 18 /min eCW1 ([facility]) Body temperature 96.9 [degF] 96.9 [degF] eCW1 ( [facility]) Systolic blood pressure 160 mm[Hg] 160 mm[Hg] e CW1 ([facility]) Diastolic blood pressure 98 mm[Hg] 98 mm[Hg] eCW1 ([facility]) Body weight 191 [lb_av] 191 [lb_av] eCW1 ([facility]) Body height 70 [in_i] 70 [in_i] eCW1 ([facility]) Body mass index (BMI) [Ratio] 27.40 kg/m2 27.40 kg/m2 eCW1 ([facility]) Heart rate 81 /min 81 /min eCW1 ([facility]) Respiratory rate 18 /min 18 /min eCW1 ([facility]) Body temperature 98.9 [degF] 98.9 [degF] eCW1 ( [facility]) Systolic blood pressure 190 mm[Hg] 190 mm[Hg] e CW1 ([facility]) Diastolic blood pressure 118 mm[Hg] 118 mm[Hg] eCW1 ([facility]) Patient Treatment Plan of Care Planned Activity Planned Date Details Description Data Source (s) telmisartan 80 MG Oral Tablet 04/29/2021 12:00:00 AM EDT eCW1 ([facility]) telmisartan 80 MG Oral Tablet 04/29/2021 12:00:00 AM EDT eCW1 ([facility]) telmisartan 80 MG Oral Tablet 04/29/2021 12:00:00 AM EDT eCW1 ([facility]) telmisartan 80 MG Oral Tablet 04/29/2021 12:00:00 AM EDT eCW1 ([facility]) telmisartan 80 MG Oral Tablet 04/29/2021 12:00:00 AM EDT eCW1 ([facility]) telmisartan 80 MG Oral Tablet 04/29/2021 12:00:00 AM EDT eCW1 ([facility]) telmisartan 80 MG Oral Tablet 04/29/2021 12:00:00 AM EDT eCW1 ([facility]) telmisartan 80 MG Oral Tablet 04/29/2021 12:00:00 AM EDT eCW1 ([facility]) cetirizine hydrochloride 10 MG Oral Tablet 04/15/2021 12:00:00 AM E DT eCW1 ([facility]) 24 HR Diltiazem Hydrochloride 240 MG Extended Release Oral Capsule [Cartia] 04/15/2021 12:00:00 AM EDT eCW1 ([facility]) Hydroxyzine Hydrochloride 25 MG Oral Tablet 04/15/2021 12:00:00 AM EDT eCW1 ([facility]) cetirizine hydrochloride 10 MG Oral Tablet 04/15/2021 12:00:00 AM E DT eCW1 ([facility]) 24 HR Diltiazem Hydrochloride 240 MG Extended Release Oral Capsule [Cartia] 04/15/2021 12:00:00 AM EDT eCW1 ([facility]) Hydroxyzine Hydrochloride 25 MG Oral Tablet 04/15/2021 12:00:00 AM EDT eCW1 ([facility]) Chlorthalidone 25 MG Oral Tablet 03/21/2021 12:00:00 AM EDT eCW1 ([facility]) Hydrochlorothiazide 12.5 MG Oral Tablet 03/21/2021 12:00:00 AM EDT eCW1 ([facility]) Chlorthalidone 25 MG Oral Tablet 03/21/2021 12:00:00 AM EDT eCW1 ([facility]) Hydrochlorothiazide 12.5 MG Oral Tablet 03/21/2021 12:00:00 AM EDT eCW1 ([facility]) Chlorthalidone 25 MG Oral Tablet 03/21/2021 12:00:00 AM EDT eCW1 ([facility]) Hydrochlorothiazide 12.5 MG Oral Tablet 03/21/2021 12:00:00 AM EDT eCW1 ([facility])
[2021-05-12] MEDS ORDERED: hydrALAZINE 20MG/ML 1ML VIAL (J0360 PER 20MG) IV ONE (18:30)
[2021-05-12] MEDS ORDERED: REMDESIVIR 200 MG in NS 250 ML IV ONE (20:00)
[2021-05-12 20:09] VITALS: BP_SYST 146; BP_SYST 182; BP_DIAS 79; BP_DIAS 98; O2SAT 88
[2021-05-12 20:20] LABS: INR 0.95; PROTHROMBIN TIME 13.1 SECONDS (12.7-14.5)
[2021-05-12 20:23] LABS: D-DIMER QUANT 1117.55 ng/ml (<500)
[2021-05-12 21:00] VITALS: O2SAT 94
[2021-05-12] MEDS ORDERED: TELM1TAB37 PO (21:14)
[2021-05-12] MEDS ORDERED: ACETAMINOPHEN TAB 650MG DOSE (2X325MG) PO PRN (21:25)
[2021-05-12 22:00] VITALS: O2SAT 94
[2021-05-12] MEDS ORDERED: SODIUM CHLORIDE 0.9% INJ 10 ML SYR IV ONE (22:00)
[2021-05-12] MEDS: ENOXAPARIN 40MG/0.4ML SYRINGE (J1650 PER 10MG) SC SCH (22:16)
[2021-05-12] MEDS: COMBIVENT RESPIMAT 100-20MCG INHALER 4GM INH SCH (22:23)
[2021-05-12] MEDS: TELMISARTAN 20 MG TAB PO SCH (22:23)
[2021-05-12 23:00] VITALS: O2SAT 96
[2021-05-12 23:22] LABS: APPEARANCE, URINE CLEAR (CLEAR); BACTERIA, URINE AUTO NEGATIVE (NEGATIVE); BILIRUBIN, URINE AUTO NEGATIVE (NEGATIVE); BLOOD, URINE BLOOD NEGATIVE (NEGATIVE); COLOR, URINE YELLOW (YELLOW); GLUCOSE, URINE (UA) AUTO 1+ mg/dL (NEGATIVE); KETONE, URINE AUTO NEGATIVE (NEGATIVE); LEUKOCYTE ESTERASE, URINE AUTO NEGATIVE (NEGATIVE); NITRITE, URINE AUTO NEGATIVE (NEGATIVE); PROTEIN, URINE AUTO 1+ mg/dL (NEGATIVE); RBC, URINE AUTO 1 /HPF (0-3); SPECIFIC GRAVITY URINE AUTO 1.016 (1.002-1.035); SQUAMOUS EPITHELIAL CELL UR AU 0 /HPF (0-6); UROBILINOGEN, URINE AUTO 0.2 mg/dL (0.0-2.0); WBC, URINE AUTO 1 /HPF (0-3)
[2021-05-13] VITALS (15 sets, daily range): BP systolic 144–178; BP diastolic 80–100; O2SAT 89–97
[2021-05-13 06:14] LABS: BASO % 0.2 % (0.0-1.0); HEMATOCRIT 39.3 % (42.0-52.0); HEMOGLOBIN 13.4 g/dl (13.5-17.5); LYMPH # 0.7 10^3/uL (1.5-5.0); LYMPH % 8.5 % (24.0-44.0); MEAN CORPUSCULAR HGB CONC 34.1 g/dl (32.0-36.5); MEAN CORPUSCULAR VOLUME 88.1 fl (80.0-96.0); MONO # 0.6 10^3/uL (0.0-0.8); MONO % 6.6 % (2.0-8.0); NEUTROPHILS # 6.8 10^3/uL (1.5-8.5); NEUTROPHILS % 82.3 % (36.0-66.0); PLATELET COUNT, AUTOMATED 325 10^3/uL (150-450); RED BLOOD COUNT 4.46 10^6/uL (4.30-6.10); WHITE BLOOD COUNT 8.3 10^3/uL (4.0-10.0)
[2021-05-13 06:33] LABS: BLOOD UREA NITROGEN 28 MG/DL (7-18); CALCIUM LEVEL 8.5 MG/DL (8.8-10.2); CARBON DIOXIDE LEVEL 26 MEQ/L (21-32); CHLORIDE LEVEL 105 MEQ/L (98-107); GLOMERULAR FILTRATION RATE > 60.0 (>42); GLUCOSE, FASTING 132 MG/DL (70-100); MAGNESIUM LEVEL 2.5 MG/DL (1.8-2.4); POTASSIUM SERUM 3.7 MEQ/L (3.5-5.1); SODIUM LEVEL 137 MEQ/L (136-145)
[2021-05-13] MEDS: COMBIVENT RESPIMAT 100-20MCG INHALER 4GM INH SCH ×4 (08:02→21:05)
--- NOTE | 2021-05-13 08:25 | ECGEPIP ---
[facility] - ED Test Date: 2021-05-12 Pat Name: GALA NDIAYE Department: Room: - Gender: Male [employer]: lakisha : 1950 Requested By: Pastor Salazar Order Number: [id number] Reading MD: Pastor Javed Measurements Intervals [place]el Rate: 67 P: 14 OK: 104 QRS: -19 QRSD: 100 T: 38 QT: 386 QTc: 407 Interpretive Statements Sinus rhythm with short OK POOR R WAVE PROGRESSION Moderate voltage criteria for LVH, may be normal variant ( R in aVL , [place] product ) SIMILAR TO 05/09/21 Electronically Signed on 05-13-2021 8:25:27 EDT by Pastor Javed
[2021-05-13] MEDS: ASPIRIN 81MG ENTERIC TABLET PO SCH (09:00)
[2021-05-13] MEDS: amLODIPine 5 MG TAB PO SCH (09:01)
[2021-05-13] MEDS: ASCORBIC ACID 500 MG TAB PO SCH (09:01)
[2021-05-13] MEDS: dexameTHASONE 4 MG/ML 1ML VIAL (J1100 PER 1MG) IV SCH (09:01)
[2021-05-13] MEDS: ENOXAPARIN 40MG/0.4ML SYRINGE (J1650 PER 10MG) SC SCH ×2 (09:02→20:47)
[2021-05-13] MEDS: VITAMIN D 1,000 INTERNATIONAL UNITS TABLET PO SCH (09:05)
--- NOTE | 2021-05-13 10:09 | IPNPDOC ---
Text Note Date of Service The patient was seen on 05/13/21. NOTE Subjective: Patient is a 71-year-old male with a PMHx of HTN, LLOYD, Recently diagnosed COVID19 (05/06) who was admitted on 05/06 to 05/08 for COVID19 has presented to the ER on 05/09, then left AMA. Presented back to [facility] again on 05/12 with worsening hypoxia. Patient was admitted to the hospital service for further evaluation and treatment. Patient was seen and examined at the bedside. Currently denies any nausea, vomiting, abdominal pain, diarrhea, or urinary discomfort. Denies any chest pain. Does report some shortness of breath and mostly nonproductive cough. Objective: Vitals (See below) General: Sitting up in bed, appears comfortable, AAOx3 HEENT: NC, AT CVS: +S1S2 Lungs: Fair air entry b/l, no evidence of wheezing, rales or rhonchi Abdomen: Soft, nondistended and nontender Extremities: No evidence of lower extremity edema Imaging: CXR 05/12: Minimal increase in bilateral peripheral infiltrates. Assessment and plan: Acute hypoxic respiratory failure - likely 2/2 COVID19 pneumonia - Currently patient reports a nonproductive cough - Patient is on nasal cannula at 6-8 L - Hemodynamically stable and afebrile - Will continue to trend inflammatory markers - Imaging noted - COVID positive on 05/06 - c/w Dexamethasone / Remdesivir (Day #2) - Will add Incentive spirometry / Acapella / Mucinex / Prone positing HTN - BP elevated currently - s/p Hydralazine IV x 1 dose - c/w Diltiazem / Telmisartan / Amlodipine Probable LLOYD - Likely will need outpatient sleep study; will have outpatient follow up with PCP Right Renal cyst - Will have outpatient follow up with PCP for repeat imaging Multiple hepatic cysts - Will have outpatient follow up with PCP for repeat imaging s/p Rash - Noted to have improvement - s/p Permethrin on prior admission - c/w Hydroxyzine PRN Vitamin D deficiency - c/w Supplementation DVT prophylaxis - c/w Lovenox at weight based prophylactic dosing Disposition: - Pending clinical improvement VS,Jennifer, I+O VS, Jennifer, I+O Laboratory Tests 05/12/21 14:53 05/13/21 05:44 Vital Signs Date Time Temp Pulse Resp B/P (MAP) Pulse Ox O2 Delivery O2 Flow Rate FiO2 05/13/21 09:01 90 178/98 05/13/21 08:06 89 Nasal Cannula 8.0 05/13/21 08:00 95.6 23 05/12/21 20:49 I&O- Last 24 Hours up to 6 AM 05/13/21 06:00 Intake Total 410 ml Output Total 900 ml Balance -490 ml ELISABET KILPATRICK MD May 13, 2021 10:09
[2021-05-13] MEDS: guaiFENesin ER 600 MG TAB PO SCH ×2 (12:28→20:43)
[2021-05-13] MEDS: REMDESIVIR 100 MG in NS 250 ML IV SCH (17:55)
[2021-05-13] MEDS: SODIUM CHLORIDE 0.9% INJ 10 ML SYR IV SCH (17:55)
[2021-05-13] MEDS: TELMISARTAN 20 MG TAB PO SCH (20:44)
[2021-05-14] VITALS (8 sets, daily range): BP systolic 150–173; BP diastolic 82–93; O2SAT 87–97
[2021-05-14 06:36] LABS: BASO % 0.1 % (0.0-1.0); HEMATOCRIT 39.2 % (42.0-52.0); HEMOGLOBIN 13.3 g/dl (13.5-17.5); LYMPH # 0.7 10^3/uL (1.5-5.0); LYMPH % 6.3 % (24.0-44.0); MEAN CORPUSCULAR HGB CONC 33.9 g/dl (32.0-36.5); MEAN CORPUSCULAR VOLUME 88.5 fl (80.0-96.0); MONO # 0.9 10^3/uL (0.0-0.8); MONO % 7.8 % (2.0-8.0); NEUTROPHILS # 9.7 10^3/uL (1.5-8.5); PLATELET COUNT, AUTOMATED 354 10^3/uL (150-450); RED BLOOD COUNT 4.43 10^6/uL (4.30-6.10); WHITE BLOOD COUNT 11.5 10^3/uL (4.0-10.0)
[2021-05-14 06:43] LABS: INR 1.07; PARTIAL THROMBOPLASTIN TIME 30.2 SECONDS (25.9-37.0); PROTHROMBIN TIME 14.3 SECONDS (12.7-14.5)
[2021-05-14 07:30] LABS: ALBUMIN 2.6 GM/DL (3.2-5.2); ALT/SGPT 32 U/L (12-78); BILIRUBIN,DIRECT 0.1 MG/DL (0.0-0.2); BILIRUBIN,TOTAL 0.5 MG/DL (0.2-1.0); BLOOD UREA NITROGEN 36 MG/DL (7-18); CALCIUM LEVEL 8.7 MG/DL (8.8-10.2); CARBON DIOXIDE LEVEL 25 MEQ/L (21-32); CHLORIDE LEVEL 105 MEQ/L (98-107); CPK CREATINE PHOSPHOKINASE 56 U/L (39-308); CREATININE FOR GFR 0.98 MG/DL (0.70-1.30); FERRITIN 457 NG/ML (26-388); GLOMERULAR FILTRATION RATE > 60.0 (>42); GLUCOSE, FASTING 108 MG/DL (70-100); LDH LACTATE DEHYDROGENASE 285 U/L (87-241); NT-PRO BNP 108 PG/ML (<125); POTASSIUM SERUM 3.7 MEQ/L (3.5-5.1); SODIUM LEVEL 136 MEQ/L (136-145); TOTAL PROTEIN 6.4 GM/DL (6.4-8.2); TROPONIN I < 0.02 NG/ML (< 0.10)
[2021-05-14] MEDS: COMBIVENT RESPIMAT 100-20MCG INHALER 4GM INH SCH ×4 (08:06→20:31)
[2021-05-14] MEDS: dexameTHASONE 4 MG/ML 1ML VIAL (J1100 PER 1MG) IV SCH (08:59)
[2021-05-14] MEDS: ASPIRIN 81MG ENTERIC TABLET PO SCH (08:59)
[2021-05-14] MEDS: VITAMIN D 1,000 INTERNATIONAL UNITS TABLET PO SCH (09:00)
[2021-05-14] MEDS: ASCORBIC ACID 500 MG TAB PO SCH (09:00)
[2021-05-14] MEDS: guaiFENesin ER 600 MG TAB PO SCH ×2 (09:00→20:46)
[2021-05-14] MEDS: ENOXAPARIN 40MG/0.4ML SYRINGE (J1650 PER 10MG) SC SCH ×2 (09:00→20:46)
[2021-05-14] MEDS: amLODIPine 5 MG TAB PO SCH (09:01)
--- NOTE | 2021-05-14 09:58 | IPNPDOC ---
Text Note Date of Service The patient was seen on 05/14/21. NOTE Subjective: Patient is a 71-year-old male with a PMHx of HTN, LLOYD, Recently diagnosed COVID19 (05/06) who was admitted on 05/06 to 05/08 for COVID19 has presented to the ER on 05/09, then left AMA. Presented back to [facility] again on 05/12 with worsening hypoxia. Patient was admitted to the hospital service for further evaluation and treatment. Patient was seen and examined at the bedside. Currently patient denies any chest pain or palpitations. He does report a nonproductive cough. Has been having shortness of breath. Denies any nausea, vomiting, abdominal pain, diarrhea, or urinary discomfort. Objective: Vitals (See below) General: Patient is sitting up in bed watching television appears to be comfortable without any acute distress, is awake, alert, oriented 3 HEENT: atraumatic and normocephalic CVS: +S1S2 Lungs: Fair air entry b/l, auscultation is without any wheezing, crackles or rhonchi Abdomen: Abdomen remains soft without any distention or tenderness Extremities: No edema appreciated Imaging: CXR 05/12: Minimal increase in bilateral peripheral infiltrates. Assessment and plan: Acute hypoxic respiratory failure - likely 2/2 COVID19 pneumonia - Currently patient reports a nonproductive cough - Patient was titrated up to 12 L of high flow nasal cannula oxygen this morning - Remains hemodynamically stable / afebrile - Will continue to trend inflammatory markers - Imaging noted - COVID positive on 05/06 - c/w Dexamethasone / Remdesivir (Day #3) - c/w Incentive spirometry / Acapella / Mucinex / Prone positing HTN - BP elevated currently - s/p Hydralazine IV x 1 dose - c/w Diltiazem / Telmisartan / Amlodipine Probable LLOYD - Likely will need outpatient sleep study; will have outpatient follow up with PCP Right Renal cyst - Will have outpatient follow up with PCP for repeat imaging Multiple hepatic cysts - Will have outpatient follow up with PCP for repeat imaging s/p Rash - Noted to have improvement - s/p Permethrin on prior admission - c/w Hydroxyzine PRN Vitamin D deficiency - c/w Supplementation DVT prophylaxis - c/w Lovenox at weight based prophylactic dosing Disposition: - Pending clinical improvement VS,Jennifer, I+O VS, Jennifer, I+O Laboratory Tests 05/14/21 06:00 05/14/21 06:01 Vital Signs Date Time Temp Pulse Resp B/P (MAP) Pulse Ox O2 Delivery O2 Flow Rate FiO2 05/14/21 09:01 87 160/93 05/14/21 08:00 96.6 21 91 High Flow Cannula 8.0 05/12/21 20:49 I&O- Last 24 Hours up to 6 AM 05/14/21 06:00 Intake Total 600 ml Output Total 850 ml Balance -250 ml ELISABET KILPATRICK MD May 14, 2021 09:58
[2021-05-14] MEDS: REMDESIVIR 100 MG in NS 250 ML IV SCH (17:13)
[2021-05-14] MEDS: SODIUM CHLORIDE 0.9% INJ 10 ML SYR IV SCH (17:13)
[2021-05-14] MEDS: TELMISARTAN 20 MG TAB PO SCH (20:46)
[2021-05-15] VITALS (8 sets, daily range): BP systolic 138–166; BP diastolic 67–91; O2SAT 90–95
[2021-05-15 07:53] LABS: BASO % 0.1 % (0.0-1.0); HEMATOCRIT 39.9 % (42.0-52.0); HEMOGLOBIN 13.2 g/dl (13.5-17.5); LYMPH # 0.6 10^3/uL (1.5-5.0); MEAN CORPUSCULAR HEMOGLOBIN 29.6 pg (27.0-33.0); MEAN CORPUSCULAR HGB CONC 33.1 g/dl (32.0-36.5); MEAN CORPUSCULAR VOLUME 89.5 fl (80.0-96.0); MONO # 0.8 10^3/uL (0.0-0.8); MONO % 5.5 % (2.0-8.0); PLATELET COUNT, AUTOMATED 374 10^3/uL (150-450); RED BLOOD COUNT 4.46 10^6/uL (4.30-6.10); WHITE BLOOD COUNT 14.6 10^3/uL (4.0-10.0)
[2021-05-15] MEDS: COMBIVENT RESPIMAT 100-20MCG INHALER 4GM INH SCH ×4 (07:55→21:04)
[2021-05-15 08:12] LABS: BLOOD UREA NITROGEN 39 MG/DL (7-18); C REACTIVE PROTEIN QUANTITATIV 1.52 MG/DL (0.00-0.30); CALCIUM LEVEL 8.4 MG/DL (8.8-10.2); CARBON DIOXIDE LEVEL 28 MEQ/L (21-32); CHLORIDE LEVEL 107 MEQ/L (98-107); CREATININE FOR GFR 0.88 MG/DL (0.70-1.30); FERRITIN 406 NG/ML (26-388); GLOMERULAR FILTRATION RATE > 60.0 (>42); GLUCOSE, FASTING 101 MG/DL (70-100); MAGNESIUM LEVEL 2.8 MG/DL (1.8-2.4); POTASSIUM SERUM 3.9 MEQ/L (3.5-5.1); SODIUM LEVEL 139 MEQ/L (136-145)
[2021-05-15] MEDS: ASPIRIN 81MG ENTERIC TABLET PO SCH (09:02)
[2021-05-15] MEDS: VITAMIN D 1,000 INTERNATIONAL UNITS TABLET PO SCH (09:02)
[2021-05-15] MEDS: guaiFENesin ER 600 MG TAB PO SCH ×2 (09:02→20:20)
[2021-05-15] MEDS: amLODIPine 5 MG TAB PO SCH (09:02)
[2021-05-15] MEDS: dexameTHASONE 4 MG/ML 1ML VIAL (J1100 PER 1MG) IV SCH (09:02)
[2021-05-15] MEDS: ASCORBIC ACID 500 MG TAB PO SCH (09:02)
[2021-05-15] MEDS: ENOXAPARIN 40MG/0.4ML SYRINGE (J1650 PER 10MG) SC SCH ×2 (09:03→20:20)
--- NOTE | 2021-05-15 12:38 | IPNPDOC ---
Text Note Date of Service The patient was seen on 05/15/21. NOTE Subjective: Patient is a 71-year-old male with a PMHx of HTN, LLOYD, Recently diagnosed COVID19 (05/06) who was admitted on 05/06 to 05/08 for COVID19 has presented to the ER on 05/09, then left AMA. Presented back to [facility] again on 05/12 with worsening hypoxia. Patient was admitted to the hospital service for further evaluation and treatment. Patient was seen and examined at the bedside. Currently patient denies any nausea, vomiting, abdominal pain, diarrhea, or urinary discomfort. Patient reports that his breathing is doing relatively fine report a cough which is very mildly productive. Objective: Vitals (See below) General: Patient is sitting up in bed, no acute distress, comfortable, awake, alert, orientedx3 HEENT: NC, AT CVS: +S1S2 Lungs: There appears to be fair air entry bilaterally without any auscultated evidence of wheezing, crackles or rhonchi Abdomen: ND, NT, Soft Extremities: LE are without edema Imaging: CXR 05/12: Minimal increase in bilateral peripheral infiltrates. Assessment and plan: Acute hypoxic respiratory failure - likely 2/2 COVID19 pneumonia - Reports breathing is relatively unchanged - Patient has had a slight improvement on her high flow nasal cannula oxygen - Hemodynamically stable / afebrile - c/w inflammatory markers trend - Imaging noted - COVID positive on 05/06 - c/w Dexamethasone / Remdesivir (Day #4) - c/w Incentive spirometry / Acapella / Mucinex / Prone positing HTN - BP elevated currently - s/p Hydralazine IV x 1 dose - c/w Diltiazem / Telmisartan - Will increase Amlodipine Probable LLOYD - Likely will need outpatient sleep study; will have outpatient follow up with PCP Right Renal cyst - Will have outpatient follow up with PCP for repeat imaging Multiple hepatic cysts - Will have outpatient follow up with PCP for repeat imaging s/p Rash - Noted to have improvement - s/p Permethrin on prior admission - c/w Hydroxyzine PRN Vitamin D deficiency - c/w Supplementation DVT prophylaxis - c/w Lovenox at weight based prophylactic dosing Disposition: - Pending clinical improvement VS,Jennifer, I+O VS, Jennifer, I+O Laboratory Tests 05/15/21 06:36 Vital Signs Date Time Temp Pulse Resp B/P (MAP) Pulse Ox O2 Delivery O2 Flow Rate FiO2 05/15/21 11:45 96.5 73 20 154/72 (99) 90 Nasal Cannula 10.0 05/12/21 20:49 I&O- Last 24 Hours up to 6 AM 05/15/21 06:00 Intake Total 1180 ml Output Total 1250 ml Balance -70 ml ELISABET KILPATRICK MD May 15, 2021 12:38
[2021-05-15] MEDS: SODIUM CHLORIDE 0.9% INJ 10 ML SYR IV SCH (17:52)
[2021-05-15] MEDS: REMDESIVIR 100 MG in NS 250 ML IV SCH (17:52)
[2021-05-15] MEDS: TELMISARTAN 20 MG TAB PO SCH (20:20)
[2021-05-15] MEDS ORDERED: CALCIUM CARBONATE 500 MG CHEW U/D PO ONE (21:00)
[2021-05-16] VITALS (10 sets, daily range): BP systolic 141–178; BP diastolic 76–95; O2SAT 90–98
[2021-05-16 06:27] LABS: BASO % 0.2 % (0.0-1.0); HEMATOCRIT 39.6 % (42.0-52.0); HEMOGLOBIN 13.4 g/dl (13.5-17.5); LYMPH # 0.6 10^3/uL (1.5-5.0); LYMPH % 4.8 % (24.0-44.0); MEAN CORPUSCULAR HEMOGLOBIN 30.2 pg (27.0-33.0); MEAN CORPUSCULAR HGB CONC 33.8 g/dl (32.0-36.5); MEAN CORPUSCULAR VOLUME 89.4 fl (80.0-96.0); MONO # 0.8 10^3/uL (0.0-0.8); MONO % 6.8 % (2.0-8.0); NEUTROPHILS # 10.5 10^3/uL (1.5-8.5); NEUTROPHILS % 87.1 % (36.0-66.0); PLATELET COUNT, AUTOMATED 379 10^3/uL (150-450); RED BLOOD COUNT 4.43 10^6/uL (4.30-6.10); WHITE BLOOD COUNT 12.1 10^3/uL (4.0-10.0)
[2021-05-16 06:47] LABS: INR 1.11; PROTHROMBIN TIME 14.7 SECONDS (12.7-14.5)
[2021-05-16 06:48] LABS: PARTIAL THROMBOPLASTIN TIME 32.5 SECONDS (25.9-37.0)
[2021-05-16 07:05] LABS: ALBUMIN 2.5 GM/DL (3.2-5.2); ALT/SGPT 44 U/L (12-78); BILIRUBIN,DIRECT 0.1 MG/DL (0.0-0.2); BILIRUBIN,TOTAL 0.5 MG/DL (0.2-1.0); BLOOD UREA NITROGEN 45 MG/DL (7-18); CALCIUM LEVEL 8.7 MG/DL (8.8-10.2); CARBON DIOXIDE LEVEL 26 MEQ/L (21-32); CHLORIDE LEVEL 106 MEQ/L (98-107); CPK CREATINE PHOSPHOKINASE 62 U/L (39-308); CREATININE FOR GFR 0.79 MG/DL (0.70-1.30); FERRITIN 414 NG/ML (26-388); GLOMERULAR FILTRATION RATE > 60.0 (>42); GLUCOSE, FASTING 124 MG/DL (70-100); LDH LACTATE DEHYDROGENASE 244 U/L (87-241); NT-PRO BNP 89 PG/ML (<125); SODIUM LEVEL 140 MEQ/L (136-145); TOTAL PROTEIN 6.1 GM/DL (6.4-8.2); TROPONIN I < 0.02 NG/ML (< 0.10)
[2021-05-16] MEDS: COMBIVENT RESPIMAT 100-20MCG INHALER 4GM INH SCH ×4 (07:23→19:26)
[2021-05-16] MEDS: ASCORBIC ACID 500 MG TAB PO SCH (08:40)
[2021-05-16] MEDS: dexameTHASONE 4 MG/ML 1ML VIAL (J1100 PER 1MG) IV SCH (08:40)
[2021-05-16] MEDS: ASPIRIN 81MG ENTERIC TABLET PO SCH (08:40)
[2021-05-16] MEDS: ENOXAPARIN 40MG/0.4ML SYRINGE (J1650 PER 10MG) SC SCH ×2 (08:41→20:56)
[2021-05-16] MEDS: guaiFENesin ER 600 MG TAB PO SCH ×2 (08:41→20:54)
[2021-05-16] MEDS: VITAMIN D 1,000 INTERNATIONAL UNITS TABLET PO SCH (08:41)
--- NOTE | 2021-05-16 12:03 | IPNPDOC ---
Text Note Date of Service The patient was seen on 05/16/21. NOTE Subjective: Patient is a 71-year-old male with a PMHx of HTN, LLOYD, Recently diagnosed COVID19 (05/06) who was admitted on 05/06 to 05/08 for COVID19 has presented to the ER on 05/09, then left AMA. Presented back to [facility] again on 05/12 with worsening hypoxia. Patient was admitted to the hospital service for further evaluation and treatment. Patient was seen and examined at the bedside. Appears comfortable, no wheezing / rhonchi / rales, no abdominal pain, constipation, or diarrhea. Objective: Vitals (See below) General: Patient appears to be comfortable, no acute distress, awake + alert, oriented x3 HEENT: Normocephalic and atraumatic CVS: +S1S2 Lungs: There appears to be fair air entry bilaterally without any evidence of crackles, wheezing or rhonchi Abdomen: Abdomen remains soft without any appreciated distention or tenderness Extremities: No edema Imaging: CXR 05/12: Minimal increase in bilateral peripheral infiltrates. Assessment and plan: Acute hypoxic respiratory failure - likely 2/2 COVID19 pneumonia - Patient reports his breathing has had some improvement. Still reports a very mild nonproductive cough - Patient reports that he has been compliant with prone positioning and laying on his side - Patient is still on high flow nasal cannula at 10-12 L - Hemodynamically stable / afebrile - COVID positive on 05/06 - c/w inflammatory markers trend - Imaging noted - c/w Dexamethasone / Remdesivir (Day #5) - c/w Incentive spirometry / Acapella / Mucinex / Prone positing HTN - BP elevated currently - s/p Hydralazine IV x 1 dose - c/w Diltiazem / Telmisartan / Adjusted dose of Amlodipine Probable LLOYD - Likely will need outpatient sleep study; will have outpatient follow up with PCP Right Renal cyst - Will have outpatient follow up with PCP for repeat imaging Multiple hepatic cysts - Will have outpatient follow up with PCP for repeat imaging s/p Rash - Noted to have improvement - s/p Permethrin on prior admission - c/w Hydroxyzine PRN Vitamin D deficiency - c/w Supplementation DVT prophylaxis - c/w Lovenox at weight based prophylactic dosing Disposition: - Pending clinical improvement VS,Jennifer, I+O VS, Jennifer, I+O Laboratory Tests 05/16/21 06:06 Vital Signs Date Time Temp Pulse Resp B/P (MAP) Pulse Ox O2 Delivery O2 Flow Rate FiO2 05/16/21 08:41 74 178/87 05/16/21 08:00 95.9 18 88 High Flow Cannula 12.0 05/12/21 20:49 I&O- Last 24 Hours up to 6 AM 05/16/21 05:59 Intake Total 1410 ml Output Total 600 ml Balance 810 ml ELISABET KILPATRICK MD May 16, 2021 12:03
[2021-05-16] MEDS: REMDESIVIR 100 MG in NS 250 ML IV SCH (18:15)
[2021-05-16] MEDS: SODIUM CHLORIDE 0.9% INJ 10 ML SYR IV SCH (18:17)
[2021-05-16] MEDS: TELMISARTAN 20 MG TAB PO SCH (20:56)
[2021-05-17] VITALS (8 sets, daily range): BP systolic 128–169; BP diastolic 55–88; O2SAT 90–95
[2021-05-17] MEDS: COMBIVENT RESPIMAT 100-20MCG INHALER 4GM INH SCH ×4 (07:44→20:12)
[2021-05-17 08:36] LABS: BASO % 0.1 % (0.0-1.0); HEMATOCRIT 40.3 % (42.0-52.0); HEMOGLOBIN 13.3 g/dl (13.5-17.5); LYMPH # 0.6 10^3/uL (1.5-5.0); LYMPH % 4.8 % (24.0-44.0); MEAN CORPUSCULAR VOLUME 90.8 fl (80.0-96.0); MONO # 0.8 10^3/uL (0.0-0.8); MONO % 6.4 % (2.0-8.0); NEUTROPHILS % 87.3 % (36.0-66.0); PLATELET COUNT, AUTOMATED 390 10^3/uL (150-450); RED BLOOD COUNT 4.44 10^6/uL (4.30-6.10); WHITE BLOOD COUNT 12.5 10^3/uL (4.0-10.0)
[2021-05-17 09:09] LABS: ALBUMIN 2.6 GM/DL (3.2-5.2); ALT/SGPT 41 U/L (12-78); BILIRUBIN,TOTAL 0.5 MG/DL (0.2-1.0); BLOOD UREA NITROGEN 39 MG/DL (7-18); CALCIUM LEVEL 8.4 MG/DL (8.8-10.2); CARBON DIOXIDE LEVEL 29 MEQ/L (21-32); CHLORIDE LEVEL 104 MEQ/L (98-107); CREATININE FOR GFR 0.77 MG/DL (0.70-1.30); GLOMERULAR FILTRATION RATE > 60.0 (>42); GLUCOSE, FASTING 110 MG/DL (70-100); MAGNESIUM LEVEL 2.5 MG/DL (1.8-2.4); POTASSIUM SERUM 4.3 MEQ/L (3.5-5.1); SODIUM LEVEL 137 MEQ/L (136-145); TOTAL PROTEIN 5.6 GM/DL (6.4-8.2)
[2021-05-17] MEDS: VITAMIN D 1,000 INTERNATIONAL UNITS TABLET PO SCH (10:13)
[2021-05-17] MEDS: guaiFENesin ER 600 MG TAB PO SCH ×2 (10:13→21:13)
[2021-05-17] MEDS: ASCORBIC ACID 500 MG TAB PO SCH (10:13)
[2021-05-17] MEDS: ASPIRIN 81MG ENTERIC TABLET PO SCH (10:13)
[2021-05-17] MEDS: dexameTHASONE 4 MG/ML 1ML VIAL (J1100 PER 1MG) IV SCH (10:14)
[2021-05-17] MEDS: ENOXAPARIN 40MG/0.4ML SYRINGE (J1650 PER 10MG) SC SCH ×2 (10:14→21:14)
--- NOTE | 2021-05-17 12:51 | IPNPDOC ---
Text Note Date of Service The patient was seen on 05/17/21. NOTE Subjective: Patient is a 71-year-old male with a PMHx of HTN, LLOYD, Recently diagnosed COVID19 (05/06) who was admitted on 05/06 to 05/08 for COVID19 has presented to the ER on 05/09, then left AMA. Presented back to [facility] again on 05/12 with worsening hypoxia. Patient was admitted to the hospital service for further evaluation and treatment. Patient was seen and examined at the bedside. Patient has reported difficulty sleeping and tossing and turning all night. Reports his breathing is about the same as yesterday. Reports a mild cough. No nausea, vomiting, abdominal pain, diarrhea, or urinary discomfort. Objective: Vitals (See below) General: Patient is sitting up in bed, appears comfortable, without any distress, orientedx3 HEENT: AT, NC CVS: +S1S2 Lungs: Air entry appears to be fair bilaterally without crackles, wheezing or rhonchi Abdomen: ND, NT, soft Extremities: No edema Imaging: CXR 05/12: Minimal increase in bilateral peripheral infiltrates. Assessment and plan: Acute hypoxic respiratory failure - likely 2/2 COVID19 pneumonia - Breathing has essentially remained the same since yesterday. No significant cough - Patient is on high flow nasal cannula; oxygen requirements have had improvement - Hemodynamically stable / afebrile - COVID19 positive on 05/06 - c/w inflammatory markers trend (repeat tomorrow) - Imaging noted - c/w Dexamethasone / Remdesivir (Day #6) - c/w Incentive spirometry / Acapella / Mucinex / Prone positing HTN - BP has been fluctuating; but has had improvement yesterday - s/p Hydralazine IV x 1 dose - c/w Diltiazem / Telmisartan / Adjusted dose of Amlodipine Probable LLOYD - Likely will need outpatient sleep study; will have outpatient follow up with PCP Right Renal cyst - Will have outpatient follow up with PCP for repeat imaging Multiple hepatic cysts - Will have outpatient follow up with PCP for repeat imaging s/p Rash - Noted to have improvement - s/p Permethrin on prior admission - c/w Hydroxyzine PRN Vitamin D deficiency - c/w Supplementation DVT prophylaxis - c/w Lovenox at weight based prophylactic dosing Disposition: - Pending clinical improvement VS,Jennifer, I+O VS, Fishbone, I+O Laboratory Tests 05/17/21 08:04 Vital Signs Date Time Temp Pulse Resp B/P (MAP) Pulse Ox O2 Delivery O2 Flow Rate FiO2 05/17/21 12:00 8.0 05/17/21 12:00 94 High Flow Cannula 05/17/21 10:13 96 157/86 05/17/21 08:00 95.4 20 05/12/21 20:49 I&O- Last 24 Hours up to 6 AM 05/17/21 06:00 Intake Total 3950 ml Output Total 1695 ml Balance 2255 ml ELISABET KILPATRICK MD May 17, 2021 12:51
[2021-05-17] MEDS: TELMISARTAN 20 MG TAB PO SCH (21:13)
[2021-05-18] VITALS: BP 121/64
[2021-05-18 04:00] VITALS: BP 163/92; O2SAT 91
[2021-05-18 06:38] LABS: BASO % 0.2 % (0.0-1.0); HEMATOCRIT 41.2 % (42.0-52.0); HEMOGLOBIN 14.2 g/dl (13.5-17.5); LYMPH # 0.5 10^3/uL (1.5-5.0); LYMPH % 4.4 % (24.0-44.0); MEAN CORPUSCULAR HEMOGLOBIN 30.5 pg (27.0-33.0); MEAN CORPUSCULAR HGB CONC 34.5 g/dl (32.0-36.5); MEAN CORPUSCULAR VOLUME 88.4 fl (80.0-96.0); MONO # 0.8 10^3/uL (0.0-0.8); MONO % 6.8 % (2.0-8.0); NEUTROPHILS # 10.5 10^3/uL (1.5-8.5); NEUTROPHILS % 87.3 % (36.0-66.0); PLATELET COUNT, AUTOMATED 433 10^3/uL (150-450); RED BLOOD COUNT 4.66 10^6/uL (4.30-6.10)
[2021-05-18 06:53] LABS: PROTHROMBIN TIME 13.6 SECONDS (12.7-14.5)
[2021-05-18 06:54] LABS: PARTIAL THROMBOPLASTIN TIME 31.3 SECONDS (25.9-37.0)
[2021-05-18 07:06] LABS: ALBUMIN 2.8 GM/DL (3.2-5.2); ALT/SGPT 39 U/L (12-78); BILIRUBIN,DIRECT 0.2 MG/DL (0.0-0.2); BILIRUBIN,TOTAL 0.6 MG/DL (0.2-1.0); BLOOD UREA NITROGEN 39 MG/DL (7-18); CALCIUM LEVEL 8.7 MG/DL (8.8-10.2); CARBON DIOXIDE LEVEL 27 MEQ/L (21-32); CHLORIDE LEVEL 104 MEQ/L (98-107); CPK CREATINE PHOSPHOKINASE 60 U/L (39-308); CREATININE FOR GFR 0.88 MG/DL (0.70-1.30); FERRITIN 435 NG/ML (26-388); GLOMERULAR FILTRATION RATE > 60.0 (>42); GLUCOSE, FASTING 115 MG/DL (70-100); LDH LACTATE DEHYDROGENASE 261 U/L (87-241); MAGNESIUM LEVEL 2.6 MG/DL (1.8-2.4); NT-PRO BNP 66 PG/ML (<125); POTASSIUM SERUM 4.4 MEQ/L (3.5-5.1); SODIUM LEVEL 138 MEQ/L (136-145); TOTAL PROTEIN 5.9 GM/DL (6.4-8.2); TROPONIN I < 0.02 NG/ML (< 0.10)
[2021-05-18] MEDS: COMBIVENT RESPIMAT 100-20MCG INHALER 4GM INH SCH ×2 (07:50→11:50)
[2021-05-18 08:00] VITALS: BP 150/81
[2021-05-18] MEDS: dexameTHASONE 4 MG/ML 1ML VIAL (J1100 PER 1MG) IV SCH (10:15)
[2021-05-18] MEDS: ENOXAPARIN 40MG/0.4ML SYRINGE (J1650 PER 10MG) SC SCH (10:15)
[2021-05-18] MEDS: ASCORBIC ACID 500 MG TAB PO SCH (10:16)
[2021-05-18] MEDS: VITAMIN D 1,000 INTERNATIONAL UNITS TABLET PO SCH (10:16)
[2021-05-18] MEDS: ASPIRIN 81MG ENTERIC TABLET PO SCH (10:16)
[2021-05-18] MEDS: guaiFENesin ER 600 MG TAB PO SCH (10:16)
[2021-05-18 10:17] VITALS: BP 161/95
[2021-05-18] MEDS ORDERED: AMLO1TAB25 PO (10:37)
[2021-05-18] MEDS ORDERED: PRED10TA2 PO (10:37)
[2021-05-18] MEDS ORDERED: MUCI600T31 PO (10:37)
[2021-05-18 12:00] VITALS: BP 152/89
--- NOTE | 2021-05-18 15:37 | DS.PDOC ---
Discharge Summary General Date of Admission May 12, 2021 at 18:02 Date of Discharge 05/18/2021 Discharge Summary PROCEDURES PERFORMED DURING STAY: [None]. ADMITTING DIAGNOSES/ DISCHARGE DIAGNOSES: Acute hypoxic respiratory failure - likely 2/2 COVID19 pneumonia HTN Probable LLOYD Right Renal cyst Multiple hepatic cysts s/p Rash Vitamin D deficiency DVT prophylaxis COMPLICATIONS/CHIEF COMPLAINT: Shortness of breath HISTORY OF PRESENT ILLNESS: Patient is a 71-year-old male with a PMHx of HTN, LLOYD, Recently diagnosed COVID19 (05/06) who was admitted on 05/06 to 05/08 for COVID19 has presented to the ER on 05/09, then left AMA. Presented back to [facility] again on 05/12 with worsening hypoxia. Patient was admitted to the hospital service for further evaluation and treatment. Patient was seen and examined at the bedside. Patient reports that this evening was uneventful. He did sleep a little bit more overnight, but is tired this morning. He denies any chest pain or palpitations. Reports that his breathing is doing better. No significant cough. No nausea, vomiting, abdominal pain, diarrhea, or discomfort with urination. HOSPITAL COURSE: Acute hypoxic respiratory failure - likely 2/2 COVID19 pneumonia - Patient reports that his breathing is doing better. He denies any significant cough - Patient has been titrated down to 2 L of nasal cannula oxygen - Hemodynamically stable / afebrile - COVID19 positive on 05/06 - Inflammatory markers have trended down - Imaging noted - s/p Remdesivir (5 day course) - c/w Dexamethasone (Day #7); will c/w Prednisone taper on discharge - c/w Incentive spirometry / Acapella / Mucinex / Prone positing - Patient has worked with physical therapy and has been cleared for discharge home - Will have outpatient follow-up with primary care provider within the next 7 days HTN - BP has improved - s/p Hydralazine IV x 1 dose - c/w Diltiazem / Telmisartan - Will c/w adjusted dose of Amlodipine on discharge Probable LLOYD - Likely will need outpatient sleep study; will have outpatient follow up with PCP Right Renal cyst - Will have outpatient follow up with PCP for repeat imaging Multiple hepatic cysts - Will have outpatient follow up with PCP for repeat imaging s/p Rash - Noted to have improvement - s/p Permethrin on prior admission - c/w Hydroxyzine PRN Vitamin D deficiency - c/w Supplementation DVT prophylaxis - c/w Lovenox at weight based prophylactic dosing DISCHARGE MEDICATIONS: Please see below. ALLERGIES: Please see below. PHYSICAL EXAMINATION ON DISCHARGE: Vitals (See below) General: Patient is sitting up in bed, appears to be comfortable, not in any acute distress, is oriented 3 and awake, alert HEENT: Normocephalic and atraumatic CVS: +S1S2 Lungs: There appears to be fair air entry bilaterally without any auscultated rhonchi, wheezing or crackles notes Abdomen: Abdomen remains soft without any significant distention or tenderness Extremities: Lower extremities do not reveal any evidence of edema LABORATORY DATA: Please see below. IMAGING: CXR 05/12: Minimal increase in bilateral peripheral infiltrates. ACTIVITY: [As tolerated]. DISCHARGE PLAN: Follow-up with primary provider within the next 7 days Remain compliant with treatment plan and medications Return to the ER if you experience any problems DISPOSITION: Home with services DISCHARGE CONDITION: [Stable]. TIME SPENT ON DISCHARGE: 35 minutes. Vital Signs/I&Os Vital Signs Date Time Temp Pulse Resp B/P (MAP) Pulse Ox O2 Delivery O2 Flow Rate FiO2 05/18/21 12:00 97.6 62 17 152/89 (110) 92 High Flow Cannula 2.0 05/12/21 20:49 I&O- Last 24 Hours up to 6 AM 05/18/21 05:59 Intake Total 1910 ml Output Total 950 ml Balance 960 ml Laboratory Data Labs 24H Laboratory Tests 2 05/18/21 05:48: Immature Granulocyte % (Auto) 1.3, Neutrophils (%) (Auto) 87.3H, Lymphocytes (%) (Auto) 4.4L, Monocytes (%) (Auto) 6.8, Eosinophils (%) (Auto) 0.0, Basophils (%) (Auto) 0.2, Neutrophils # (Auto) 10.5H, Lymphocytes # (Auto) 0.5L, Monocytes # (Auto) 0.8, Eosinophils # (Auto) 0.0, Basophils # (Auto) 0.0, Nucleated Red Blood Cells % (auto) 0.0, Prothrombin Time 13.6, Prothromb Time International Ratio 1.00, Activated Partial Thromboplast Time 31.3, Fibrinogen 457H, Anion Gap 7L, Glomerular Filtration Rate > 60.0, Calcium Level 8.7L, Magnesium Level 2.6H, Ferritin 435H, Total Bilirubin 0.6, Direct Bilirubin 0.2, Aspartate Amino Transf (AST/SGOT) 12, Alanine Aminotransferase (ALT/SGPT) 39, Alkaline Phosphatase 41L, Lactate Dehydrogenase 261H, Total Creatine Kinase 60, Troponin I < 0.02, C-Reactive Protein, Quantitative 1.10H, HV-Evs-B-Type Natriuretic Pep tide 66, Total Protein 5.9L, Albumin 2.8L, Albumin/Globulin Ratio 0.9, Procalcitonin <0.05 CBC/BMP Laboratory Tests 05/18/21 05:48 Microbiology Microbiology 05/12/21 Blood Culture - Final, Complete NO GROWTH AFTER 5 DAYS 05/12/21 Blood Culture - Final, Complete NO GROWTH AFTER 5 DAYS Discharge Medications Scheduled Amlodipine Besylate (Amlodipine Besylate) 10 Mg Tablet, 10 MG PO DAILY Ascorbic Acid (Vitamin C) 500 Mg Tablet, 500 MG PO DAILY, (Reported) Aspirin (Aspirin EC) 81 Mg Tablet.dr, 81 MG PO DAILY, (Reported) Cholecalciferol (Vitamin D3) (Vitamin D3) 1,000 Unit Tablet, 1,000 UNITS PO DAILY, (Reported) Guaifenesin (Mucinex) 600 Mg Tab.er.12h, 600 MG PO BID Ipratropium/Albuterol Sulfate (Combivent Respimat 20-100 Mcg) 4 Gm Mist.inhal, 1 PUFF INH QID, (Reported) [place]-3 Fatty Acids/Fish Oil (Fish Oil 1,000 mg Capsule) 1 Each Capsule, 1,000 MG PO DAILY, (Reported) Prednisone (Prednisone) 10 Mg Tablet, 10 MG PO TAPER Take 4 tabs daily x 3 days, then 3 tabs daily x 3 days, then 2 tabs daily x 3 days, then 1 tab daily x 3 days and stop Telmisartan (Telmisartan) 80 Mg Tablet, 80 MG PO QHS, (Reported) dilTIAZem HCl (Diltiazem 24Hr Cd) 240 Mg Cap.er.24h, 240 MG PO DAILY, (Reported) Scheduled PRN Acetaminophen (Acetaminophen) 325 Mg Tablet, 650 MG PO Q4H PRN for PAIN LEVEL 1- 4, (Reported) Hydroxyzine HCl (Hydroxyzine HCl) 25 Mg Tablet, 25 MG PO QHS PRN for ITCHING, (Reported) Allergies Coded Allergies: No Known Drug Allergies (Verified Allergy, Unknown, 11/24/20) ELISABET KILPATRICK MD May 18, 2021 15:37
== END 2021-05-18 14:00 | disposition home health service (06) | DRG 177 ==
LOC: M ED 14:11 → ENRESERV 16:32 → M ED INP 18:02 → M 4MAIN 20:08
PROVIDERS: ADMIT Internal Medicine; ATTEND Internal Medicine
PROC: XW033E5 Introduction of Remdesivir Anti-infective into Peripheral Vein, Percutaneous Approach, New Technology Group 5 (ICD-10-PCS; principal; 2021-05-12)
PROC: 3E0333Z Introduction of Anti-inflammatory into Peripheral Vein, Percutaneous Approach (ICD-10-PCS; 2021-05-12)
DX: U07.1 COVID-19 (principal); J96.01 Acute respiratory failure with hypoxia; J12.82 Pneumonia due to coronavirus disease 2019; I10 Essential (primary) hypertension; G47.33 Obstructive sleep apnea (adult) (pediatric); N28.1 Cyst of kidney, acquired; K76.89 Other specified diseases of liver; I16.0 Hypertensive urgency; Z79.82 Long term (current) use of aspirin; Z79.899 Other long term (current) drug therapy; Z79.52 Long term (current) use of systemic steroids; R21 Rash and other nonspecific skin eruption; E55.9 Vitamin D deficiency, unspecified

== ENCOUNTER → 2021-06-16 | Outpatient (CLI) | payer MEDICARE ==
[~2021-06-16] MED LIST changes: +AMLO1TAB25 PO; +APAP325T4 PO; +MUCI600T31 PO
--- NOTE | 2021-06-16 15:29 | REP ---
INDICATION: OTHER PULMONARY EMBOLISM WITHOUT ACUTE COR PULMONALE COMPARISON: 05/12/2021 as well as other prior exams. TECHNIQUE: PA/Lateral FINDINGS: Diffuse patchy infiltrates throughout the right lung have mildly increased. There are mild streaky infiltrates in the left lung base which appear essentially unchanged. The heart is not enlarged. The mediastinal silhouette is unchanged. The visualized osseous structures are intact. IMPRESSION: Diffuse right lung infiltrates have increased. Mild streaky left basilar infiltrate is stable. <Electronically signed by Matti Patton > 06/16/21 [id number]
[2021-06-16 15:32] LABS: BASO # 0.1 10^3/uL (0.0-0.2); BASO % 0.7 % (0.0-1.0); EOS # 0.3 10^3/uL (0.0-0.5); EOS % 2.8 % (0.0-3.0); HEMATOCRIT 33.4 % (42.0-52.0); HEMOGLOBIN 10.9 g/dl (13.5-17.5); LYMPH # 1.3 10^3/uL (1.5-5.0); LYMPH % 14.4 % (24.0-44.0); MEAN CORPUSCULAR HEMOGLOBIN 29.5 pg (27.0-33.0); MEAN CORPUSCULAR HGB CONC 32.6 g/dl (32.0-36.5); MEAN CORPUSCULAR VOLUME 90.5 fl (80.0-96.0); MONO # 1.1 10^3/uL (0.0-0.8); MONO % 11.8 % (2.0-8.0); NEUTROPHILS # 6.4 10^3/uL (1.5-8.5); NEUTROPHILS % 69.5 % (36.0-66.0); PLATELET COUNT, AUTOMATED 526 10^3/uL (150-450); RED BLOOD COUNT 3.69 10^6/uL (4.30-6.10); WHITE BLOOD COUNT 9.2 10^3/uL (4.0-10.0)
== END ==
LOC: M LAB 14:03
PROVIDERS: ATTEND Student in an Organized Health Care Education/Training Program
DX: R91.8 Other nonspecific abnormal finding of lung field (principal); I26.99 Other pulmonary embolism without acute cor pulmonale

== ENCOUNTER → 2021-06-16 | Outpatient (REF) | payer MEDICARE | LOC: M SFHCPLAZ 13:12 | PROVIDERS: ATTEND Student in an Organized Health Care Education/Training Program | DX: I26.99 Other pulmonary embolism without acute cor pulmonale (principal) ==

== ENCOUNTER → 2021-06-17 | Outpatient (CLI) | payer MEDICARE | LOC: M PLALAB 09:43 | PROVIDERS: ATTEND Student in an Organized Health Care Education/Training Program | DX: J18.9 Pneumonia, unspecified organism (principal) ==

== ENCOUNTER 2021-07-02 17:26 | Emergency (ER) | payer MEDICARE ==
[~2021-07-02] VITALS: Ht 177.8 cm; Wt 81.9 kg
[2021-07-02 19:16] LABS: BASO # 0.1 10^3/uL (0.0-0.2); BASO % 0.8 % (0.0-1.0); EOS # 0.9 10^3/uL (0.0-0.5); EOS % 11.9 % (0.0-3.0); HEMATOCRIT 36.9 % (42.0-52.0); HEMOGLOBIN 11.8 g/dl (13.5-17.5); LYMPH # 1.8 10^3/uL (1.5-5.0); LYMPH % 24.5 % (24.0-44.0); MEAN CORPUSCULAR HEMOGLOBIN 29.5 pg (27.0-33.0); MEAN CORPUSCULAR VOLUME 92.3 fl (80.0-96.0); MONO # 0.7 10^3/uL (0.0-0.8); MONO % 9.7 % (2.0-8.0); NEUTROPHILS % 52.8 % (36.0-66.0); PLATELET COUNT, AUTOMATED 395 10^3/uL (150-450); WHITE BLOOD COUNT 7.5 10^3/uL (4.0-10.0)
[2021-07-02 19:37] LABS: BLOOD UREA NITROGEN 16 MG/DL (7-18); CALCIUM LEVEL 9.2 MG/DL (8.8-10.2); CARBON DIOXIDE LEVEL 29 MEQ/L (21-32); CHLORIDE LEVEL 104 MEQ/L (98-107); GLOMERULAR FILTRATION RATE > 60.0 (>42); GLUCOSE, FASTING 101 MG/DL (70-100); POTASSIUM SERUM 4.3 MEQ/L (3.5-5.1); SODIUM LEVEL 139 MEQ/L (136-145)
[2021-07-02] MEDS: LABETALOL 100MG/20ML VIAL IV STA (20:34)
--- NOTE | 2021-07-02 20:57 | REPVR ---
PROCEDURE INFORMATION: Exam: XR Chest Exam date and time: 07/02/2021 8:48 PM Age: 71 years old Clinical indication: Other: Hypertensive TECHNIQUE: Imaging protocol: XR of the chest. Views: 1 view. COMPARISON: 1. CR Chest, 2 view PA, Lat 2021-06-16 14:19 2. CR PORTABLE CHEST X-RAY 2021-05-12 14:52 3. CR PORTABLE CHEST X-RAY 2021-05-09 15:09 FINDINGS: Lungs: Unchanged mild lung opacities, suspect subsegmental atelectasis and or scarring. Cannot exclude infection. Pleural spaces: Unremarkable. No pleural effusion. No pneumothorax. Heart/Mediastinum: Unremarkable. No cardiomegaly. Bones/joints: Unremarkable. IMPRESSION: No acute findings. Electronically signed by: Garret Reyes On 07/02/2021 20:56:13 PM
[2021-07-02] MEDS ORDERED: ACETAMINOPHEN TAB 650MG DOSE (2X325MG) PO PRN (22:40)
--- NOTE | 2021-07-02 23:22 | HPEPDOC ---
General Date of Admission Jul 02, 2021 at 17:27 Date of Service: Jul 02, 2021 Attending Physician: Jagdish Cano Chief Complaint The patient is a 71-year-old male admitted with a reason for visit of Hypertensive Urgency. History of Present Illness CHIEF COMPLAINT: High blood pressure HISTORY OF PRESENT ILLNESS: This is a 71-year-old gentleman who presents to [facility] ER with chief complaint of high blood pressure. Patient states that he was told by his primary care doctor to measure his blood pressure 4 times a day. He states he takes 240 mg of diltiazem in the morning and telmisartan 80 mg at night. He states that around 5 PM this afternoon he measured his blood pressure and it was 188/103. He states that his primary care has advised him that if his systolic blood pressure is greater than 150 to present to the ER and thus he did for further assessment. He denies any vision changes, lightheadedness, presyncope, syncope, headaches, weakness (both generalized and unilateral), chest pain, shortness of breath but deviated from his baseline since having had Covid in April. He states that he follows somewhat of a 2 g sodium diet but eats a handful of potato chips couple of times a week. He denies any increased lower extremity swelling that deviates from his baseline. He did have a very elevated blood pressure back in November when he was admitted for hypertensive emergency and had neuro changes which includes diplopia that was intermittent. He states that this time he did not have any symptoms. Patient is not Covid vaccinated. He denies any travel outside of the state or country recently in direct contact with anyone sick. Patient had a history of hypertensive emergency with 4-day history of diplopia back in the summer (November) where his systolic blood pressure was 250s. PAST MEDICAL/SURGICAL HISTORY: HTN Probable LLOYD Right Renal cyst Multiple hepatic cysts s/p COVID 19 back in Apr Throat surgery to remove his uvula and attempt to assist with obstructive sleep apnea Hydrocele repair (remote hx) Tonsillectomy SOCIAL HISTORY: Denies smoking, EtOH or illicit drug use. FAMILY HISTORY: Father has hypertension and myocardial infarction REVIEW OF SYSTEMS: General: Denies fever, shaking chills, unintentional weight loss HEENT: Denies changes in vision including blurry vision or double vision, or hearing loss nasal congestion or sore throat Heart: Denies chest pain or chest pressure or discomfort, or palpitations, or lower extremity edema Pulm: Denies cough or sputum production. Patient had Covid in April had deconditioning but reports that shortness of breath has drastically improved GI: Denies nausea vomiting diarrhea abdominal pain or bloody stools Psych: Denies sadness or loss of interest in doing things, no thoughts of self- harm or suicidal ideation PHYSICAL EXAM: VS: SEE BELOW GENERAL: The patient is a well-developed, well-nourished in no apparent distress. AAOx3 NEURO: No focal neurological deficits. HEENT: Head is normocephalic and atraumatic. Extraocular muscles are intact. Pupils are equal, round, and reactive to light and accommodation. Nares appears normal. Moist mucous membranes. PULM: Clear to auscultation bilaterally. No wheezing, rhonchi or rales appreciated. CARDIO: Normal S1, S2. no significant murmurs, gallops, rubs or clicks. No signs of peripheral edema ABDOMEN: Soft, nontender, and nondistended. Normal bowel sounds. No significant organomegaly appreciated. EXTREMITIES: No cyanosis, clubbing, rash, lesions. IMAGING: Chest radiograph impression: No acute findings IMPRESSION AND PLAN: 1.hypertensive urgency. Upon arrival to the ER his blood pressure was 252/151. Patient was given 1 dose of 10 mg IV labetalol in the ER and his chest radiograph did not show anything impressive. Patient does not have any neuro symptoms. Short-term goal of management is to reduce the blood pressure to less or equal to 160 over less to or equal to 100. Will give 0.2mg po clonidine and resume home meds. We will try and avoid lowering the patient's map by more than 25 to 30% over the first several hours. Will order a renal doppler u/s to r/o renal artery stenosis. Will order for a trop for am. 2. Anemia. will get FOBT. 3. Eosinophilia. Denies sob. F/u with PCP. DVT ppx: TEDS/SCDS CODE STATUS: Full Home Medications Scheduled Ascorbic Acid (Vitamin C) 1,000 Mg Tablet, 1,000 MG PO DAILY, (Reported) Aspirin (Aspirin EC) 81 Mg Tablet.dr, 81 MG PO DAILY, (Reported) Cholecalciferol (Vitamin D3) (Vitamin D3) 125 Mcg Capsule, 125 MCG PO DAILY, (Reported) [place]-3 Fatty Acids/Fish Oil (Fish Oil 1,000 mg Capsule) 1 Each Capsule, 1,000 MG PO DAILY, (Reported) Telmisartan (Telmisartan) 80 Mg Tablet, 80 MG PO QHS, (Reported) dilTIAZem HCl (Diltiazem 24Hr Cd) 240 Mg Cap.er.24h, 240 MG PO DAILY, (Reported) Allergies Coded Allergies: No Known Drug Allergies (Verified Allergy, Unknown, 11/24/20) GME ATTESTATION GME ATTESTATION My faculty preceptor for this patient encounter was physically present during the encounter and was fully available. All aspects of the patient interview, examination, medical decision making process, and medical care plan development were reviewed and approved by the faculty preceptor. The faculty preceptor is aware and concurs with the plan as stated in the body of this note and will attest to such by his/her cosignature. ATTENDING NOTE Patient was seen in the emergency department. He presented with high blood pressure in 180s at home. He has had no chest pain, dizziness, extremity weakness, sensory symptoms on extremities or face, slurred speech, blood in the urine or blurry vision. He has past history of hypertension. Recently, of his medication regimen, amlodipine was discontinued. He is at present on telmisartan and diltiazem for hypertension. He did not use excessive salt in his diet yesterday. He has not eaten any chips or fries or such stuff with excessive salt in several days now. He has not used Advil or Aleve for more than 2 weeks now. He has been using his medications appropriately without missing the doses. He does not have past history of coronary artery disease. He uses aspirin every day. He does not have black tarry stools but has some dark stools from time to time. He does not have abdominal pain. He has no blood in the stool. Past medical history: Hypertension Social history: Does not abuse tobacco. Family history: No history of premature coronary artery disease Vitals: Reviewed Examination: Cardiovascular: Normal heart sounds. No murmur. Respiratory: No crackles or rhonchi. Abdomen: No tenderness. Genitourinary: No evidence of renal artery bruit. Labs: Reviewed Imaging, independent review of chest x-ray: Dilated ascending aorta. Assessment and plan: 1. Hypertensive urgency: Blood pressure is reduced with labetalol administration in the emergency department. Clonidine 0.2 mg to be administered now. May be required to be started on hydrochlorothiazide from a.m. 2. Anemia: Differential diagnosis includes chronic blood loss anemia from aspirin-related to gastric erosions, and alternative. Fecal occult blood to be tested. 3. Eosinophilia: Patient admits to the history of environmental allergies. Outpatient follow-up with primary care physician is recommended. Mary Ramires DO Jul 02, 2021 22:56 Jagdish Cano Jul 03, 2021 00:46
[2021-07-02 23:27] LABS: FREE T4 0.98 NG/DL (0.76-1.46)
[2021-07-02] MEDS ORDERED: VITA100091 PO (23:39)
[2021-07-02] MEDS ORDERED: CHOL50003 PO (23:39)
[2021-07-02] MEDS ORDERED: HOME MED LIST COMPLETE! XX SCH (23:40)
[2021-07-03] MEDS: cloNIDine 0.2 MG TAB PO ONE (00:29)
--- NOTE | 2021-07-03 06:43 | ECGEPIP ---
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
[2021-07-03 07:10] LABS: HEMATOCRIT 35.1 % (42.0-52.0); HEMOGLOBIN 11.3 g/dl (13.5-17.5); MEAN CORPUSCULAR HEMOGLOBIN 29.7 pg (27.0-33.0); MEAN CORPUSCULAR HGB CONC 32.2 g/dl (32.0-36.5); MEAN CORPUSCULAR VOLUME 92.1 fl (80.0-96.0); PLATELET COUNT, AUTOMATED 332 10^3/uL (150-450); RED BLOOD COUNT 3.81 10^6/uL (4.30-6.10); WHITE BLOOD COUNT 6.4 10^3/uL (4.0-10.0)
[2021-07-03 07:33] LABS: BLOOD UREA NITROGEN 14 MG/DL (7-18); CALCIUM LEVEL 8.9 MG/DL (8.8-10.2); CARBON DIOXIDE LEVEL 29 MEQ/L (21-32); CHLORIDE LEVEL 105 MEQ/L (98-107); CREATININE FOR GFR 0.92 MG/DL (0.70-1.30); GLOMERULAR FILTRATION RATE > 60.0 (>42); GLUCOSE, FASTING 112 MG/DL (70-100); POTASSIUM SERUM 3.8 MEQ/L (3.5-5.1); SODIUM LEVEL 138 MEQ/L (136-145)
[2021-07-03] MEDS: ASPIRIN 81MG ENTERIC TABLET PO SCH (08:51)
[2021-07-03] MEDS: CHLORTHALIDONE 12.5MG PER 1/2 TABLET PO ONE (10:13)
[2021-07-03] MEDS ORDERED: CHLO125TA PO (11:23)
[2021-07-03 12:00] VITALS: BP 139/86
--- NOTE | 2021-07-03 14:53 | DS.PDOC ---
Discharge Summary General Date of Admission Date of Discharge Jul 03, 2021 Primary Care Physician: Tyler Perez DO Attending Physician: SEB OLIVA DO Discharge Summary PROCEDURES PERFORMED DURING STAY: None. ADMITTING DIAGNOSES: 1. Hypertensive urgency. 2. Anemia 3. Eosinophilia DISCHARGE DIAGNOSES: 1. Hypertensive urgency, improved 2. Anemia 3. Eosinophilia COMPLICATIONS/CHIEF COMPLAINT: Hypertensive Urgency. HISTORY OF PRESENT ILLNESS: Patient is a 71-year-old male who presented to the ED on 07/02/2021 after seeing high blood rate pressure readings on his home blood pressure monitor (188/103) around 5 PM 07/02/2021. Upon presentation to the ED his blood pressure was 252/141. He denied any symptoms of end organ damage such as vision changes, lightheadedness, presyncope, syncope, headaches, weakness, chest pain, SOB. He reports taking his home blood pressure medications as directed. Of note, patient had Covid at the beginning of May and was placed on amlodipine in addition to cardiac and telmisartan for further management. He was taken off amlodipine at subsequent follow-ups because it was believed his elevated blood sugars were due to a response to the virus. HOSPITAL COURSE: 07/02/2021: Patient presented to the ED after a high blood pressure reading on his home device. In the ED his blood pressure reading was 252/141. He was given 10 mg IV labetalol in the ER, and 0.2 mg p.o. clonidine as well. 07/03/2021: Patient's blood pressure at 7 AM this morning was 160/98. He was seen and examined at bedside. He was then given on 12.5 mg chlorthalidone. His blood pressure at noon today is 139/86. He has been deemed stable for discharge and will follow up with PCP. Denies diplopia, blurry vision, numbness, headache, chest pain, shortness of breath. DISCHARGE MEDICATIONS: Please see below. ALLERGIES: Please see below. PHYSICAL EXAMINATION ON DISCHARGE: VITAL SIGNS: Please see below. GENERAL: 71-year-old, male, lying in bed, no acute distress HEENT: Head normocephalic/atraumatic, eyes PERRLA CARDIOVASCULAR EXAMINATION: Regular rate and rhythm, no murmurs, no rubs, no gallops RESPIRATORY EXAMINATION: Clear to auscultation bilaterally ABDOMINAL EXAMINATION: Normoactive bowel sounds and nontender to palpation EXTREMITIES: No lower extremity edema appreciated NEUROLOGICAL EXAMINATION: No gross deficits appreciated LABORATORY DATA: Please see below. IMAGING: CXR 07/02/2021: No acute findings PROGNOSIS: Stable ACTIVITY: As tolerated. DIET: 2 g sodium diet DISPOSITION: Home with close follow-up advised DISCHARGE INSTRUCTIONS AND ITEMS TO FOLLOW-UP ON OUTPATIENT: 1. Continue Cartia 240 mg in the morning and telmisartan 80 mg at night 2. Begin chlorthalidone 12.5 mg (HALF of 25mg tablet) every morning, with food 3. Keep blood pressure log with the following readings: In a.m. before meds, 1 hour after morning meds, mid afternoon, before nighttime meds, and again prior to going to sleep 4. A renal ultrasound/doppler has been ordered for you to get outpatient (needs to be done in morning and fasting for at least 12 hours) 5. Attend follow-up with your PCP on July 28 at 9:15 AM 6. Contact PCP/PCPs office if systolic (top number) BP = 180 or diastolic (bottom number) BP = 100 7. If systolic BP greater than or equal to 200, and/or symptoms return/arise (blurry vision, double vision, lightheadedness, headache, chest pain, etc), go to ED. DISCHARGE CONDITION: Stable. TIME SPENT ON DISCHARGE: 35 minutes. Vital Signs/I&Os Vital Signs Date Time Temp Pulse Resp B/P (MAP) Pulse Ox O2 Delivery O2 Flow Rate FiO2 07/03/21 12:00 97.6 56 18 139/86 (103) 96 07/03/21 01:43 Room Air Laboratory Data Labs 24H Laboratory Tests 2 07/02/21 18:44: Immature Granulocyte % (Auto) 0.3, Neutrophils (%) (Auto) 52.8, Lymphocytes (%) (Auto) 24.5, Monocytes (%) (Auto) 9.7H, Eosinophils (%) (Auto) 11.9H, Basophils (%) (Auto) 0.8, Neutrophils # (Auto) 4.0, Lymphocytes # (Auto) 1.8, Monocytes # (Auto) 0.7, Eosinophils # (Auto) 0.9H, Basophils # (Auto) 0.1, Nucleated Red Blood Cells % (auto) 0.0, Anion Gap 6L, Glomerular Filtration Rate > 60.0, Calcium Level 9.2, Thyroid Stimulating Hormone (TSH) 1.720, Free Thyroxine 0.98 07/02/21 20:46: POC Troponin I (Misc) 0.02 07/03/21 06:52: Nucleated Red Blood Cells % (auto) 0.0, Anion Gap 4L, Glomerular Filtration Rate > 60.0, Calcium Level 8.9 07/03/21 10:19: SARS Antigen (LFIA) NEGATIVE CBC/BMP Laboratory Tests 07/02/21 18:44 07/03/21 06:52 Discharge Medications Scheduled Ascorbic Acid (Vitamin C) 1,000 Mg Tablet, 1,000 MG PO DAILY, (Reported) Aspirin (Aspirin EC) 81 Mg Tablet.dr, 81 MG PO DAILY, (Reported) Chlorthalidone (Chlorthalidone) 25 Mg Tablet, 12.5 TAB PO DAILY Take 1/2 tab (12.5mg), every morning with food Cholecalciferol (Vitamin D3) (Vitamin D3) 125 Mcg Capsule, 125 MCG PO DAILY, (Reported) [place]-3 Fatty Acids/Fish Oil (Fish Oil 1,000 mg Capsule) 1 Each Capsule, 1,000 MG PO DAILY, (Reported) Telmisartan (Telmisartan) 80 Mg Tablet, 80 MG PO QHS, (Reported) dilTIAZem HCl (Diltiazem 24Hr Cd) 240 Mg Cap.er.24h, 240 MG PO DAILY, (Reported) Allergies Coded Allergies: No Known Drug Allergies (Verified Allergy, Unknown, 11/24/20) GME ATTESTATION GME ATTESTATION My faculty preceptor for this patient encounter was physically present during the encounter and was fully available. All aspects of the patient interview, examination, medical decision making process, and medical care plan development were reviewed and approved by the faculty preceptor. The faculty preceptor is aware and concurs with the plan as stated in the body of this note and will attest to such by his/her cosignature. ATTENDING NOTE I, eSb Oliva DO, have independently examined this patient and performed my own physical exam, as well as reviewed the documentation and edited where ne cessary. I have discussed in detail with the resident the findings and plan of treatment as documented by the resident and edited their note. I agree with their findings and treatment plan and have edited their documentation. I will continue to follow the patient during this hospital stay. Tyler Perez DO Jul 03, 2021 14:53 SEB OLIVA DO Jul 03, 2021 17:21
[2021-07-03] MEDS ORDERED: TELMISARTAN 20 MG TAB PO SCH (21:00)
== END 2021-07-03 13:23 | disposition home or self-care (01) ==
LOC: M ED 17:26 → M ED INP 17:27 → UNDOADMOB 17:27 → ENRESERV 07-03 12:17 → CANRESERV 07-03 12:17 → M ED 07-03 13:23
DX: I16.0 Hypertensive urgency (principal); G47.33 Obstructive sleep apnea (adult) (pediatric); Z86.16 Personal history of COVID-19; D64.9 Anemia, unspecified; Z79.82 Long term (current) use of aspirin; Z79.899 Other long term (current) drug therapy

== ENCOUNTER → 2021-07-14 | Outpatient (CLI) | payer MEDICARE ==
[~2021-07-14] MED LIST changes: +CHLO125TA PO; +CHOL50003 PO; +VITA100091 PO
--- NOTE | 2021-07-14 18:00 | REP ---
INDICATION: HYPERTENSIVE URGENCY COMPARISON: None TECHNIQUE: Real time magana scale ultrasound examination using curved array transducer followed by color Doppler evaluation of the renal vasculature. FINDINGS: The bilateral kidneys are normal in appearance. Right kidney measures 10.9 x 5.5 x 6.0 cm. Left kidney measures 11.3 x 5.3 x 6.3 cm. Color Doppler evaluation. Peak aortic velocity: 104 centimeters/second RIGHT KIDNEY Renal arterial velocity: 95 centimeters/second Renal-aortic ratio: 0.9 Intrarenal resistive indices: 0.52-0.58 Intrarenal acceleration times: 0.020-0.022 LEFT KIDNEY Renal arterial velocity: 88 centimeters/second Renal-aortic ratio: 0.7 Intrarenal resistive indices: 0.48-0.62 Intrarenal acceleration times: 0.022-0.060 IMPRESSION: 1. Kidneys appear normal. 2. Doppler interegation without sonographic evidence for renal arterial stenosis. <Electronically signed by Bjorn Morris > 07/14/21 [id number]
== END ==
LOC: M WHC 10:50
PROVIDERS: ATTEND Student in an Organized Health Care Education/Training Program
DX: I16.0 Hypertensive urgency (principal)

== ENCOUNTER → 2021-09-25 | Outpatient (CLI) | payer MEDICARE ==
[~2021-09-25] MED LIST changes: -D31000TA2 PO; +VITA100093 PO
[2021-09-25 13:41] LABS: ALBUMIN 3.9 GM/DL (3.2-5.2); ALT/SGPT 19 U/L (12-78); BILIRUBIN,TOTAL 0.3 MG/DL (0.2-1.0); BLOOD UREA NITROGEN 21 MG/DL (7-18); CALCIUM LEVEL 9.2 MG/DL (8.8-10.2); CARBON DIOXIDE LEVEL 32 MEQ/L (21-32); CHLORIDE LEVEL 103 MEQ/L (98-107); CHOLESTEROL LEVEL 248 MG/DL (<200); CREATININE FOR GFR 1.06 MG/DL (0.70-1.30); GLOMERULAR FILTRATION RATE > 60.0 (>42); GLUCOSE, FASTING 97 MG/DL (70-100); HDL CHOLESTEROL 50 MG/DL (>40); LDL CHOLESTEROL 184 MG/DL (<100); NON-HDL-C 198 MG/DL; POTASSIUM SERUM 3.9 MEQ/L (3.5-5.1); SODIUM LEVEL 141 MEQ/L (136-145); TOTAL PROTEIN 6.5 GM/DL (6.4-8.2); TRIGLYCERIDES LEVEL 72 MG/DL (<150)
== END ==
LOC: M PLALAB 08:25
PROVIDERS: ATTEND Student in an Organized Health Care Education/Training Program
DX: I10 Essential (primary) hypertension (principal)

== ENCOUNTER → 2021-12-05 | Outpatient (CLI) | payer MEDICARE ==
[~2021-12-05] MED LIST changes: +ATOR1TAB21 PO; +CHLO25TA PO
== END ==
LOC: M LABSMTC 10:21
PROVIDERS: ATTEND Anesthesiology
DX: Z01.812 Encounter for preprocedural laboratory examination (principal); Z20.822 Contact with and (suspected) exposure to COVID-19

== ENCOUNTER 2021-12-10 09:50 | Day surgery (SDC) | payer MEDICARE ==
[~2021-12-10] VITALS: Ht 177.8 cm; Wt 83.9 kg
[~2021-12-10 09:50] MED LIST changes: +NS 1,000 ML IV ONE
[2021-12-10] MEDS ORDERED: propofoL 200 MG/20 ML VIAL As Ordered ONE ×2 (12:08→12:14)
[2021-12-10] MEDS ORDERED: LIDOCAINE 2% 100MG/5ML SDV (FOR ANES.) As Ordered ONE (12:08)
[2021-12-10 13:03] VITALS: BP 167/85
== END 2021-12-10 13:04 | disposition home or self-care (01) ==
LOC: M OPP 09:50
PROVIDERS: ATTEND Surgery
DX: Z12.11 Encounter for screening for malignant neoplasm of colon (principal); Z80.0 Family history of malignant neoplasm of digestive organs; K57.30 Diverticulosis of large intestine without perforation or abscess without bleeding; K64.8 Other hemorrhoids; G47.33 Obstructive sleep apnea (adult) (pediatric); Z79.02 Long term (current) use of antithrombotics/antiplatelets; Z79.82 Long term (current) use of aspirin; Z79.899 Other long term (current) drug therapy

== ENCOUNTER → 2021-12-26 | Outpatient (CLI) | payer MEDICARE ==
[~2021-12-26] MED LIST changes: -NS 1,000 ML IV ONE
[2021-12-26 10:11] LABS: BASO # 0.1 10^3/uL (0.0-0.2); BASO % 1.1 % (0.0-1.0); EOS # 0.4 10^3/uL (0.0-0.5); EOS % 5.6 % (0.0-3.0); HEMATOCRIT 41.5 % (42.0-52.0); HEMOGLOBIN 13.7 g/dl (13.5-17.5); LYMPH # 1.7 10^3/uL (1.5-5.0); LYMPH % 25.2 % (24.0-44.0); MEAN CORPUSCULAR HEMOGLOBIN 29.7 pg (27.0-33.0); MONO # 0.7 10^3/uL (0.0-0.8); MONO % 10.6 % (2.0-8.0); NEUTROPHILS # 3.8 10^3/uL (1.5-8.5); NEUTROPHILS % 57.3 % (36.0-66.0); PLATELET COUNT, AUTOMATED 272 10^3/uL (150-450); RED BLOOD COUNT 4.61 10^6/uL (4.30-6.10); WHITE BLOOD COUNT 6.6 10^3/uL (4.0-10.0)
[2021-12-26 10:20] LABS: ALBUMIN 3.9 GM/DL (3.2-5.2); ALT/SGPT 18 U/L (12-78); BILIRUBIN,TOTAL 0.5 MG/DL (0.2-1.0); BLOOD UREA NITROGEN 22 MG/DL (7-18); CALCIUM LEVEL 9.6 MG/DL (8.8-10.2); CARBON DIOXIDE LEVEL 32 MEQ/L (21-32); CHLORIDE LEVEL 105 MEQ/L (98-107); CHOLESTEROL LEVEL 173 MG/DL (<200); CHOLESTEROL RISK RATIO 3.326 (<5); CREATININE FOR GFR 1.12 MG/DL (0.70-1.30); GLOMERULAR FILTRATION RATE > 60.0 (>42); GLUCOSE, FASTING 97 MG/DL (70-100); HDL CHOLESTEROL 52 MG/DL (>40); LDL CHOLESTEROL 107 MG/DL (<100); NON-HDL-C 121 MG/DL; POTASSIUM SERUM 4.4 MEQ/L (3.5-5.1); SODIUM LEVEL 142 MEQ/L (136-145); TOTAL PROTEIN 6.7 GM/DL (6.4-8.2); TRIGLYCERIDES LEVEL 71 MG/DL (<150)
== END ==
LOC: M PLALAB 08:35
PROVIDERS: ATTEND Student in an Organized Health Care Education/Training Program
DX: I10 Essential (primary) hypertension (principal); E78.00 Pure hypercholesterolemia, unspecified

== ENCOUNTER → 2022-05-27 | Outpatient (CLI) | payer MEDICARE ==
[2022-05-27 10:18] LABS: BASO # 0.1 10^3/uL (0.0-0.2); EOS # 0.4 10^3/uL (0.0-0.5); EOS % 5.6 % (0.0-3.0); HEMATOCRIT 40.9 % (42.0-52.0); HEMOGLOBIN 13.8 g/dl (13.5-17.5); LYMPH # 1.9 10^3/uL (1.5-5.0); LYMPH % 26.3 % (24.0-44.0); MEAN CORPUSCULAR HEMOGLOBIN 30.5 pg (27.0-33.0); MEAN CORPUSCULAR HGB CONC 33.7 g/dl (32.0-36.5); MEAN CORPUSCULAR VOLUME 90.5 fl (80.0-96.0); MONO # 0.9 10^3/uL (0.0-0.8); MONO % 12.7 % (2.0-8.0); NEUTROPHILS # 3.9 10^3/uL (1.5-8.5); PLATELET COUNT, AUTOMATED 264 10^3/uL (150-450); RED BLOOD COUNT 4.52 10^6/uL (4.30-6.10); WHITE BLOOD COUNT 7.2 10^3/uL (4.0-10.0)
[2022-05-27 11:18] LABS: BLOOD UREA NITROGEN 22 MG/DL (9-23); CALCIUM LEVEL 9.4 MG/DL (8.3-10.6); CARBON DIOXIDE LEVEL 32 MMOL/L (20-31); CHLORIDE LEVEL 99 MMOL/L (98-107); CHOLESTEROL LEVEL 144 MG/DL (<200); CHOLESTEROL RISK RATIO 3.17 (<5); CREATININE FOR GFR 1.09 MG/DL (0.70-1.30); GLOMERULAR FILTRATION RATE > 60.0 (>42); GLUCOSE, FASTING 99 MG/DL (74-106); HDL CHOLESTEROL 45.3 MG/DL (>40); LDL CHOLESTEROL 83.5 MG/DL (<100); NON-HDL-C 99 MG/DL; POTASSIUM SERUM 3.4 MMOL/L (3.5-5.1); SODIUM LEVEL 140 MMOL/L (136-145); TRIGLYCERIDES LEVEL 76 MG/DL (<150)
== END ==
LOC: M PLALAB 07:17
PROVIDERS: ATTEND Student in an Organized Health Care Education/Training Program
DX: E78.00 Pure hypercholesterolemia, unspecified (principal)

== ENCOUNTER → 2024-08-21 | Outpatient (CLI) | payer MEDICARE | LOC: M WUC 09:47 | PROVIDERS: ATTEND Internal Medicine | DX: M54.6 Pain in thoracic spine (principal) ==

== ENCOUNTER → 2024-09-08 | Outpatient (REF) | payer MEDICARE ==
[~2024-09-08] MED LIST changes: +GABA-1171; +SPIR-10; +TIZA10TA; +TRAM50TA2
[2024-09-11 15:31] LABS: FREE KAPPA LIGHT CHAINS SERUM 19.9 mg/L (3.3-19.4); FREE LAMBDA LIGHT CHAINS SERUM 12.9 mg/L (5.7-26.3); KAPPA/LAMBDA RATIO SERUM 1.54 (0.26-1.65)
[2024-09-12 06:53] LABS: ALBUMIN SO 4.4 g/dL (3.8-4.8); ALPHA 1 GLOBULINS SO 0.3 g/dL (0.2-0.3); ALPHA 2 GLOBULINS SO 0.8 g/dL (0.5-0.9); BETA 2 GLOBULIN SO 0.4 g/dL (0.2-0.5); BETA GLOBULIN SO 0.4 g/dL (0.4-0.6); GAMMA GLOBULINS SO 0.7 g/dL (0.8-1.7)
== END ==
LOC: M LAB REF 12:24
PROVIDERS: ATTEND Internal Medicine
DX: E83.52 Hypercalcemia (principal); C41.9 Malignant neoplasm of bone and articular cartilage, unspecified

== ENCOUNTER → 2024-09-18 | Outpatient (CLI) | payer MEDICARE ==
[~2024-09-18] MED LIST changes: +ATIV1TAB10 PO; +OXYC10TA12 PO; +PERCOCET PO; +PRED20TA PO; +QC F0.52 PO; +TIZA4CAP PO
== END ==
LOC: M PLAIMG 13:35
PROVIDERS: ATTEND Internal Medicine
DX: C79.51 Secondary malignant neoplasm of bone (principal); R91.8 Other nonspecific abnormal finding of lung field; K63.89 Other specified diseases of intestine; Z90.49 Acquired absence of other specified parts of digestive tract

== ENCOUNTER → 2024-09-21 | Outpatient (CLI) | payer MEDICARE ==
[~2024-09-21] VITALS: Ht 170.2 cm; Wt 92.9 kg
[2024-09-21 15:47] VITALS: BP 180/110; O2SAT 96
== END ==
LOC: M PAL 15:25
PROVIDERS: ATTEND Physician Assistant
DX: M54.50 Low back pain, unspecified (principal); S22.009A Unspecified fracture of unspecified thoracic vertebra, initial encounter for closed fracture; M89.8X8 Other specified disorders of bone, other site; X58.XXXA Exposure to other specified factors, initial encounter; Z79.899 Other long term (current) drug therapy

== ENCOUNTER → 2024-09-26 | Outpatient (CLI) | payer MEDICARE ==
[~2024-09-26] MED LIST changes: +MORP15TA2 PO
== END ==
LOC: M PLARAD 13:31
PROVIDERS: ATTEND Internal Medicine Hematology & Oncology
DX: C41.9 Malignant neoplasm of bone and articular cartilage, unspecified (principal)
CPT/HCPCS: 78815; A9552

== ENCOUNTER → 2024-10-04 | Outpatient (CLI) | payer MEDICARE ==
[~2024-10-04] VITALS: Ht 170.2 cm; Wt 90.7 kg
[~2024-10-04] MED LIST changes: +SENN1TAB85 PO
[2024-10-04 09:43] VITALS: BP 135/80; O2SAT 95
== END ==
LOC: M PAL 09:17
PROVIDERS: ATTEND Physician Assistant
DX: Z51.5 Encounter for palliative care (principal); M54.59 Other low back pain; M89.78 Major osseous defect, other site; Z87.310 Personal history of (healed) osteoporosis fracture; Z79.891 Long term (current) use of opiate analgesic; Z79.899 Other long term (current) drug therapy

== ENCOUNTER → 2024-10-05 | Outpatient (CLI) | payer MEDICARE | LOC: M RAD 10:17 | PROVIDERS: ATTEND Specialist | DX: M79.89 Other specified soft tissue disorders (principal) ==

== ENCOUNTER → 2024-10-18 | Outpatient (CLI) | payer MEDICARE ==
[~2024-10-18] MED LIST changes: +ONDA-282 PO; +PROHANCE 279.3MG/ML 15ML VIAL As Ordered ONE; +PROHANCE 279.3MG/ML 5ML VIAL As Ordered ONE
== END ==
LOC: M RAD 08:21
PROVIDERS: ATTEND Specialist
DX: M79.89 Other specified soft tissue disorders (principal); M47.814 Spondylosis without myelopathy or radiculopathy, thoracic region; M84.48XA Pathological fracture, other site, initial encounter for fracture; R93.2 Abnormal findings on diagnostic imaging of liver and biliary tract; R93.7 Abnormal findings on diagnostic imaging of other parts of musculoskeletal system
CPT/HCPCS: 72157; A9576

== ENCOUNTER → 2024-10-19 | Outpatient (CLI) | payer MEDICARE ==
[~2024-10-19] MED LIST changes: -PROHANCE 279.3MG/ML 15ML VIAL As Ordered ONE; -PROHANCE 279.3MG/ML 5ML VIAL As Ordered ONE
== END ==
LOC: M RAD 12:16
PROVIDERS: ATTEND Physician Assistant
DX: C79.51 Secondary malignant neoplasm of bone (principal); M41.9 Scoliosis, unspecified

== ENCOUNTER → 2024-10-19 | Outpatient (CLI) | payer MEDICARE ==
[~2024-10-19] MED LIST changes: +NS (Normal Saline) 0.9% 1,000 ML IV SCH
[2024-10-19 12:30] VITALS: TEMP 97.7
[2024-10-19] MEDS: fentaNYL 100 MCG/2 ML INJECTION IV PRN (13:55)
[2024-10-19] MEDS: LIDOCAINE 1% MDV 20ML VIAL SC ONE (13:55)
[2024-10-19] MEDS: MIDAZOLAM INJ 2MG/2ML VIAL IV PRN (13:55)
[2024-10-19 14:15] VITALS: BP 148/91; O2SAT 95
== END ==
LOC: M IRPRO 12:15
PROVIDERS: ATTEND Specialist
DX: C41.2 Malignant neoplasm of vertebral column (principal)
CPT/HCPCS: 20225; 77012; 87116; 87206; 88305; J2250; J3010

== ENCOUNTER → 2024-10-26 | Outpatient (CLI) | payer MEDICARE ==
[~2024-10-26] MED LIST changes: -NS (Normal Saline) 0.9% 1,000 ML IV SCH; +PROHANCE 279.3MG/ML 15ML VIAL As Ordered ONE; +PROHANCE 279.3MG/ML 5ML VIAL As Ordered ONE
== END ==
LOC: M RAD 06:33
PROVIDERS: ATTEND Neurological Surgery
DX: C79.51 Secondary malignant neoplasm of bone (principal); M47.812 Spondylosis without myelopathy or radiculopathy, cervical region; M48.02 Spinal stenosis, cervical region; M50.21 Other cervical disc displacement, high cervical region; M51.24 Other intervertebral disc displacement, thoracic region; M47.816 Spondylosis without myelopathy or radiculopathy, lumbar region
CPT/HCPCS: 72156; 72158; A9576

== ENCOUNTER → 2024-10-26 | Outpatient (CLI) | payer MEDICARE ==
[~2024-10-26] MED LIST changes: -PROHANCE 279.3MG/ML 15ML VIAL As Ordered ONE; -PROHANCE 279.3MG/ML 5ML VIAL As Ordered ONE
== END ==
LOC: M ONCR 13:21
PROVIDERS: ATTEND General Practice
DX: C79.51 Secondary malignant neoplasm of bone (principal); G95.29 Other cord compression; K59.03 Drug induced constipation; C80.1 Malignant (primary) neoplasm, unspecified; Z98.52 Vasectomy status; Z80.0 Family history of malignant neoplasm of digestive organs; Z80.7 Family history of other malignant neoplasms of lymphoid, hematopoietic and related tissues; Z79.891 Long term (current) use of opiate analgesic; Z79.899 Other long term (current) drug therapy

== ENCOUNTER → 2024-10-30 | Outpatient (CLI) | payer MEDICARE ==
[~2024-10-30] MED LIST changes: +OXYC20TA40 PO
== END ==
LOC: M RAD 12:19
PROVIDERS: ATTEND Physician Assistant
DX: C79.51 Secondary malignant neoplasm of bone (principal); M47.9 Spondylosis, unspecified

== ENCOUNTER → 2024-10-31 | Outpatient (CLI) | payer MEDICARE ==
[~2024-10-31] VITALS: Ht 172.7 cm; Wt 89.2 kg
[2024-10-31 10:07] VITALS: BP 178/113; O2SAT 97
== END ==
LOC: M PAL 09:51
PROVIDERS: ATTEND Physician Assistant
DX: Z51.5 Encounter for palliative care (principal); C79.51 Secondary malignant neoplasm of bone; C80.1 Malignant (primary) neoplasm, unspecified; R52 Pain, unspecified; Z79.891 Long term (current) use of opiate analgesic; Z79.899 Other long term (current) drug therapy

== ENCOUNTER → 2024-11-08 | Outpatient (RCR) | payer MEDICARE ==
[~2024-11-08] MED LIST changes: +BISA10SU PR; +LACT10SO94 PO; +ONDA-84 PO
== END ==
LOC: M ONCR 10-31 10:59
PROVIDERS: ATTEND General Practice
DX: Z51.0 Encounter for antineoplastic radiation therapy (principal); G95.20 Unspecified cord compression; C79.51 Secondary malignant neoplasm of bone

== ENCOUNTER → 2024-11-10 | Outpatient (REF) | payer MEDICARE ==
[~2024-11-10] MED LIST changes: +METO5TAB2 PO
[2024-11-10 18:46] LABS: APPEARANCE, URINE CLEAR (CLEAR); BACTERIA, URINE AUTO NEGATIVE (NEGATIVE); BILIRUBIN, URINE AUTO NEGATIVE (NEGATIVE); BLOOD, URINE BLOOD NEGATIVE (NEGATIVE); COLOR, URINE YELLOW (YELLOW); GLUCOSE, URINE (UA) AUTO NEGATIVE (NEGATIVE); KETONE, URINE AUTO NEGATIVE (NEGATIVE); LEUKOCYTE ESTERASE, URINE AUTO NEGATIVE (NEGATIVE); NITRITE, URINE AUTO NEGATIVE (NEGATIVE); PROTEIN, URINE AUTO NEGATIVE (NEGATIVE); RBC, URINE AUTO 0 /HPF (0-3); SQUAMOUS EPITHELIAL CELL UR AU 0 /HPF (0-6); UROBILINOGEN, URINE AUTO 0.2 mg/dL (0.0-2.0); WBC, URINE AUTO 0 /HPF (0-3)
== END ==
LOC: M SMT 16:57
PROVIDERS: ATTEND Urology
DX: C79.51 Secondary malignant neoplasm of bone (principal)

== ENCOUNTER → 2024-11-15 | Outpatient (CLI) | payer MEDICARE ==
[~2024-11-15] VITALS: Ht 172.7 cm; Wt 88.2 kg
[2024-11-15 10:20] VITALS: BP 142/80; O2SAT 96
== END ==
LOC: M PAL 09:54
PROVIDERS: ATTEND Physician Assistant
DX: Z51.5 Encounter for palliative care (principal); C79.49 Secondary malignant neoplasm of other parts of nervous system; Z79.891 Long term (current) use of opiate analgesic; R52 Pain, unspecified; Z79.899 Other long term (current) drug therapy; Z79.02 Long term (current) use of antithrombotics/antiplatelets

== ENCOUNTER → 2024-11-29 | Outpatient (CLI) | payer MEDICARE ==
[~2024-11-29] VITALS: Ht 170.2 cm; Wt 87.9 kg
[~2024-11-29] MED LIST changes: +GABA-1172 PO; +MIRA33506 PO; +MORP30TASA PO; +OXYC20TA64 PO; +PROC10TA5 PO; -SPIR-10; +SPIR-10 PO; +TIZA4CAP3 PO
[2024-11-29 10:37] VITALS: BP 121/71; O2SAT 94
== END ==
LOC: M PAL 10:15
PROVIDERS: ATTEND Physician Assistant
DX: Z51.5 Encounter for palliative care (principal); C79.51 Secondary malignant neoplasm of bone; Z79.891 Long term (current) use of opiate analgesic; Z79.899 Other long term (current) drug therapy

== ENCOUNTER 2025-01-23 22:52 | Emergency (ER) | payer MEDICARE ==
[~2025-01-23] VITALS: Ht 172.7 cm; Wt 75.0 kg
[~2025-01-23 22:52] MED LIST changes: +ADDE1TAB20 PO; +BACT800T5 PO; +LASI20TA3 PO; +LIDO30CR18 TOP; +LISI40TA10 PO; -LISI40TA4 PO; +MORP-138 PO; +OXYB5TAB14 PO; +PYRI1TAB5 PO
[2025-01-24] VITALS (8 sets, daily range): BP systolic 112–175; BP diastolic 78–110; TEMP 96.9–98.2; O2SAT 93–96
[2025-01-24 01:09] LABS: BASO # 0.0 10^3/uL (0.0-0.2); BASO % 1.0 % (0.0-1.0); EOS # 0.0 10^3/uL (0.0-0.5); EOS % 1.0 % (0.0-3.0); LYMPH # 0.2 10^3/uL (1.5-5.0); LYMPH % 17.8 % (24.0-44.0); MONO # 0.0 10^3/uL (0.0-0.8); MONO % 2.0 % (2.0-8.0); NEUTROPHILS % 78.2 % (36.0-66.0)
[2025-01-24 01:34] LABS: NEUTROPHILS # 0.8 10^3/uL (1.5-8.5); PLATELET COUNT, AUTOMATED 47 10^3/uL (150-450)
[2025-01-24 01:35] LABS: ETHYL ALCOHOL (ETHANOL) < 0.003 % (0.000-0.010)
[2025-01-24 01:36] LABS: CALCIUM LEVEL 8.6 MG/DL (8.3-10.6); CARBON DIOXIDE LEVEL 27 MMOL/L (20-31); CHLORIDE LEVEL 90 MMOL/L (98-107); CK-MB VALUE MASS 1.3 NG/ML (<3.6); CPK CREATINE PHOSPHOKINASE 46 U/L (46-171); CREATININE FOR GFR 1.12 MG/DL (0.70-1.30); GLOMERULAR FILTRATION RATE 68.5 (>42); MB/CK RELATIVE INDEX 2.82 (< OR =4); POTASSIUM SERUM 4.3 MMOL/L (3.5-5.1); SODIUM LEVEL 125 MMOL/L (136-145)
[2025-01-24 02:51] LABS: CK-MB VALUE MASS < 1.0 NG/ML (<3.6)
[2025-01-24 02:52] LABS: CPK CREATINE PHOSPHOKINASE 43 U/L (46-171)
[2025-01-24] MEDS: SPIRONOLACTONE 12.5MG PER 1/2 TABLET PO STA (07:58)
[2025-01-24] MEDS ORDERED: OXYC10TA12 PO (09:12)
[2025-01-24] MEDS ORDERED: PYRI1TAB5 PO (09:12)
[2025-01-24] MEDS ORDERED: SENN-23 PO (09:12)
[2025-01-24] MEDS ORDERED: ADDE1TAB20 PO (09:12)
[2025-01-24] MEDS ORDERED: OXYB5TAB14 PO (09:12)
[2025-01-24] MEDS ORDERED: MORP-69 PO (09:12)
[2025-01-24] MEDS ORDERED: GABA-1172 PO (09:12)
[2025-01-24] MEDS ORDERED: HOME MED LIST COMPLETE! XX SCH (09:20)
[2025-01-24] MEDS ORDERED: ISOVUE-370 76% 100 ML VIAL As Ordered ONE (10:00)
[2025-01-24] MEDS: LOSARTAN 50 MG TABLET PO ONE (10:17)
[2025-01-26] MEDS ORDERED: GABA-1172 PO (10:35)
[2025-01-26] MEDS ORDERED: TAMS-18 PO (10:35)
[2025-01-26] MEDS ORDERED: TRAZ-252 PO (10:35)
== END 2025-01-24 11:05 | disposition home or self-care (01) ==
LOC: EDBD 22:52 → M ED 22:52
DX: S01.81XA Laceration without foreign body of other part of head, initial encounter (principal); D61.818 Other pancytopenia; Y92.019 Unspecified place in single-family (private) house as the place of occurrence of the external cause; Y93.9 Activity, unspecified; Y99.9 Unspecified external cause status; W01.198A Fall on same level from slipping, tripping and stumbling with subsequent striking against other object, initial encounter; I10 Essential (primary) hypertension; E78.5 Hyperlipidemia, unspecified; F10.10 Alcohol abuse, uncomplicated; Z79.899 Other long term (current) drug therapy
CPT/HCPCS: 12002; 36415; 70450; 71045; 71275; 72125; 80047; 80048; 82077; 82550; 82553; 83605; 84443; 84484; 85025; 85049; 85055; 86850; 86900; 86901; 86920; 93005; 93041; 93970; 94760; 99285; P9016; Q9967

== ENCOUNTER → 2025-01-26 | Outpatient (CLI) | payer MEDICARE ==
[~2025-01-26] VITALS: Ht 170.2 cm; Wt 75.9 kg
[~2025-01-26] MED LIST changes: +MORP-69 PO; +SENN-23 PO; +TAMS-18 PO; +TRAZ-252 PO
[2025-01-26 09:43] VITALS: BP 130/80; O2SAT 95
== END ==
LOC: M PAL 09:22
PROVIDERS: ATTEND Physician Assistant
DX: Z51.5 Encounter for palliative care (principal); C79.51 Secondary malignant neoplasm of bone; C64.2 Malignant neoplasm of left kidney, except renal pelvis; R52 Pain, unspecified; R35.1 Nocturia; G47.00 Insomnia, unspecified; Z79.891 Long term (current) use of opiate analgesic; Z79.899 Other long term (current) drug therapy

== ENCOUNTER → 2025-02-08 | Outpatient (CLI) | payer MEDICARE ==
[~2025-02-08] VITALS: Ht 172.7 cm; Wt 75.8 kg
[~2025-02-08] MED LIST changes: +ONDA-284 PO; +VALI5TAB PO
[2025-02-08 09:44] VITALS: BP 138/80; O2SAT 97
== END ==
LOC: M PAL 09:24
PROVIDERS: ATTEND Physician Assistant
DX: Z51.5 Encounter for palliative care (principal); C72.0 Malignant neoplasm of spinal cord; C79.51 Secondary malignant neoplasm of bone; Z79.891 Long term (current) use of opiate analgesic; Z99.89 Dependence on other enabling machines and devices; Z79.899 Other long term (current) drug therapy; Z79.02 Long term (current) use of antithrombotics/antiplatelets

== ENCOUNTER → 2025-02-13 | Outpatient (CLI) | payer MEDICARE ==
[~2025-02-13] MED LIST changes: +ATOR40TA75 PO; +NORV5TAB PO; +OLAN1TAB16 PO; +med rec comment
== END ==
LOC: M ONCR 08:48 → EDSTATUS 11:00 → M ONCR 03-11 15:10
PROVIDERS: ATTEND General Practice
DX: C79.51 Secondary malignant neoplasm of bone (principal); G95.20 Unspecified cord compression; Z92.3 Personal history of irradiation; Z92.21 Personal history of antineoplastic chemotherapy; Z92.29 Personal history of other drug therapy; Z79.899 Other long term (current) drug therapy

== ENCOUNTER → 2025-02-22 | Outpatient (CLI) | payer MEDICARE ==
[~2025-02-22] VITALS: Ht 170.2 cm; Wt 75.9 kg
[~2025-02-22] MED LIST changes: -ATOR40TA75 PO; -NORV5TAB PO; -med rec comment
[2025-02-22 10:19] VITALS: BP 162/80; O2SAT 95
== END ==
LOC: M PAL 09:53
PROVIDERS: ATTEND Physician Assistant
DX: Z51.5 Encounter for palliative care (principal); C67.9 Malignant neoplasm of bladder, unspecified; C79.51 Secondary malignant neoplasm of bone; Z79.891 Long term (current) use of opiate analgesic; Z79.899 Other long term (current) drug therapy; Z79.02 Long term (current) use of antithrombotics/antiplatelets

== ENCOUNTER → 2025-03-02 | Outpatient (CLI) | payer MEDICARE | LOC: M RAD 14:58 | PROVIDERS: ATTEND Internal Medicine Medical Oncology | DX: C67.9 Malignant neoplasm of bladder, unspecified (principal); K76.89 Other specified diseases of liver; J84.10 Pulmonary fibrosis, unspecified; N28.1 Cyst of kidney, acquired; M47.817 Spondylosis without myelopathy or radiculopathy, lumbosacral region; M43.17 Spondylolisthesis, lumbosacral region ==

== ENCOUNTER 2025-03-08 19:30 | Inpatient (IN) | payer MEDICARE ==
[~2025-03-08] VITALS: Ht 170.2 cm; Wt 73.5 kg
[~2025-03-08 19:30] MED LIST changes: -ATOR40TA75 PO; -NORV5TAB PO; -med rec comment
[2025-03-08 20:27] LABS: BASO # 0.0 10^3/uL (0.0-0.2); BASO % 1.0 % (0.0-1.0); EOS # 0.0 10^3/uL (0.0-0.5); EOS % 1.0 % (0.0-3.0); LYMPH # 0.4 10^3/uL (1.5-5.0); LYMPH % 37.5 % (24.0-44.0); MONO # 0.0 10^3/uL (0.0-0.8); MONO % 4.2 % (2.0-8.0); NEUTROPHILS % 55.3 % (36.0-66.0)
[2025-03-08 20:30] LABS: NEUTROPHILS # 0.5 10^3/uL (1.5-8.5); PLATELET COUNT, AUTOMATED 12 10^3/uL (150-450)
[2025-03-08 20:44] LABS: ALT/SGPT 28.0 U/L (7.0-40); AST/SGOT 32.0 U/L (<34); CALCIUM LEVEL 8.7 MG/DL (8.3-10.6); CARBON DIOXIDE LEVEL 28.0 MMOL/L (20-31); CHLORIDE LEVEL 98.0 MMOL/L (98-107); CREATININE FOR GFR 0.94 MG/DL (0.70-1.30); GLOMERULAR FILTRATION RATE 84.5 (>42); INR 0.96; POTASSIUM SERUM 4.2 MMOL/L (3.5-5.1); SODIUM LEVEL 135.0 MMOL/L (136-145)
[2025-03-08] MEDS ORDERED: ATOR40TA75 PO (21:37)
[2025-03-08] MEDS ORDERED: med rec comment (21:39)
[2025-03-08] MEDS ORDERED: HOME MED LIST COMPLETE! XX SCH (21:40)
[2025-03-08 22:22] VITALS: BP 151/94; TEMP 97.8; O2SAT 97
[2025-03-08] MEDS ORDERED: ONDANSETRON 4MG ORAL DISINTEGRATING TAB PO PRN (23:35)
[2025-03-08] MEDS: TELMISARTAN 20 MG TAB PO SCH (23:35)
[2025-03-09] VITALS (34 sets, daily range): BP systolic 118–161; BP diastolic 80–98; TEMP 97.1–97.8; O2SAT 95–98
[2025-03-09] MEDS: ACETAMINOPHEN 325 MG TAB PO PRN (00:13)
[2025-03-09] MEDS: OLANZapine 5 MG TAB PO SCH (00:13)
[2025-03-09 02:19] LABS: PLATELET COUNT, AUTOMATED 24 10^3/uL (150-450)
[2025-03-09 02:25] LABS: ERYTHROCYTE SEDIMENTATION RATE 8 mm/hr (0-20)
[2025-03-09 02:54] LABS: ATYPICAL LYMPH 1 % (0-5); EOSINOPHILS 2 % (0-3); LYMPHOCYTES 16 % (16-44); MONOCYTES 1 % (0-5); NEUTROPHILS 80 % (28-66); PLATELET ESTIMATE MARKED DECREASE (NORMAL)
[2025-03-09 03:10] LABS: C REACTIVE PROTEIN QUANTITATIV 1.22 MG/DL (<1.0)
[2025-03-09 07:36] LABS: BASO # 0.0 10^3/uL (0.0-0.2); BASO % 0.0 % (0.0-1.0); EOS # 0.0 10^3/uL (0.0-0.5); EOS % 1.7 % (0.0-3.0); LYMPH # 0.3 10^3/uL (1.5-5.0); LYMPH % 25.8 % (24.0-44.0); MONO # 0.1 10^3/uL (0.0-0.8); MONO % 5.0 % (2.0-8.0); NEUTROPHILS % 66.7 % (36.0-66.0)
[2025-03-09 07:40] LABS: PLATELET COUNT, AUTOMATED 28 10^3/uL (150-450)
[2025-03-09 07:42] LABS: NEUTROPHILS # 0.8 10^3/uL (1.5-8.5)
[2025-03-09 08:04] LABS: ALT/SGPT 24.0 U/L (7.0-40); AST/SGOT 28.0 U/L (<34); CALCIUM LEVEL 8.9 MG/DL (8.3-10.6); CARBON DIOXIDE LEVEL 28.0 MMOL/L (20-31); CHLORIDE LEVEL 99.0 MMOL/L (98-107); CREATININE FOR GFR 0.92 MG/DL (0.70-1.30); GLOMERULAR FILTRATION RATE 86.8 (>42); MAGNESIUM LEVEL 1.8 MG/DL (1.8-2.4); POTASSIUM SERUM 4.1 MMOL/L (3.5-5.1); SODIUM LEVEL 135.0 MMOL/L (136-145)
[2025-03-09] MEDS: PANTOPRAZOLE 40MG VIAL IV SCH (10:28)
[2025-03-09] MEDS: SPIRONOLACTONE 12.5MG PER 1/2 TABLET PO SCH (10:29)
[2025-03-09] MEDS: ATORVASTATIN 20 MG TAB PO SCH (10:29)
[2025-03-09] MEDS: FILGRASTIM 300 MCG/0.5 ML SYRINGE **SC ADMINISTRATION ONLY SC SCH (12:20)
[2025-03-09 15:51] LABS: BASO # 0.0 10^3/uL (0.0-0.2); BASO % 0.0 % (0.0-1.0); EOS # 0.0 10^3/uL (0.0-0.5); EOS % 0.4 % (0.0-3.0); LYMPH # 0.3 10^3/uL (1.5-5.0); LYMPH % 10.7 % (24.0-44.0); MONO # 0.1 10^3/uL (0.0-0.8); MONO % 3.1 % (2.0-8.0); NEUTROPHILS # 2.2 10^3/uL (1.5-8.5); NEUTROPHILS % 85.4 % (36.0-66.0)
[2025-03-09 15:56] LABS: PLATELET COUNT, AUTOMATED 24 10^3/uL (150-450)
[2025-03-09 19:47] LABS: BASO # 0.0 10^3/uL (0.0-0.2); BASO % 0.0 % (0.0-1.0); EOS # 0.0 10^3/uL (0.0-0.5); EOS % 0.2 % (0.0-3.0); LYMPH # 0.3 10^3/uL (1.5-5.0); LYMPH % 5.9 % (24.0-44.0); MONO # 0.1 10^3/uL (0.0-0.8); MONO % 2.0 % (2.0-8.0); NEUTROPHILS # 4.0 10^3/uL (1.5-8.5); NEUTROPHILS % 91.2 % (36.0-66.0)
[2025-03-09 19:48] LABS: PLATELET COUNT, AUTOMATED 40 10^3/uL (150-450)
[2025-03-09] MEDS: PROCHLORPERAZINE 5MG TAB PO PRN (20:53)
[2025-03-10] VITALS (17 sets, daily range): BP systolic 139–182; BP diastolic 88–110; TEMP 98–98.4; O2SAT 93–97
[2025-03-10 06:39] LABS: PLATELET COUNT, AUTOMATED 39 10^3/uL (150-450)
[2025-03-10 07:02] LABS: CALCIUM LEVEL 8.8 MG/DL (8.3-10.6); CARBON DIOXIDE LEVEL 28.0 MMOL/L (20-31); CHLORIDE LEVEL 101.0 MMOL/L (98-107); CREATININE FOR GFR 0.91 MG/DL (0.70-1.30); GLOMERULAR FILTRATION RATE 87.9 (>42); POTASSIUM SERUM 4.1 MMOL/L (3.5-5.1); SODIUM LEVEL 137.0 MMOL/L (136-145)
[2025-03-10] MEDS: amLODIPine 5 MG TAB PO ONE (09:13)
[2025-03-10] MEDS ORDERED: NORV5TAB PO (10:08)
== END 2025-03-10 12:59 | disposition home or self-care (01) | DRG 809 ==
LOC: M ED 19:30 → M ED INP 23:31 → M PCU 03-09 00:40
PROVIDERS: ADMIT Student in an Organized Health Care Education/Training Program; ATTEND Internal Medicine
DX: D61.810 Antineoplastic chemotherapy induced pancytopenia (principal); C79.51 Secondary malignant neoplasm of bone; C68.0 Malignant neoplasm of urethra; I10 Essential (primary) hypertension; E78.5 Hyperlipidemia, unspecified; D69.6 Thrombocytopenia, unspecified; I16.0 Hypertensive urgency; I48.91 Unspecified atrial fibrillation; D70.9 Neutropenia, unspecified; Z92.3 Personal history of irradiation; Z79.69 Long term (current) use of other immunomodulators and immunosuppressants; Z79.01 Long term (current) use of anticoagulants; Z79.899 Other long term (current) drug therapy; T45.1X5A Adverse effect of antineoplastic and immunosuppressive drugs, initial encounter

== ENCOUNTER → 2025-03-08 | Outpatient (REF) | payer MEDICARE ==
[~2025-03-08] MED LIST changes: +ATOR40TA75 PO; +NORV5TAB PO; +med rec comment
[2025-03-08 18:48] LABS: PLATELET COUNT, AUTOMATED 15 10^3/uL (150-450)
== END ==
LOC: M LAB REF 17:20
PROVIDERS: ATTEND Internal Medicine
DX: D61.810 Antineoplastic chemotherapy induced pancytopenia (principal)

== ENCOUNTER → 2025-03-21 | Outpatient (CLI) | payer MEDICARE ==
[~2025-03-21] VITALS: Ht 170.2 cm; Wt 73.1 kg
[~2025-03-21] MED LIST changes: +ATOR40TA75 PO; +NORV5TAB PO; +med rec comment
[2025-03-21 10:46] VITALS: BP 182/100; O2SAT 95
== END ==
LOC: M PAL 10:30
PROVIDERS: ATTEND Physician Assistant
DX: Z51.5 Encounter for palliative care (principal); C67.9 Malignant neoplasm of bladder, unspecified; C79.51 Secondary malignant neoplasm of bone; Z79.891 Long term (current) use of opiate analgesic; G47.33 Obstructive sleep apnea (adult) (pediatric); Z99.89 Dependence on other enabling machines and devices; Z79.899 Other long term (current) drug therapy; Z79.02 Long term (current) use of antithrombotics/antiplatelets

== ENCOUNTER → 2025-04-02 | Outpatient (CLI) | payer MEDICARE | LOC: M PLARAD 13:24 | PROVIDERS: ATTEND Internal Medicine Medical Oncology | DX: C67.8 Malignant neoplasm of overlapping sites of bladder (principal) | CPT/HCPCS: 78815; A9552 ==

== ENCOUNTER 2025-04-09 22:01 | Inpatient (IN) | payer MEDICARE ==
[~2025-04-09] VITALS: Ht 172.7 cm; Wt 69.5 kg
[2025-04-09 22:43] LABS: BASO # 0.0 10^3/uL (0.0-0.2); BASO % 0.3 % (0.0-1.0); EOS # 0.1 10^3/uL (0.0-0.5); EOS % 0.6 % (0.0-3.0); LYMPH # 0.5 10^3/uL (1.5-5.0); LYMPH % 4.6 % (24.0-44.0); MONO # 1.0 10^3/uL (0.0-0.8); MONO % 9.7 % (2.0-8.0); NEUTROPHILS # 8.8 10^3/uL (1.5-8.5); NEUTROPHILS % 84.2 % (36.0-66.0); PLATELET COUNT, AUTOMATED 268 10^3/uL (150-450)
[2025-04-09 23:05] LABS: CALCIUM LEVEL 6.5 MG/DL (8.3-10.6); CARBON DIOXIDE LEVEL 22.0 MMOL/L (20-31); CHLORIDE LEVEL 100.0 MMOL/L (98-107); CREATININE FOR GFR 1.33 MG/DL (0.70-1.30); GLOMERULAR FILTRATION RATE 55.7 (>42); POTASSIUM SERUM 4.6 MMOL/L (3.5-5.1); SODIUM LEVEL 131.0 MMOL/L (136-145)
[2025-04-09] MEDS: NS 0.9% IV ONE (23:24)
[2025-04-09] MEDS: [UNRECOGNIZED DRUG - OTHER] IV ONE (23:24)
[2025-04-09 23:31] LABS: MAGNESIUM LEVEL 1.9 MG/DL (1.8-2.4)
[2025-04-09] MEDS: CALCIUM GLUCONATE 1,000 MG in DEXTROSE 5% (D5W) MINI-BAG PLU 100 ML IV ONE (23:41)
[2025-04-10] VITALS (12 sets, daily range): BP systolic 92–157; BP diastolic 59–92; TEMP 96.7–98.6; O2SAT 93–99
[2025-04-10] MEDS: NOREPINEPHRINE 4MG IN D5 250ML 4 MG in IV 1 EA IV SCH (00:01)
[2025-04-10 01:21] LABS: KETONE, URINE AUTO RFX TRACE mg/dL (NEGATIVE); LEUKOCYTE ESTERASE UR AUTO RFX NEGATIVE (NEGATIVE); MUCUS, URINE RFX SMALL (NEGATIVE); NITRITE, URINE AUTO RFX NEGATIVE (NEGATIVE); RBC, URINE AUTO RFX 1 /HPF (0-3); SQUAM EPITHELIAL CELL UR AURFX 0 /HPF (0-6); WBC, URINE AUTO RFX 2 /HPF (0-3)
[2025-04-10] MEDS ORDERED: NOREPINEPHRINE 4MG IN D5 250ML 4 MG in IV 1 EA IV SCH (03:30)
[2025-04-10] MEDS ORDERED: HEPARIN LOCK FLUSH 100 UNITS/ML 3 ML SYRINGE IV PRN (03:30)
[2025-04-10] MEDS ORDERED: SODIUM CHLORIDE 0.9% INJ 10 ML SYR IV PRN (03:30)
[2025-04-10 07:36] LABS: PLATELET COUNT, AUTOMATED 279 10^3/uL (150-450)
[2025-04-10] MEDS: SODIUM CHLORIDE 0.9% INJ 10 ML SYR IV SCH (08:01)
[2025-04-10] MEDS: HEPARIN LOCK FLUSH 100 UNITS/ML 3 ML SYRINGE IV SCH (08:01)
[2025-04-10 08:06] LABS: ALT/SGPT 15.0 U/L (7.0-40); AST/SGOT 27.0 U/L (<34); CALCIUM LEVEL 6.8 MG/DL (8.3-10.6); CARBON DIOXIDE LEVEL 22.0 MMOL/L (20-31); CHLORIDE LEVEL 104.0 MMOL/L (98-107); CREATININE FOR GFR 1.03 MG/DL (0.70-1.30); GLOMERULAR FILTRATION RATE 75.8 (>42); MAGNESIUM LEVEL 1.9 MG/DL (1.8-2.4); PHOSPHORUS LEVEL 1.7 MG/DL (2.4-5.1); POTASSIUM SERUM 4.5 MMOL/L (3.5-5.1); SODIUM LEVEL 132.0 MMOL/L (136-145)
[2025-04-10] MEDS: PANTOPRAZOLE 40MG VIAL IV SCH (09:10)
[2025-04-10] MEDS: CALCIUM GLUCONATE 1,000 MG in DEXTROSE 5% (D5W) MINI-BAG PLU 100 ML IV ONE (09:10)
[2025-04-10] MEDS ORDERED: HOME MED LIST COMPLETE! XX SCH (12:10)
[2025-04-10] MEDS ORDERED: TRAZ-252 PO (12:10)
[2025-04-10] MEDS: SODIUM PHOSPHATE INJ 30 MMOL in D5W 500 ML IV ONE (12:11)
[2025-04-10] MEDS: TELMISARTAN 20 MG TAB PO SCH (20:09)
[2025-04-10] MEDS: RAMELTEON 8 MG TAB PO SCH (21:33)
[2025-04-11 01:17] VITALS: BP 151/99; TEMP 98.2; O2SAT 95
[2025-04-11 04:16] VITALS: BP 135/88; TEMP 97.5; O2SAT 97
[2025-04-11] MEDS: LIDOCAINE 5% PATCH TD SCH (06:16)
[2025-04-11 06:19] LABS: PLATELET COUNT, AUTOMATED 261 10^3/uL (150-450)
[2025-04-11 06:52] LABS: CALCIUM LEVEL 6.7 MG/DL (8.3-10.6); CARBON DIOXIDE LEVEL 24.0 MMOL/L (20-31); CHLORIDE LEVEL 104.0 MMOL/L (98-107); CREATININE FOR GFR 0.9 MG/DL (0.70-1.30); GLOMERULAR FILTRATION RATE 88.5 (>42); IRON (FE) 31.0 UG/DL (65-175); POTASSIUM SERUM 4.1 MMOL/L (3.5-5.1); SODIUM LEVEL 133.0 MMOL/L (136-145)
[2025-04-11 08:52] VITALS: BP_SYST 121; BP_SYST 143; BP_SYST 144; BP_DIAS 78; BP_DIAS 94
[2025-04-11] MEDS ORDERED: TELM1TAB35 PO (10:43)
[2025-04-11 12:00] VITALS: BP 133/94; TEMP 97.5; O2SAT 96
== END 2025-04-11 12:59 | disposition home or self-care (01) | DRG 315 ==
LOC: M ED 22:01 → M ED INP 04-10 03:28 → M ICU 04-10 04:50 → M MSPAV 04-11 01:13
PROVIDERS: ADMIT Internal Medicine Critical Care Medicine; ATTEND Student in an Organized Health Care Education/Training Program
PROC: 30233N1 Transfusion of Nonautologous Red Blood Cells into Peripheral Vein, Percutaneous Approach (ICD-10-PCS; principal; 2025-04-10)
DX: I95.9 Hypotension, unspecified (principal); C68.0 Malignant neoplasm of urethra; C79.51 Secondary malignant neoplasm of bone; Z66 Do not resuscitate; T46.5X5A Adverse effect of other antihypertensive drugs, initial encounter; E86.0 Dehydration; I10 Essential (primary) hypertension; E78.5 Hyperlipidemia, unspecified; D69.6 Thrombocytopenia, unspecified; D63.0 Anemia in neoplastic disease; Z90.49 Acquired absence of other specified parts of digestive tract; Z79.899 Other long term (current) drug therapy; Z92.3 Personal history of irradiation; Z92.21 Personal history of antineoplastic chemotherapy; R55 Syncope and collapse

== ENCOUNTER 2025-04-22 11:24 | Inpatient (IN) | payer MEDICARE ==
[~2025-04-22] VITALS: Ht 182.9 cm; Wt 69.5 kg
[~2025-04-22 11:24] MED LIST changes: +TELM1TAB35 PO
[2025-04-22 11:58] LABS: BASO # 0.1 10^3/uL (0.0-0.2); BASO % 0.6 % (0.0-1.0); EOS # 0.1 10^3/uL (0.0-0.5); EOS % 1.1 % (0.0-3.0); LYMPH # 1.1 10^3/uL (1.5-5.0); LYMPH % 13.6 % (24.0-44.0); MONO # 1.2 10^3/uL (0.0-0.8); MONO % 14.6 % (2.0-8.0); NEUTROPHILS # 5.3 10^3/uL (1.5-8.5); NEUTROPHILS % 67.0 % (36.0-66.0); PLATELET COUNT, AUTOMATED 247 10^3/uL (150-450)
[2025-04-22 12:09] LABS: INR 1.17
[2025-04-22 12:24] LABS: CK-MB VALUE MASS < 1.0 NG/ML (<3.6)
[2025-04-22 12:25] LABS: OSMOLALITY SERUM 286 MOSM/KG (280-301)
[2025-04-22 12:26] LABS: ALT/SGPT 26 U/L (7.0-40); AST/SGOT 69 U/L (<34); MAGNESIUM LEVEL 2.1 MG/DL (1.8-2.4)
[2025-04-22 12:33] LABS: CPK CREATINE PHOSPHOKINASE 243 U/L (46-171)
[2025-04-22] MEDS: NS (Normal Saline) 0.9% 1,000 ML IV ONE ×2 (13:13→17:03)
[2025-04-22] MEDS ORDERED: OLAN1TAB16 PO (14:44)
[2025-04-22] MEDS ORDERED: TELM1TAB35 PO (14:44)
[2025-04-22] MEDS ORDERED: HOME MED LIST COMPLETE! XX SCH (15:05)
[2025-04-22] MEDS ORDERED: ISOVUE-370 76% 100 ML VIAL As Ordered ONE (15:09)
[2025-04-22 15:40] LABS: VENOUS BASE EXCESS -2.3 (-2.0-2.0); VENOUS HCO3 22.3 MMOL/L (23.0-27.0); VENOUS O2 SATURATION 69.0 % (60.0-80.0); VENOUS PARTIAL PRESSURE CO2 37.4 mmHg (38.0-50.0); VENOUS PARTIAL PRESSURE O2 35.6 mmHg (30.0-50.0); VENOUS PH 7.394 UNITS (7.330-7.430); VENOUS STANDARD HCO3 22.1 MMOL/L; VENOUS TOTAL CO2 23.5 MMOL/L (24.0-28.0)
[2025-04-22 16:09] LABS: KETONE, URINE AUTO RFX NEGATIVE (NEGATIVE); LEUKOCYTE ESTERASE UR AUTO RFX NEGATIVE (NEGATIVE); MUCUS, URINE RFX SMALL (NEGATIVE); NITRITE, URINE AUTO RFX NEGATIVE (NEGATIVE); RBC, URINE AUTO RFX 0 /HPF (0-3); SQUAM EPITHELIAL CELL UR AURFX 0 /HPF (0-6); WBC, URINE AUTO RFX 0 /HPF (0-3)
[2025-04-22] MEDS: LIDOCAINE 2% 5 ML JELLY UROJET TOP ONE (16:09)
[2025-04-22 16:31] LABS: AMPHETAMINES LEVEL URINE NEGATIVE (NEGATIVE); BARBITURATES URINE NEGATIVE (NEGATIVE); BENZODIAZEPINES URINE NEGATIVE (NEGATIVE); CANNABINOIDS URINE NEGATIVE (NEGATIVE); COCAINE METABOLITE URINE NEGATIVE (NEGATIVE); METHADONE URINE NEGATIVE (NEGATIVE); PHENCYCLIDINE URINE NEGATIVE (NEGATIVE)
[2025-04-22 16:39] LABS: OPIATES URINE POSITIVE (NEGATIVE)
[2025-04-22] MEDS ORDERED: amLODIPine 5 MG TAB PO PRN (19:00)
[2025-04-22 19:52] LABS: CALCIUM LEVEL 6.8 MG/DL (8.3-10.6); CARBON DIOXIDE LEVEL 21.0 MMOL/L (20-31); CHLORIDE LEVEL 103.0 MMOL/L (98-107); CK-MB VALUE MASS 3.4 NG/ML (<3.6); CPK CREATINE PHOSPHOKINASE 313.0 U/L (46-171); CREATININE FOR GFR 0.91 MG/DL (0.70-1.30); GLOMERULAR FILTRATION RATE 87.4 (>42); MB/CK RELATIVE INDEX 1.08 (< OR =4); POTASSIUM SERUM 4.4 MMOL/L (3.5-5.1); SODIUM LEVEL 134.0 MMOL/L (136-145)
[2025-04-22 20:09] VITALS: BP 156/80; TEMP 98; O2SAT 92
[2025-04-22] MEDS: OLANZapine 5 MG TAB PO SCH (20:38)
[2025-04-22 23:47] VITALS: BP 133/79; TEMP 99; O2SAT 92
[2025-04-23] VITALS (12 sets, daily range): BP systolic 101–171; BP diastolic 68–93; TEMP 98.1–101.7; O2SAT 92–97
[2025-04-23 04:04] LABS: BASO # 0.0 10^3/uL (0.0-0.2); BASO % 0.6 % (0.0-1.0); EOS # 0.0 10^3/uL (0.0-0.5); EOS % 0.3 % (0.0-3.0); LYMPH # 0.3 10^3/uL (1.5-5.0); LYMPH % 4.8 % (24.0-44.0); MONO # 1.0 10^3/uL (0.0-0.8); MONO % 13.6 % (2.0-8.0); NEUTROPHILS # 5.7 10^3/uL (1.5-8.5); NEUTROPHILS % 80.0 % (36.0-66.0); PLATELET COUNT, AUTOMATED 233 10^3/uL (150-450)
[2025-04-23 04:34] LABS: CALCIUM LEVEL 7.0 MG/DL (8.3-10.6); CARBON DIOXIDE LEVEL 20.0 MMOL/L (20-31); CHLORIDE LEVEL 102.0 MMOL/L (98-107); CREATININE FOR GFR 0.93 MG/DL (0.70-1.30); GLOMERULAR FILTRATION RATE 85.1 (>42); POTASSIUM SERUM 4.4 MMOL/L (3.5-5.1); SODIUM LEVEL 132.0 MMOL/L (136-145)
[2025-04-23] MEDS: amLODIPine 5 MG TAB PO SCH (09:00)
[2025-04-23] MEDS: ATORVASTATIN 20 MG TAB PO SCH (09:19)
[2025-04-23] MEDS: ACETAMINOPHEN 325 MG TAB PO PRN (16:17)
[2025-04-23] MEDS: PIPERACILLIN/TAZOBACTAM SOD 3.375 GM in DEXTROSE 5% (D5W) ADV/MINI-BAG 50 ML IV SCH (18:40)
[2025-04-23] MEDS: MORPHINE SULFATE TAB IMM. REL. 15 MG PO PRN (19:30)
[2025-04-24] VITALS (22 sets, daily range): BP systolic 103–164; BP diastolic 57–95; TEMP 97.5–103.1; O2SAT 86–96
[2025-04-24 05:30] LABS: BASO # 0.0 10^3/uL (0.0-0.2); BASO % 0.5 % (0.0-1.0); EOS # 0.1 10^3/uL (0.0-0.5); EOS % 0.8 % (0.0-3.0); LYMPH # 0.4 10^3/uL (1.5-5.0); LYMPH % 4.9 % (24.0-44.0); MONO # 0.9 10^3/uL (0.0-0.8); MONO % 11.8 % (2.0-8.0); NEUTROPHILS # 6.5 10^3/uL (1.5-8.5); NEUTROPHILS % 81.5 % (36.0-66.0); PLATELET COUNT, AUTOMATED 248 10^3/uL (150-450)
[2025-04-24 06:00] LABS: CALCIUM LEVEL 7.4 MG/DL (8.3-10.6); CARBON DIOXIDE LEVEL 24.0 MMOL/L (20-31); CHLORIDE LEVEL 102.0 MMOL/L (98-107); CREATININE FOR GFR 1.03 MG/DL (0.70-1.30); GLOMERULAR FILTRATION RATE 75.3 (>42); POTASSIUM SERUM 4.3 MMOL/L (3.5-5.1); SODIUM LEVEL 136.0 MMOL/L (136-145)
[2025-04-24] MEDS ORDERED: AZITHROMYCIN INJ 500 MG, VIAL MATE ADAPTER 1 EACH in NS 250 ML IV SCH (08:50)
[2025-04-24] MEDS: NS (Normal Saline) 0.9% 1,000 ML IV SCH (09:26)
[2025-04-24] MEDS: AZITHROMYCIN 250 MG TABLET PO SCH (09:26)
[2025-04-24] MEDS ORDERED: HALOPERIDOL LACTATE 5 MG/ML VIAL IV PRN (11:40)
[2025-04-24 14:38] LABS: CK-MB VALUE MASS < 1.0 NG/ML (<3.6); CPK CREATINE PHOSPHOKINASE 240 U/L (46-171)
[2025-04-24 14:47] LABS: ABG BASE EXCESS -1.5 (-2.0-2.0); ABG HCO3 22.2 MMOL/L (22.0-26.0); ABG O2 SATURATION 95.8 % (95.0-99.0); ABG PARTIAL PRESSURE CO2 33.7 mmHg (35.0-45.0); ABG PARTIAL PRESSURE O2 78.0 mmHg (75.0-100.0); ABG STANDARD HCO3 23.2 MMOL/L. (22.0-26.0); ABG TOTAL CO2 23.3 MMOL/L (23.0-31.0); ABG pH (ARTERIAL) 7.437 UNITS (7.350-7.450)
[2025-04-24] MEDS: DOCUSATE SODIUM 100 MG CAPSULE PO SCH (20:00)
[2025-04-25] VITALS (20 sets, daily range): BP systolic 104–155; BP diastolic 60–99; TEMP 97.7–99.8; O2SAT 87–97
[2025-04-25 05:22] LABS: BASO # 0.0 10^3/uL (0.0-0.2); BASO % 0.6 % (0.0-1.0); EOS # 0.2 10^3/uL (0.0-0.5); EOS % 2.8 % (0.0-3.0); LYMPH # 0.5 10^3/uL (1.5-5.0); LYMPH % 6.9 % (24.0-44.0); MONO # 0.7 10^3/uL (0.0-0.8); MONO % 10.9 % (2.0-8.0); NEUTROPHILS # 5.3 10^3/uL (1.5-8.5); NEUTROPHILS % 78.2 % (36.0-66.0); PLATELET COUNT, AUTOMATED 253 10^3/uL (150-450)
[2025-04-25 05:44] LABS: CALCIUM LEVEL 6.9 MG/DL (8.3-10.6); CARBON DIOXIDE LEVEL 22.0 MMOL/L (20-31); CHLORIDE LEVEL 102.0 MMOL/L (98-107); CREATININE FOR GFR 0.95 MG/DL (0.70-1.30); GLOMERULAR FILTRATION RATE 83.0 (>42); POTASSIUM SERUM 4.3 MMOL/L (3.5-5.1); SODIUM LEVEL 134.0 MMOL/L (136-145)
[2025-04-25] MEDS: ENOXAPARIN 40 MG/0.4 ML SYRINGE (J1650 PER 10MG) SC SCH (09:51)
[2025-04-25] MEDS: AUGMENTIN 875 MG TAB PO SCH (16:32)
[2025-04-26] VITALS: O2SAT 92
[2025-04-26 03:30] VITALS: O2SAT 95
[2025-04-26 04:41] VITALS: BP 121/77; TEMP 98.4; O2SAT 95
[2025-04-26 06:06] LABS: BASO # 0.0 10^3/uL (0.0-0.2); BASO % 0.6 % (0.0-1.0); EOS # 0.2 10^3/uL (0.0-0.5); EOS % 3.6 % (0.0-3.0); LYMPH # 0.5 10^3/uL (1.5-5.0); LYMPH % 9.3 % (24.0-44.0); MONO # 0.6 10^3/uL (0.0-0.8); MONO % 11.5 % (2.0-8.0); NEUTROPHILS # 3.7 10^3/uL (1.5-8.5); NEUTROPHILS % 74.4 % (36.0-66.0); PLATELET COUNT, AUTOMATED 253 10^3/uL (150-450)
[2025-04-26 06:32] LABS: CALCIUM LEVEL 6.8 MG/DL (8.3-10.6); CARBON DIOXIDE LEVEL 23 MMOL/L (20-31); CHLORIDE LEVEL 104 MMOL/L (98-107); CREATININE FOR GFR 0.84 MG/DL (0.70-1.30); GLOMERULAR FILTRATION RATE > 90.0 (>42); POTASSIUM SERUM 3.7 MMOL/L (3.5-5.1); SODIUM LEVEL 138 MMOL/L (136-145)
[2025-04-26 07:59] VITALS: BP 124/84; TEMP 98; O2SAT 97
[2025-04-26 08:47] VITALS: BP 124/84
[2025-04-26] MEDS ORDERED: AMOX875T2 PO (09:45)
[2025-04-26] MEDS ORDERED: COLA100C5 PO (09:45)
[2025-04-26] MEDS ORDERED: AZIT-12 PO (09:45)
[2025-04-26] MEDS ORDERED: MIRA3350 PO (09:45)
== END 2025-04-26 11:43 | disposition home or self-care (01) | DRG 871 ==
LOC: M ED 11:24 → INTOOBSV 18:17 → M ED INP 18:17 → M PCU 20:04 → OBSVTOIN 04-23 13:46
PROVIDERS: ADMIT Internal Medicine Nephrology; ATTEND Internal Medicine Nephrology
PROC: B246ZZZ Ultrasonography of Right and Left Heart (ICD-10-PCS; principal; 2025-04-24)
DX: A41.9 Sepsis, unspecified organism (principal); J18.9 Pneumonia, unspecified organism; C68.0 Malignant neoplasm of urethra; C79.51 Secondary malignant neoplasm of bone; E87.1 Hypo-osmolality and hyponatremia; J98.11 Atelectasis; D84.9 Immunodeficiency, unspecified; I10 Essential (primary) hypertension; R07.89 Other chest pain; E78.5 Hyperlipidemia, unspecified; D69.6 Thrombocytopenia, unspecified; D64.9 Anemia, unspecified; G47.00 Insomnia, unspecified; G47.33 Obstructive sleep apnea (adult) (pediatric); K59.00 Constipation, unspecified; G89.29 Other chronic pain; R55 Syncope and collapse; I71.21 Aneurysm of the ascending aorta, without rupture; M54.9 Dorsalgia, unspecified; R33.9 Retention of urine, unspecified; Z79.891 Long term (current) use of opiate analgesic; Z90.49 Acquired absence of other specified parts of digestive tract; Z79.899 Other long term (current) drug therapy

== ENCOUNTER → 2025-05-03 | Outpatient (CLI) | payer MEDICARE ==
[~2025-05-03] VITALS: Ht 165.1 cm; Wt 70.4 kg
[~2025-05-03] MED LIST changes: +AMOX875T2 PO; +AZIT-12 PO; +COLA100C5 PO; +MIRA3350 PO
[2025-05-03 10:04] VITALS: BP 161/97; O2SAT 94
== END ==
LOC: M PAL 09:44
PROVIDERS: ATTEND Physician Assistant
DX: Z51.5 Encounter for palliative care (principal); C67.9 Malignant neoplasm of bladder, unspecified; C79.51 Secondary malignant neoplasm of bone; Z79.891 Long term (current) use of opiate analgesic; Z79.899 Other long term (current) drug therapy; Z79.02 Long term (current) use of antithrombotics/antiplatelets; Z79.52 Long term (current) use of systemic steroids

== ENCOUNTER → 2025-05-08 | Outpatient (CLI) | payer MEDICARE | LOC: M RAD 10:39 | PROVIDERS: ATTEND Urology | DX: Z96.0 Presence of urogenital implants (principal) ==

== ENCOUNTER → 2025-05-15 | Outpatient (CLI) | payer MEDICARE ==
[~2025-05-15] VITALS: Ht 170.2 cm; Wt 68.0 kg
[~2025-05-15] MED LIST changes: +DIAZ5TAB; -OXYC20TA64 PO; +OXYC20TA66 PO
[2025-05-15 08:46] VITALS: BP 141/91; O2SAT 94
== END ==
LOC: M PAL 08:29
PROVIDERS: ATTEND Physician Assistant
DX: Z51.5 Encounter for palliative care (principal); Z66 Do not resuscitate; C67.2 Malignant neoplasm of lateral wall of bladder; C79.51 Secondary malignant neoplasm of bone; Z79.891 Long term (current) use of opiate analgesic; Z79.899 Other long term (current) drug therapy
CPT/HCPCS: G0463 ×2

== ENCOUNTER → 2025-05-22 | Outpatient (CLI) | payer MEDICARE ==
[~2025-05-22] MED LIST changes: +OXYC20TA64 PO; -OXYC20TA66 PO
== END ==
LOC: M PAL 08:50
PROVIDERS: ATTEND Family Medicine
DX: Z51.5 Encounter for palliative care (principal); Z66 Do not resuscitate; C67.4 Malignant neoplasm of posterior wall of bladder; C79.51 Secondary malignant neoplasm of bone; Z79.891 Long term (current) use of opiate analgesic; Z79.899 Other long term (current) drug therapy; Z79.02 Long term (current) use of antithrombotics/antiplatelets